=== PATIENT | male | born 1945 | race Caucasian/White ===

== ENCOUNTER 2016-08-21 15:13 | Emergency (ER) | payer OTHER ==
[~2016-08-21] VITALS: Ht 180.3 cm; Wt 121.5 kg
[~2016-08-21 15:13] MED LIST: ADVIN25050 INH; ALBU1AER9 INH; ASPI81TA28 PO; ATOR-26 PO; BUPR150T5 PO; COLE1TAB4 PO; FLUT0.15 NAE; ISOS30TA3 PO; LOSA1TAB PO; METF-384 PO; NTRGSL/4 UT; RIFA550T2 PO; TIOTCAP INH; ZNTT/150 PO
[2016-08-21 15:22] VITALS: TEMP 36.9; Ht 180.3 cm; Wt 121.5 kg
[2016-08-21] MEDS ORDERED: MoRPHine SULFATE 10 MG/ML CARP/VIAL IM STA (15:33)
[2016-08-21] MEDS ORDERED: MoRPHine SULFATE 4 MG/ML 1 ML CARP\\VIAL ONE (15:40)
[2016-08-21] MEDS ORDERED: ONDANSETRON 4MG OD TAB PO ONE (15:45)
--- NOTE | 2016-08-21 16:12 | EMERGENCY ROOM VISIT NOTE ---
ED Visit Note First contact with patient: 15:26 Staff note: I have reviewed the Patients chart and have discussed this case with my PA. I generally agree with the ED note and findings.
--- NOTE | 2016-08-21 16:24 | DIAGNOSTIC IMAGING REPORT ---
LUMBAR SPINE 5 VIEWS HISTORY: Pain L sciatica, h/o back problems COMPARISON: 07/11/2011 FINDINGS: There is no fracture. No subluxation. Degenerative disc change L4-S1 stable from the prior study. No evidence for compression deformity. IMPRESSION: Significant degenerative intervertebral disc change L4-S1. No acute process. No change from the prior exam. Electronically signed by: Luis Stiles M.D. 08/21/2016 4:22 PM Dictated Date/Time: 08/21/2016 4:21 PM
[2016-08-21] MEDS ORDERED: OXYC1TAB3 PO (16:25)
[2016-08-21] MEDS ORDERED: OXYCODONE HCL IR 5 MG TAB (IMMEDIATE RELEASE) PO STA (16:28)
--- NOTE | 2016-08-21 16:34 | EMERGENCY ROOM VISIT NOTE ---
History First contact with patient: 15:26 Chief Complaint: HIP PAIN Stated Complaint: LEFT HIP PAIN History of Present Illness The patient is a 70 year old male who presents to the Emergency Room with complaints of left lower back and buttock pain. The patient reports that he awoke this morning with the pain. He denies any known injury yesterday. He has not sat for long periods of time over the past few days. The patient reports that he has seen a chiropractor in the past for his back. He also denies any left lower extremity weakness, saddle anesthesias or bladder/bowel difficulties/incontinence. The patient rates his discomfort a 10 out of 10. He took several Advil without any relief. Review of Systems 10 system review was performed and was negative except for pertinent positives and negatives as indicated in history of present illness Past Medical/Surgical History Medical Problems: (1) Anxiety (2) CAD (coronary artery disease) (3) Chest pain (4) COPD, mild (5) Diabetes (6) Diastolic dysfunction (7) Dyslipidemia (8) GERD (gastroesophageal reflux disease) (9) HTN (hypertension) (10) PEDRO (obstructive sleep apnea) Surgical Problems: (1) H/O umbilical hernia repair (2) History of inguinal hernia repair, bilateral (3) Hx of hemorrhoidectomy (4) S/P foot surgery, right Family History Diabetes mellitus Heart disease Hypertension Kidney disease Kidney stones Seizures Social History Smoking Status: Former Smoker Alcohol Use: none Drug Use: none Marital Status: in relationship Housing Status: lives with significant other Occupation Status: retired Current/Historical Medications Scheduled Aspirin (Aspirin Ec), 81 MG PO DAILY Atorvastatin (Lipitor), 80 MG PO DAILY Bupropion Hcl (Bupropion Hcl Xl), 150 MG PO DAILY Colestipol Hcl (Micronized Colestipol Hcl), 1 TAB PO DAILY Fluticasone Prop/Salmeterol (Advair Diskus 250/50 Mcg *), 1 PUFF INH BID Fluticasone Propionate (Nasal) (Flonase Allergy Relief), 2 SPRAYS MANSI DAILY Isosorbide Mononitrate Ext Rel (Imdur Ext Rel), 30 MG PO QAM Losartan Potassium (Cozaar), 25 MG PO DAILY Metformin Hcl (Glucophage), 1,000 MG PO BIDM Nitroglycerin (Nitrostat), 0.4 MG UT PRN Ranitidine (Zantac), 150 MG PO BID Rifaximin (Xifaxan), 550 MG PO BID Tiotropium [place] (Spiriva Handihaler), 1 CAP INH DAILY Scheduled PRN Albuterol (Proair Hfa), 2 PUFFS INH Q4H PRN for SOB/Wheezing Oxycodone Ir (Roxicodone Ir), 1-2 TAB PO Q4H PRN for Pain Allergies Coded Allergies: Ezetimibe (Verified Allergy, Intermediate, HIVES, 03/25/16) Pantoprazole (Verified Allergy, Intermediate, HIVES, 03/25/16) Lisinopril (Verified Allergy, Mild, cough, 03/25/16) Codeine (Verified Allergy, Unknown, 03/25/16) Physical Exam Vital Signs Date Time Temp Pulse Resp B/P Pulse Ox O2 Delivery O2 Flow Rate FiO2 08/21/16 15:22 36.9 67 18 137/73 93 Room Air Physical Exam CONSTITUTIONAL: Obese male, alert and oriented X 3 with positive affect. She appears in moderate discomfort from pain. HEENT: Normocephalic, atraumatic. Pupils equal, round and reactive. NECK: Full active range of motion without discomfort. RESPIRATORY: Clear to auscultation bilaterally with no wheezing, crackles, rhonchi or stridor. CARDIOVASCULAR: Regular rate and rhythm with no murmurs, rubs or gallops. GASTROINTESTINAL: Bowel sounds present in all quadrants. Protuberant but soft and nontender to palpation. MUSCULOSKELETAL: Examination shows mild tenderness to palpation through the left lower lumbar spine and SI joints. Negative logroll. Negative sitting straight leg raise. No tenderness to palpation over the greater trochanteric region. Pedal pulses are intact. Ankle plantar/dorsiflexion strength is 5 out of 5 and symmetric bilaterally. INTEGUMENTARY: No rash or other significant dermatologic conditions noted. NEUROLOGIC: No focal neurologic deficits noted. Left extremity is sensory intact. Deep tendon reflexes are 2+ and symmetric bilaterally. Medical Decision & Procedures ER Provider Diagnostic Interpretation: My interpretation of lumbar spine x-rays show significant degenerative disc disease at the L4 5 and L5-S1 level. No acute compression fractures noted. Radiologist report is as follows: LUMBAR SPINE 5 VIEWS HISTORY: Pain L sciatica, h/o back problems COMPARISON: 07/11/2011 FINDINGS: There is no fracture. No subluxation. Degenerative disc change L4-S1 stable from the prior study. No evidence for compression deformity. IMPRESSION: Significant degenerative intervertebral disc change L4-S1. No acute process. No change from the prior exam. Medications Administered Medications (Trade) Dose Ordered Sig/Librado Route Start Time Stop Time Status Last Admin Dose Admin Ondansetron HCl (Zofran Odt) 4 mg ONE ONCE PO 08/21/16 15:45 08/21/16 15:46 DC 08/21/16 15:46 4 MG Morphine Sulfate (MoRPHine SULFATE INJ) 8 mg STK-MED ONCE .ROUTE 08/21/16 15:40 08/21/16 15:42 DC 08/21/16 15:46 8 MG ED Course Patient history and physical exam were performed. Nurse's notes were reviewed. The patient was administered morphine 8 mg IM, and Zofran 4 mg ODT. X-rays of the lumbar spine shows degenerative disc disease at L4 5 and L5-S1. The patient initially reported that the morphine reduced his pain to a 2 out of 10. Only tried to get him up to walk, he had persistent pain. At this point, the patient was administered an additional OxyIR 5 mg orally prior to discharge. The patient was provided a prescription for OxyIR 5 mg, dispensed #24 with no refills. He was encouraged to take Tylenol for baseline pain relief. The patient was instructed to follow-up with his PCP as needed for further management if symptoms are not improving within the next 3-5 days. Return to the emergency Department for uncontrollable pain. The patient was happy with plan of care, voiced understanding of all discharge instructions, and rated his pain a 5 out of 10 at the time of discharge. The patient was also seen and examined by Dr. Hsu, ED attending physician, who agrees with workup and plan of care. Medical Decision Impression Primary Impression: Left sided sciatica Departure Information Prescriptions Oxycodone Ir (Roxicodone Ir) 5 Mg Tab 1-2 TAB PO Q4H Y for Pain, #24 TAB For Initial Treatment Prov: Isiah Navas PA 08/21/16 Referrals Julius Werner MD (PCP) Patient Instructions [facility]
[2016-08-21 17:08] VITALS: BP 112/75; PULSE 62; O2SAT 92
[2016-08-22] MEDS ORDERED: VNTHFA/IN INH (23:41)
[2016-08-22] MEDS ORDERED: SPRIN/30 INH (23:47)
[2016-08-22] MEDS ORDERED: ADVIN25/60 INH (23:47)
== END 2016-08-21 17:25 | disposition home or self-care (01) ==
LOC: C.EDB 15:15 → C.EDD 17:25
DX: M54.42 Lumbago with sciatica, left side (principal); I25.10 Atherosclerotic heart disease of native coronary artery without angina pectoris; J44.9 Chronic obstructive pulmonary disease, unspecified; E11.9 Type 2 diabetes mellitus without complications; E78.5 Hyperlipidemia, unspecified; K21.9 Gastro-esophageal reflux disease without esophagitis; I10 Essential (primary) hypertension; G47.33 Obstructive sleep apnea (adult) (pediatric); Z83.3 Family history of diabetes mellitus; Z82.49 Family history of ischemic heart disease and other diseases of the circulatory system; Z82.0 Family history of epilepsy and other diseases of the nervous system; Z87.891 Personal history of nicotine dependence; Z79.82 Long term (current) use of aspirin

== ENCOUNTER 2016-08-22 22:45 | Emergency (ER) | payer OTHER ==
[~2016-08-22] VITALS: Ht 180.3 cm; Wt 120.2 kg
[~2016-08-22 22:45] MED LIST changes: +OXYC1TAB3 PO
[2016-08-22 22:49] VITALS: TEMP 36.9; Ht 180.3 cm; Wt 120.2 kg
[2016-08-22 23:15] VITALS: PULSE 76; O2SAT 94
[2016-08-22] MEDS ORDERED: VNTHFA/IN INH (23:41)
[2016-08-22] MEDS ORDERED: SPRIN/30 INH (23:47)
[2016-08-22] MEDS ORDERED: ADVIN25/60 INH (23:47)
--- NOTE | 2016-08-23 00:16 | EMERGENCY ROOM VISIT NOTE ---
History Report prepared by Nilesh: Avril Hart Under the Supervision of: Dr. Ruth Ann Pena D.O. First contact with patient: 23:44 Chief Complaint: FLANK PAIN Stated Complaint: LT SIDE LOW BACK PAIN History of Present Illness The patient is a 70 year old male who presents to the Emergency Room with complaints of intermittent left lower back pain that began Sunday morning. He currently rates his discomfort as a 10/10 in severity. The patient states that he woke up Sunday morning with the pain, and notes increased pain with movement. He states that he was evaluated in the emergency department last week for sciatica. The patient states he was prescribed Oxycodone for his discomfort, but denies any relief of his symptoms. Today he notes difficulty walking secondary to the pain, and additionally nausea and vomiting. The patient denies any fever or abdominal pain. He notes that his pain is alleviated with heat and rest. Source of History: patient Onset: Sunday Position: back (lower, left) Symptom Intensity: 10/10 Timing: intermittent Modifying Factors (Worsening): movement Modifying Factors (Relieving): rest, other (heat) Associated Symptoms: + nausea, + vomiting, No abdominal pain, No fevers Review of Systems See HPI for pertinent positives & negatives. A total of 10 systems reviewed and were otherwise negative. Past Medical & Surgical Medical Problems: (1) Anxiety (2) CAD (coronary artery disease) (3) Chest pain (4) COPD, mild (5) Diabetes (6) Diastolic dysfunction (7) Dyslipidemia (8) Gallbladder disease (9) GERD (gastroesophageal reflux disease) (10) HTN (hypertension) (11) PEDRO (obstructive sleep apnea) (12) Pneumonia Surgical Problems: (1) H/O umbilical hernia repair (2) History of cholecystectomy (3) History of inguinal hernia repair, bilateral (4) Hx of hemorrhoidectomy (5) S/P foot surgery, right Family History Diabetes mellitus Heart disease Hypertension Kidney disease Kidney stones Seizures Social History Smoking Status: Never Smoker Alcohol Use: none Drug Use: none Marital Status: in relationship Housing Status: lives with significant other Occupation Status: retired Current/Historical Medications Scheduled Aspirin (Aspirin Ec), 81 MG PO DAILY Atorvastatin (Lipitor), 80 MG PO DAILY Bupropion Hcl (Bupropion Hcl Xl), 150 MG PO DAILY Colestipol Hcl (Micronized Colestipol Hcl), 1 TAB PO BID Fluticasone Prop/Salmeterol (Advair Diskus 250/50 60 Dose), 1 PUFF INH BID Fluticasone Propionate (Nasal) (Flonase Allergy Relief), 2 SPRAYS MANSI DAILY Isosorbide Mononitrate Ext Rel (Imdur Ext Rel), 30 MG PO QAM Losartan Potassium (Cozaar), 25 MG PO DAILY Metformin Hcl (Glucophage), 1,000 MG PO BIDM Ranitidine (Zantac), 75 MG PO BID Rifaximin (Xifaxan), 550 MG PO BID Tiotropium [place] (Spiriva Handihaler), 1 CAP INH DAILY Scheduled PRN Albuterol Hfa (Ventolin Hfa), 2 PUFFS INH Q4H PRN for SOB/Wheezing Nitroglycerin (Nitrostat), 0.4 MG UT UD PRN for Chest Pain Oxycodone Ir (Roxicodone Ir), 1-2 TAB PO Q4H PRN for Pain Allergies Coded Allergies: Ezetimibe (Verified Allergy, Intermediate, HIVES, 03/25/16) Pantoprazole (Verified Allergy, Intermediate, HIVES, 03/25/16) Lisinopril (Verified Allergy, Mild, cough, 03/25/16) Codeine (Verified Allergy, Unknown, 03/25/16) Physical Exam Vital Signs Date Time Temp Pulse Resp B/P Pulse Ox O2 Delivery O2 Flow Rate FiO2 08/23/16 00:29 139/62 08/22/16 23:15 76 20 126/69 94 Room Air 08/22/16 22:49 36.9 71 20 156/66 95 Room Air Physical Exam HEENT: Head - normocephalic and atraumatic Pupils are equal, round, and reactive to light. Extraocular eye muscles are intact, and sclera are anicteric. Nose - moist nasal mucosa without discharge. Mouth - moist buccal mucosa. Oropharynx is nonerythematous and there is no tonsillar exudate or edema noted. Neck: Supple; no JVD, nuchal rigidity, cervical lymphadenopathy. Heart: Regular rate and rhythm. There is a normal S1 and S2 with no murmurs, clicks, or gallops appreciated. Lungs: Clear to auscultation bilaterally with no wheezes, rales, or rhonchi. Abdomen: Soft, completely nontender, nondistended, with good bowel sounds. There are no palpable pulsatile masses or hepatosplenomegaly. There is no guarding, rigidity, or rebound noted. Back: no obvious vesicular lesions to suggest Zoster. Exquisite pain over the left lumbar paraspinous muscles. No pain over the piriformis muscle muscle. Extremities: No evidence of cyanosis, clubbing, or edema. There are easily palpable peripheral pulses. Skin: warm and dry with good turgor and no rashes. Neuro: Pain with straight leg raising of the left. Normal pedal push and pull. Normal patellar reflexes. Medical Decision & Procedures Laboratory Results 08/22/16 23:45 08/22/16 23:45 Test 08/22/16 23:30 08/22/16 23:45 Urine Color YELLOW Urine Appearance CLEAR (CLEAR) Urine pH 6.5 (4.5-7.5) Urine Specific [place] 1.015 (1.000-1.030) Urine Protein NEG (NEG) Urine Glucose (UA) NEG (NEG) Urine Ketones NEG (NEG) Urine Occult Blood NEG (NEG) Urine Nitrite NEG (NEG) Urine Bilirubin NEG (NEG) Urine Urobilinogen NEG (NEG) Urine Leukocyte Esterase NEG (NEG) Urine WBC (Auto) 1-5 /hpf (0-5) Urine RBC (Auto) 0-4 /hpf (0-4) Urine Hyaline Casts (Auto) 0 /lpf (0-5) Urine Epithelial Cells (Auto) 0-5 /lpf (0-5) Urine Bacteria (Auto) NEG (NEG) Red Blood Count 4.45 M/uL (4.7-6.1) Mean Corpuscular Volume 93.3 fL (80-100) Mean Corpuscular Hemoglobin 32.1 pg (25-34) Mean Corpuscular Hemoglobin Concent 34.5 g/dl (32-36) RDW Standard Deviation 43.1 fL (36.4-46.3) RDW Coefficient of Variation 12.7 % (11.5-14.5) Mean Platelet Volume 9.8 fL (7.4-10.4) Anion Gap 9.0 mmol/L (3-11) Est Creatinine Clear Calc Drug Dose 88.1 ml/min Estimated GFR () 86.8 Estimated GFR (Non- 74.9 BUN/Creatinine Ratio 13.8 (10-20) Calcium Level 8.4 mg/dl (8.5-10.1) Laboratory results per my review. Medications Administered Medications (Trade) Dose Ordered Sig/Librado Route Start Time Stop Time Status Last Admin Dose Admin Ketorolac Tromethamine (Toradol Inj) 30 mg NOW STAT IV 08/23/16 00:23 08/23/16 00:25 DC 08/23/16 00:28 30 MG Hydromorphone HCl (Dilaudid Inj) 2 mg NOW STAT IV 08/23/16 00:23 08/23/16 00:25 DC 08/23/16 00:29 2 MG Procedure The patient was treated with 2 mg IV Dilaudid Inj, 30 mg IV Toradol Inj. ED Course 0008: Past medical records reviewed. The patient was evaluated in room A2. A complete history and physical exam was performed. An IV lock was initiated and labs are drones above. A urinalysis was obtained and had no blood noted. 0023: Ordered Dilaudid Inj 2 mg IV, Toradol Inj 30 mg IV. 0113: I reevaluated the patient and he feels better, but feels dizzy. The patient states that he has seen [facility] in the past and he states that he will follow up with them. I discussed the exam findings with him and he verbalized agreement with the treatment plan. He will use his oxycodone that he was prescribed last week. He is ready to go home. Medical Decision The patient is a 70 year old male who presents to the ED with back pain. Differential diagnosis includes ureteral colic, pyelonephritis, UTI, sciatica, lumbar back pain. Lab interpretation: glucose is 173, normal renal function, normal white count, stable H&H, UA is normal. The patient presents emergency Department with significant left sided low back pain. The pain is exacerbated by movements. It is easily reproducible with palpation to the left low back. There are no skin findings in that area. The patient got moderate relief of the pain in his low back with the IV Dilaudid and Toradol. He requested the go home. He has oxycodone at home to use for pain. I recommended that he take it routinely over the next couple of days because of the significant pain. He had not taken it through the day at all yesterday because he was feeling so good and then the pain became severe at nighttime. X-rays from his previous visits showed moderate degenerative changes. I've asked the patient to follow-up with physical therapy as he has had excessive them in the past. Impression Primary Impression: Low back pain Scribe Attestation The scribe's documentation has been prepared under my direction and personally reviewed by me in its entirety. I confirm that the note above accurately reflects all work, treatment, procedures, and medical decision making performed by me. Departure Information Dispostion Home / Self-Care Referrals Julius Werner MD (PCP) Forms HOME CARE DOCUMENTATION FORM, IMPORTANT VISIT INFORMATION Patient Instructions Back Pain - [facility], [facility] Additional Instructions Rest. Apply heat to your back Take oxycodone as directed. Follow up with PCP for referral to [facility]
[2016-08-23] MEDS ORDERED: KETOROLAC TROMETHAMINE 30 MG/ML VIAL IV STA (00:23)
[2016-08-23] MEDS ORDERED: HYDROmorphone INJ 2 MG/ML SYR/VIAL IV STA (00:23)
[2016-08-23 00:29] VITALS: BP 139/62
[2016-08-23 00:36] LABS: HEMATOCRIT 41.5 % (42-52); MEAN CELL VOLUME 93.3 fL (80-100); MEAN CORPUSCULAR HEMOGLOBIN 32.1 pg (25-34); MEAN CORPUSCULAR HGB CONC 34.5 g/dl (32-36); MEAN PLATELET VOLUME 9.8 fL (7.4-10.4); PLATELET COUNT 198 K/uL (130-400); RED BLOOD COUNT 4.45 M/uL (4.7-6.1); WHITE BLOOD COUNT 5.46 K/uL (4.8-10.8)
[2016-08-23 00:51] LABS: BUN/CREATININE RATIO 13.8 (10-20); CALCIUM 8.4 mg/dl (8.5-10.1); POTASSIUM 4.1 mmol/L (3.5-5.1)
[2016-08-23 01:29] LABS: URINE APPEARANCE CLEAR (CLEAR); URINE BILIRUBIN NEG (NEG); URINE COLOR YELLOW; URINE EPITHELIAL CELL AUTO 0-5 /lpf (0-5); URINE NITRITE NEG (NEG); URINE PH 6.5 (4.5-7.5); URINE SPECIFIC GRAVITY 1.015 (1.000-1.030); UROBILINOGEN NEG (NEG); ZZUR CULT IF INDIC CLEAN CATCH NO
[2016-08-23 01:31] LABS: MANUAL MICROSCOPIC REQUIRED? NO; REVIEW REQ? NO
== END 2016-08-23 01:30 | disposition home or self-care (01) ==
LOC: C.EDB 22:45 → C.EDA 08-23 01:30
DX: M54.5 Low back pain (principal); R11.2 Nausea with vomiting, unspecified; I25.10 Atherosclerotic heart disease of native coronary artery without angina pectoris; J44.9 Chronic obstructive pulmonary disease, unspecified; E11.9 Type 2 diabetes mellitus without complications; E78.5 Hyperlipidemia, unspecified; K21.9 Gastro-esophageal reflux disease without esophagitis; I10 Essential (primary) hypertension; Z87.01 Personal history of pneumonia (recurrent); Z90.49 Acquired absence of other specified parts of digestive tract; Z98.890 Other specified postprocedural states; Z83.3 Family history of diabetes mellitus; Z82.49 Family history of ischemic heart disease and other diseases of the circulatory system; Z82.0 Family history of epilepsy and other diseases of the nervous system; Z79.82 Long term (current) use of aspirin; Z79.84 Long term (current) use of oral hypoglycemic drugs; Z79.899 Other long term (current) drug therapy

== ENCOUNTER 2016-09-22 01:06 | Emergency (ER) | payer OTHER ==
[~2016-09-22] VITALS: Ht 180.3 cm; Wt 118.1 kg
[~2016-09-22 01:06] MED LIST changes: +ADVIN25/60 INH; -ADVIN25050 INH; -ALBU1AER9 INH; +SPRIN/30 INH; -TIOTCAP INH; +VNTHFA/IN INH
[2016-09-22 01:10] VITALS: O2SAT 96
[2016-09-22 01:11] VITALS: TEMP 36.4; Ht 180.3 cm; Wt 118.1 kg
[2016-09-22] MEDS ORDERED: ALUMINUM/MAGNESIUM SUSP 30 ML UDC PO STA (01:19)
[2016-09-22] MEDS ORDERED: LIDOCAINE HCL 2% VISC SOLN 20 ML UDC PO STA (01:19)
--- NOTE | 2016-09-22 01:26 | EMERGENCY ROOM VISIT NOTE ---
History Report prepared by Nilesh: Avril Hart Under the Supervision of: Dr. Ruth Ann Pena D.O. First contact with patient: 01:11 Chief Complaint: CHEST PAIN Stated Complaint: CHEST PAIN,TROUBLE BREATHING,HEADACHE,TOOK 3 NITRO History of Present Illness The patient is a 71 year old male who presents to the Emergency Room with complaints of persistent central chest pain that began one hour ago. He currently rates his discomfort as an 8/10 in severity. The patient notes that he felt fine throughout the day and states that when he went to lie down in bed he developed chest pain. He states that this evening he ate a cheese steak for dinner, and denies his pain today feeling similar to heart burn. The patient states that he follows with cardiology and states that he has seen them recently for his recent episodes of chest pain. 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 The patient states that he had a stress test two years ago. He states that his pain feels similar to his previous chest pain episodes. The patient associates shortness of breath with his symptoms today, but denies any nausea or abdominal pain. He states that he took nitro for his discomfort without relief of his symptoms. The patient denies the pain radiating into his back. Source of History: patient Onset: one hour ago Position: chest (central) Symptom Intensity: 8/10 Timing: other (persistent) Associated Symptoms: + SOB, No abdominal pain, No nausea Review of Systems See HPI for pertinent positives & negatives. A total of 10 systems reviewed and were otherwise negative. Past Medical & Surgical Medical Problems: (1) Anxiety (2) CAD (coronary artery disease) (3) Chest pain (4) COPD, mild (5) Diabetes (6) Diastolic dysfunction (7) Dyslipidemia (8) Gallbladder disease (9) GERD (gastroesophageal reflux disease) (10) HTN (hypertension) (11) PEDRO (obstructive sleep apnea) (12) Pneumonia Surgical Problems: (1) H/O umbilical hernia repair (2) History of cholecystectomy (3) History of inguinal hernia repair, bilateral (4) Hx of hemorrhoidectomy (5) S/P foot surgery, right Family History Diabetes mellitus Heart disease Hypertension Kidney disease Kidney stones Seizures Social History Smoking Status: Former Smoker Alcohol Use: none Drug Use: none Marital Status: in relationship Housing Status: lives with significant other Occupation Status: retired Current/Historical Medications Scheduled Aspirin (Aspirin Ec), 81 MG PO DAILY Atorvastatin (Lipitor), 80 MG PO DAILY Bupropion Hcl (Bupropion Hcl Xl), 150 MG PO DAILY Colestipol Hcl (Micronized Colestipol Hcl), 1 TAB PO BID Fluticasone Prop/Salmeterol (Advair Diskus 250/50 60 Dose), 1 PUFF INH BID Fluticasone Propionate (Nasal) (Flonase Allergy Relief), 2 SPRAYS MANSI DAILY Isosorbide Mononitrate Ext Rel (Imdur Ext Rel), 30 MG PO QAM Losartan Potassium (Cozaar), 25 MG PO DAILY Metformin Hcl (Glucophage), 1,000 MG PO BIDM Ranitidine (Zantac), 75 MG PO BID Rifaximin (Xifaxan), 550 MG PO BID Tiotropium [place] (Spiriva Handihaler), 1 CAP INH DAILY Scheduled PRN Albuterol Hfa (Ventolin Hfa), 2 PUFFS INH Q4H PRN for SOB/Wheezing Nitroglycerin (Nitrostat), 0.4 MG UT UD PRN for Chest Pain Allergies Coded Allergies: Ezetimibe (Verified Allergy, Intermediate, HIVES, 03/25/16) Pantoprazole (Verified Allergy, Intermediate, HIVES, 03/25/16) Lisinopril (Verified Allergy, Mild, cough, 03/25/16) Codeine (Verified Allergy, Unknown, 03/25/16) Physical Exam Vital Signs Date Time Temp Pulse Resp B/P Pulse Ox O2 Delivery O2 Flow Rate FiO2 09/22/16 03:54 76 18 155/73 97 Room Air 09/22/16 03:00 149/79 09/22/16 02:11 67 15 97 09/22/16 02:06 67 19 96 09/22/16 02:00 136/81 09/22/16 01:35 68 09/22/16 01:14 141/83 09/22/16 01:11 36.4 71 20 141/83 96 Room Air 09/22/16 01:10 96 Room Air 09/22/16 01:08 96 Room Air Physical Exam HEENT: Head - normocephalic and atraumatic Pupils are equal, round, and reactive to light. Extraocular eye muscles are intact, and sclera are anicteric. Nose - moist nasal mucosa without discharge. Mouth - moist buccal mucosa. Oropharynx is nonerythematous and there is no tonsillar exudate or edema noted. Neck: Supple; no JVD, nuchal rigidity, cervical lymphadenopathy. Heart: Regular rate and rhythm. There is a normal S1 and S2 with no murmurs, clicks, or gallops appreciated. Lungs: Clear to auscultation bilaterally with no wheezes, rales, or rhonchi. Abdomen: Soft, completely nontender, nondistended, with good bowel sounds. There are no palpable pulsatile masses or hepatosplenomegaly. There is no guarding, rigidity, or rebound noted. Extremities: No evidence of cyanosis, clubbing, or edema. There are easily palpable peripheral pulses. Skin: warm and dry with good turgor and no rashes. Medical Decision & Procedures ER Provider Diagnostic Interpretation: Chest x-ray: borderline cardiomegaly, no pulmonary infiltrates, granulomas disease Laboratory Results 09/22/16 01:00 Red Blood Count 4.64, Mean Corpuscular Volume 93.5, Mean Corpuscular Hemoglobin 32.8, Mean Corpuscular Hemoglobin Concent 35.0, Mean Platelet Volume 10.4, Neutrophils (%) (Auto) 50.1, Lymphocytes (%) (Auto) 35.0, Monocytes (%) (Auto) 10.1, Eosinophils (%) (Auto) 4.1, Basophils (%) (Auto) 0.6, Neutrophils # (Auto ) 3.90, Lymphocytes # (Auto) 2.73, Monocytes # (Auto) 0.79, Eosinophils # (Auto ) 0.32, Basophils # (Auto) 0.05 09/22/16 01:00 Test 09/22/16 01:00 09/22/16 02:45 White Blood Count 7.80 K/uL (4.8-10.8) Red Blood Count 4.64 M/uL (4.7-6.1) Hemoglobin 15.2 g/dL (14.0-18.0) Hematocrit 43.4 % (42-52) Mean Corpuscular Volume 93.5 fL (80-100) Mean Corpuscular Hemoglobin 32.8 pg (25-34) Mean Corpuscular Hemoglobin Concent 35.0 g/dl (32-36) Platelet Count 206 K/uL (130-400) Mean Platelet Volume 10.4 fL (7.4-10.4) Neutrophils (%) (Auto) 50.1 % Lymphocytes (%) (Auto) 35.0 % Monocytes (%) (Auto) 10.1 % Eosinophils (%) (Auto) 4.1 % Basophils (%) (Auto) 0.6 % Neutrophils # (Auto) 3.90 K/uL (1.4-6.5) Lymphocytes # (Auto) 2.73 K/uL (1.2-3.4) Monocytes # (Auto) 0.79 K/uL (0.11-0.59) Eosinophils # (Auto) 0.32 K/uL (0-0.5) Basophils # (Auto) 0.05 K/uL (0-0.2) RDW Standard Deviation 43.2 fL (36.4-46.3) RDW Coefficient of Variation 12.7 % (11.5-14.5) Immature Granulocyte % (Auto) 0.1 % Immature Granulocyte # (Auto) 0.01 K/uL (0.00-0.02) Anion Gap 9.0 mmol/L (3-11) Est Creatinine Clear Calc Drug Dose 71.7 ml/min Estimated GFR () 69.1 Estimated GFR (Non- 59.6 BUN/Creatinine Ratio 13.1 (10-20) Calcium Level 8.6 mg/dl (8.5-10.1) Total Bilirubin 0.5 mg/dl (0.2-1) Aspartate Amino Transf (AST/SGOT) 22 U/L (15-37) Alanine Aminotransferase (ALT/SGPT) 30 U/L (12-78) Alkaline Phosphatase 84 U/L (45-117) Total Creatine Kinase 93 U/L (39-308) Creatine Kinase MB 0.8 ng/ml (0.5-3.6) Creatine Kinase MB Ratio 0.9 (0-3.0) Total Protein 6.9 gm/dl (6.4-8.2) Albumin 3.7 gm/dl (3.4-5.0) Globulin 3.2 gm/dl (2.5-4.0) Albumin/Globulin Ratio 1.2 (0.9-2) Lipase 229 U/L (73-393) Chemistry Specimen Hemolysis Troponin I 0.028 ng/ml (0-0.045) Laboratory results per my review. Medications Administered Medications (Trade) Dose Ordered Sig/Librado Route Start Time Stop Time Status Last Admin Dose Admin Lidocaine HCl (Viscous Lidocaine 2% Soln) 10 ml NOW STAT PO 09/22/16 01:19 09/22/16 01:21 DC 09/22/16 01:26 10 ML Al Hydroxide/Mg Hydroxide (Maalox Susp) 30 ml NOW STAT PO 09/22/16 01:19 09/22/16 01:21 DC 09/22/16 01:25 30 ML Procedure GI cocktail ECG Indication: chest pain Rate (beats per minute): 69 Rhythm: normal sinus Findings: no acute ischemic change, no ectopy ED Course 0115: Past medical records reviewed. The patient was evaluated in room A10. A complete history and physical exam was performed. A twelve-lead EKG was obtained as described above. An IV lock was initiated and labs were drawn as above. The patient was observing the cardiac technologist and pulse oximeter. 0119: Ordered Maalox Susp 30 ml PO, Lidocaine HCl 10 ml PO. The patient had a portable chest x-ray. 0334: I reevaluated the patient and he had complete relief of his symptoms with the GI cocktail. I did repeat a troponin which did not significantly elevate after 90 minutes. I discussed all the exam findings with him and I discussed the treatment plan. He verbalized complete understanding and agreement. He is ready to go home. Medical Decision The patient is a 71 year old male who presents to the ED with chest pain. Differential diagnosis includes costochondritis, cardiac ischemia, pleurisy, GERD. Lab interpretation: WBC 7.8, stable H&H, normal renal function, glucose 128, LFTs and lipase are normal, troponin is 0.022. Second troponin 0.028 This is a 71-year-old male patient who presents to the emergency department with substernal chest pain. He's had multiple previous episodes of substernal chest pain for which she has been to the emergency department. EKGs remain unremarkable. Cardiac enzymes are negative. The patient's pain was relieved with a GI cocktail. The patient's symptoms are most likely secondary to reflux. He describes having previous episodes of chest pain for which she has seen cardiology and has had cardiac stress testing which was negative. Take 150 mg of oral Zantac twice a day. Impression Primary Impression: Atypical chest pain Additional Impression: GERD (gastroesophageal reflux disease) Scribe Attestation The scribe's documentation has been prepared under my direction and personally reviewed by me in its entirety. I confirm that the note above accurately reflects all work, treatment, procedures, and medical decision making performed by me. Departure Information Dispostion Home / Self-Care Referrals Julius Werner MD (PCP) Forms HOME CARE DOCUMENTATION FORM, IMPORTANT VISIT INFORMATION Patient Instructions GERD, My [facility] Additional Instructions Rest. Do not eat 4 hours before lying down Take ranitidine - 150mg every 12 hours Follow up with your PCP Problem Qualifiers
[2016-09-22 01:29] LABS: BASO % 0.6 %; BASO ABS # 0.05 K/uL (0-0.2); COMPLETE YES; EOS % 4.1 %; HEMATOCRIT 43.4 % (42-52); IG% 0.1 %; LYMPH ABS # 2.73 K/uL (1.2-3.4); MEAN CELL VOLUME 93.5 fL (80-100); MEAN CORPUSCULAR HEMOGLOBIN 32.8 pg (25-34); MEAN PLATELET VOLUME 10.4 fL (7.4-10.4); MONO % 10.1 %; NEUT % 50.1 %; PLATELET COUNT 206 K/uL (130-400); RED BLOOD COUNT 4.64 M/uL (4.7-6.1)
[2016-09-22 02:21] LABS: ALB/GLOB RATIO 1.2 (0.9-2); BUN/CREATININE RATIO 13.1 (10-20); CALCIUM 8.6 mg/dl (8.5-10.1); CKMB/CK RATIO 0.9 (0-3.0); CREATININE 1.2 mg/dl (0.60-1.40)
[2016-09-22 03:54] VITALS: BP 155/73; PULSE 76; O2SAT 97
--- NOTE | 2016-09-22 07:25 | DIAGNOSTIC IMAGING REPORT ---
CHEST ONE VIEW PORTABLE CLINICAL HISTORY: Midsternal chest pain COMPARISON STUDY: 03/25/2016 FINDINGS: The heart is at the upper limits of normal in size. There is no failure. There is no focal pulmonary consolidation. There are no pleural effusions. There is a stable calcified granuloma at the left lung base. There is a stable area of linear atelectasis/scarring at the right lung base.[ IMPRESSION: No active disease in the chest. Electronically signed by: Chase Bojorquez M.D. 09/22/2016 7:24 AM Dictated Date/Time: 09/22/2016 7:23 AM
== END 2016-09-22 04:01 | disposition home or self-care (01) ==
LOC: C.EDB 01:07 → C.EDA 04:01
DX: R07.89 Other chest pain (principal); K21.9 Gastro-esophageal reflux disease without esophagitis; F41.9 Anxiety disorder, unspecified; I25.10 Atherosclerotic heart disease of native coronary artery without angina pectoris; J44.9 Chronic obstructive pulmonary disease, unspecified; E11.9 Type 2 diabetes mellitus without complications; I50.30 Unspecified diastolic (congestive) heart failure; E78.5 Hyperlipidemia, unspecified; I10 Essential (primary) hypertension; G47.33 Obstructive sleep apnea (adult) (pediatric); Z87.891 Personal history of nicotine dependence; Z79.82 Long term (current) use of aspirin

== ENCOUNTER 2017-07-01 21:16 | Emergency (ER) | payer OTHER ==
[~2017-07-01] VITALS: Ht 180.3 cm; Wt 107.9 kg
[~2017-07-01 21:16] MED LIST changes: -ADVIN25/60 INH; -ASPI81TA28 PO; -ATOR-26 PO; -BUPR150T5 PO; -COLE1TAB4 PO; -FLUT0.15 NAE; -ISOS30TA3 PO; -LOSA1TAB PO; -NTRGSL/4 UT; -OXYC1TAB3 PO; -SPRIN/30 INH; -VNTHFA/IN INH; -ZNTT/150 PO
[2017-07-01 21:23] VITALS: TEMP 36.7; Ht 180.3 cm; Wt 107.9 kg
[2017-07-01] MEDS ORDERED: ACETAMINOPHEN 500 MG TAB PO STA (21:50)
[2017-07-01 22:17] LABS: BASO % 0.8 %; BASO ABS # 0.05 K/uL (0-0.2); EOS % 2.8 %; EOS ABS # 0.18 K/uL (0-0.5); HEMATOCRIT 42.6 % (42-52); HEMOGLOBIN 14.7 g/dL (14.0-18.0); IG# 0.01 K/uL (0.00-0.02); LYMPH ABS # 2.26 K/uL (1.2-3.4); MEAN CORPUSCULAR HEMOGLOBIN 32.1 pg (25-34); MEAN CORPUSCULAR HGB CONC 34.5 g/dl (32-36); MONO % 11.6 %; MONO ABS # 0.75 K/uL (0.11-0.59); NEUT % 49.6 %; PLATELET COUNT 217 K/uL (130-400); RED CELL DISTRIBUTION WIDTH CV 12.7 % (11.5-14.5); WHITE BLOOD COUNT 6.45 K/uL (4.8-10.8)
--- NOTE | 2017-07-01 22:29 | DIAGNOSTIC IMAGING REPORT ---
HEAD WITHOUT CONTRAST (CT) CT DOSE: 712.55 mGy.cm HISTORY: Mental status change. Headache. eval for bleed TECHNIQUE: Multiaxial CT images of the head were performed without the use of intravenous contrast. A dose lowering technique was utilized adhering to the principles of ALARA. Comparison: 09/03/2012 Findings: The paranasal sinuses and mastoid air cells are clear. Left temporal fossa arachnoid cyst. Generalized cerebellar as well as cerebral atrophy. Compensatory prominence of the ventricular system. All findings are similar compared to the prior study. There is no acute intracranial hemorrhage. There is no midline shift. Impression: Chronic and age-related change. No acute intracranial abnormality. No change from the prior exam. The above report was generated using voice recognition software. It may contain grammatical, syntax or spelling errors. Electronically signed by: Luis Stiles M.D. 07/01/2017 10:27 PM Dictated Date/Time: 07/01/2017 10:26 PM
[2017-07-01] MEDS ORDERED: DiphenhydrAMINE HCL 50 MG/ML VIAL IV STA (22:35)
[2017-07-01] MEDS ORDERED: PROCHLORPERAZINE 5 MG/ML 2 ML VIAL IV STA (22:35)
[2017-07-01] MEDS ORDERED: KETOROLAC TROMETHAMINE 30 MG/ML VIAL IV STA (22:35)
[2017-07-01 22:52] LABS: ALBUMIN 3.5 gm/dl (3.4-5.0); ALT/SGPT 36 U/L (12-78); BLOOD UREA NITROGEN 23 mg/dl (7-18); CALCIUM 8.7 mg/dl (8.5-10.1); CARBON DIOXIDE 26 mmol/L (21-32); CREATININE 1.48 mg/dl (0.60-1.40); GLUCOSE 131 mg/dl (70-99); POTASSIUM 3.9 mmol/L (3.5-5.1); SODIUM 137 mmol/L (136-145)
[2017-07-01 22:55] LABS: ALKALINE PHOSPHATASE 78 U/L (45-117); AST/SGOT 24 U/L (15-37); TOTAL PROTEIN 6.5 gm/dl (6.4-8.2)
[2017-07-01] MEDS ORDERED: SODIUM CHLORIDE 0.9% 500ML 500 ML IV STA (23:07)
[2017-07-01 23:30] VITALS: BP 117/71; PULSE 63; O2SAT 96
--- NOTE | 2017-07-01 23:46 | EMERGENCY ROOM VISIT NOTE ---
History Report prepared by Nilesh: Shannan Bajwa Under the Supervision of: Dr. Endy Leahc M.D. First contact with patient: 21:44 Chief Complaint: HEADACHE Stated Complaint: HEADACHE History of Present Illness The patient is a 71 year old male who presents to the Emergency Room with complaints of a constant throbbing headache beginning four days ago. The patient states he hasn't been taking his blood pressure medication for the past three months. He states he stopped taking his medication because he is "bull- headed" and didn't think he needed it anymore. The patient states he restarted his medication today. The patient states he has stopped his blood pressure medication in the past and got a headache similar to the one he has today. He reports darkened urine but denies any neck pain, fever, vomiting, abdominal pain , chest pain, shortness of breath, or numbness or weakness. The patient has a history of diabetes. Source of History: patient Onset: 4 days ago Position: head Quality: ache Timing: constant Associated Symptoms: + headache, No fevers, No neck pain, No SOB, No vomiting, No abdominal pain, No numbness Review of Systems See HPI for pertinent positives & negatives. A total of 10 systems reviewed and were otherwise negative. Past Medical & Surgical Medical Problems: (1) Anxiety (2) CAD (coronary artery disease) (3) Chest pain (4) COPD, mild (5) Diabetes (6) Diastolic dysfunction (7) Dyslipidemia (8) Gallbladder disease (9) GERD (gastroesophageal reflux disease) (10) HTN (hypertension) (11) PEDRO (obstructive sleep apnea) (12) Pneumonia Surgical Problems: (1) H/O umbilical hernia repair (2) History of cholecystectomy (3) History of inguinal hernia repair, bilateral (4) Hx of hemorrhoidectomy (5) S/P foot surgery, right Family History Diabetes mellitus Heart disease Hypertension Kidney disease Kidney stones Seizures Social History Smoking Status: Former Smoker Alcohol Use: none Drug Use: none Marital Status: in relationship Housing Status: lives with significant other Occupation Status: retired Current/Historical Medications Scheduled Aspirin (Aspirin Ec), 81 MG PO DAILY Atorvastatin (Lipitor), 80 MG PO DAILY Bupropion Hcl (Bupropion Hcl Xl), 150 MG PO DAILY Colestipol Hcl (Micronized Colestipol Hcl), 1 TAB PO BID Fluticasone Prop/Salmeterol (Advair Diskus 250/50 60 Dose), 1 PUFF INH BID Fluticasone Propionate (Nasal) (Flonase Allergy Relief), 2 SPRAYS MANSI DAILY Isosorbide Mononitrate Ext Rel (Imdur Ext Rel), 30 MG PO QAM Losartan Potassium (Cozaar), 25 MG PO DAILY Metformin Hcl (Glucophage), 1,000 MG PO BIDM Ranitidine (Zantac), 75 MG PO BID Rifaximin (Xifaxan), 550 MG PO BID Tiotropium [place] (Spiriva Handihaler), 1 CAP INH DAILY Scheduled PRN Albuterol Hfa (Ventolin Hfa), 2 PUFFS INH Q4H PRN for SOB/Wheezing Nitroglycerin (Nitrostat), 0.4 MG UT UD PRN for Chest Pain Allergies Coded Allergies: Ezetimibe (Verified Allergy, Intermediate, HIVES, 07/01/17) Pantoprazole (Verified Allergy, Intermediate, HIVES, 07/01/17) Lisinopril (Verified Allergy, Mild, cough, 07/01/17) Codeine (Verified Allergy, Unknown, 07/01/17) Physical Exam Vital Signs Date Time Temp Pulse Resp B/P (MAP) Pulse Ox O2 Delivery O2 Flow Rate FiO2 07/01/17 23:30 63 20 117/71 96 07/01/17 23:20 64 95 07/01/17 23:15 69 18 94 07/01/17 23:04 127/64 07/01/17 22:48 84 20 133/74 94 Room Air 07/01/17 22:47 133/74 07/01/17 21:23 36.7 80 18 151/77 95 Room Air Physical Exam Constitutional: Vital signs reviewed. Eyes: Pupils are equal round reactive to light. Conjunctiva are noninjected. ENT: Pharynx is clear without erythema or exudate. Mucous membranes are moist. Neck supple without meningeal signs. Respiratory: Clear to auscultation bilaterally. Breath sounds are equal bilaterally. Cardiovascular: Regular rate and rhythm. No rubs or gallops. GI: Soft, nondistended and nontender. Bowel sounds are present. Musculoskeletal: No peripheral edema. No lower extremity tenderness. Integumentary: No cyanosis. Neurological: The patient is awake and alert. Cranial nerves II-XII are intact. Motor is 5 out of 5 all extremities. Sensation is intact to light touch all extremities. Normal speech. No pronator drift. Psychiatric: Normal affect. Medical Decision & Procedures ER Provider Diagnostic Interpretation: Radiology results as stated below per my review and the radiologist's interpretation: HEAD WITHOUT CONTRAST (CT) Findings: The paranasal sinuses and mastoid air cells are clear. Left temporal fossa arachnoid cyst. Generalized cerebellar as well as cerebral atrophy. Compensatory prominence of the ventricular system. All findings are similar compared to the prior study. There is no acute intracranial hemorrhage. There is no midline shift. Impression: Chronic and age-related change. No acute intracranial abnormality. No change from the prior exam. The above report was generated using voice recognition software. It may contain grammatical, syntax or spelling errors. Electronically signed by: Luis Stiles M.D. Laboratory Results 07/01/17 22:05 Red Blood Count 4.58, Mean Corpuscular Volume 93.0, Mean Corpuscular Hemoglobin 32.1, Mean Corpuscular Hemoglobin Concent 34.5, Mean Platelet Volume 10.0, Neutrophils (%) (Auto) 49.6, Lymphocytes (%) (Auto) 35.0, Monocytes (%) (Auto) 11.6, Eosinophils (%) (Auto) 2.8, Basophils (%) (Auto) 0.8, Neutrophils # (Auto ) 3.20, Lymphocytes # (Auto) 2.26, Monocytes # (Auto) 0.75, Eosinophils # (Auto ) 0.18, Basophils # (Auto) 0.05 07/01/17 22:05 Test 07/01/17 22:05 07/01/17 23:00 White Blood Count 6.45 K/uL (4.8-10.8) Red Blood Count 4.58 M/uL (4.7-6.1) Hemoglobin 14.7 g/dL (14.0-18.0) Hematocrit 42.6 % (42-52) Mean Corpuscular Volume 93.0 fL (80-100) Mean Corpuscular Hemoglobin 32.1 pg (25-34) Mean Corpuscular Hemoglobin Concent 34.5 g/dl (32-36) Platelet Count 217 K/uL (130-400) Mean Platelet Volume 10.0 fL (7.4-10.4) Neutrophils (%) (Auto) 49.6 % Lymphocytes (%) (Auto) 35.0 % Monocytes (%) (Auto) 11.6 % Eosinophils (%) (Auto) 2.8 % Basophils (%) (Auto) 0.8 % Neutrophils # (Auto) 3.20 K/uL (1.4-6.5) Lymphocytes # (Auto) 2.26 K/uL (1.2-3.4) Monocytes # (Auto) 0.75 K/uL (0.11-0.59) Eosinophils # (Auto) 0.18 K/uL (0-0.5) Basophils # (Auto) 0.05 K/uL (0-0.2) RDW Standard Deviation 43.0 fL (36.4-46.3) RDW Coefficient of Variation 12.7 % (11.5-14.5) Immature Granulocyte % (Auto) 0.2 % Immature Granulocyte # (Auto) 0.01 K/uL (0.00-0.02) Anion Gap 7.0 mmol/L (3-11) Est Creatinine Clear Calc Drug Dose 55.5 ml/min Estimated GFR () 53.6 Estimated GFR (Non- 46.3 BUN/Creatinine Ratio 15.2 (10-20) Calcium Level 8.7 mg/dl (8.5-10.1) Total Bilirubin 0.5 mg/dl (0.2-1) Direct Bilirubin < 0.1 mg/dl (0-0.2) Aspartate Amino Transf (AST/SGOT) 24 U/L (15-37) Alanine Aminotransferase (ALT/SGPT) 36 U/L (12-78) Alkaline Phosphatase 78 U/L (45-117) Total Protein 6.5 gm/dl (6.4-8.2) Albumin 3.5 gm/dl (3.4-5.0) Urine Color YELLOW Urine Appearance CLEAR (CLEAR) Urine pH 5.0 (4.5-7.5) Urine Specific [place] 1.021 (1.000-1.030) Urine Protein NEG (NEG) Urine Glucose (UA) NEG (NEG) Urine Ketones TRACE (NEG) Urine Occult Blood NEG (NEG) Urine Nitrite NEG (NEG) Urine Bilirubin NEG (NEG) Urine Urobilinogen NEG (NEG) Urine Leukocyte Esterase NEG (NEG) Laboratory results as reviewed by me. Medications Administered Medications (Trade) Dose Ordered Sig/Librado Route Start Time Stop Time Status Last Admin Dose Admin Acetaminophen (Tylenol Tab) 1,000 mg NOW STAT PO 07/01/17 21:50 07/01/17 21:52 DC 07/01/17 21:56 1,000 MG Prochlorperazine Edisylate (Compazine Inj) 10 mg NOW STAT IV 07/01/17 22:35 07/01/17 22:36 DC 07/01/17 22:41 10 MG Diphenhydramine HCl (Benadryl Inj) 50 mg NOW STAT IV 07/01/17 22:35 07/01/17 22:36 DC 07/01/17 22:42 50 MG Ketorolac Tromethamine (Toradol Inj) 10 mg NOW STAT IV 07/01/17 22:35 07/01/17 22:36 DC 07/01/17 22:41 10 MG Sodium Chloride 500 ml @ 999 mls/hr Q31M STAT IV 07/01/17 23:07 07/01/17 23:37 DC 07/01/17 23:15 999 MLS/HR ED Course 2145: The patient was evaluated in room B12B. A complete history and physical exam was performed. 0: Ordered Tylenol Tab 1000 mg PO. 2234: On reassessment, the patient's headache is unchanged. 2235: Ordered Toradol Inj 10 mg IV, Benadryl Inj 50 mg IV, Compazine Inj 10 mg IV. 2305: The patient's blood pressure is now 127/64. His headache is now gone. 2324: I discussed results with the patient. He is ready to go home. 2332: Upon reevaluation, the patient appeared to have improvement of his symptoms. I discussed tonight's findings with the patient. He verbalized agreement of the treatment plan. The patient was discharged home. Medical Decision This is a 71-year-old male presents with a headache. Differential diagnosis includes intracranial hemorrhage, intracranial mass, tension headache, hydrocephalus, migraine headache. I did perform a limited focused review of portions of the patient's old chart on the electronic medical record. The patient has had no recent pertinent visits to this hospital. I did evaluate the patient as noted above. IV access was established. The patient was placed on a continuous security monitor. I did order and personally review the patient's urinalysis as described above. I did order and review the patient's blood work as noted in the electronic medical record. He does have an elevated serum creatinine. He was given normal saline IV. I did order a CT of the head. I did review the images myself as well as the radiology report as described above. There is no evidence of acute intra-cranial abnormality. I did treat patient with Tylenol initially. He did not have any relief with Tylenol. I did treat him with Compazine, Benadryl and Toradol IV. On reassessment he is feeling much better and states that his headache is now resolved. His blood pressure also did improve. I did stress to him the importance of taking his blood pressure medications as prescribed. He was advised follow with his doctor and discharged home with his . He will have his doctor recheck his creatinine. Medication Reconcilliation Current Medication List: was personally reviewed by me Blood Pressure Screening Patient's blood pressure: Elevated blood pressure Blood pressure disposition: Referred to PCP Impression Primary Impression: Acute headache Additional Impressions: Elevated serum creatinine Noncompliance with medications Scribe Attestation The scribe's documentation has been prepared under my direct and personally reviewed by me in its entirety. I confirm that the note above accurately reflects all work, treatment, procedures, and medical decision making performed by me. Departure Information Dispostion Home / Self-Care Referrals Julius Werner MD (PCP) Forms HOME CARE DOCUMENTATION FORM, IMPORTANT VISIT INFORMATION Patient Instructions Headache Pain, My [facility] Additional Instructions You have been examined and treated today on an emergency basis only. This is not a substitute for, or an effort to provide, complete comprehensive medical care. It is impossible to recognize and treat all injuries or illnesses in a single emergency department visit. It is therefore important that you follow up closely with your physician. Call as soon as possible for an appointment. Return for worsening symptoms or if you develop fever, vomiting, chest pain, shortness of breath, decreased urination, numbness or weakness to your arms or legs or any other concerning symptoms. Your serum creatinine was 1.5 today. This is indirect measure of your kidney function. Have it rechecked by your doctor in about a week. Problem Qualifiers Primary Impression: Acute headache Headache type: unspecified Intractability: not intractable Qualified Codes : R51 - Headache
[2017-11-20] MEDS ORDERED: RIFA550T2 PO (14:15)
[2017-11-20] MEDS ORDERED: BUPR150T5 PO (16:26)
[2017-11-20] MEDS ORDERED: COLE1TAB4 PO (16:29)
[2017-11-20] MEDS ORDERED: LOSA1TAB PO (16:29)
[2017-11-20] MEDS ORDERED: FLUT0.15 NAE (16:34)
[2017-11-20] MEDS ORDERED: ASPI81TA28 PO (16:35)
== END 2017-07-01 23:34 | disposition home or self-care (01) ==
LOC: C.EDB 21:17
DX: R51 Headache (principal); Z91.14 Patient's other noncompliance with medication regimen; R79.89 Other specified abnormal findings of blood chemistry; I10 Essential (primary) hypertension; I25.10 Atherosclerotic heart disease of native coronary artery without angina pectoris; J44.9 Chronic obstructive pulmonary disease, unspecified; E11.9 Type 2 diabetes mellitus without complications; E78.5 Hyperlipidemia, unspecified; K21.9 Gastro-esophageal reflux disease without esophagitis; G47.33 Obstructive sleep apnea (adult) (pediatric); Z87.01 Personal history of pneumonia (recurrent); F41.9 Anxiety disorder, unspecified; Z83.3 Family history of diabetes mellitus; Z82.49 Family history of ischemic heart disease and other diseases of the circulatory system; Z84.1 Family history of disorders of kidney and ureter; Z87.891 Personal history of nicotine dependence; Z79.82 Long term (current) use of aspirin; Z79.899 Other long term (current) drug therapy

== ENCOUNTER 2017-07-10 12:40 | Emergency (ER) | payer OTHER ==
[~2017-07-10] VITALS: Ht 180.3 cm; Wt 121.2 kg
[~2017-07-10 12:40] MED LIST changes: +ADVIN25/60 INH; +ASPI81TA28 PO; +ATOR-26 PO; +BUPR150T5 PO; +COLE1TAB4 PO; +FLUT0.15 NAE; +ISOS30TA3 PO; +LOSA1TAB PO; +NTRGSL/4 UT; +SPRIN/30 INH; +VNTHFA/IN INH; +ZNTT/150 PO
[2017-07-10 12:50] VITALS: TEMP 36.5; Ht 180.3 cm; Wt 121.2 kg
[2017-07-10] MEDS ORDERED: PROCHLORPERAZINE 5 MG/ML 2 ML VIAL IV STA (13:13)
[2017-07-10] MEDS ORDERED: KETOROLAC TROMETHAMINE 30 MG/ML VIAL IV STA (13:13)
[2017-07-10] MEDS ORDERED: DiphenhydrAMINE HCL 50 MG/ML VIAL IV STA (13:13)
--- NOTE | 2017-07-10 13:22 | EMERGENCY ROOM VISIT NOTE ---
History Report prepared by Nilesh: Anthony Brown Under the Supervision of: Dr. Abraham Gaston M.D. First contact with patient: 13:05 Chief Complaint: HEADACHE Stated Complaint: BAD HEADACHE History of Present Illness The patient is a 71 year old male who presents to the Emergency Room with complaints of a worsening headache that started this morning, several hours prior to arrival. The patient states that the head pain is mostly in the front of his head/forehead, and rates the pain as a 8/10 in severity. He has not taken anything for pain. He was in the Emergency Department on 07/01, 10 days ago, for similar complaints. He had a Head CT that was unremarkable. He is not experiencing photophobia. On the 07/01 visit the patient admitted to not taking his blood pressure medications as directed, but claims he is taking his medication now. Per the patient's , he will take his medication one day and not the next. The patient has been coughing but claims this is normal in the winter due to his COPD. The patient continued to note that he is sometimes depressed. This is due to the relationship with his significant other. He denies having thoughts of hurting himself, and does not want any psychiatric evaluation at this time. 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 A total of 10 systems reviewed and were otherwise negative. Past Medical & Surgical Medical Problems: (1) Anxiety (2) CAD (coronary artery disease) (3) Chest pain (4) COPD, mild (5) Diabetes (6) Diastolic dysfunction (7) Dyslipidemia (8) Gallbladder disease (9) GERD (gastroesophageal reflux disease) (10) HTN (hypertension) (11) PEDRO (obstructive sleep apnea) (12) Pneumonia Surgical Problems: (1) H/O umbilical hernia repair (2) History of cholecystectomy (3) History of inguinal hernia repair, bilateral (4) Hx of hemorrhoidectomy (5) S/P foot surgery, right Family History Diabetes mellitus Heart disease Hypertension Kidney disease Kidney stones Seizures Social History Smoking Status: Former Smoker Alcohol Use: none Drug Use: none Marital Status: in relationship Housing Status: lives with significant other Occupation Status: retired Current/Historical Medications Scheduled Aspirin (Aspirin Ec), 81 MG PO DAILY Atorvastatin (Lipitor), 80 MG PO DAILY Bupropion Hcl (Bupropion Hcl Xl), 150 MG PO DAILY Colestipol Hcl (Micronized Colestipol Hcl), 1 TAB PO BID Fluticasone Prop/Salmeterol (Advair Diskus 250/50 60 Dose), 1 PUFF INH BID Fluticasone Propionate (Nasal) (Flonase Allergy Relief), 2 SPRAYS MANSI DAILY Isosorbide Mononitrate Ext Rel (Imdur Ext Rel), 30 MG PO QAM Losartan Potassium (Cozaar), 25 MG PO DAILY Metformin Hcl (Glucophage), 1,000 MG PO BIDM Ranitidine (Zantac), 75 MG PO BID Rifaximin (Xifaxan), 550 MG PO BID Tiotropium [place] (Spiriva Handihaler), 1 CAP INH DAILY Scheduled PRN Albuterol Hfa (Ventolin Hfa), 2 PUFFS INH Q4H PRN for SOB/Wheezing Nitroglycerin (Nitrostat), 0.4 MG UT UD PRN for Chest Pain Allergies Coded Allergies: Ezetimibe (Verified Allergy, Intermediate, HIVES, 07/10/17) Pantoprazole (Verified Allergy, Intermediate, HIVES, 07/10/17) Lisinopril (Verified Allergy, Mild, cough, 07/10/17) Codeine (Verified Allergy, Unknown, 07/10/17) Physical Exam Vital Signs Date Time Temp Pulse Resp B/P (MAP) Pulse Ox O2 Delivery O2 Flow Rate FiO2 07/10/17 15:43 73 18 142/82 93 Room Air 07/10/17 14:22 75 16 175/102 91 Room Air 07/10/17 12:50 36.5 71 18 128/78 93 Room Air Physical Exam GENERAL: Patient is in no acute distress. HEENT: No acute trauma, normocephalic atraumatic, mucous membranes moist, no nasal congestion, no scleral icterus. Pupils equal and reactive to light. NECK: No stridor, no adenopathy, no meningismus, trachea is midline. LUNGS: Clear to auscultation bilaterally, no wheeze, no rhonchi, breath sounds equal. HEART: Without murmurs gallops or rubs, regular rate and rhythm. ABDOMEN: Soft, nontender, bowel sounds positive, no hernias, no peritonitis. EXTREMITIES: No cyanosis or edema, full range of motion of all the joints without pain or difficulty, no signs for acute trauma. NEUROLOGIC: Oriented x 3, no acute motor or sensory deficits, no focal weakness. No cerebellar deficits. SKIN: No rash, no jaundice, no diaphoresis. Medical Decision & Procedures Laboratory Results 07/10/17 13:35 Red Blood Count 4.65, Mean Corpuscular Volume 92.3, Mean Corpuscular Hemoglobin 32.7, Mean Corpuscular Hemoglobin Concent 35.4, Mean Platelet Volume 10.2, Neutrophils (%) (Auto) 56.8, Lymphocytes (%) (Auto) 28.2, Monocytes (%) (Auto) 10.4, Eosinophils (%) (Auto) 3.8, Basophils (%) (Auto) 0.5, Neutrophils # (Auto ) 3.45, Lymphocytes # (Auto) 1.71, Monocytes # (Auto) 0.63, Eosinophils # (Auto ) 0.23, Basophils # (Auto) 0.03 07/10/17 13:35 Test 07/10/17 13:35 White Blood Count 6.07 K/uL (4.8-10.8) Red Blood Count 4.65 M/uL (4.7-6.1) Hemoglobin 15.2 g/dL (14.0-18.0) Hematocrit 42.9 % (42-52) Mean Corpuscular Volume 92.3 fL (80-100) Mean Corpuscular Hemoglobin 32.7 pg (25-34) Mean Corpuscular Hemoglobin Concent 35.4 g/dl (32-36) Platelet Count 203 K/uL (130-400) Mean Platelet Volume 10.2 fL (7.4-10.4) Neutrophils (%) (Auto) 56.8 % Lymphocytes (%) (Auto) 28.2 % Monocytes (%) (Auto) 10.4 % Eosinophils (%) (Auto) 3.8 % Basophils (%) (Auto) 0.5 % Neutrophils # (Auto) 3.45 K/uL (1.4-6.5) Lymphocytes # (Auto) 1.71 K/uL (1.2-3.4) Monocytes # (Auto) 0.63 K/uL (0.11-0.59) Eosinophils # (Auto) 0.23 K/uL (0-0.5) Basophils # (Auto) 0.03 K/uL (0-0.2) RDW Standard Deviation 42.1 fL (36.4-46.3) RDW Coefficient of Variation 12.6 % (11.5-14.5) Immature Granulocyte % (Auto) 0.3 % Immature Granulocyte # (Auto) 0.02 K/uL (0.00-0.02) Erythrocyte Sedimentation Rate 15 mm/hr (0-14) Anion Gap 8.0 mmol/L (3-11) Est Creatinine Clear Calc Drug Dose 79.9 ml/min Estimated GFR () 77.6 Estimated GFR (Non- 67.0 BUN/Creatinine Ratio 13.7 (10-20) Calcium Level 9.0 mg/dl (8.5-10.1) Thyroid Stimulating Hormone (TSH) 1.210 uIu/ml (0.300-4.500) Laboratory results reviewed by me. Medications Administered Medications (Trade) Dose Ordered Sig/Librado Route Start Time Stop Time Status Last Admin Dose Admin Prochlorperazine Edisylate (Compazine Inj) 10 mg NOW STAT IV 07/10/17 13:13 07/10/17 13:18 DC 07/10/17 13:33 10 MG Diphenhydramine HCl (Benadryl Inj) 25 mg NOW STAT IV 07/10/17 13:13 07/10/17 13:18 DC 07/10/17 13:33 25 MG Ketorolac Tromethamine (Toradol Inj) 30 mg NOW STAT IV 07/10/17 13:13 07/10/17 13:18 DC 07/10/17 13:33 30 MG ED Course 1310: The patient was evaluated in room C7. A complete history and physical exam was performed. 1313: Ordered Toradol 30 mg IV, Benadryl 25 mg IV, Compazine 10 mg IV. 1512: Reevaluated the patient. He is pain free. I discussed results and discharge instructions. The patient has an appointment on Sunday : He verbalized understanding and agreement. The patient is ready for discharge. Medical Decision Differential Diagnosis includes; Tension headache, migraine headache, medication noncompliance, temporal arteritis, intracranial bleeding or mass, stroke. There is no leukocytosis or concerning anemia. No significant electrolyte abnormality or kidney failure. Sedimentation rate is not elevated making temporal arteritis less likely. On exam, there were no focal neurologic deficits. The patient was not febrile or toxic. There was no meningismus. Patient received IV Toradol, IV Compazine and IV Benadryl. He feels markedly better, his headache is gone. I had a long talk with the patient. He will follow with his doctor's office. His headaches may be due to medication noncompliance. His headaches may be migrainous. A follow-up with the doctors office for possible neurology referral was suggested. The patient also believes that he will again start seeing his chiropractor as he believes some of his headaches may be from chronic neck pain. The patient was encouraged to return if worsening. Medication Reconcilliation Current Medication List: was personally reviewed by me Blood Pressure Screening Patient's blood pressure: Elevated blood pressure Blood pressure disposition: Elevated BP felt to be situational Impression Primary Impression: Headache Scribe Attestation The scribe's documentation has been prepared under my direction and personally reviewed by me in its entirety. I confirm that the note above accurately reflects all work, treatment, procedures, and medical decision making performed by me. Departure Information Dispostion Home / Self-Care Referrals Julius Werner MD (PCP) Forms HOME CARE DOCUMENTATION FORM, IMPORTANT VISIT INFORMATION Patient Instructions My [facility] Additional Instructions take your meds daily as prescribed see libby gardiner Sunday as scheduled return if worsening lab testing was all ok today
[2017-07-10 14:05] LABS: BASO % 0.5 %; BASO ABS # 0.03 K/uL (0-0.2); EOS % 3.8 %; EOS ABS # 0.23 K/uL (0-0.5); HEMATOCRIT 42.9 % (42-52); HEMOGLOBIN 15.2 g/dL (14.0-18.0); IG# 0.02 K/uL (0.00-0.02); LYMPH % 28.2 %; LYMPH ABS # 1.71 K/uL (1.2-3.4); MEAN CELL VOLUME 92.3 fL (80-100); MEAN CORPUSCULAR HEMOGLOBIN 32.7 pg (25-34); MEAN CORPUSCULAR HGB CONC 35.4 g/dl (32-36); MEAN PLATELET VOLUME 10.2 fL (7.4-10.4); MONO % 10.4 %; MONO ABS # 0.63 K/uL (0.11-0.59); NEUT % 56.8 %; NEUT ABS # 3.45 K/uL (1.4-6.5); PLATELET COUNT 203 K/uL (130-400); RED CELL DISTRIBUTION WIDTH CV 12.6 % (11.5-14.5); RED CELL DISTRIBUTION WIDTH SD 42.1 fL (36.4-46.3); WHITE BLOOD COUNT 6.07 K/uL (4.8-10.8)
[2017-07-10] MEDS ORDERED: RIFA550T2 PO (14:15)
[2017-07-10 14:25] LABS: CREATININE 1.09 mg/dl (0.60-1.40); POTASSIUM 3.9 mmol/L (3.5-5.1)
[2017-07-10 15:43] VITALS: BP 142/82; PULSE 73; O2SAT 93
== END 2017-07-10 15:44 | disposition home or self-care (01) ==
LOC: C.EDB 12:40 → C.EDC 15:44
DX: R51 Headache (principal); I10 Essential (primary) hypertension; E78.5 Hyperlipidemia, unspecified; E11.9 Type 2 diabetes mellitus without complications; I25.10 Atherosclerotic heart disease of native coronary artery without angina pectoris; J44.9 Chronic obstructive pulmonary disease, unspecified; F41.9 Anxiety disorder, unspecified; G47.33 Obstructive sleep apnea (adult) (pediatric); K21.9 Gastro-esophageal reflux disease without esophagitis; K82.9 Disease of gallbladder, unspecified; Z90.49 Acquired absence of other specified parts of digestive tract; Z98.890 Other specified postprocedural states; Z87.891 Personal history of nicotine dependence; Z79.82 Long term (current) use of aspirin; Z79.84 Long term (current) use of oral hypoglycemic drugs; Z79.899 Other long term (current) drug therapy; Z88.5 Allergy status to narcotic agent; Z88.8 Allergy status to other drugs, medicaments and biological substances; Z83.3 Family history of diabetes mellitus; Z82.49 Family history of ischemic heart disease and other diseases of the circulatory system; Z84.1 Family history of disorders of kidney and ureter; Z82.0 Family history of epilepsy and other diseases of the nervous system

== ENCOUNTER 2017-11-20 21:10 | Emergency (ER) | payer OTHER ==
[~2017-11-20] VITALS: Ht 180.3 cm; Wt 119.7 kg
[~2017-11-20 21:10] MED LIST changes: -ADVIN25/60 INH; -ATOR-26 PO; -ISOS30TA3 PO; -NTRGSL/4 UT; -SPRIN/30 INH; -VNTHFA/IN INH; -ZNTT/150 PO
[2017-11-20 21:13] VITALS: TEMP 36.8; Ht 180.3 cm; Wt 119.7 kg
[2017-11-20] MEDS ORDERED: ALBUT/IPRATROP 3MG/0.5MG NEB 3 ML VIAL INH STA (21:31)
[2017-11-20] MEDS ORDERED: HYDROCODONE/HOMATROPINE SYRUP 5MG/1.5MG 5ML UDP PO STA (21:33)
[2017-11-20 21:47] VITALS: O2SAT 93
[2017-11-20 21:48] LABS: BASO % 0.2 %; BASO ABS # 0.02 K/uL (0-0.2); EOS % 2.5 %; EOS ABS # 0.23 K/uL (0-0.5); HEMATOCRIT 44.9 % (42-52); IG# 0.02 K/uL (0.00-0.02); LYMPH ABS # 1.88 K/uL (1.2-3.4); MEAN CORPUSCULAR HEMOGLOBIN 32.8 pg (25-34); MEAN CORPUSCULAR HGB CONC 35.6 g/dl (32-36); MEAN PLATELET VOLUME 9.9 fL (7.4-10.4); MONO % 11.9 %; MONO ABS # 1.12 K/uL (0.11-0.59); NEUT % 65.2 %; NEUT ABS # 6.11 K/uL (1.4-6.5); PLATELET COUNT 219 K/uL (130-400); RED CELL DISTRIBUTION WIDTH CV 12.3 % (11.5-14.5); RED CELL DISTRIBUTION WIDTH SD 41.4 fL (36.4-46.3); WHITE BLOOD COUNT 9.38 K/uL (4.8-10.8)
--- NOTE | 2017-11-20 21:50 | EMERGENCY ROOM VISIT NOTE ---
History Report prepared by Nilesh: Arden Alejandro Under the Supervision of: Dr. Nael Cooper M.D. First contact with patient: 21:21 Chief Complaint: COUGH Stated Complaint: BAD COUGH, SORE IN CHEST History of Present Illness The patient is a 72 year old male who presents to the Emergency Room with complaints of constant cough beginning two to three weeks ago. The patient states his cough is worse at night and sometimes he cannot sleep. He reports he is using [place] throat drops. The patient notes a history of pneumonia and bronchitis. He states he developed abdominal pain secondary to coughing so much. The patient reports he becomes short of breath when he is walking around. He notes he developed chills the other night. The patient states he has not been able to eat for the past two day. He reports he has a history of heart disease and diabetes. The patient notes he has not been taking his medication, and he has not checked his sugars recently. He denies calf pain, recent travel, a history of blood clots, a family history of blood clots, a history of heart failure, fevers, rash, chest pain, and surgeries on his abdomen. Source of History: patient Onset: two to three weeks ago Quality: other (cough) Timing: constant Associated Symptoms: + chills, + SOB, + abdominal pain, No fevers, No chest pain, No rash Note: Denies: calf pain, recent travel Review of Systems See HPI for pertinent positives & negatives. A total of 10 systems reviewed and were otherwise negative. Past Medical & Surgical Medical Problems: (1) Anxiety (2) CAD (coronary artery disease) (3) Chest pain (4) COPD, mild (5) Diabetes (6) Diastolic dysfunction (7) Dyslipidemia (8) Gallbladder disease (9) GERD (gastroesophageal reflux disease) (10) HTN (hypertension) (11) PEDRO (obstructive sleep apnea) (12) Pneumonia Surgical Problems: (1) H/O umbilical hernia repair (2) History of cholecystectomy (3) History of inguinal hernia repair, bilateral (4) Hx of hemorrhoidectomy (5) S/P foot surgery, right Family History Diabetes mellitus Heart disease Hypertension Kidney disease Kidney stones Seizures Social History Smoking Status: Never Smoker Alcohol Use: none Drug Use: none Marital Status: in relationship Housing Status: lives with significant other Occupation Status: retired Current/Historical Medications Scheduled Aspirin (Aspirin Ec), 81 MG PO DAILY Atorvastatin (Lipitor), 80 MG PO DAILY Azithromycin (Zithromax Z-Fiasal), 1 PKT PO UD Bupropion Hcl (Bupropion Hcl Xl), 150 MG PO DAILY Colestipol Hcl (Micronized Colestipol Hcl), 1 TAB PO BID Fluticasone Prop/Salmeterol (Advair Diskus 250/50 60 Dose), 1 PUFF INH BID Fluticasone Propionate (Nasal) (Flonase Allergy Relief), 2 SPRAYS MANSI DAILY Isosorbide Mononitrate Ext Rel (Imdur Ext Rel), 30 MG PO QAM Losartan Potassium (Cozaar), 25 MG PO DAILY Metformin Hcl (Glucophage), 500 MG PO DAILY Methylprednisolone (Medrol Dosepak), 1 PKT PO UD Ranitidine (Zantac), 75 MG PO BID Rifaximin (Xifaxan), 550 MG PO BID Tiotropium [place] (Spiriva Handihaler), 1 CAP INH DAILY Scheduled PRN Albuterol Hfa (Ventolin Hfa), 2 PUFFS INH Q4H PRN for SOB/Wheezing Nitroglycerin (Nitrostat), 0.4 MG UT UD PRN for Chest Pain Allergies Coded Allergies: Ezetimibe (Verified Allergy, Intermediate, HIVES, 07/10/17) Pantoprazole (Verified Allergy, Intermediate, HIVES, 07/10/17) Lisinopril (Verified Allergy, Mild, cough, 07/10/17) Codeine (Verified Allergy, Unknown, 07/10/17) Physical Exam Vital Signs Date Time Temp Pulse Resp B/P (MAP) Pulse Ox O2 Delivery O2 Flow Rate FiO2 11/20/17 23:36 77 13 93 Room Air 11/20/17 23:31 132/74 11/20/17 23:06 83 16 90 Room Air 11/20/17 23:01 134/74 11/20/17 22:31 150/88 11/20/17 22:20 93 14 91 Room Air 11/20/17 22:18 93 16 144/86 92 Room Air 11/20/17 22:15 91 17 92 Room Air 11/20/17 21:47 93 Room Air 11/20/17 21:45 76 27 96 Nebulizer 7.0 5/22/18 21:40 81 23 92 Room Air 11/20/17 21:32 161/83 11/20/17 21:28 81 11/20/17 21:25 93 Room Air 11/20/17 21:25 118/89 11/20/17 21:13 36.8 80 20 143/73 94 Room Air Physical Exam GENERAL: Patient is well appearing and in no acute distress. Persistent cough. EYES: No scleral icterus, unremarkable pupils. ENT: Mucous membranes moist, no nasal congestion. NECK: No masses appreciated, no meningismus, trachea is midline. RESPIRATORY: No dyspnea. Crackles bilaterally with wheezes. No rhonchi. CARDIOVASCULAR: Regular rate and rhythm. No murmurs, rubs, gallops appreciated. GASTROINTESTINAL: Abdomen soft, nontender, no peritonitis. Bowel sounds positive. No masses appreciated. BACK: No midline tenderness, no CVA tenderness EXTREMITIES: Normal motion all extremities, no cyanosis, no edema. NEUROLOGIC: Alert and oriented, no acute motor or sensory deficits, no focal weakness, cranial nerves grossly intact. SKIN: No rash, no jaundice, no diaphoresis. Medical Decision & Procedures ER Provider Diagnostic Interpretation: Radiology results and stated below per my review and radiologist interpretation: CXR: Radiologist read no acute findings with stable left granuloma CT PE Study: FINDINGS: Sales Project Engineer topogram: Unremarkable. Pulmonary vasculature: The study is suboptimal for the assessment of the pulmonary vascular tree secondary to respiratory motion artifact. Allowing for limited image quality, no central filling defect to suggest pulmonary embolus. Main pulmonary artery is not enlarged. No flattening of the interventricular septum. No intracardiac filling defect. No reflux of contrast into the hepatic veins. Remaining chest: On soft tissue windows, normal thyroid and thoracic inlet. Bilateral gynecomastia. Calcified mediastinal and left hilar lymph nodes. No other axillary, supraclavicular, hilar, or mediastinal lymphadenopathy. Atherosclerosis of the aorta. Normal heart size. Coronary artery and aortic valve calcification. No pericardial or pleural effusion. Hepatic steatosis. On lung windows, calcified granuloma noted in the lingula. Extensive dependent groundglass opacities likely atelectasis. Significant bronchial wall thickening. Pulmonary arteries are equivalent in size if not smaller than the adjacent bronchi. Central airways patent allowing for the expiratory phase of respiration. On bone windows, degenerative changes of the spine. IMPRESSION: 1. Allowing for suboptimal image quality, no evidence of pulmonary embolus. 2. Evidence of prior granulomatous infection. 3. Bronchial wall thickening could suggest bronchitis/bronchiolitis or reactive airways disease. 4. Hepatic steatosis. Electronically signed by: Almas Mir M.D. Laboratory Results 11/20/17 21:30 Red Blood Count 4.88, Mean Corpuscular Volume 92.0, Mean Corpuscular Hemoglobin 32.8, Mean Corpuscular Hemoglobin Concent 35.6, Mean Platelet Volume 9.9, Neutrophils (%) (Auto) 65.2, Lymphocytes (%) (Auto) 20.0, Monocytes (%) (Auto) 11.9, Eosinophils (%) (Auto) 2.5, Basophils (%) (Auto) 0.2, Neutrophils # (Auto ) 6.11, Lymphocytes # (Auto) 1.88, Monocytes # (Auto) 1.12, Eosinophils # (Auto ) 0.23, Basophils # (Auto) 0.02 11/20/17 21:30 Test 11/20/17 21:30 White Blood Count 9.38 K/uL (4.8-10.8) Red Blood Count 4.88 M/uL (4.7-6.1) Hemoglobin 16.0 g/dL (14.0-18.0) Hematocrit 44.9 % (42-52) Mean Corpuscular Volume 92.0 fL (80-100) Mean Corpuscular Hemoglobin 32.8 pg (25-34) Mean Corpuscular Hemoglobin Concent 35.6 g/dl (32-36) Platelet Count 219 K/uL (130-400) Mean Platelet Volume 9.9 fL (7.4-10.4) Neutrophils (%) (Auto) 65.2 % Lymphocytes (%) (Auto) 20.0 % Monocytes (%) (Auto) 11.9 % Eosinophils (%) (Auto) 2.5 % Basophils (%) (Auto) 0.2 % Neutrophils # (Auto) 6.11 K/uL (1.4-6.5) Lymphocytes # (Auto) 1.88 K/uL (1.2-3.4) Monocytes # (Auto) 1.12 K/uL (0.11-0.59) Eosinophils # (Auto) 0.23 K/uL (0-0.5) Basophils # (Auto) 0.02 K/uL (0-0.2) RDW Standard Deviation 41.4 fL (36.4-46.3) RDW Coefficient of Variation 12.3 % (11.5-14.5) Immature Granulocyte % (Auto) 0.2 % Immature Granulocyte # (Auto) 0.02 K/uL (0.00-0.02) D-Dimer 530 ug/L FEU (0-500) Anion Gap 6.0 mmol/L (3-11) Est Creatinine Clear Calc Drug Dose 72.9 ml/min Estimated GFR () 70.8 Estimated GFR (Non- 61.1 BUN/Creatinine Ratio 10.1 (10-20) Calcium Level 9.0 mg/dl (8.5-10.1) Total Bilirubin 1.0 mg/dl (0.2-1) Direct Bilirubin 0.2 mg/dl (0-0.2) Aspartate Amino Transf (AST/SGOT) 18 U/L (15-37) Alanine Aminotransferase (ALT/SGPT) 24 U/L (12-78) Alkaline Phosphatase 108 U/L (45-117) Troponin I < 0.015 ng/ml (0-0.045) Pro-B-Type Natriuretic Peptide 105 pg/ml (0-900) Total Protein 7.7 gm/dl (6.4-8.2) Albumin 3.5 gm/dl (3.4-5.0) Lipase 180 U/L (73-393) Laboratory results as reviewed by me. Medications Administered Medications (Trade) Dose Ordered Sig/Librado Route Start Time Stop Time Status Last Admin Dose Admin Albuterol/ Ipratropium (Duoneb) 6 ml NOW STAT INH 11/20/17 21:31 11/20/17 21:34 DC 11/20/17 21:41 6 ML Hydrocodone Bit/ Homatropine Methylb (Hycodan Syrup) 5 ml NOW STAT PO 11/20/17 21:33 11/20/17 21:34 DC 11/20/17 21:41 5 ML Methylprednisolone Sodium Succinate (Solu-Medrol IV) 125 mg NOW STAT IV 11/20/17 22:33 11/20/17 22:36 DC 11/20/17 22:38 125 MG Lidocaine HCl (Viscous Lidocaine 2% Soln) 10 ml NOW STAT MT 11/20/17 22:33 11/20/17 22:36 DC 11/20/17 22:38 10 ML Hydrocodone Bit/ Homatropine Methylb (Hycodan Elix Homepack 5/1.5MG/ 5ML) 1 homepack UD ONCE PO 11/20/17 23:45 11/20/17 23:46 DC 11/20/17 23:49 1 HOMEPACK Azithromycin (Zithromax Tab) 500 mg NOW ONCE PO 11/20/17 23:45 11/20/17 23:46 DC 11/20/17 23:48 500 MG Albuterol (Ventolin Hfa Inhaler) 2 puffs NOW ONCE INH 11/20/17 23:45 11/20/17 23:46 DC 11/20/17 23:48 2 PUFFS ECG Per My Interpretation Indication: SOB/dyspnea Rate (beats per minute): 82 Rhythm: normal sinus Findings: no acute ischemic change, no ectopy, other (QTc of 429) ED Course 2124: The patient was evaluated in room B10. A complete history and physical exam was performed. Medical Decision Differential: Infectious, Reactive Airway Disease, Pneumonia, Pneumothorax, COPD , CHF, ACS, Pulmonary Embolism, MSK, GI, Dissection, amongst other etiologies entertained. 72 yr old male with persistent cough wanda the last 3 weeks. Associate sore throat and sore upper abdominal muscles which are worse with coughing. Exam with bronchitis by exam. Dimer mildly elevated thus felt CT indicated which was negative for PE but showed bronchitis and old granuloma. Admits needing inhaler in past. labs looking good otherwise. no evidence this is cardiac related. Feeling improved with neb and Hycodan. Abs, steroids, inhaler for home. Reviewed symptoms requiring RTED. Looks well and breathing comfortably with O2 sats in 93-96% while talking. Stressed follow up with PCP and RTED if worsening or other concerns. Medication Reconcilliation Current Medication List: was personally reviewed by me Blood Pressure Screening Patient's blood pressure: Elevated blood pressure Blood pressure disposition: Elevated BP felt to be situational Impression Primary Impression: Acute bronchitis Scribe Attestation The scribe's documentation has been prepared under my direction and personally reviewed by me in its entirety. I confirm that the note above accurately reflects all work, treatment, procedures, and medical decision making performed by me. Departure Information Dispostion Home / Self-Care Prescriptions Azithromycin (ZITHROMAX Z-FAISAL) 250 Mg Tab 1 PKT PO UD, #1 PKT Prov: Nael Cooper M.D. 11/20/17 Methylprednisolone (MEDROL DOSEPAK) 4 Mg Faisal 1 PKT PO UD for 6 Days, #1 PKT Prov: Nael Cooper M.D. 11/20/17 Referrals Julius Werner MD (PCP) Patient Instructions Bronchitis Acute, My [facility] Additional Instructions You have received a narcotic cough medication. These medications may cause drowsiness and should not be used with other sedative medications. Do not drive , drink alcohol, perform dangerous activities, nor make important decisions after taking these medications. FPC use or inappropriate use may lead to addiction.
[2017-11-20] MEDS ORDERED: GLC/500 PO (22:02)
[2017-11-20 22:11] LABS: ALBUMIN 3.5 gm/dl (3.4-5.0); ALKALINE PHOSPHATASE 108 U/L (45-117); ALT/SGPT 24 U/L (12-78); AST/SGOT 18 U/L (15-37); BLOOD UREA NITROGEN 12 mg/dl (7-18); CARBON DIOXIDE 28 mmol/L (21-32); CREATININE 1.17 mg/dl (0.60-1.40); GLUCOSE 181 mg/dl (70-99); LIPASE 180 U/L (73-393); SODIUM 136 mmol/L (136-145); TOTAL PROTEIN 7.7 gm/dl (6.4-8.2)
--- NOTE | 2017-11-20 22:13 | DIAGNOSTIC IMAGING REPORT ---
CHEST ONE VIEW PORTABLE CLINICAL HISTORY: 72 years-old Male presenting with Shortness of breath/cough. TECHNIQUE: Portable upright AP view of the chest was obtained. COMPARISON: 09/22/2016. FINDINGS: Atherosclerosis of the aortic arch. Cardiac silhouette normal in size. Calcified granuloma noted in the left midlung. Mildly low lung volumes. No focal opacity. No large effusion or pneumothorax. Osseous structures normal. Upper abdomen normal. IMPRESSION: 1. No acute cardiopulmonary disease. Electronically signed by: Almas Mir M.D. 11/20/2017 10:12 PM Dictated Date/Time: 11/20/2017 10:09 PM
[2017-11-20] MEDS ORDERED: NTRGSL/4 UT (22:20)
[2017-11-20] MEDS ORDERED: RANI150T85 PO (22:20)
[2017-11-20] MEDS ORDERED: ISOS30TA3 PO (22:20)
[2017-11-20] MEDS ORDERED: LIDOCAINE HCL 2% VISC SOLN 20 ML UDC MT STA (22:33)
[2017-11-20] MEDS ORDERED: METHYLPREDNISOLONE 125 MG VIAL IV STA (22:33)
[2017-11-20] MEDS ORDERED: OPTIRAY 320 IV PRN (22:45)
[2017-11-20] MEDS ORDERED: ATOR-26 PO (23:03)
--- NOTE | 2017-11-20 23:17 | DIAGNOSTIC IMAGING REPORT ---
(CHEST FOR PE) ANGIO WITH CLINICAL HISTORY: 72 years-old Male presenting with chest pain and cough. TECHNIQUE: Multidetector CT angiography of the chest was performed after administration of intravenous contrast. 3-D volumetric and/or maximum intensity projection (MIP) images were subsequently reconstructed for review. IV contrast: 120 mL of Optiray 320. A dose lowering technique was used consistent with the principles of ALARA (as low as reasonably achievable). COMPARISON: 01/13/2016. CT DOSE (mGy.cm): The estimated cumulative dose is 608.88 mGy.cm. FINDINGS: Expressive Art Therapist topogram: Unremarkable. Pulmonary vasculature: The study is suboptimal for the assessment of the pulmonary vascular tree secondary to respiratory motion artifact. Allowing for limited image quality, no central filling defect to suggest pulmonary embolus. Main pulmonary artery is not enlarged. No flattening of the interventricular septum. No intracardiac filling defect. No reflux of contrast into the hepatic veins. Remaining chest: On soft tissue windows, normal thyroid and thoracic inlet. Bilateral gynecomastia. Calcified mediastinal and left hilar lymph nodes. No other axillary, supraclavicular, hilar, or mediastinal lymphadenopathy. Atherosclerosis of the aorta. Normal heart size. Coronary artery and aortic valve calcification. No pericardial or pleural effusion. Hepatic steatosis. On lung windows, calcified granuloma noted in the lingula. Extensive dependent groundglass opacities likely atelectasis. Significant bronchial wall thickening. Pulmonary arteries are equivalent in size if not smaller than the adjacent bronchi. Central airways patent allowing for the expiratory phase of respiration. On bone windows, degenerative changes of the spine. IMPRESSION: 1. Allowing for suboptimal image quality, no evidence of pulmonary embolus. 2. Evidence of prior granulomatous infection. 3. Bronchial wall thickening could suggest bronchitis/bronchiolitis or reactive airways disease. 4. Hepatic steatosis. Electronically signed by: Almas Mir M.D. 11/20/2017 11:16 PM Dictated Date/Time: 11/20/2017 11:08 PM
[2017-11-20 23:31] VITALS: BP 132/74
[2017-11-20] MEDS ORDERED: AZITTAB PO (23:35)
[2017-11-20] MEDS ORDERED: METH4PAK PO (23:35)
[2017-11-20 23:36] VITALS: PULSE 77; O2SAT 93
[2017-11-20] MEDS ORDERED: VNTHFA/IN INH (23:41)
[2017-11-20] MEDS ORDERED: HYCODAN 60ML BOTTLE HOMEPACK PO ONE (23:45)
[2017-11-20] MEDS ORDERED: ALBUTEROL HFA 8 GM INHALER INH ONE (23:45)
[2017-11-20] MEDS ORDERED: AZITHROMYCIN 250 MG TAB PO ONE (23:45)
[2017-11-20] MEDS ORDERED: ADVIN25/60 INH (23:47)
[2017-11-20] MEDS ORDERED: SPRIN/30 INH (23:47)
== END 2017-11-20 23:50 | disposition home or self-care (01) ==
LOC: C.EDB 21:11
DX: J20.9 Acute bronchitis, unspecified (principal); I25.10 Atherosclerotic heart disease of native coronary artery without angina pectoris; J44.0 Chronic obstructive pulmonary disease with (acute) lower respiratory infection; E11.9 Type 2 diabetes mellitus without complications; E78.5 Hyperlipidemia, unspecified; I10 Essential (primary) hypertension; K21.9 Gastro-esophageal reflux disease without esophagitis; Z87.01 Personal history of pneumonia (recurrent); Z90.49 Acquired absence of other specified parts of digestive tract; Z98.890 Other specified postprocedural states; Z88.5 Allergy status to narcotic agent; Z88.8 Allergy status to other drugs, medicaments and biological substances; Z83.3 Family history of diabetes mellitus; Z82.49 Family history of ischemic heart disease and other diseases of the circulatory system; Z84.1 Family history of disorders of kidney and ureter; Z82.0 Family history of epilepsy and other diseases of the nervous system; Z79.82 Long term (current) use of aspirin; Z79.84 Long term (current) use of oral hypoglycemic drugs; Z79.899 Other long term (current) drug therapy

== ENCOUNTER 2018-09-13 12:27 | Observation (INO) ==
[2018-09-13] MEDS ORDERED: MoRPHine SULFATE 4 MG/ML 1 ML CARP\\VIAL IV STA (12:57)
[2018-09-13] MEDS ORDERED: ONDANSETRON INJ 2 MG/ML 2 ML VIAL IV STA (12:57)
--- NOTE | 2018-09-13 12:59 | Emergency Department Note ---
Entered by Marietta Culver acting as a scribe for Hoang Savage DO History of Present Illness General Chief complaint: Chest Pain Stated complaint: CHEST PAINS Source: patient History of Present Illness Provider complaint: chest pain Onset (ago): hour(s) (1030 this morning) Location: chest Radiation: non-radiation (does not radiate to his back) Maximum Pain Intensity: 6 Quality: + other (pain) Associated symptoms: + shortness of breath and + other (abdominal pain) The patient is a 72 year old male who presents to the Emergency Room with complaints of chest pain beginning at 1030 this morning. He states that he was at his doctor's when his pain began and had an ECG done. The patient states that his pain does not radiate to his back. The patient also reports having abdominal pain and shortness of breath. He states that he was seen for chest pain like this before and had an ECG and stress test done. The patient reports a family history of heart disease. Home Medications Home Medications Medication Instructions Recorded Confirmed Type albuterol sulfate [ProAir HFA] 2 puff INHALATION Q4 PRN 09/13/18 09/13/18 History aspirin 81 mg PO DAILY 09/13/18 09/13/18 History atorvastatin [Lipitor] 80 mg PO DAILY 09/13/18 09/13/18 History azithromycin [Zithromax] 250 mg PO DAILY 09/13/18 09/13/18 History colestipol 1 g PO BID 09/13/18 09/13/18 History dicyclomine 20 mg PO BID 09/13/18 09/13/18 History fluticasone-salmeterol [Advair 1 inh INHALATION Q12H 09/13/18 09/13/18 History Diskus] losartan [Cozaar] 25 mg PO DAILY 09/13/18 09/13/18 History metformin [Glucophage XR] 1,000 mg PO PM 09/13/18 09/13/18 History nitroglycerin [Nitrostat] 0.4 mg SUBLINGUAL UD PRN 09/13/18 09/13/18 History prednisone [Deltasone] 40 mg PO UD 09/13/18 09/13/18 History tiotropium bromide [Spiriva with 1 cap INHALATION DAILY 09/13/18 09/13/18 History HandiHaler] Allergies Allergy/AdvReac Type Severity Reaction Status Date / Time codeine Allergy Intermediate HALLUCINATI Verified 09/09/18 22:59 ONS ezetimibe Allergy Intermediate HIVES Verified 09/09/18 22:59 pantoprazole Allergy Intermediate HIVES Verified 09/09/18 22:59 lisinopril Allergy Mild cough Verified 08/22/18 14:53 Past Med/Surg History Medical History Anxiety (Chronic) GERD (gastroesophageal reflux disease) (Chronic) Diabetes (Chronic) Dyslipidemia (Chronic) PEDRO (obstructive sleep apnea) (Chronic) Diastolic dysfunction (Chronic) "echo 2013 - EF 60-65%, grade I diastolic dysfunction, no valvular disease" COPD, mild (Chronic) HTN (hypertension) (Chronic) CAD (coronary artery disease) (Chronic) "40-50% LAD lesion noted on cath in 2010 dobutamine stress test 2012 negative for ischemia" Surgical History History of colonoscopy (Chronic) 2016: adenomatous polyps, diverticulosis. Dr Worthington History of inguinal hernia repair, bilateral (Chronic) Hx of hemorrhoidectomy (Chronic) S/P foot surgery, right (Chronic) History of cholecystectomy (Chronic) Family History Other Heart disease Social History Preferred Language: Vincentian Communication Ability: Effective Jockey Agent Required: No Beliefs That Will Affect Care: None marital status: Current Living Situation: Spouse Current Living Situation Comment: [facility] Other Information That Helps Us Care for You: No Feels Safe at Home: Yes Smoking Status: Former smoker Hx Alcohol Use: No Hx Substance Use: No Review of Systems See HPI for pertinent positives & negatives. and A total of 10 systems reviewed and were otherwise negative Physical Exam Vital Signs Vital Signs - 24 hr 09/13/18 14:23 09/13/18 14:30 09/13/18 14:35 Temperature Temperature Source Pulse Rate 60 52 L Pulse Rate [Left Finger] 53 L Pulse Rate from SpO2 Sensor 59 L 51 L Pulse Rhythm [Left Finger] Pulse Strength [Left Finger] Respiratory Rate 33 H 20 16 Respiratory Effort / Characteristics Respiratory Depth Respiratory Pattern Blood Pressure 118/61 Blood Pressure [Left Arm] 118/61 Blood Pressure [Right Arm] Blood Pressure Mean 80 Blood Pressure Mean [Left Arm] 80 Blood Pressure Mean [Right Arm] Blood Pressure Position [Left Arm] Blood Pressure Position [Right Arm] Pulse Oximetry 92 90 94 Oxygen Delivery Method Room Air 09/13/18 15:04 09/13/18 15:30 09/13/18 16:00 Temperature Temperature Source Pulse Rate 62 62 61 Pulse Rate [Left Finger] Pulse Rate from SpO2 Sensor 62 Pulse Rhythm [Left Finger] Pulse Strength [Left Finger] Respiratory Rate 24 16 16 Respiratory Effort / Characteristics Respiratory Depth Respiratory Pattern Blood Pressure 120/63 124/64 Blood Pressure [Left Arm] Blood Pressure [Right Arm] Blood Pressure Mean 82 84 Blood Pressure Mean [Left Arm] Blood Pressure Mean [Right Arm] Blood Pressure Position [Left Arm] Blood Pressure Position [Right Arm] Pulse Oximetry 88 L Oxygen Delivery Method 09/13/18 16:30 09/13/18 18:02 09/13/18 18:36 Temperature Temperature Source Pulse Rate 65 54 L Pulse Rate [Left Finger] 54 L Pulse Rate from SpO2 Sensor Pulse Rhythm [Left Finger] Regular Pulse Strength [Left Finger] Normal Respiratory Rate 21 18 18 Respiratory Effort / Characteristics Non-Labored Spontaneous Respiratory Depth Normal Respiratory Pattern Blood Pressure 116/74 Blood Pressure [Left Arm] 154/84 H Blood Pressure [Right Arm] Blood Pressure Mean Blood Pressure Mean [Left Arm] 107 Blood Pressure Mean [Right Arm] Blood Pressure Position [Left Arm] Lying Blood Pressure Position [Right Arm] Pulse Oximetry 93 93 Oxygen Delivery Method Room Air Room Air 09/13/18 18:56 09/13/18 19:13 09/13/18 22:05 Temperature 36.5 C Temperature Source Oral Pulse Rate Pulse Rate [Left Finger] 54 L 55 L Pulse Rate from SpO2 Sensor Pulse Rhythm [Left Finger] Pulse Strength [Left Finger] Respiratory Rate 20 18 Respiratory Effort / Characteristics Non-Labored Spontaneous Non-Labored Spontaneous Respiratory Depth Normal Respiratory Pattern Regular Blood Pressure Blood Pressure [Left Arm] Blood Pressure [Right Arm] 132/70 Blood Pressure Mean Blood Pressure Mean [Left Arm] Blood Pressure Mean [Right Arm] 90 Blood Pressure Position [Left Arm] Blood Pressure Position [Right Arm] Lying Pulse Oximetry 95 Oxygen Delivery Method Room Air Room Air 09/13/18 23:56 09/14/18 01:35 09/14/18 04:24 Temperature 36.7 C 36.7 C Temperature Source Oral Oral Pulse Rate 60 Pulse Rate [Left Finger] 61 54 L Pulse Rate from SpO2 Sensor Pulse Rhythm [Left Finger] Pulse Strength [Left Finger] Respiratory Rate 18 16 Respiratory Effort / Characteristics Respiratory Depth Normal Respiratory Pattern Blood Pressure Blood Pressure [Left Arm] Blood Pressure [Right Arm] 154/69 H 131/70 Blood Pressure Mean Blood Pressure Mean [Left Arm] Blood Pressure Mean [Right Arm] 97 90 Blood Pressure Position [Left Arm] Blood Pressure Position [Right Arm] Lying Lying Pulse Oximetry 94 93 Oxygen Delivery Method Room Air Room Air 09/14/18 07:28 09/14/18 11:26 Temperature 36.8 C 36.7 C Temperature Source Oral Oral Pulse Rate Pulse Rate [Left Finger] 54 L 54 L Pulse Rate from SpO2 Sensor Pulse Rhythm [Left Finger] Pulse Strength [Left Finger] Respiratory Rate 18 20 Respiratory Effort / Characteristics Respiratory Depth Respiratory Pattern Blood Pressure Blood Pressure [Left Arm] 163/74 H Blood Pressure [Right Arm] 129/65 Blood Pressure Mean Blood Pressure Mean [Left Arm] 103 Blood Pressure Mean [Right Arm] 86 Blood Pressure Position [Left Arm] Lying Blood Pressure Position [Right Arm] Lying Pulse Oximetry 91 93 Oxygen Delivery Method Room Air Room Air GENERAL: Patient is awake alert in no acute distress patient is resting comfortably and showing no signs of anxiety EYES: The conjunctivae are clear. The pupils are round and reactive. EARS, NOSE, MOUTH AND THROAT: The nose is without any evidence of any deformity. Mucous membranes are moist tongue is midline NECK: The neck is nontender and supple. RESPIRATORY: Normal respiratory effort is noted there is no evidence of wheezing rhonchi or rales CARDIOVASCULAR: Regular rate and rhythm was noted to auscultation. There was a systolic murmur noted to auscultation. GASTROINTESTINAL: The abdomen is soft. Bowel sounds are present in all quadrants. Abdomen is nontender MUSCULOSKELETAL/EXTREMITIES: There is no evidence of gross deformity full range of motion is noted in the hips and shoulders SKIN: There is no obvious evidence of any rash. There are no petechiae, pallor or cyanosis noted. NEUROLOGIC: Patient is awake alert and oriented x3. Course 1251: Past medical records reviewed. The patient was evaluated in room A4B, and a complete history and physical examination were performed. 1418: I checked on the patient. 1614: I updated the patient who verbalized agreement and understanding of the treatment plan. 1616: I discussed the patient's case with Sheron Ruiz admitting to Dr. Pollock who will evaluate the patient for further management. Consultations Consultation #1: Sheron Ruiz Time: 16:16 Administered Medications Albuterol (Ventolin 0.083% 2.5mg/3ml) 2.5 mg NEB Q6R PRN PRN Reason: Shortness Of Breath Or Wheezing Stop: 10/13/18 18:33 Last Admin: 09/13/18 22:02 Dose: 2.5 mg Documented by: [id number] Insulin Aspart (Novolog Flexpen) 0 units SC ACHS CARL Stop: 10/13/18 20:59 Last Admin: 09/14/18 11:53 Dose: Not Given Documented by: [id number] Cosigned by: [id number] Admin: 09/14/18 07:56 Dose: Not Given Documented by: [id number] Cosigned by: [id number] Admin: 09/13/18 21:57 Dose: Not Given Documented by: [id number] Cosigned by: [id number] Insulin Glargine (Lantus Solostar Pen) 0 units SC Q12 CARL; Protocol Stop: 10/13/18 20:59 Last Admin: 09/14/18 08:26 Dose: 5 units Documented by: [id number] Cosigned by: [id number] Admin: 09/13/18 21:42 Dose: 5 units Documented by: [id number] Cosigned by: [id number] Discontinued Medications Aspirin (Aspirin) 324 mg PO NOW STA Stop: 09/13/18 16:17 Last Admin: 09/13/18 16:31 Dose: 324 mg Documented by: [id number] Sodium Chloride (Nss) 500 mls @ 999 mls/hr IV .Q31M CARL Stop: 09/13/18 13:30 Last Infusion: 09/13/18 13:37 Dose: 0 mls/hr Documented by: [id number] Admin: 09/13/18 13:12 Dose: 999 mls/hr Documented by: [id number] Morphine Sulfate (Morphine Sulfate) 4 mg IV NOW STA Stop: 09/13/18 12:58 Last Admin: 09/13/18 13:10 Dose: 4 mg Documented by: [id number] Morphine Sulfate (Morphine Sulfate) 4 mg IV Q15M PRN PRN Reason: Pain Stop: 09/27/18 14:24 Last Admin: 09/13/18 14:33 Dose: 4 mg Documented by: [id number] Nitroglycerin (Nitrostat) 0.4 mg SL NOW STA Stop: 09/13/18 17:04 Last Admin: 09/13/18 18:38 Dose: Not Given Documented by: [id number] Nitroglycerin (Nitrostat) Confirm Administered Dose 0.4 mg .ROUTE .STK-MED ONE Stop: 09/13/18 17:25 Last Admin: 09/13/18 17:27 Dose: 0.4 mg Documented by: [id number] Ondansetron HCl (Zofran) 4 mg IV NOW STA Stop: 09/13/18 12:58 Last Admin: 09/13/18 13:11 Dose: 4 mg Documented by: [id number] Medical Decision Making Differential Diagnosis Differential diagnosis: Etiologies such as shingles, musculoskeletal pain, pericarditis, myocarditis, cardiac ischemia, pericardial tamponade, pneumonia, pneumothorax, pleural effusion, hemothorax, pleurisy, aortic pathology, pulmonary embolism, intra- abdominal process, as well as others were considered. Medical Records Attestation: I reviewed the patient's medical records. Home Medications Current Medication List: was personally reviewed by me Laboratory Data Attestation: I reviewed the patient's lab results. Result diagrams: 09/13/18 12:54 09/13/18 13:41 Lab Results 09/13/18 09/13/18 09/13/18 Range/Units 12:54 12:54 12:54 WBC 9.14 (4.8-10.8) K/uL RBC 4.55 L (4.7-6.1) M/uL Hgb 14.9 (14.0-18.0) g/dL Hct 41.9 L (42-52) % MCV 92.1 (80-100) fL MCH 32.7 (25-34) pg MCHC 35.6 (32-36) g/dL RDW Std Deviation 41.8 (36.4-46.3) fL RDW Coeff of Harry 12.5 (11.5-14.5) % Plt Count 223 (130-400) K/uL MPV 10.6 H (7.4-10.4) fL Immature Gran % (Auto) 1.0 % Neut % (Auto) 61.1 % Lymph % (Auto) 26.6 % [place] % (Auto) 10.4 % Eos % (Auto) 0.8 % Baso % (Auto) 0.1 % Immature Gran # (Auto) 0.09 H (0.00-0.02) K/uL Neut # (Auto) 5.59 (1.4-6.5) K/uL Lymph # (Auto) 2.43 (1.2-3.4) K/uL [place] # (Auto) 0.95 H (0.11-0.59) K/uL Eos # (Auto) 0.07 (0-0.5) K/uL Baso # (Auto) 0.01 (0-0.2) K/uL PT Cancelled INR Cancelled APTT Cancelled PTT Ratio Cancelled Sodium 137 (136-145) mmol/L Potassium (3.5-5.1) mmol/L Chloride 106 (98-107) mmol/L Carbon Dioxide 25 (21-32) mmol/L Anion Gap 6.0 (3-11) BUN 23 H (7-18) mg/dl Creatinine 1.14 (0.6-1.4) mg/dl Est Cr Clr Drug Dosing 74.1 ml/min Est GFR ( Amer) 73.0 Est GFR (Non-Af Amer) 63.0 BUN/Creatinine Ratio 20.2 H (10-20) Glucose 158 H (70-99) mg/dl POC Glucose (70-99) Estimat Average Glucose mg/dl Hemoglobin A1c (4.5-5.6) % Calcium 8.7 (8.5-10.1) mg/dl Magnesium (1.8-2.4) mg/dl Total Bilirubin 0.7 (0.2-1) mg/dl AST (15-37) U/L ALT 29 (12-78) U/L Alkaline Phosphatase 80 (45-117) U/L Troponin I (0-0.045) ng/ml Total Protein 6.8 (6.4-8.2) gm/dl Albumin 3.4 (3.4-5.0) gm/dl Globulin 3.4 (2.5-4.0) gm/dl Albumin/Globulin Ratio 1.0 (0.9-2) Triglycerides (0-150) mg/dl Cholesterol (0-200) mg/dl LDL Cholesterol, Calc mg/dl VLDL Cholesterol, Calc mg/dl HDL Cholesterol mg/dl Cholesterol/HDL Ratio Lipase 226 (73-393) U/L Urine Color Urine Appearance (Clear) Urine pH (4.5-7.5) Ur Specific Elton (1.000-1.030) Urine Protein (Negative) Urine Glucose (UA) (Negative) Urine Ketones (Negative) Urine Blood (Negative) Urine Nitrite (Negative) Urine Bilirubin (Negative) Urine Urobilinogen (Negative) Ur Leukocyte Esterase (Negative) 09/13/18 09/13/18 09/13/18 Range/Units 12:57 13:41 13:41 WBC (4.8-10.8) K/uL RBC (4.7-6.1) M/uL Hgb (14.0-18.0) g/dL Hct (42-52) % MCV (80-100) fL MCH (25-34) pg MCHC (32-36) g/dL RDW Std Deviation (36.4-46.3) fL RDW Coeff of Harry (11.5-14.5) % Plt Count (130-400) K/uL MPV (7.4-10.4) fL Immature Gran % (Auto) % Neut % (Auto) % Lymph % (Auto) % [place] % (Auto) % Eos % (Auto) % Baso % (Auto) % Immature Gran # (Auto) (0.00-0.02) K/uL Neut # (Auto) (1.4-6.5) K/uL Lymph # (Auto) (1.2-3.4) K/uL [place] # (Auto) (0.11-0.59) K/uL Eos # (Auto) (0-0.5) K/uL Baso # (Auto) (0-0.2) K/uL PT 10.6 INR 1.0 APTT 24.1 PTT Ratio 0.9 Sodium (136-145) mmol/L Potassium Cancelled (3.5-5.1) mmol/L Chloride (98-107) mmol/L Carbon Dioxide (21-32) mmol/L Anion Gap (3-11) BUN (7-18) mg/dl Creatinine (0.6-1.4) mg/dl Est Cr Clr Drug Dosing ml/min Est GFR ( Amer) Est GFR (Non-Af Amer) BUN/Creatinine Ratio (10-20) Glucose (70-99) mg/dl POC Glucose (70-99) Estimat Average Glucose mg/dl Hemoglobin A1c (4.5-5.6) % Calcium (8.5-10.1) mg/dl Magnesium (1.8-2.4) mg/dl Total Bilirubin (0.2-1) mg/dl AST (15-37) U/L ALT (12-78) U/L Alkaline Phosphatase (45-117) U/L Troponin I 0.034 (0-0.045) ng/ml Total Protein (6.4-8.2) gm/dl Albumin (3.4-5.0) gm/dl Globulin (2.5-4.0) gm/dl Albumin/Globulin Ratio (0.9-2) Triglycerides (0-150) mg/dl Cholesterol (0-200) mg/dl LDL Cholesterol, Calc mg/dl VLDL Cholesterol, Calc mg/dl HDL Cholesterol mg/dl Cholesterol/HDL Ratio Lipase (73-393) U/L Urine Color Urine Appearance (Clear) Urine pH (4.5-7.5) Ur Specific Elton (1.000-1.030) Urine Protein (Negative) Urine Glucose (UA) (Negative) Urine Ketones (Negative) Urine Blood (Negative) Urine Nitrite (Negative) Urine Bilirubin (Negative) Urine Urobilinogen (Negative) Ur Leukocyte Esterase (Negative) 09/13/18 09/13/18 09/13/18 Range/Units 13:41 14:03 20:20 WBC (4.8-10.8) K/uL RBC (4.7-6.1) M/uL Hgb (14.0-18.0) g/dL Hct (42-52) % MCV (80-100) fL MCH (25-34) pg MCHC (32-36) g/dL RDW Std Deviation (36.4-46.3) fL RDW Coeff of Harry (11.5-14.5) % Plt Count (130-400) K/uL MPV (7.4-10.4) fL Immature Gran % (Auto) % Neut % (Auto) % Lymph % (Auto) % [place] % (Auto) % Eos % (Auto) % Baso % (Auto) % Immature Gran # (Auto) (0.00-0.02) K/uL Neut # (Auto) (1.4-6.5) K/uL Lymph # (Auto) (1.2-3.4) K/uL [place] # (Auto) (0.11-0.59) K/uL Eos # (Auto) (0-0.5) K/uL Baso # (Auto) (0-0.2) K/uL PT INR APTT PTT Ratio Sodium (136-145) mmol/L Potassium 3.5 (3.5-5.1) mmol/L Chloride (98-107) mmol/L Carbon Dioxide (21-32) mmol/L Anion Gap (3-11) BUN (7-18) mg/dl Creatinine (0.6-1.4) mg/dl Est Cr Clr Drug Dosing ml/min Est GFR ( Amer) Est GFR (Non-Af Amer) BUN/Creatinine Ratio (10-20) Glucose (70-99) mg/dl POC Glucose 148 H (70-99) Estimat Average Glucose mg/dl Hemoglobin A1c (4.5-5.6) % Calcium (8.5-10.1) mg/dl Magnesium 2.0 (1.8-2.4) mg/dl Total Bilirubin (0.2-1) mg/dl AST 16 (15-37) U/L ALT (12-78) U/L Alkaline Phosphatase (45-117) U/L Troponin I (0-0.045) ng/ml Total Protein (6.4-8.2) gm/dl Albumin (3.4-5.0) gm/dl Globulin (2.5-4.0) gm/dl Albumin/Globulin Ratio (0.9-2) Triglycerides (0-150) mg/dl Cholesterol (0-200) mg/dl LDL Cholesterol, Calc mg/dl VLDL Cholesterol, Calc mg/dl HDL Cholesterol mg/dl Cholesterol/HDL Ratio Lipase (73-393) U/L Urine Color Yellow Urine Appearance Clear (Clear) Urine pH 6.0 (4.5-7.5) Ur Specific Elton 1.029 (1.000-1.030) Urine Protein Negative (Negative) Urine Glucose (UA) 1+ H (Negative) Urine Ketones Trace H (Negative) Urine Blood Negative (Negative) Urine Nitrite Negative (Negative) Urine Bilirubin Negative (Negative) Urine Urobilinogen Negative (Negative) Ur Leukocyte Esterase Negative (Negative) 09/14/18 09/14/18 09/14/18 Range/Units 06:03 07:44 08:52 WBC (4.8-10.8) K/uL RBC (4.7-6.1) M/uL Hgb (14.0-18.0) g/dL Hct (42-52) % MCV (80-100) fL MCH (25-34) pg MCHC (32-36) g/dL RDW Std Deviation (36.4-46.3) fL RDW Coeff of Harry (11.5-14.5) % Plt Count (130-400) K/uL MPV (7.4-10.4) fL Immature Gran % (Auto) % Neut % (Auto) % Lymph % (Auto) % [place] % (Auto) % Eos % (Auto) % Baso % (Auto) % Immature Gran # (Auto) (0.00-0.02) K/uL Neut # (Auto) (1.4-6.5) K/uL Lymph # (Auto) (1.2-3.4) K/uL [place] # (Auto) (0.11-0.59) K/uL Eos # (Auto) (0-0.5) K/uL Baso # (Auto) (0-0.2) K/uL PT INR APTT PTT Ratio Sodium (136-145) mmol/L Potassium (3.5-5.1) mmol/L Chloride (98-107) mmol/L Carbon Dioxide (21-32) mmol/L Anion Gap (3-11) BUN (7-18) mg/dl Creatinine (0.6-1.4) mg/dl Est Cr Clr Drug Dosing ml/min Est GFR ( Amer) Est GFR (Non-Af Amer) BUN/Creatinine Ratio (10-20) Glucose (70-99) mg/dl POC Glucose 141 H 143 H (70-99) Estimat Average Glucose 180 mg/dl Hemoglobin A1c 7.9 H (4.5-5.6) % Calcium (8.5-10.1) mg/dl Magnesium (1.8-2.4) mg/dl Total Bilirubin (0.2-1) mg/dl AST (15-37) U/L ALT (12-78) U/L Alkaline Phosphatase (45-117) U/L Troponin I (0-0.045) ng/ml Total Protein (6.4-8.2) gm/dl Albumin (3.4-5.0) gm/dl Globulin (2.5-4.0) gm/dl Albumin/Globulin Ratio (0.9-2) Triglycerides (0-150) mg/dl Cholesterol (0-200) mg/dl LDL Cholesterol, Calc mg/dl VLDL Cholesterol, Calc mg/dl HDL Cholesterol mg/dl Cholesterol/HDL Ratio Lipase (73-393) U/L Urine Color Urine Appearance (Clear) Urine pH (4.5-7.5) Ur Specific [place] (1.000-1.030) Urine Protein (Negative) Urine Glucose (UA) (Negative) Urine Ketones (Negative) Urine Blood (Negative) Urine Nitrite (Negative) Urine Bilirubin (Negative) Urine Urobilinogen (Negative) Ur Leukocyte Esterase (Negative) 09/14/18 09/14/18 Range/Units 08:52 11:50 WBC (4.8-10.8) K/uL RBC (4.7-6.1) M/uL Hgb (14.0-18.0) g/dL Hct (42-52) % MCV (80-100) fL MCH (25-34) pg MCHC (32-36) g/dL RDW Std Deviation (36.4-46.3) fL RDW Coeff of Harry (11.5-14.5) % Plt Count (130-400) K/uL MPV (7.4-10.4) fL Immature Gran % (Auto) % Neut % (Auto) % Lymph % (Auto) % [place] % (Auto) % Eos % (Auto) % Baso % (Auto) % Immature Gran # (Auto) (0.00-0.02) K/uL Neut # (Auto) (1.4-6.5) K/uL Lymph # (Auto) (1.2-3.4) K/uL [place] # (Auto) (0.11-0.59) K/uL Eos # (Auto) (0-0.5) K/uL Baso # (Auto) (0-0.2) K/uL PT INR APTT PTT Ratio Sodium (136-145) mmol/L Potassium (3.5-5.1) mmol/L Chloride (98-107) mmol/L Carbon Dioxide (21-32) mmol/L Anion Gap (3-11) BUN (7-18) mg/dl Creatinine (0.6-1.4) mg/dl Est Cr Clr Drug Dosing ml/min Est GFR ( Amer) Est GFR (Non-Af Amer) BUN/Creatinine Ratio (10-20) Glucose (70-99) mg/dl POC Glucose 139 H (70-99) Estimat Average Glucose mg/dl Hemoglobin A1c (4.5-5.6) % Calcium (8.5-10.1) mg/dl Magnesium (1.8-2.4) mg/dl Total Bilirubin (0.2-1) mg/dl AST (15-37) U/L ALT (12-78) U/L Alkaline Phosphatase (45-117) U/L Troponin I 0.046 H* (0-0.045) ng/ml Total Protein (6.4-8.2) gm/dl Albumin (3.4-5.0) gm/dl Globulin (2.5-4.0) gm/dl Albumin/Globulin Ratio (0.9-2) Triglycerides 227 H (0-150) mg/dl Cholesterol 120 (0-200) mg/dl LDL Cholesterol, Calc 34 mg/dl VLDL Cholesterol, Calc 45 mg/dl HDL Cholesterol 41 mg/dl Cholesterol/HDL Ratio 3 Lipase (73-393) U/L Urine Color Urine Appearance (Clear) Urine pH (4.5-7.5) Ur Specific [place] (1.000-1.030) Urine Protein (Negative) Urine Glucose (UA) (Negative) Urine Ketones (Negative) Urine Blood (Negative) Urine Nitrite (Negative) Urine Bilirubin (Negative) Urine Urobilinogen (Negative) Ur Leukocyte Esterase (Negative) Imaging Data Radiologist's Impression: Radiology results as stated below per my review and the radiologist's interpretation: XR chest 1V portable CLINICAL HISTORY: 72 years-old Male presenting with CP, shortness of breath. TECHNIQUE: Portable upright AP view of the chest was obtained. COMPARISON: 09/09/2018. FINDINGS: Atherosclerosis of the aortic arch. Cardiac silhouette borderline enlarged. Mildly low lung volumes with hypoventilatory changes. Persistent calcified granuloma in the left lower lung. No new focal opacity. No large effusion or pneumothorax. Osseous structures normal. Upper abdomen normal. IMPRESSION: 1. Mildly low lung volumes with hypoventilatory changes including prominence of the cardiac silhouette. No superimposed infiltrate to suggest acute cardiopulmonary disease. Electronically signed by: Almas Mir M.D. 09/13/2018 2:[address] ANGIOGRAM OF THE CHEST; CT SCAN OF THE ABDOMEN AND PELVIS WITH IV CONTRAST CLINICAL HISTORY: Atypical chest pain. Dyspnea. Generalized abdominal pain. COMPARISON STUDY: Abdominal CT dated 02/09/2012. Chest CT scans dated 11/20/2017 and 01/13/2016. TECHNIQUE: Following the IV administration of 121 of Optiray 320, CT angiogram of the chest is performed from the upper abdomen to the thoracic inlet utilizing the pulmonary embolus protocol. Images are reviewed in the axial, sagittal, coronal planes. 3-D MIPS images are created and assessed. Subsequently, CT scan of the abdomen and pelvis was performed from the lung bases to the proximal femora. Images are reviewed in the axial, sagittal, and coronal planes. IV contrast was administered without complication. A dose lowering technique was utilized adhering to the principles of ALARA. CT DOSE: 2110.83 mGy.cm FINDINGS: CHEST: Thyroid: Imaged portions of the thyroid gland are normal in size and attenuation. Thoracic aorta: There is atherosclerotic calcification of the thoracic aorta, which is normal in caliber and demonstrates standard 3-vessel arch anatomy. No dissection is seen. Pulmonary vasculature: The pulmonary trunk is normal in caliber. There are no filling defects identified in the main, lobar, or segmental pulmonary arteries to indicate pulmonary embolus. Heart: The heart is enlarged and without pericardial effusion. The coronary arteries are densely calcified. Lungs and pleural spaces: There is no airspace consolidation or pleural effusion. Bibasilar scarring/atelectasis is identified. The trachea and central airways are clear. There is a large calcified granuloma in the lingula. Mediastinum: There is no mediastinal lymphadenopathy. Calcified mediastinal nodes are observed. Soha: There is no hilar adenopathy. Calcified hilar nodes are identified. Axillae: There is no axillary lymphadenopathy. Bony thorax: The skeletal structures are osteopenic. Degenerative change is noted in the shoulders and thoracic spine. No lytic or blastic lesions are identified. Soft tissues: Gynecomastia is noted. ABDOMEN AND PELVIS: Liver: The contrast-enhanced liver is normal in size, contour, and attenuation. There is no intrahepatic or ductal dilatation. The hepatic veins and portal veins are patent. Gallbladder: Unremarkable. Spleen: Normal in size and attenuation. There are scattered calcified splenic granulomas. Pancreas: Moderately atrophic and grossly unremarkable. Adrenal glands: Unremarkable. Kidneys: The contrast enhanced kidneys are atrophic and without hydronephrosis. The kidneys enhance symmetrically. An 11 mm cyst arises from the lower pole of left kidney. Additional smaller cysts are identified in both kidneys, and addit ional subcentimeter cortical hypodensities also likely represent cysts but are too small for definitive characterization. Numerous parapelvic cysts are again seen bilaterally. There is an 8 mm nonobstructing right renal calculus. There is a circumaortic left renal vein. Abdominal vasculature: The abdominal aorta is normal in course and caliber noting moderate to advanced atherosclerotic calcification. Stomach and bowel: There is a small hiatal hernia. The duodenum is normal in configuration. No bowel obstruction is seen. There is moderate to advanced colonic diverticulosis without CT evidence of acute diverticulitis. Colonic fecal retention is observed. The appendix is well-visualized and normal. A duodenal diverticulum is noted. Peritoneum: There is no intraperitoneal free air or abdominal ascites. Lymphadenopathy: None. Pelvic viscera: The prostate gland is mildly enlarged and heterogeneous, measuring 5 cm in transverse diameter. Although decompressed, the bladder wall is thickened and trabeculated indicating chronic outlet obstruction. The seminal vesicles are normal as visualized. There is a fat-containing left inguinal hernia. There is abnormal soft tissue identified within the hernia sac seen on image #457. This is nodular in configuration and measures approximately 2.5 cm. Skeletal structures: The skeletal structures are osteopenic. There is mild to moderate lumbosacral spondylosis. No lytic or blastic lesions are seen. IMPRESSION: 1. There is no evidence of pulmonary embolus in the main, lobar, or segmental pulmonary arteries. 2. There is no airspace consolidation or pleural effusion. 3. Cardiomegaly. 4. There are no acute infectious or inflammatory findings in the abdomen or pelvis. 5. There is a fat-containing left inguinal hernia. There is indeterminant nodular soft tissue within the left inguinal hernia, which is new from the 2012 examination. If there has been a history of surgery in this region this could be on a postoperative basis. Neoplasm would be impossible to exclude and clinical correlation will be required. 6. Moderate to advanced colonic diverticulosis without CT evidence of acute diverticulitis. 7. Right-sided nephrolithiasis. 8. Additional findings as above. Electronically signed by: Abraham Gallo M.D. 09/13/2018 3:31 PM ECG Data Attestation: I personally reviewed and interpreted this ECG as follows: Indication: chest pain Rate (beats per minute): 60 Rhythm: normal sinus Findings: + other (LVH); no PAC, no PVC, no ST depression, no ST elevation and no ectopy Comparison ECG Date: from (08/22/18) Change: no significant change Blood Pressure Blood Pressure Findings: Normal blood pressure MDM Narrative The patient is a 72-year-old male who presented to the emergency department with multiple complaints. The patient has been complaining of upper chest pain which radiates to both shoulders. His EKG did not show any acute changes but his troponin was mildly elevated. He also complained of lower abdominal pain. I discussed the patient's laboratory and radiographic studies with him. He was treated with pain medication in the emergency department. I discussed the limitations of the emergency department workup for chest pain with him. Ultimately I did discuss his case with the on-call [facility] hospitalist group. They have agreed to evaluate the patient in the emergency department for further management and disposition. He was reevaluated multiple times. Impression & Plan Chest pain, Elevated troponin, Abdominal pain, lower, Inguinal hernia, Colonic mass Discharge Plan Visit Data *Final* Discharge Date/Time: 09/13/18 18:02 Chief Complaint: Chest Pain Stated Complaint: CHEST PAINS ED Provider: Hoang Savage Discharge Problem: Chest pain, Elevated troponin, Abdominal pain, lower, Inguinal hernia, Colonic mass Patient Disposition: Admitted As Inpatient Discharge Instructions Interventions: ED Discharge Assessment Last Done: 09/13/18 18:02 Discharge Problem: Chest pain Qualifiers: Chest pain type: unspecified Qualified Code(s): R07.9 - Chest pain, unspecified The scribe's documentation has been prepared under my direction and personally reviewed by me in its entirety. I confirm that the note above accurately reflects all work, treatment, procedures, and medical decision making performed by me.
[2018-09-13] MEDS ORDERED: SODIUM CHLORIDE 0.9% 500 ML IV SCH (13:00)
[2018-09-13 13:04] LABS: Basophils # (auto) 0.01 K/uL (0-0.2); Basophils % (auto) 0.1 %; Eosinophils # (auto) 0.07 K/uL (0-0.5); Eosinophils % (auto) 0.8 %; Hematocrit (blood only) 41.9 % (42-52); Hemoglobin 14.9 g/dL (14.0-18.0); Immature Granulocytes # (auto) 0.09 K/uL (0.00-0.02); Lymphocytes # (auto) 2.43 K/uL (1.2-3.4); Lymphocytes % (auto) 26.6 %; Mean Corpuscular Hgb Conc 35.6 g/dL (32-36); Mean Corpuscular Volume 92.1 fL (80-100); Mean Platelet Volume 10.6 fL (7.4-10.4); Monocytes # (auto) 0.95 K/uL (0.11-0.59); Monocytes % (auto) 10.4 %; Neutrophils # (auto) 5.59 K/uL (1.4-6.5); Neutrophils % (auto) 61.1 %; Platelet Count 223 K/uL (130-400); RDW Coefficient of Variation 12.5 % (11.5-14.5); RDW Standard Deviation 41.8 fL (36.4-46.3); Red Blood Count 4.55 M/uL (4.7-6.1); White Blood Count 9.14 K/uL (4.8-10.8)
[2018-09-13 13:31] LABS: Albumin Level 3.4 gm/dl (3.4-5.0); BUN Creatinine Ratio 20.2 (10-20); Bilirubin,Total 0.7 mg/dl (0.2-1); Calcium 8.7 mg/dl (8.5-10.1); Creatinine Clr Calc Pharmacy 74.1 ml/min; Globulin 3.4 gm/dl (2.5-4.0); Total Protein 6.8 gm/dl (6.4-8.2)
[2018-09-13 14:02] LABS: Partial Thromboplastin Ratio 0.9; Partial Thromboplastin Time 24.1 Seconds (21.0-31.0); Prothrombin Time 10.6 Seconds (9.0-12.0)
[2018-09-13 14:06] LABS: Potassium 3.5 mmol/L (3.5-5.1)
[2018-09-13 14:16] LABS: Appearance Urine Clear (Clear); Bilirubin Urine Negative (Negative); Blood Urine Negative (Negative); Color Urine Yellow; Glucose Urine UA 1+ (Negative); Ketones Urine Trace (Negative); Leukocyte Esterase Urine Negative (Negative); Nitrite Urine Negative (Negative); Protein Urine Negative (Negative); Specific Gravity Urine 1.029 (1.000-1.030); Urobilinogen Urine Negative (Negative)
[2018-09-13] MEDS ORDERED: MoRPHine SULFATE 4 MG/ML 1 ML CARP\\VIAL IV PRN (14:25)
--- NOTE | 2018-09-13 14:35 | XRay Report ---
XR chest 1V portable CLINICAL HISTORY: 72 years-old Male presenting with CP, shortness of breath. TECHNIQUE: Portable upright AP view of the chest was obtained. COMPARISON: 09/09/2018. FINDINGS: Atherosclerosis of the aortic arch. Cardiac silhouette borderline enlarged. Mildly low lung volumes w ith hypoventilatory changes. Persistent calcified granuloma in the left lower lung. No new focal opac ity. No large effusion or pneumothorax. Osseous structures normal. Upper abdomen normal. IMPRESSION: 1. Mildly low lung volumes with hypoventilatory changes including prominence of the cardiac silhouet te. No superimposed infiltrate to suggest acute cardiopulmonary disease. Electronically signed by: Almas Mir M.D. 09/13/2018 2:34 PM
[2018-09-13] MEDS ORDERED: OPTIRAY 320 125ml IV PRN (14:54)
--- NOTE | 2018-09-13 15:33 | CT Scan Report ---
CT ANGIOGRAM OF THE CHEST; CT SCAN OF THE ABDOMEN AND PELVIS WITH IV CONTRAST CLINICAL HISTORY: Atypical chest pain. Dyspnea. Generalized abdominal pain. COMPARISON STUDY: Abdominal CT dated 02/09/2012. Chest CT scans dated 11/20/2017 and 01/13/2016. TECHNIQUE: Following the IV administration of 121 of Optiray 320, CT angiogram of the chest is perfor med from the upper abdomen to the thoracic inlet utilizing the pulmonary embolus protocol. Images are reviewed in the axial, sagittal, coronal planes. 3-D MIPS images are created and assessed. Subsequen tly, CT scan of the abdomen and pelvis was performed from the lung bases to the proximal femora. Imag es are reviewed in the axial, sagittal, and coronal planes. IV contrast was administered without comp lication. A dose lowering technique was utilized adhering to the principles of ALARA. CT DOSE: 2110.83 mGy.cm FINDINGS: CHEST: Thyroid: Imaged portions of the thyroid gland are normal in size and attenuation. Thoracic aorta: There is atherosclerotic calcification of the thoracic aorta, which is normal in hema vaishnavi and demonstrates standard 3-vessel arch anatomy. No dissection is seen. Pulmonary vasculature: The pulmonary trunk is normal in caliber. There are no filling defects identif ied in the main, lobar, or segmental pulmonary arteries to indicate pulmonary embolus. Heart: The heart is enlarged and without pericardial effusion. The coronary arteries are densely calc ified. Lungs and pleural spaces: There is no airspace consolidation or pleural effusion. Bibasilar scarring/ atelectasis is identified. The trachea and central airways are clear. There is a large calcified gran uloma in the lingula. Mediastinum: There is no mediastinal lymphadenopathy. Calcified mediastinal nodes are observed. Soha: There is no hilar adenopathy. Calcified hilar nodes are identified. Axillae: There is no axillary lymphadenopathy. Bony thorax: The skeletal structures are osteopenic. Degenerative change is noted in the shoulders an d thoracic spine. No lytic or blastic lesions are identified. Soft tissues: Gynecomastia is noted. ABDOMEN AND PELVIS: Liver: The contrast-enhanced liver is normal in size, contour, and attenuation. There is no intrahepa tic or ductal dilatation. The hepatic veins and portal veins are patent. Gallbladder: Unremarkable. Spleen: Normal in size and attenuation. There are scattered calcified splenic granulomas. Pancreas: Moderately atrophic and grossly unremarkable. Adrenal glands: Unremarkable. Kidneys: The contrast enhanced kidneys are atrophic and without hydronephrosis. The kidneys enhance s ymmetrically. An 11 mm cyst arises from the lower pole of left kidney. Additional smaller cysts are i dentified in both kidneys, and additional subcentimeter cortical hypodensities also likely represent cysts but are too small for definitive characterization. Numerous parapelvic cysts are again seen jamar aterally. There is an 8 mm nonobstructing right renal calculus. There is a circumaortic left renal ve in. Abdominal vasculature: The abdominal aorta is normal in course and caliber noting moderate to advance d atherosclerotic calcification. Stomach and bowel: There is a small hiatal hernia. The duodenum is normal in configuration. No bowel obstruction is seen. There is moderate to advanced colonic diverticulosis without CT evidence of acut e diverticulitis. Colonic fecal retention is observed. The appendix is well-visualized and normal. A duodenal diverticulum is noted. Peritoneum: There is no intraperitoneal free air or abdominal ascites. Lymphadenopathy: None. Pelvic viscera: The prostate gland is mildly enlarged and heterogeneous, measuring 5 cm in transverse diameter. Although decompressed, the bladder wall is thickened and trabeculated indicating chronic o utlet obstruction. The seminal vesicles are normal as visualized. There is a fat-containing left ingu inal hernia. There is abnormal soft tissue identified within the hernia sac seen on image #457. This is nodular in configuration and measures approximately 2.5 cm. Skeletal structures: The skeletal structures are osteopenic. There is mild to moderate lumbosacral sp ondylosis. No lytic or blastic lesions are seen. IMPRESSION: 1. There is no evidence of pulmonary embolus in the main, lobar, or segmental pulmonary arteries. 2. There is no airspace consolidation or pleural effusion. 3. Cardiomegaly. 4. There are no acute infectious or inflammatory findings in the abdomen or pelvis. 5. There is a fat-containing left inguinal hernia. There is indeterminant nodular soft tissue within the left inguinal hernia, which is new from the 2012 examination. If there has been a history of surg vee in this region this could be on a postoperative basis. Neoplasm would be impossible to exclude an d clinical correlation will be required. 6. Moderate to advanced colonic diverticulosis without CT evidence of acute diverticulitis. 7. Right-sided nephrolithiasis. 8. Additional findings as above. Electronically signed by: Abraham Gallo M.D. 09/13/2018 3:31 PM
[2018-09-13] MEDS ORDERED: ASPIRIN CHEW 324 MG PO STA (16:16)
[2018-09-13] MEDS ORDERED: NITROGLYCERIN SL 0.4 MG/TAB TAB SL STA (17:03)
[2018-09-13] MEDS ORDERED: NITROGLYCERIN SL 0.4 MG/TAB TAB ONE (17:24)
--- NOTE | 2018-09-13 17:37 | History & Physical Report ---
Date of Service September 13, 2018 Assessment & Plan (1) Chest pain: Pt presented to ER with c/o upper anterior chest pain described as dull that started around 10:30 this morning while he was still lying in bed. In ER pt afebrile, P: 56, R: 18, BP: 133/75, 95% on RA. He was given 500ml NSS, zofran 4mg IV, morphine 4mg IV. Troponin: 0.03. EKG without acute ST changes compared to EKG 08/2018. Pt reports improvement of abdominal pain and chest pain after morphine, however CP is still present. He was also given 324mg aspirin. CTA CHEST: No evidence of pulmonary embolus in the main, lobar, or segmental pulmonary arteries. There is no airspace consolidation or pleural effusion. Cardiomegaly. Hx: 2014 cardiac cath: Minor nonobstructive CAD, 20% stenosis mid LAD Hx: 2012 Echo: EF: 55%, grade 1 diastolic dysfunction, moderate valve sclerosis, mild tricuspid regurgitation CHEST PAIN R/O ACS. Risk factors: HTN, hyperlipidemia, DM, obesity -Pt had relief of CP after 1 SL nitro and is currently CP free -Monitor Vitals -Repeat EKG in am -Will trend troponin -Echo -Lipid panel in am, continue statin -ASA -Nitro prn CP and repeat EKG for CP -Reassess during hospital course, may need to consider cardiology consult (2) Abdominal pain: Pt reported epigastric abdominal discomfort started sometime today. Also c/o nausea without vomiting. Hx chronic intermittent diarrhea and constipation. Last BM yesterday and loose per pt. WBC: 9, Lipase normal, normal LFTs In ER pt was given morphine with some improvement of abdominal pain. While in ER pt ate tray of food and he states no further nausea or abdominal pain -monitor (3) Inguinal hernia: Pt with hx bilateral inguinal hernia repairs. Today had epigastric discomfort only. No pain to lower abdomen and no pain to RLQ, LLQ on exam. CT ABD/PELVIS: There are no acute infectious or inflammatory findings in the abdomen or pelvis. There is a fat-containing left inguinal hernia. There is indeterminant nodular soft tissue within the left inguinal hernia, which is new from the 2012 examination. If there has been a history of surgery in this region this could be on a postoperative basis. Neoplasm would be impossible to exclude and clinical correlation will be required. Moderate to advanced colonic diverticulosis without CT evidence of acute diverticulitis. Right-sided nephrolithiasis. -Outpatient follow up recommended (4) Diabetes: DM II Pt had not taken medications for one year and resumed in 08/2018. A1c: 7.6 on 08/26/18 -hold metformin while in hospital -monitor BSGs, diabetic diet -basal bolus insulin per protocol (5) COPD, mild: Pt with recent cough, chills, SOB. Had ER visit on 09/09/18. Finished course of zithromax and prednisone with relief. No consolidation noted on CT chest. -continue advair, spiriva -albuterol neb prn SOB/wheezing (6) HTN (hypertension): In ER BP: 133/75, 118/61 Pt had stopped medications for past year and resumed in 08/2018 -continue losartan (7) Dyslipidemia: Pt had stopped medications for past year and resumed in 08/2018 -lipid panel in am -continue atorvastatin DVT Prophylaxis -Heparin SQ Full Code as per discussion with pt Follows with Dr Werner for routine care Pt was seen with Dr Pollock. See addendum History of Present Illness Chief Complaint: CP Primary Care Provider: Julius Werner MD Pt is 72 y/o M with PMH HTN, dyslipidemia, GERD, depression, anxiety, COPD, DM II to ER from PCPs office for chest pain. Patient states started with upper anterior chest pain described as dull that started around 10:30 this morning while he was still lying in bed. Patient reports pain has been continuous. He did not try nitro or any other treatment. He had PCP follow-up today after ER visit on 08/30/18 for cough, chills, weakness, SOB in which he was placed on prednisone and Zithromax. Patient states finished those medicines and cough and SOB have resolved. No further chills. Patient denies any dizziness, shortness of breath, palpitations today. Reports history of shortness of breath with climbing 1 flight of stairs for the past couple of months. Reports he has been pretty sedentary over the past 6 months, denies shortness of breath or chest pain with ambulating throughout the house. Patient states sometime today he started with mid abdominal pain that is nonradiating. He states does not feel is associated with the chest pain. Also complains of some nausea. Denies vomiting. He reports chronic diarrhea alternating with constipation. Denies any recent changes in BMs. Patient admits that he stopped taking all of his blood pressure, cholesterol, diabetes medications for a year because he did not feel like taking them. He resumed taking meds in August. Pt not on beta blockers secondary to bradycardia. Pt reports notices some extremity edema at the end of the day that resolves with elevation by morning. Denies diaphoresis, vomiting, IRIZARRY, dizziness, syncope, vision changes, neck pain, orthopnea, palpitations, hemoptysis, indigestion, sore throat, choking, otalgia, rhinorrhea, paresthesias, weakness, extremity weakness, rashes, dysuria, hematuria. 2014 cardiac cath: Minor nonobstructive CAD, 20% stenosis mid LAD 2012 Echo: EF: 55%, grade 1 diastolic dysfunction, moderate valve sclerosis, mild tricuspid regurgitation In ER pt afebrile, P: 56, R: 18, BP: 133/75, 95% on RA. He was given 500ml NSS, zofran 4mg IV, morphine 4mg IV. Pt reports improvement of abdominal pain and chest pain after morphine, however CP is still present. He states no further nausea and abdomen feeling better and requesting to eat. He was also given 324mg aspirin. Pt will be admitted for further observation and treatment. Allergies Allergy/AdvReac Type Severity Reaction Status Date / Time codeine Allergy Intermediate HALLUCINATI Verified 09/09/18 22:59 ONS ezetimibe Allergy Intermediate HIVES Verified 09/09/18 22:59 pantoprazole Allergy Intermediate HIVES Verified 09/09/18 22:59 lisinopril Allergy Mild cough Verified 08/22/18 14:53 Home Medications Home Medications Medication Instructions Recorded Confirmed Type albuterol sulfate [ProAir HFA] 2 puff INHALATION Q4 PRN 09/13/18 09/13/18 History aspirin 81 mg PO DAILY 09/13/18 09/13/18 History atorvastatin [Lipitor] 80 mg PO DAILY 09/13/18 09/13/18 History azithromycin [Zithromax] 250 mg PO DAILY 09/13/18 09/13/18 History colestipol 1 g PO BID 09/13/18 09/13/18 History dicyclomine 20 mg PO BID 09/13/18 09/13/18 History fluticasone-salmeterol [Advair 1 inh INHALATION Q12H 09/13/18 09/13/18 History Diskus] losartan [Cozaar] 25 mg PO DAILY 09/13/18 09/13/18 History metformin [Glucophage XR] 1,000 mg PO PM 09/13/18 09/13/18 History nitroglycerin [Nitrostat] 0.4 mg SUBLINGUAL UD PRN 09/13/18 09/13/18 History prednisone [Deltasone] 40 mg PO UD 09/13/18 09/13/18 History tiotropium bromide [Spiriva with 1 cap INHALATION DAILY 09/13/18 09/13/18 History HandiHaler] Past Med/Surg History Medical History Anxiety (Chronic) GERD (gastroesophageal reflux disease) (Chronic) Diabetes (Chronic) Dyslipidemia (Chronic) PEDRO (obstructive sleep apnea) (Chronic) Diastolic dysfunction (Chronic) "echo 2013 - EF 60-65%, grade I diastolic dysfunction, no valvular disease" COPD, mild (Chronic) HTN (hypertension) (Chronic) CAD (coronary artery disease) (Chronic) "40-50% LAD lesion noted on cath in 2010 dobutamine stress test 2012 negative for ischemia" Surgical History History of colonoscopy (Chronic) 2016: adenomatous polyps, diverticulosis. Dr Worthington History of inguinal hernia repair, bilateral (Chronic) Hx of hemorrhoidectomy (Chronic) S/P foot surgery, right (Chronic) History of cholecystectomy (Chronic) Family History Other Heart disease Social History Preferred Language: Vietnamese marital status: Current Living Situation: Spouse Current Living Situation Comment: [facility] Feels Safe at Home: Yes Smoking Status: Former smoker Hx Alcohol Use: No Hx Substance Use: No Review of Systems All systems reviewed & are unremarkable except as noted in HPI & below Physical Exam Vital Signs (Past 24 Hours): Last Vital Signs Temp 36.5 C 09/13/18 12:32 Pulse 65 09/13/18 16:30 Resp 21 09/13/18 16:30 BP 124/64 09/13/18 16:00 Pulse Ox 88 L 09/13/18 15:30 Physical Exam: General: no distress,obese Head: normocephalic, atraumatic Eyes: PERRL, EOM's intact, conjunctiva non-injected, anicteric ENT: normal inspection external ears, nose, mucous membranes moist Neck: supple, trachea midline Lungs: clear, no respiratory distress, no wheezing/rhonchi/rales CV: RRR, systolic murmur, no pretibial edema, No chest tenderness to palpation Abd: normal BS, protuberant, soft, tender to epigastric region only without rebound or guarding Ext: no cyanosis, no calf tenderness Neuro: A&O x 3, no focal deficits noted, flat affect Skin: warm, dry Results & Data Laboratory Results Short CBC 09/13/18 Range/Units 12:54 WBC 9.14 (4.8-10.8) K/uL Hgb 14.9 (14.0-18.0) g/dL Hct 41.9 L (42-52) % Plt Count 223 (130-400) K/uL BMP 09/13/18 09/13/18 09/13/18 12:54 13:41 13:41 Sodium 137 Potassium Cancelled 3.5 Chloride 106 Carbon Dioxide 25 BUN 23 H Creatinine 1.14 Glucose 158 H Calcium 8.7 Cardiac Enzymes 09/13/18 Range/Units 12:57 Troponin I 0.034 (0-0.045) ng/ml Liver Function 09/13/18 09/13/18 Range/Units 12:54 13:41 Total Bilirubin 0.7 (0.2-1) mg/dl AST 16 (15-37) U/L ALT 29 (12-78) U/L Alkaline Phosphatase 80 (45-117) U/L Albumin 3.4 (3.4-5.0) gm/dl Urine 09/13/18 Range/Units 14:03 Urine Color Yellow Urine Appearance Clear (Clear) Urine pH 6.0 (4.5-7.5) Ur Specific [place] 1.029 (1.000-1.030) Urine Protein Negative (Negative) Urine Glucose (UA) 1+ H (Negative) Diagnostic Findings CXR: IMPRESSION: 1. Mildly low lung volumes with hypoventilatory changes including prominence of the cardiac silhouette. No superimposed infiltrate to suggest acute cardiopulmonary disease. CTA CHEST: IMPRESSION: 1. There is no evidence of pulmonary embolus in the main, lobar, or segmental pulmonary arteries. 2. There is no airspace consolidation or pleural effusion. 3. Cardiomegaly. 4. There are no acute infectious or inflammatory findings in the abdomen or pelvis. 5. There is a fat-containing left inguinal hernia. There is indeterminant nodular soft tissue within the left inguinal hernia, which is new from the 2012 examination. If there has been a history of surgery in this region this could be on a postoperative basis. Neoplasm would be impossible to exclude and clinical correlation will be required. 6. Moderate to advanced colonic diverticulosis without CT evidence of acute diverticulitis. 7. Right-sided nephrolithiasis. 8. Additional findings as above. CT ABD/PELVIS: IMPRESSION: 1. There is no evidence of pulmonary embolus in the main, lobar, or segmental pulmonary arteries. 2. There is no airspace consolidation or pleural effusion. 3. Cardiomegaly. 4. There are no acute infectious or inflammatory findings in the abdomen or pelvis. 5. There is a fat-containing left inguinal hernia. There is indeterminant nodular soft tissue within the left inguinal hernia, which is new from the 2012 examination. If there has been a history of surgery in this region this could be on a postoperative basis. Neoplasm would be impossible to exclude and clinical correlation will be required. 6. Moderate to advanced colonic diverticulosis without CT evidence of acute dive rticulitis. 7. Right-sided nephrolithiasis. 8. Additional findings as above. ECG Rate (beats per minute): 60 Rhythm: sinus rhythm Findings: + LAFB Supervising Physician Co-Signing Physician Notes Attending addendum: The patient was seen and examined in emergency room He is a 72 y/o M with PMH HTN, dyslipidemia, GERD, depression, anxiety, COPD, DM II to ER from PCPs office for chest pain. He complains of chest pain that has been ongoing for a while Seems to be centre of the chest without any associated symptoms of shortness of breath/palpitation/sweating or any radiation of pain The patient seems to be at rest and sometimes with exertion On Examination No apparent distress at rest Hemodynamically stable Chest-clear to auscultate bilaterally Heart-S1-S2, regular Abdomen-mildly tender in the epigastrium, not distended and bowel sounds normal Extremities-no edema Admission labs,EKG and imaging studies reviewed Likely to be noncardiac chest pain, will need to rule out ACS with serial card iac enzymes and EKG and echo Acute assessment plan as outlined above by Sheron Pollock (1) Chest pain Chest pain type: unspecified Qualified Code(s): R07.9 - Chest pain, unspecified
[2018-09-13] MEDS ORDERED: GLUCOSE 10 TABS/TUBE PO PRN (18:34)
[2018-09-13] MEDS ORDERED: GLUCOSE 40% GEL 15 GM TUBE PO PRN (18:34)
[2018-09-13] MEDS ORDERED: ALBUTEROL 0.083% NEBU SOLN 3 ML VIAL NEB PRN (18:34)
[2018-09-13] MEDS ORDERED: CARBOHYDRATES FOR HYPOGLYCEMIA PO PRN (18:34)
[2018-09-13] MEDS ORDERED: ONDANSETRON INJ 2 MG/ML 2 ML VIAL IV PRN (18:34)
[2018-09-13] MEDS ORDERED: GLUCAGON FOR INJ 1 MG VIAL SQ PRN (18:34)
[2018-09-13] MEDS ORDERED: DEXTROSE 50% 50 ML SYRINGE IV PRN (18:34)
[2018-09-13] MEDS: INSULIN GLARGINE SOLOSTAR 100 UNITS/ML 3 ML PEN SC SCH (21:42)
[2018-09-13] MEDS: INSULIN ASPART 100 UNITS/ML 3 ML PEN SC SCH (21:57)
[2018-09-14] MEDS: INSULIN ASPART 100 UNITS/ML 3 ML PEN SC SCH ×4 (07:56→21:15)
[2018-09-14] MEDS: INSULIN GLARGINE SOLOSTAR 100 UNITS/ML 3 ML PEN SC SCH ×2 (08:26→21:14)
[2018-09-14 09:54] LABS: Troponin I 0.046 ng/ml (0-0.045)
[2018-09-14 10:24] LABS: Estimated Average Glucose 180 mg/dl; Hemoglobin A1C 7.9 % (4.5-5.6)
[2018-09-14] MEDS: LOSARTAN POTASSIUM 25 MG TAB PO SCH (13:30)
--- NOTE | 2018-09-14 13:46 | Consultation Report ---
DATE OF CONSULTATION: 09/14/2018 INPATIENT CARDIOLOGY CONSULTATION CONSULTATION REQUESTED BY: Dr. Laura. REASON FOR CONSULTATION: Chest discomfort with elevated troponin. HISTORY OF PRESENT ILLNESS: Mr. Deluca is a 72-year-old gentleman who is a refugee from cardiac care who was previously followed with Dr. Perez of our cardiology practice for microvascular dysfunction. He presented to [facility] Emergency Department on 09/13/2018 from his primary care physician's office, Dr. Werner with complaints of chest and abdominal pain. The patient states he has not been compliant with his medications for over a year and he has no showed for cardiac evaluations with Dr. Perez. Yesterday, he was getting ready for his appointment to see Dr. Werner when he developed chest discomfort. He describes a dull substernal pressure sensation that was associated with a sharp, stabbing pain in his abdomen. He states that both the pain occurred at the same time, but they appear to be separate, it was associated with some shortness of breath and nausea, but he denied any radiation of the chest discomfort. He denied any associated shortness of breath, diaphoresis, lightheadedness, dizziness, or syncope. The pain persisted as office visit and he was sent into the Emergency Department. Upon arrival to the ER, his initial workup was unremarkable and his chest discomfort resolved with 1 sublingual nitroglycerin and he was admitted to telemetry. His initial troponin was unremarkable; however, second troponin came back minimally elevated and cardiology was asked to see the patient. Currently, he states he feels well and states he has not had any recurrence of the chest discomfort since admission and he states that this is different than the discomfort that led to his cardiac catheterization in 2015. PAST SURGICAL HISTORY: 1. Cardiac catheterization x2, most recently 2014, which showed a 20% mid LAD stenosis. 2. Hernia repair. 3. Foot surgery. 4. Colonoscopy. MEDICAL ILLNESSES: 1. Nonobstructive coronary artery disease. 2. Microvascular dysfunction. 3. Diabetes. 4. Medical noncompliance. 5. COPD. 6. Tobacco abuse. 7. Osteoarthritis. 8. Anxiety. 9. Hypertension. 10. Aortic valve sclerosis. 11. Obstructive sleep apnea. 12. Inguinal hernia. FAMILY HISTORY: Noncontributory. SOCIAL HISTORY: The patient is a former smoker with an [id number] history. Denies any alcohol or recreational drug use. REVIEW OF SYSTEMS: As per HPI, all other review of systems reviewed and negative at this time. ALLERGIES: 1. ZETIA. 2. CODEINE. 3. LISINOPRIL. 4. PROTONIX. MEDICATIONS AN OUTPATIENT: Again, the patient has been noncompliant with his medications for over a year. Cardiac mcnair, though he should be on aspirin 81 mg daily, losartan 25 mg daily and atorvastatin 80 mg daily. PHYSICAL EXAMINATION: VITALS: Temperature 36.7, pulse 54, respiratory rate 12, blood pressure 163/74. GENERAL: Awake, alert, oriented x3 in no acute distress. HEENT: Normocephalic, atraumatic. Pupils equal, round, reactive to light and accommodation. Extraocular muscles intact. Anicteric sclerae. Moist mucous membranes. NECK: No JVD, no bruit. CARDIOVASCULAR: Regular. Positive S4. Normal S1 and S2. No S3. A 3/6 mid to late systolic ejection murmur greatest at the right sternal border, second intercostal space with radiation to bilateral carotids. No rubs. PULMONARY: Poor air movement diffusely, but no rales, rhonchi, or wheezing. ABDOMEN: Bowel sounds x4, soft. No rebound, guarding, tenderness. No organomegaly. EXTREMITIES: No clubbing, cyanosis or edema. +2 pedal pulses bilaterally. SKIN: Warm and dry. TEST RESULTS: A 12-lead EKG performed upon arrival independently reviewed at this time shows normal sinus rhythm at 60 beats per minute, left anterior fascicular block, poor R-wave progression across the precordium. No significant change compared to previous studies. Initial troponin of 0.03, followup of 0.05. IMPRESSION: 1. Chest discomfort. 2. History of microvascular dysfunction. 3. Mildly elevated troponin level. 4. Abdominal discomfort with a hernia by CAT scan. 5. History of nonobstructive coronary artery disease. RECOMMENDATIONS: It was my pleasure to see Mr. Linda in consultation today. From a cardiac standpoint, given the fact that he has had a slight uptake of his troponin level along with his history of nonobstructive coronary artery disease, I do believe the most prudent course of action at this point will be continued to follow and trend his enzymes and should that become remarkably elevated, then a heparin drip should be started. Otherwise, a 2D echocardiogram will be performed to evaluate for any new wall motion abnormalities and should that testing come back unremarkable, then we will likely proceed with dobutamine stress echocardiogram. Otherwise, his blood pressure is a little elevated at this time, but he is relatively bradycardic, so I will restart his outpatient losartan, but consideration can be given to adding the amlodipine as well not only for blood pressure control, but also for possible treatment of his microvascular dysfunction.
--- NOTE | 2018-09-14 15:18 | Hospitalist Progress Note ---
Date of Service September 14, 2018 Assessment & Plan (1) Chest pain: Present on admission with dull chest pain CTA chest showed no evidence for PE Initial troponin negative Troponin mildly elevated today EKG showed no ischemic changes Follow up troponin Cardiology consult ECHO showed no wall motion abnormality with EF 60-65 % Continue aspirin No beta diamond added due to low HR Continue monitor in tele (2) Abdominal pain: (3) Inguinal hernia: had abdominal discomfort on arriving in the ER CT ABD/PELVIS: There are no acute infectious or inflammatory findings in the abdomen or pelvis. There is a fat-containing left inguinal hernia. There is indeterminant nodular soft tissue within the left inguinal hernia, which is new from the 2012 examination. If there has been a history of surgery in this region this could be on a postoperative basis. Neoplasm would be impossible to exclude and clinical correlation will be required. Moderate to advanced colonic diverticulosis without CT evidence of acute diverticulitis. Right-sided nephrolithiasis. Will need outpatient follow up with surgery Denies any pain currently (4) Diabetes: Hba1c 7.9 has not been taking metformin for over 1 year Monitor BSGs, diabetic diet Diabetic education insulin sliding scale Monitor BS (5) COPD, mild: Denies any respiratory symptoms continue advair, spiriva albuterol neb prn SOB/wheezing Stable (6) HTN (hypertension): BP elevated Was not taking his BP med Continue losartan Monitor BP (7) Dyslipidemia: had stopped medications for past year LDL at goal DVT Prophylaxis Heparin SQ CODE STATUS FULL CODE Subjective Pt was seen and examined Lying in bed with no distress Pt said that he does not have any chest pain and abdominal pain currently He said that he feels fine and ready to go home today Denies any chest pain, palpitation and SOB Physical Exam Vital Signs (Past 24 Hours): Last Vital Signs Temp 36.9 C 09/14/18 15:09 Pulse 59 L 09/14/18 15:09 Resp 20 09/14/18 15:09 BP 142/72 H 09/14/18 15:09 Pulse Ox 91 09/14/18 15:09 Physical Exam: General- No acute distress Head- atraumatic Eyes- PERRL, EOMI, ENT- oropharynx clear Neck- supple, no JVD Lungs- clear to auscultation Heart- Bradycardia Abdomen- normal bowel sounds, soft, nontender Extremities- no calf tenderness Neuro- alert, oriented x 3; PERRL, EOMI; no facial palsy; no dysarthria Skin- warm & dry (1) Chest pain Chest pain type: unspecified Qualified Code(s): R07.9 - Chest pain, unspecified
[2018-09-15] MEDS: LOSARTAN POTASSIUM 25 MG TAB PO SCH (08:22)
[2018-09-15] MEDS: INSULIN GLARGINE SOLOSTAR 100 UNITS/ML 3 ML PEN SC SCH ×2 (08:22→22:02)
[2018-09-15] MEDS: INSULIN ASPART 100 UNITS/ML 3 ML PEN SC SCH ×4 (08:23→22:00)
[2018-09-15 09:47] LABS: BUN Creatinine Ratio 15.4 (10-20); Calcium 8.4 mg/dl (8.5-10.1); Creatinine Clr Calc Pharmacy 72.5 ml/min; Est GFR (African American) 72.3; Est GFR (Non-African American) 62.3; Potassium 3.6 mmol/L (3.5-5.1)
[2018-09-15 09:59] LABS: Troponin I 0.055 ng/ml (0-0.045)
--- NOTE | 2018-09-15 12:51 | Cardiology Progress Note ---
Date of Service September 15, 2018 Assessment & Plan (1) Chest pain: no further episodes troponin level unremarkable no wall motion abnormality on echo for doutamine stress echo in AM (2) Dyslipidemia: atorvastatin restarted (3) HTN (hypertension): controlled with restarting losartan (4) CAD (coronary artery disease): hx of nonobstructive disease by cath in 2010 and 2014 Subjective Pt seen and examined with family at bedside, no complaints overnight. Denies cp, sob, palpitations, lightheadedness or dizziness. tele reviewed: sinus rhythm without arrhythmia or significant ectopy. Review of Systems All systems reviewed & are unremarkable except as noted in HPI & below Physical Exam Vital Signs (Past 24 Hours): Last Vital Signs Temp 36.6 C 09/15/18 11:31 Pulse 69 09/15/18 11:31 Resp 18 09/15/18 11:31 BP 129/74 09/15/18 11:31 Pulse Ox 92 09/15/18 11:31 Physical Exam: General: Awake, alert and oriented x 3. No acute distress. HEENT: Normocephalic, atraumatic. Pupils equal, round and reactive to light and accommodation. Extraocular muscles are intact. Anicteric sclera. Moist mucous membranes. Neck: No JVD. No bruit. Cardiovascular: Regular. Positive S-4. Normal S-1 and S-2. No S-3. No murmurs or rubs. Pulmonary: Clear to auscultation B/L. No rales, rhonchi or wheezing Abdomen: Bowel sounds x 4, soft. No rebound, guarding or tenderness. No organomegaly. Extremities: No clubbing, cyanosis or edema. +2 pedal pulses bilaterally. Skin: Warm and dry. (1) Chest pain Chest pain type: unspecified Qualified Code(s): R07.9 - Chest pain, unspecified
--- NOTE | 2018-09-15 17:15 | Hospitalist Progress Note ---
Date of Service September 15, 2018 Assessment & Plan (1) Chest pain: Present on admission with dull chest pain CTA chest showed no evidence for PE Initial troponin negative Troponin mildly elevated EKG showed no ischemic changes Cardiology on board ECHO showed no wall motion abnormality with EF 60-65 % Plan to get dobutamine stress echo in am Continue aspirin Statin restarted No beta diamond added due to low HR Continue monitor in tele Will make NPO after midnight (2) Abdominal pain: Pt reported epigastric abdominal discomfort started sometime today. Also c/o nausea without vomiting. Hx chronic intermittent diarrhea and constipation. Last BM yesterday and loose per pt. WBC: 9, Lipase normal, normal LFTs In ER pt was given morphine with some improvement of abdominal pain. While in ER pt ate tray of food and he states no further nausea or abdominal pain Resolved (3) Inguinal hernia: had abdominal discomfort on arriving in the ER CT ABD/PELVIS: There are no acute infectious or inflammatory findings in the abdomen or pelvis. There is a fat-containing left inguinal hernia. There is indeterminant nodular soft tissue within the left inguinal hernia, which is new from the 2011 examination. If there has been a history of surgery in this region this could be on a postoperative basis. Neoplasm would be impossible to exclude and clinical correlation will be required. Moderate to advanced colonic diverticulosis without CT evidence of acute diverticulitis. Right-sided nephrolithiasis. Will need outpatient follow up with surgery Denies any pain currently (4) Diabetes: Hba1c 7.9 has not been taking metformin for over 1 year Monitor BSGs, diabetic diet Diabetic education insulin sliding scale Monitor BS (5) COPD, mild: Denies any respiratory symptoms continue advair, spiriva albuterol neb prn SOB/wheezing Stable (6) HTN (hypertension): BP elevated Was not taking his BP med Continue losartan Monitor BP (7) Dyslipidemia: had stopped medications for past year Restarted statin LDL at goal DVT Prophylaxis Heparin SQ CODE STATUS FULL CODE Disposition Plan for dobutamine stress echo in am Subjective Pt was seen and examined Lying in bed with no distress Pt said that he feels fine Denies any chest pain, palpitation and SOB Physical Exam Vital Signs (Past 24 Hours): Last Vital Signs Temp 36.8 C 09/15/18 15:13 Pulse 68 09/15/18 15:13 Resp 20 09/15/18 15:13 BP 115/71 09/15/18 15:13 Pulse Ox 93 09/15/18 15:13 Physical Exam: General- No acute distress Head- atraumatic Eyes- PERRL, EOMI, ENT- oropharynx clear Neck- supple, no JVD Lungs- clear to auscultation Heart- regular rhythm; no murmur Abdomen- normal bowel sounds, soft, nontender Extremities- no calf tenderness Neuro- alert, oriented x 3; PERRL, EOMI; no facial palsy; no dysarthria Skin- warm & dry (1) Chest pain Chest pain type: unspecified Qualified Code(s): R07.9 - Chest pain, unspecified
[2018-09-15] MEDS ORDERED: ACETAMINOPHEN 325 MG TAB PO PRN (23:35)
[2018-09-16] MEDS ORDERED: Nursing to Pharmacy Communication ONE ×2 (01:52→11:07)
[2018-09-16] MEDS ORDERED: INSULIN ASPART 100 UNITS/ML 3 ML PEN SC SCH ×2 (06:00→11:30)
[2018-09-16] MEDS: LOSARTAN POTASSIUM 25 MG TAB PO SCH (07:59)
[2018-09-16] MEDS: INSULIN GLARGINE SOLOSTAR 100 UNITS/ML 3 ML PEN SC SCH (07:59)
[2018-09-16] MEDS ORDERED: ATORVASTATIN 40 MG TAB PO SCH (09:00)
[2018-09-16] MEDS ORDERED: METOPROLOL TARTRATE 1 MG/ML VIAL IV ONE ×2 (09:55→09:56)
[2018-09-16] MEDS ORDERED: DOBUTamine HCL 12.5 MG/ML 20 ML VIAL IV ONE (09:55)
[2018-09-16] MEDS ORDERED: ATROPINE SULFATE 0.1 MG/ML 10ML SYR IV ONE (09:56)
--- NOTE | 2018-09-16 10:46 | Cardiology Progress Note ---
Date of Service September 16, 2018 Assessment & Plan (1) Chest pain: no further episodes troponin level unremarkable no wall motion abnormality on echo dobutamine stress echo negative for ischemia no cardiac source for chest pain discovered ok to d/c to home from cardiac standpoint f/u with Dr. Perez at [facility] cardiology in 6 months will need close f/u with PCP (2) Dyslipidemia: atorvastatin restarted (3) HTN (hypertension): controlled with restarting losartan (4) CAD (coronary artery disease): hx of nonobstructive disease by cath in 2010 and 2014 Subjective Pt seen and examined with family at bedside, no complaints overnight. Denies cp, sob, palpitations, lightheadedness or dizziness. tele reviewed: sinus rhythm without arrhythmia or significant ectopy. Physical Exam Vital Signs (Past 24 Hours): Last Vital Signs Temp 36.8 C 09/16/18 06:59 Pulse 65 09/16/18 06:59 Resp 18 09/16/18 06:59 BP 139/81 09/16/18 06:59 Pulse Ox 92 09/16/18 06:59 Physical Exam: General: Awake, alert and oriented x 3. No acute distress. HEENT: Normocephalic, atraumatic. Pupils equal, round and reactive to light and accommodation. Extraocular muscles are intact. Anicteric sclera. Moist mucous membranes. Neck: No JVD. No bruit. Cardiovascular: Regular. Positive S-4. Normal S-1 and S-2. No S-3. No murmurs or rubs. Pulmonary: Clear to auscultation B/L. No rales, rhonchi or wheezing Abdomen: Bowel sounds x 4, soft. No rebound, guarding or tenderness. No organomegaly. Extremities: No clubbing, cyanosis or edema. +2 pedal pulses bilaterally. Skin: Warm and dry. (1) Chest pain Chest pain type: unspecified Qualified Code(s): R07.9 - Chest pain, unspecified
--- NOTE | 2018-09-16 14:39 | Hospitalist Progress Note ---
Date of Service September 16, 2018 Assessment & Plan (1) Chest pain: Present on admission with dull chest pain CTA chest showed no evidence for PE Initial troponin negative Troponin mildly elevated EKG showed no ischemic changes Cardiology on board ECHO showed no wall motion abnormality with EF 60-65 % Plan to get dobutamine stress echo in am Continue aspirin Statin restarted No beta diamond added due to low HR Dobutamine stress echo negative for ischemia Follow up with cardiology as an outpatient Ok from cardiology standpoint to discharge (2) Abdominal pain: Pt reported epigastric abdominal discomfort started sometime today. Also c/o nausea without vomiting. Hx chronic intermittent diarrhea and constipation. Last BM yesterday and loose per pt. WBC: 9, Lipase normal, normal LFTs In ER pt was given morphine with some improvement of abdominal pain. While in ER pt ate tray of food and he states no further nausea or abdominal pain Resolved (3) Inguinal hernia: had abdominal discomfort on arriving in the ER CT ABD/PELVIS: There are no acute infectious or inflammatory findings in the abdomen or pelvis. There is a fat-containing left inguinal hernia. There is indeterminant nodular soft tissue within the left inguinal hernia, which is new from the 2012 examination. If there has been a history of surgery in this region this could be on a postoperative basis. Neoplasm would be impossible to exclude and clinical correlation will be required. Moderate to advanced colonic diverticulosis without CT evidence of acute diverticulitis. Right-sided nephrolithiasis. Will need outpatient follow up with surgery Denies any pain currently (4) Diabetes: Hba1c 7.9 has not been taking metformin for over 1 year Monitor BSGs, diabetic diet Diabetic education insulin sliding scale Monitor BS (5) COPD, mild: Denies any respiratory symptoms continue advair, spiriva albuterol neb prn SOB/wheezing Stable (6) HTN (hypertension): BP elevated Was not taking his BP med Continue losartan Monitor BP (7) Dyslipidemia: had stopped medications for past year Restarted statin LDL at goal DVT Prophylaxis Heparin SQ CODE STATUS FULL CODE Disposition Discharge home to Subjective Pt was seen and examined Lying in bed with no distress Pt said that he feels fine denies any chest pain, palpitation, dizziness and SOB Physical Exam Vital Signs (Past 24 Hours): Last Vital Signs Temp 36.8 C 09/16/18 06:59 Pulse 65 09/16/18 06:59 Resp 18 09/16/18 06:59 BP 139/81 09/16/18 06:59 Pulse Ox 92 09/16/18 06:59 Physical Exam: General- No acute distress Head- atraumatic Eyes- PERRL, EOMI, ENT- oropharynx clear Neck- supple, no JVD Lungs- clear to auscultation Heart- regular rhythm; no murmur Abdomen- normal bowel sounds, soft, nontender Extremities- no calf tenderness Neuro- alert, oriented x 3; PERRL, EOMI; no facial palsy; no dysarthria Skin- warm & dry (1) Chest pain Chest pain type: unspecified Qualified Code(s): R07.9 - Chest pain, unspecified
--- NOTE | 2018-09-17 08:13 | Discharge Summary ---
Date of Service September 19, 2018 Admission HPI Per Admitting Provider Pt is 72 y/o M with PMH HTN, dyslipidemia, GERD, depression, anxiety, COPD, DM II to ER from PCPs office for chest pain. Patient states started with upper anterior chest pain described as dull that started around 10:30 this morning while he was still lying in bed. Patient reports pain has been continuous. He did not try nitro or any other treatment. He had PCP follow-up today after ER visit on 08/30/18 for cough, chills, weakness, SOB in which he was placed on prednisone and Zithromax. Patient states finished those medicines and cough and SOB have resolved. No further chills. Patient denies any dizziness, shortness of breath, palpitations today. Reports history of shortness of breath with climbing 1 flight of stairs for the past couple of months. Reports he has been pretty sedentary over the past 6 months, denies shortness of breath or chest pain with ambulating throughout the house. Patient states sometime today he started with mid abdominal pain that is nonradiating. He states does not feel is associated with the chest pain. Also complains of some nausea. Denies vomiting. He reports chronic diarrhea alternating with constipation. Denies any recent changes in BMs. Patient admits that he stopped taking all of his blood pressure, cholesterol, diabetes medications for a year because he did not feel like taking them. He resumed taking meds in August. Pt not on beta blockers secondary to bradycardia. Pt reports notices some extremity edema at the end of the day that resolves with elevation by morning. Denies diaphoresis, vomiting, IRIZARRY, dizziness, syncope, vision changes, neck pain, orthopnea, palpitations, hemoptysis, indigestion, sore throat, choking, otalgia, rhinorrhea, paresthesias, weakness, extremity weakness, rashes, dysuria, hematuria. 2014 cardiac cath: Minor nonobstructive CAD, 20% stenosis mid LAD 2012 Echo: EF: 55%, grade 1 diastolic dysfunction, moderate valve sclerosis, mild tricuspid regurgitation In ER pt afebrile, P: 56, R: 18, BP: 133/75, 95% on RA. He was given 500ml NSS, zofran 4mg IV, morphine 4mg IV. Pt reports improvement of abdominal pain and chest pain after morphine, however CP is still present. He states no further nausea and abdomen feeling better and requesting to eat. He was also given 324mg aspirin. Pt will be admitted for further observation and treatment. Discharge Data Consultations 09/13/18 16:16 ED Decision to Admit Stat 09/14/18 09:59 Consult Cardiology Routine
--- NOTE | 2018-09-18 22:54 | Discharge Summary ---
Date of Service September 16, 2018 Admission HPI Per Admitting Provider Pt is 72 y/o M with PMH HTN, dyslipidemia, GERD, depression, anxiety, COPD, DM II to ER from PCPs office for chest pain. Patient states started with upper anterior chest pain described as dull that started around 10:30 this morning while he was still lying in bed. Patient reports pain has been continuous. He did not try nitro or any other treatment. He had PCP follow-up today after ER visit on 08/30/18 for cough, chills, weakness, SOB in which he was placed on prednisone and Zithromax. Patient states finished those medicines and cough and SOB have resolved. No further chills. Patient denies any dizziness, shortness of breath, palpitations today. Reports history of shortness of breath with climbing 1 flight of stairs for the past couple of months. Reports he has been pretty sedentary over the past 6 months, denies shortness of breath or chest pain with ambulating throughout the house. Patient states sometime today he started with mid abdominal pain that is nonradiating. He states does not feel is associated with the chest pain. Also complains of some nausea. Denies vomiting. He reports chronic diarrhea alternating with constipation. Denies any recent changes in BMs. Patient admits that he stopped taking all of his blood pressure, cholesterol, diabetes medications for a year because he did not feel like taking them. He resumed taking meds in August. Pt not on beta blockers secondary to bradycardia. Pt reports notices some extremity edema at the end of the day that resolves with elevation by morning. Denies diaphoresis, vomiting, IRIZARRY, dizziness, syncope, vision changes, neck pain, orthopnea, palpitations, hemoptysis, indigestion, sore throat, choking, otalgia, rhinorrhea, paresthesias, weakness, extremity weakness, rashes, dysuria, hematuria. 2014 cardiac cath: Minor nonobstructive CAD, 20% stenosis mid LAD 2012 Echo: EF: 55%, grade 1 diastolic dysfunction, moderate valve sclerosis, mild tricuspid regurgitation In ER pt afebrile, P: 56, R: 18, BP: 133/75, 95% on RA. He was given 500ml NSS, zofran 4mg IV, morphine 4mg IV. Pt reports improvement of abdominal pain and chest pain after morphine, however CP is still present. He states no further nausea and abdomen feeling better and requesting to eat. He was also given 324mg aspirin. Pt will be admitted for further observation and treatment. Admission Exam Per Admitting Provider General: no distress,obese Head: normocephalic, atraumatic Eyes: PERRL, EOM's intact, conjunctiva non-injected, anicteric ENT: normal inspection external ears, nose, mucous membranes moist Neck: supple, trachea midline Lungs: clear, no respiratory distress, no wheezing/rhonchi/rales CV: RRR, systolic murmur, no pretibial edema, No chest tenderness to palpation Abd: normal BS, protuberant, soft, tender to epigastric region only without rebound or guarding Ext: no cyanosis, no calf tenderness Neuro: A&O x 3, no focal deficits noted, flat affect Skin: warm, dry Principal Diagnosis Chest Pain Discharge Exam General- No acute distress Head- atraumatic Eyes- PERRL, EOMI, ENT- oropharynx clear Neck- supple, no JVD Lungs- clear to auscultation Heart- regular rhythm; no murmur Abdomen- normal bowel sounds, soft, nontender Extremities- no calf tenderness Neuro- alert, oriented x 3; PERRL, EOMI; no facial palsy; no dysarthria Skin- warm & dry Discharge Data Allergies Allergy/AdvReac Type Severity Reaction Status Date / Time codeine Allergy Intermediate HALLUCINATI Verified 09/09/18 22:59 ONS ezetimibe Allergy Intermediate HIVES Verified 09/09/18 22:59 pantoprazole Allergy Intermediate HIVES Verified 09/09/18 22:59 lisinopril Allergy Mild cough Verified 08/22/18 14:53 Consultations 09/13/18 16:16 ED Decision to Admit Stat 09/14/18 09:59 Consult Cardiology Routine Ordered Studies 09/13/18 14:41 CT abd pelvis IV con only Stat CT angio chest PE protocol Stat CT ANGIOGRAM OF THE CHEST; CT SCAN OF THE ABDOMEN AND PELVIS WITH IV CONTRAST CLINICAL HISTORY: Atypical chest pain. Dyspnea. Generalized abdominal pain. COMPARISON STUDY: Abdominal CT dated 02/09/2012. Chest CT scans dated 11/20/2017 and 01/13/2016. TECHNIQUE: Following the IV administration of 121 of Optiray 320, CT angiogram of the chest is performed from the upper abdomen to the thoracic inlet utilizing the pulmonary embolus protocol. Images are reviewed in the axial, sagittal, coronal planes. 3-D MIPS images are created and assessed. Subsequently, CT scan of the abdomen and pelvis was performed from the lung bases to the proximal femora. Images are reviewed in the axial, sagittal, and coronal planes. IV contrast was administered without complication. A dose lowering technique was utilized adhering to the principles of ALARA. CT DOSE: 2110.83 mGy.cm FINDINGS: CHEST: Thyroid: Imaged portions of the thyroid gland are normal in size and attenuati on. Thoracic aorta: There is atherosclerotic calcification of the thoracic aorta, which is normal in caliber and demonstrates standard 3-vessel arch anatomy. No dissection is seen. Pulmonary vasculature: The pulmonary trunk is normal in caliber. There are no filling defects identified in the main, lobar, or segmental pulmonary arteries to indicate pulmonary embolus. Heart: The heart is enlarged and without pericardial effusion. The coronary arteries are densely calcified. Lungs and pleural spaces: There is no airspace consolidation or pleural effusion. Bibasilar scarring/atelectasis is identified. The trachea and central airways are clear. There is a large calcified granuloma in the lingula. Mediastinum: There is no mediastinal lymphadenopathy. Calcified mediastinal nodes are observed. Soha: There is no hilar adenopathy. Calcified hilar nodes are identified. Axillae: There is no axillary lymphadenopathy. Bony thorax: The skeletal structures are osteopenic. Degenerative change is noted in the shoulders and thoracic spine. No lytic or blastic lesions are identified. Soft tissues: Gynecomastia is noted. ABDOMEN AND PELVIS: Liver: The contrast-enhanced liver is normal in size, contour, and attenuation. There is no intrahepatic or ductal dilatation. The hepatic veins and portal veins are patent. Gallbladder: Unremarkable. Spleen: Normal in size and attenuation. There are scattered calcified splenic granulomas. Pancreas: Moderately atrophic and grossly unremarkable. Adrenal glands: Unremarkable. Kidneys: The contrast enhanced kidneys are atrophic and without hydronephrosis. The kidneys enhance symmetrically. An 11 mm cyst arises from the lower pole of left kidney. Additional smaller cysts are identified in both kidneys, and additional subcentimeter cortical hypodensities also likely represent cysts but are too small for definitive characterization. Numerous parapelvic cysts are again seen bilaterally. There is an 8 mm nonobstructing right renal calculus. There is a circumaortic left renal vein. Abdominal vasculature: The abdominal aorta is normal in course and caliber noting moderate to advanced atherosclerotic calcification. Stomach and bowel: There is a small hiatal hernia. The duodenum is normal in configuration. No bowel obstruction is seen. There is moderate to advanced colonic diverticulosis without CT evidence of acute diverticulitis. Colonic fecal retention is observed. The appendix is well-visualized and normal. A duodenal diverticulum is noted. Peritoneum: There is no intraperitoneal free air or abdominal ascites. Lymphadenopathy: None. Pelvic viscera: The prostate gland is mildly enlarged and heterogeneous, measuring 5 cm in transverse diameter. Although decompressed, the bladder wall is thickened and trabeculated indicating chronic outlet obstruction. The seminal vesicles are normal as visualized. There is a fat-containing left inguinal hernia. There is abnormal soft tissue identified within the hernia sac seen on image #457. This is nodular in configuration and measures approximately 2.5 cm. Skeletal structures: The skeletal structures are osteopenic. There is mild to moderate lumbosacral spondylosis. No lytic or blastic lesions are seen. IMPRESSION: 1. There is no evidence of pulmonary embolus in the main, lobar, or segmental pulmonary arteries. 2. There is no airspace consolidation or pleural effusion. 3. Cardiomegaly. 4. There are no acute infectious or inflammatory findings in the abdomen or pelvis. 5. There is a fat-containing left inguinal hernia. There is indeterminant nodular soft tissue within the left inguinal hernia, which is new from the 2012 examination. If there has been a history of surgery in this region this could be on a postoperative basis. Neoplasm would be impossible to exclude and clinical correlation will be required. 6. Moderate to advanced colonic diverticulosis without CT evidence of acute diverticulitis. 7. Right-sided nephrolithiasis. 8. Additional findings as above. Electronically signed by: Abraham Gallo M.D. 09/13/2018 3:31 PM Dictated: 09/13/18 1507 Transcribed: 09/13/[address] ANGIOGRAM OF THE CHEST; CT SCAN OF THE ABDOMEN AND PELVIS WITH IV CONTRAST CLINICAL HISTORY: Atypical chest pain. Dyspnea. Generalized abdominal pain. COMPARISON STUDY: Abdominal CT dated 02/09/2012. Chest CT scans dated 11/20/2017 and 01/13/2016. TECHNIQUE: Following the IV administration of 121 of Optiray 320, CT angiogram of the chest is performed from the upper abdomen to the thoracic inlet utilizing the pulmonary embolus protocol. Images are reviewed in the axial, sagittal, coronal planes. 3-D MIPS images are created and assessed. Subsequently, CT scan of the abdomen and pelvis was performed from the lung bases to the proximal femora. Images are reviewed in the axial, sagittal, and coronal planes. IV contrast was administered without complication. A dose lowering technique was utilized adhering to the principles of ALARA. CT DOSE: 2110.83 mGy.cm FINDINGS: CHEST: Thyroid: Imaged portions of the thyroid gland are normal in size and attenuation. Thoracic aorta: There is atherosclerotic calcification of the thoracic aorta, which is normal in caliber and demonstrates standard 3-vessel arch anatomy. No dissection is seen. Pulmonary vasculature: The pulmonary trunk is normal in caliber. There are no filling defects identified in the main, lobar, or segmental pulmonary arteries to indicate pulmonary embolus. Heart: The heart is enlarged and without pericardial effusion. The coronary arteries are densely calcified. Lungs and pleural spaces: There is no airspace consolidation or pleural effusion. Bibasilar scarring/atelectasis is identified. The trachea and central airways are clear. There is a large calcified granuloma in the lingula. Mediastinum: There is no mediastinal lymphadenopathy. Calcified mediastinal nodes are observed. Soha: There is no hilar adenopathy. Calcified hilar nodes are identified. Axillae: There is no axillary lymphadenopathy. Bony thorax: The skeletal structures are osteopenic. Degenerative change is noted in the shoulders and thoracic spine. No lytic or blastic lesions are identified. Soft tissues: Gynecomastia is noted. ABDOMEN AND PELVIS: Liver: The contrast-enhanced liver is normal in size, contour, and attenuation. There is no intrahepatic or ductal dilatation. The hepatic veins and portal veins are patent. Gallbladder: Unremarkable. Spleen: Normal in size and attenuation. There are scattered calcified splenic granulomas. Pancreas: Moderately atrophic and grossly unremarkable. Adrenal glands: Unremarkable. Kidneys: The contrast enhanced kidneys are atrophic and without hydronephrosis. The kidneys enhance symmetrically. An 11 mm cyst arises from the lower pole of left kidney. Additional smaller cysts are identified in both kidneys, and additional subcentimeter cortical hypodensities also likely represent cysts but are too small for definitive characterization. Numerous parapelvic cysts are again seen bilaterally. There is an 8 mm nonobstructing right renal calculus. There is a circumaortic left renal vein. Abdominal vasculature: The abdominal aorta is normal in course and caliber noting moderate to advanced atherosclerotic calcification. Stomach and bowel: There is a small hiatal hernia. The duodenum is normal in configuration. No bowel obstruction is seen. There is moderate to advanced colonic diverticulosis without CT evidence of acute diverticulitis. Colonic fecal retention is observed. The appendix is well-visualized and normal. A duodenal diverticulum is noted. Peritoneum: There is no intraperitoneal free air or abdominal ascites. Lymphadenopathy: None. Pelvic viscera: The prostate gland is mildly enlarged and heterogeneous, measuring 5 cm in transverse diameter. Although decompressed, the bladder wall is thickened and trabeculated indicating chronic outlet obstruction. The seminal vesicles are normal as visualized. There is a fat-containing left inguinal hernia. There is abnormal soft tissue identified within the hernia sac seen on image #457. This is nodular in configuration and measures approximately 2.5 cm. Skeletal structures: The skeletal structures are osteopenic. There is mild to moderate lumbosacral spondylosis. No lytic or blastic lesions are seen. IMPRESSION: 1. There is no evidence of pulmonary embolus in the main, lobar, or segmental pulmonary arteries. 2. There is no airspace consolidation or pleural effusion. 3. Cardiomegaly. 4. There are no acute infectious or inflammatory findings in the abdomen or pelvis. 5. There is a fat-containing left inguinal hernia. There is indeterminant nodular soft tissue within the left inguinal hernia, which is new from the 2012 examination. If there has been a history of surgery in this region this could be on a postoperative basis. Neoplasm would be impossible to exclude and clinical correlation will be required. 6. Moderate to advanced colonic diverticulosis without CT evidence of acute diverticulitis. 7. Right-sided nephrolithiasis. 8. Additional findings as above. Electronically signed by: Abraham Gallo M.D. 09/13/2018 3:31 PM Dictated: 09/13/18 1507 Transcribed: 09/13/18 1508 XR chest 1V portable CLINICAL HISTORY: 72 years-old Male presenting with CP, shortness of breath. TECHNIQUE: Portable upright AP view of the chest was obtained. COMPARISON: 09/09/2018. FINDINGS: Atherosclerosis of the aortic arch. Cardiac silhouette borderline enlarged. Mildly low lung volumes with hypoventilatory changes. Persistent calcified granuloma in the left lower lung. No new focal opacity. No large effusion or pneumothorax. Osseous structures normal. Upper abdomen normal. IMPRESSION: 1. Mildly low lung volumes with hypoventilatory changes including prominence of the cardiac silhouette. No superimposed infiltrate to suggest acute cardiopulmonary disease. Electronically signed by: Almas Mir M.D. 09/13/2018 2:34 PM Dictated: 09/13/18 1432 Transcribed: 09/13/18 1432 Hospital Course (1) Chest pain: Present on admission with dull chest pain CTA chest showed no evidence for PE Initial troponin negative Troponin mildly elevated EKG showed no ischemic changes Cardiology on board ECHO showed no wall motion abnormality with EF 60-65 % Plan to get dobutamine stress echo in am Continue aspirin Statin restarted No beta diamond added due to low HR Dobutamine stress echo negative for ischemia Follow up with cardiology as an outpatient Ok from cardiology standpoint to discharge (2) Abdominal pain: Pt reported epigastric abdominal discomfort started sometime today. Also c/o nausea without vomiting. Hx chronic intermittent diarrhea and constipation. Last BM yesterday and loose per pt. WBC: 9, Lipase normal, normal LFTs In ER pt was given morphine with some improvement of abdominal pain. While in ER pt ate tray of food and he states no further nausea or abdominal pain Resolved (3) Inguinal hernia: had abdominal discomfort on arriving in the ER CT ABD/PELVIS: There are no acute infectious or inflammatory findings in the abdomen or pelvis. There is a fat-containing left inguinal hernia. There is indeterminant nodular soft tissue within the left inguinal hernia, which is new from the 2012 examination. If there has been a history of surgery in this region this could be on a postoperative basis. Neoplasm would be impossible to exclude and clinical correlation will be required. Moderate to advanced colonic diverticulosis without CT evidence of acute diverticulitis. Right-sided nephrolithiasis. Will need outpatient follow up with surgery Denies any pain currently (4) Diabetes: Hba1c 7.9 has not been taking metformin for over 1 year Monitor BSGs, diabetic diet Diabetic education insulin sliding scale Monitor BS (5) COPD, mild: Denies any respiratory symptoms continue advair, spiriva albuterol neb prn SOB/wheezing Stable (6) HTN (hypertension): BP elevated Was not taking his BP med Continue losartan Monitor BP (7) Dyslipidemia: had stopped medications for past year Restarted statin LDL at goal DVT Prophylaxis Heparin SQ CODE STATUS FULL CODE Disposition Discharge home toda Total Time Total Time Spent Total Time Spent (In Minutes): 35 minutes Total Time Includes: Examination of the Patient, Discharge Planning, Medication Reconciliation, Communication With Other Providers and Other Discharge Plan Discharge Items Patient Disposition: Home - Self-Care Reason For Visit: CHEST PAIN Discharge Diagnosis: Chest pain Discharge Goals: Decrease discomfort, Improve disease control, Improve function and Increase independence Activity: Resume your previous activity Activity Comment: As tolerated Non-emergency contact: Primary Care Provider Call non-emergency contact if: you have any medication questions Follow-up/Referrals: Julius Werner MD [Primary Care Provider] - Diet: Heart Healthy Addtl Provider Instructions: Follow up with your primary care provider on 09/23 @ 10:45AM with Dr. Werner Follow up with cardiology Dr. Perez in 6 months Monitor blood pressure Prescriptions: Continued atorvastatin [Lipitor] 80 mg tablet 80 mg PO DAILY RF: 0 prednisone [Deltasone] 20 mg tablet 40 mg PO UD RF: 0 dicyclomine 20 mg Tablet 20 mg PO BID RF: 0 nitroglycerin [Nitrostat] 0.4 mg Tablet, Sublingual 0.4 mg Sublingual UD PRN (Reason: Chest Pain) RF: 0 aspirin 81 mg Tablet,Chewable 81 mg PO DAILY RF: 0 albuterol sulfate [ProAir HFA] 90 mcg/actuation Hfa Aerosol Inhaler 2 puff INHALATION Q4 PRN (Reason: Wheezing) RF: 0 colestipol 1 gram Tablet 1 g PO BID RF: 0 losartan [Cozaar] 25 mg tablet 25 mg PO DAILY RF: 0 metformin [Glucophage XR] 500 mg tablet extended release 24 hr 1,000 mg PO PM RF: 0 Spiriva with HandiHaler 18 mcg Capsule, W/Inhalation Device 1 cap INHALATION DAILY RF: 0 fluticasone propion-salmeterol [Advair Diskus] 250-50 mcg/dose Blister With Device 1 inh INHALATION Q12H RF: 0 Discontinued azithromycin [Zithromax] 250 mg tablet 250 mg PO DAILY RF: 0 Stand-Alone Forms: Call Back Authorization, [facility] Discharge Orders: Discharge Order (Routine); Ordered 09/16/18 Ordered By: Donato Laura Admission Data Admit Date/Time: 03/15/19 17:21 Attending Provider: Donato Laura Admit Provider: Asia Pollock Primary Care Provider: Julius Werner Other Providers: Asia Pollock ; Ted Castellano Service: Telemetry Other Interventions: Discharge Summary Assessment (RN) Last Done: 09/16/18 14:46 DC Date/Time DO NOT enter until pt leaves facility: 09/16/18 15:00
== END 2018-09-16 15:00 | disposition home or self-care (01) ==
LOC: ED 12:27 → 2N 12:27

== ENCOUNTER 2021-03-09 15:07 | Inpatient (IN) ==
--- NOTE | 2021-03-09 15:04 | Emergency Department Note ---
Impression & Plan Acute CVA (cerebrovascular accident), Expressive aphasia, Elevated troponin ED Provider Note NAME: LUCIA RANDALL AGE: 75 SEX: M : 1945 ARRIVES VIA: Ambulance INFORMANT: Patient, EMS ED PROVIDER(S): Hussain Hsu DO CHIEF COMPLAINT: Right-sided weakness as well as facial droop and slurred speech HPI: Patient is a 75-year-old male who presents the ER for right-sided weakness associated with expressive aphasia and facial droop. Symptoms started around 2 PM. Patient denies any headache or change in vision. No chest pain or shortness of breath. No belly pain nausea vomiting or diarrhea. He notes his right leg feels weak. When it occurred he attempted to stand up and fell back into the chair. He does not have any symptoms prior to this. ROS: See above HPI for pertinent positives & negatives. A total of 10 systems reviewed and were otherwise negative. PAST MEDICAL HISTORY:See Below PAST SURGICAL HISTORY:See Below FAMILY HISTORY:See Below SOCIAL HISTORY:See Below HOME MEDICATIONS:See Below ALLERGIES:See Below VITALS:See Below PHYSICAL EXAMINATION: GENERAL: Sitting up in bed, alert, well appearing, well nourished, no distress, non-toxic EYE EXAM: normal conjunctiva. PERRL and EOM's intact. OROPHARYNX: no exudate, no erythema, lips, buccal mucosa, and tongue normal and mucous membranes are moist NECK: supple, no nuchal rigidity, no adenopathy, non-tender LUNGS: Clear to auscultation. Normal chest wall mechanics HEART: no murmurs, S1 normal and S2 normal ABDOMEN: abdomen soft, non-tender, normo-active bowel sounds, no masses, no rebound or guarding. BACK: Back is symmetrical on inspection and there is no deformity, no midline tenderness, no CVA tenderness. SKIN: no rashes and no bruising UPPER EXTREMITIES: upper extremities are grossly normal. LOWER EXTREMITIES: No pitting edema. NEURO EXAM: Normal sensorium, cranial nerves II-XII intact with exception of right-sided facial droop, slurred speech, no weakness of arms, no weakness of legs. No drift. Finger to nose intact. Gross sensation intact. MEDICAL DECISION MAKING: Patient is a 75-year-old male who presents the ER for right-sided facial droop, slurred speech and right lower extremity weakness. He was brought in by EMS. Stroke alert was called by myself. I received medical command. IV was established blood work was obtained. Labs show no significant leukocytosis or anemia. INR unremarkable. BMP with slightly elevated glucose. LFTs bilirubin was unremarkable. Troponin was elevated at 0.072. He always has a detectable troponin but not always positive. He has no chest pain. UA was clean. Covid was negative. Question if this is stress-induced. EKG was unremarkable. CT as well as CT angios shows some mild stenosis about 60% but no obvious stroke. He was updated bedside. Symptoms improved. He was evaluated by telestroke who recommended aspirin and fluids and admission for further work-up. Triage Nursing notes reviewed. Limited review of prior medical records performed Vital Signs: reviewed and remarkable for HTN Differential diagnosis: Differential Diagnosis includes but is not limited to ischemic Stroke, hemorrhagic stroke, bells palsy, mass, neoplasm, migraine headache, seizure, subarachnoid hemorrhage, TIA, and transient global amnesia. ER treatment provided: See below Diagnostics interpreted by me: ECG: Sinus rhythm rate 63 Left axis No PVCs QTC 425 No significant change from previous Cardiac Monitoring: An order was placed for continuous cardiac monitoring. The monitor shows a rate of 60 with sinus rhythm. Laboratory studies: As stated above and show below. Imaging studies: CTs as well as CT angios as discussed above Consultation(s): [facility] no T[facility] due to NIH scale admission including aspirin. Procedures: none Critical Care: None Past Med/Surg History Medical History (Updated 03/09/21 @ 20:10 by Hussain Hsu DO) Anxiety CAD (coronary artery disease) "40-50% LAD lesion noted on cath in 2010 dobutamine stress test 2012 negative for ischemia" COPD, mild Diabetes Diastolic dysfunction "echo 2013 - EF 60-65%, grade I diastolic dysfunction, no valvular disease" Dyslipidemia GERD (gastroesophageal reflux disease) HTN (hypertension) Influenza A Myocardial infarct PEDRO (obstructive sleep apnea) Surgical History History of cholecystectomy History of colonoscopy 2016: adenomatous polyps, diverticulosis. Dr Worthington History of inguinal hernia repair, bilateral Hx of hemorrhoidectomy S/P foot surgery, right Family History Other Heart disease Social History Smoking Status: Former smoker Tobacco Type: Cigarettes Hx Alcohol Use: No Hx Substance Use: No Preferred Language: Greek Communication Ability: Effective Hemodialysis Technician Required: No Beliefs That Will Affect Care: None marital status: Current Living Situation: Spouse Current Living Situation Comment: [facility] Feels Safe at Home: Yes Assistive Devices: Glasses Allergies Allergies Allergy/AdvReac Type Severity Reaction Status Date / Time codeine Allergy Intermediate HALLUCINATI Verified 03/09/21 15:32 ONS ezetimibe Allergy Intermediate HIVES Verified 03/09/21 15:32 pantoprazole Allergy Intermediate HIVES Verified 03/09/21 15:32 lisinopril Allergy Mild cough Verified 03/09/21 15:32 Home Meds Home Medications Medication Instructions Recorded Confirmed albuterol sulfate 90 mcg/actuation 2 puff INHALATION Q4 PRN 09/13/18 03/09/21 aerosol inhaler (ProAir HFA) aspirin 81 mg chewable tablet 81 mg PO DAILY 09/13/18 03/09/21 atorvastatin 80 mg tablet (Lipitor) 80 mg PO DAILY 09/13/18 03/09/21 losartan 25 mg tablet (Cozaar) 25 mg PO DAILY 09/13/18 03/09/21 nitroglycerin 0.4 mg sublingual 0.4 mg SUBLINGUAL UD PRN 09/13/18 03/09/21 tablet (Nitrostat) empagliflozin 10 mg tablet 10 mg PO DAILY 08/23/19 03/09/21 (Jardiance) bupropion HCl 150 mg 24 hr tablet, 300 mg PO QAM 03/09/21 03/09/21 extended release fluticasone 250 mcg-salmeterol 50 1 inh INHALATION BID 03/09/21 03/09/21 mcg/dose blistr powdr for inhalation (Advair Diskus) metformin 500 mg tablet,extended 500 mg PO QDD 03/09/21 03/09/21 release 24hr umeclidinium 62.5 mcg/actuation 1 inh INHALATION DAILY 03/09/21 03/09/21 blister powder for inhalation (Incruse Ellipta) Results & Data (ED) Vital Signs Vital Signs - 24 hr 03/09/21 15:16 03/09/21 15:19 03/09/21 15:31 Temperature 36.5 C Temperature Source Oral Pulse Rate 63 61 59 L Pulse Rate [Apical] Pulse Rate from SpO2 Sensor 59 L 61 Pulse Rhythm [Apical] Respiratory Rate 18 22 21 Respiratory Effort / Characteristics Non-Labored Respiratory Depth Normal Blood Pressure 189/80 H 189/80 H 156/78 H Blood Pressure [Right Arm] Blood Pressure Mean 116 116 104 Blood Pressure Mean [Right Arm] Pulse Oximetry 97 96 96 Oxygen Delivery Method Room Air Sepsis Recent Fever Within 48 Hours No Sepsis New/Unexplained Change in Mental Status No Sepsis Action Taken by Nursing No Action Required 03/09/21 15:35 03/09/21 16:00 03/09/21 16:30 Temperature Temperature Source Pulse Rate 69 56 L Pulse Rate [Apical] 63 65 Pulse Rate from SpO2 Sensor 67 56 L Pulse Rhythm [Apical] Regular Regular Respiratory Rate 16 20 20 Respiratory Effort / Characteristics Non-Labored Non-Labored Respiratory Depth Normal Normal Blood Pressure 153/99 H 146/91 H Blood Pressure [Right Arm] 156/78 H 153/99 H Blood Pressure Mean 117 109 Blood Pressure Mean [Right Arm] 104 117 Pulse Oximetry 95 95 93 Oxygen Delivery Method Room Air Room Air Sepsis Recent Fever Within 48 Hours Sepsis New/Unexplained Change in Mental Status Sepsis Action Taken by Nursing Laboratory Data Result diagrams: 03/09/21 15:19 03/09/21 15:19 Lab Results 03/09/21 03/09/21 03/09/21 Range/Units 15:19 15:19 15:19 WBC 5.09 (4.8-10.8) K/uL RBC 4.57 L (4.7-6.1) M/uL Hgb 14.9 (14.0-18.0) g/dL Hct 42.8 (42-52) % MCV 93.7 (80-100) fL MCH 32.6 (25-34) pg MCHC 34.8 (32-36) g/dL RDW Std Deviation 43.1 (36.4-46.3) fL RDW Coeff of Harry 12.6 (11.5-14.5) % Plt Count 178 (130-400) K/uL MPV 10.4 (7.4-10.4) fL Immature Gran % (Auto) 0.4 % Neut % (Auto) 51.3 % Lymph % (Auto) 33.4 % [place] % (Auto) 10.8 % Eos % (Auto) 3.3 % Baso % (Auto) 0.8 % Neut # (Auto) 2.61 (1.4-6.5) K/uL Lymph # (Auto) 1.70 (1.2-3.4) K/uL [place] # (Auto) 0.55 (0.11-0.59) K/uL Eos # (Auto) 0.17 (0-0.5) K/uL Baso # (Auto) 0.04 (0-0.2) K/uL Immature Gran # (Auto) 0.02 (0.00-0.02) K/uL PT 10.6 (9.0-12.0) Seconds INR 1.0 (0.9-1.1) APTT 27.7 (21.0-31.0) Seconds PTT Ratio 1.1 Sodium (136-145) mmol/L Potassium (3.5-5.1) mmol/L Chloride (98-107) mmol/L Carbon Dioxide (21-32) mmol/L Anion Gap (3-11) BUN (7-18) mg/dl Creatinine (0.6-1.4) mg/dl Est Cr Clr Drug Dosing ml/min Est GFR ( Amer) ml/min Est GFR (Non-Af Amer) ml/min BUN/Creatinine Ratio (10-20) Glucose (70-99) mg/dl POC Glucose (70-99) mg/dl Calcium (8.5-10.1) mg/dl Magnesium (1.8-2.4) mg/dl Total Bilirubin (0.2-1) mg/dl AST (15-37) U/L ALT (12-78) U/L Alkaline Phosphatase (45-117) U/L Troponin I (0-0.045) ng/ml Total Protein (6.4-8.2) gm/dl Albumin (3.4-5.0) gm/dl Globulin (2.5-4.0) gm/dl Albumin/Globulin Ratio (0.9-2) Urine Color Urine Appearance (Clear) Urine pH (4.5-7.5) Ur Specific [place] (1.000-1.030) Urine Protein (Negative) Urine Glucose (UA) (Negative) Urine Ketones (Negative) Urine Blood (Negative) Urine Nitrite (Negative) Urine Bilirubin (Negative) Urine Urobilinogen (Negative) Ur Leukocyte Esterase (Negative) COVID-19 Eval Order SARS-CoV-2 (PCR) (Negative) Blood Type A Positive Antibody Screen NEGATIVE 03/09/21 03/09/21 03/09/21 Range/Units 15:19 15:20 15:58 WBC (4.8-10.8) K/uL RBC (4.7-6.1) M/uL Hgb (14.0-18.0) g/dL Hct (42-52) % MCV (80-100) fL MCH (25-34) pg MCHC (32-36) g/dL RDW Std Deviation (36.4-46.3) fL RDW Coeff of Harry (11.5-14.5) % Plt Count (130-400) K/uL MPV (7.4-10.4) fL Immature Gran % (Auto) % Neut % (Auto) % Lymph % (Auto) % [place] % (Auto) % Eos % (Auto) % Baso % (Auto) % Neut # (Auto) (1.4-6.5) K/uL Lymph # (Auto) (1.2-3.4) K/uL [place] # (Auto) (0.11-0.59) K/uL Eos # (Auto) (0-0.5) K/uL Baso # (Auto) (0-0.2) K/uL Immature Gran # (Auto) (0.00-0.02) K/uL PT (9.0-12.0) Seconds INR (0.9-1.1) APTT (21.0-31.0) Seconds PTT Ratio Sodium 138 (136-145) mmol/L Potassium 4.2 (3.5-5.1) mmol/L Chloride 106 (98-107) mmol/L Carbon Dioxide 27 (21-32) mmol/L Anion Gap 5.0 (3-11) BUN 12 (7-18) mg/dl Creatinine 1.07 (0.6-1.4) mg/dl Est Cr Clr Drug Dosing 74.1 ml/min Est GFR ( Amer) 77.2 ml/min Est GFR (Non-Af Amer) 66.6 ml/min BUN/Creatinine Ratio 10.8 (10-20) Glucose 148 H (70-99) mg/dl POC Glucose 143 H (70-99) mg/dl Calcium 8.4 L (8.5-10.1) mg/dl Magnesium 1.9 (1.8-2.4) mg/dl Total Bilirubin 0.5 (0.2-1) mg/dl AST 10 L (15-37) U/L ALT 15 (12-78) U/L Alkaline Phosphatase 65 (45-117) U/L Troponin I 0.072 H* (0-0.045) ng/ml Total Protein 5.9 L (6.4-8.2) gm/dl Albumin 3.0 L (3.4-5.0) gm/dl Globulin 2.9 (2.5-4.0) gm/dl Albumin/Globulin Ratio 1.0 (0.9-2) Urine Color Yellow Urine Appearance Clear (Clear) Urine pH 6.5 (4.5-7.5) Ur Specific [place] 1.043 H (1.000-1.030) Urine Protein Negative (Negative) Urine Glucose (UA) Negative (Negative) Urine Ketones Negative (Negative) Urine Blood Negative (Negative) Urine Nitrite Negative (Negative) Urine Bilirubin Negative (Negative) Urine Urobilinogen Negative (Negative) Ur Leukocyte Esterase Negative (Negative) COVID-19 Eval Order SARS-CoV-2 (PCR) (Negative) Blood Type Antibody Screen 03/09/21 03/09/21 Range/Units 16:10 16:10 WBC (4.8-10.8) K/uL RBC (4.7-6.1) M/uL Hgb (14.0-18.0) g/dL Hct (42-52) % MCV (80-100) fL MCH (25-34) pg MCHC (32-36) g/dL RDW Std Deviation (36.4-46.3) fL RDW Coeff of Harry (11.5-14.5) % Plt Count (130-400) K/uL MPV (7.4-10.4) fL Immature Gran % (Auto) % Neut % (Auto) % Lymph % (Auto) % [place] % (Auto) % Eos % (Auto) % Baso % (Auto) % Neut # (Auto) (1.4-6.5) K/uL Lymph # (Auto) (1.2-3.4) K/uL [place] # (Auto) (0.11-0.59) K/uL Eos # (Auto) (0-0.5) K/uL Baso # (Auto) (0-0.2) K/uL Immature Gran # (Auto) (0.00-0.02) K/uL PT (9.0-12.0) Seconds INR (0.9-1.1) APTT (21.0-31.0) Seconds PTT Ratio Sodium (136-145) mmol/L Potassium (3.5-5.1) mmol/L Chloride (98-107) mmol/L Carbon Dioxide (21-32) mmol/L Anion Gap (3-11) BUN (7-18) mg/dl Creatinine (0.6-1.4) mg/dl Est Cr Clr Drug Dosing ml/min Est GFR ( Amer) ml/min Est GFR (Non-Af Amer) ml/min BUN/Creatinine Ratio (10-20) Glucose (70-99) mg/dl POC Glucose (70-99) mg/dl Calcium (8.5-10.1) mg/dl Magnesium (1.8-2.4) mg/dl Total Bilirubin (0.2-1) mg/dl AST (15-37) U/L ALT (12-78) U/L Alkaline Phosphatase (45-117) U/L Troponin I (0-0.045) ng/ml Total Protein (6.4-8.2) gm/dl Albumin (3.4-5.0) gm/dl Globulin (2.5-4.0) gm/dl Albumin/Globulin Ratio (0.9-2) Urine Color Urine Appearance (Clear) Urine pH (4.5-7.5) Ur Specific [place] (1.000-1.030) Urine Protein (Negative) Urine Glucose (UA) (Negative) Urine Ketones (Negative) Urine Blood (Negative) Urine Nitrite (Negative) Urine Bilirubin (Negative) Urine Urobilinogen (Negative) Ur Leukocyte Esterase (Negative) COVID-19 Eval Order Covid19 at [facility] SARS-CoV-2 (PCR) NEGATIVE (Negative) Blood Type Antibody Screen Administered Medications Discontinued Medications Aspirin (Aspirin Chew 324 Mg) 324 mg PO NOW STA Stop: 03/09/21 15:54 Last Admin: 03/09/21 16:02 Dose: 324 mg Documented by: [id number] Sodium Chloride (Nss) 500 mls @ 999 mls/hr IV .Q31M ONE Stop: 03/09/21 16:23 Last Infusion: 03/09/21 16:33 Dose: 0 mls/hr Documented by: [id number] Admin: 03/09/21 16:02 Dose: 999 mls/hr Documented by: [id number] Ioversol (Optiray 320 125ml) 117 ml IV ONCE ONE Stop: 03/09/21 15:14 Last Admin: 03/09/21 15:14 Dose: 117 ml Documented by: [id number] Imaging Data Radiologist's Impression: Chest X-Ray 03/09/21 15:02 XR chest 1V portable CLINICAL HISTORY: Stroke Like Symptoms COMPARISON STUDY: Chest radiograph August 23, 2019. Chest CT September 13, 2018. FINDINGS: Incidental note is made of a calcified granuloma within the lingula. There is no pneumothorax or pleural effusion. There is no consolidation or evidence for pulmonary edema. Cardiomegaly is unchanged. IMPRESSION: No acute cardiopulmonary findings. Mild cardiomegaly. ACT 112: Negative or not required by law. Electronically signed by: El Read M.D. 03/09/2021 4:[address] 03/09/21 15:02 CT OF THE HEAD WITHOUT CONTRAST CLINICAL HISTORY: Stroke Like Symptoms COMPARISON STUDY: Head CT August 22, 2018. TECHNIQUE: Helical axial images of the head were obtained without IV contrast. Automated exposure control was utilized for the study. A dose lowering technique was utilized adhering to the principles of ALARA. FINDINGS: No acute intracranial hemorrhage is present. A left middle cranial fossa arachnoid cyst measuring 4.9 cm is unchanged. Ventricular dilatation is unchanged and likely due to central atrophy. White matter hypodensity suggests small vessel disease. A few old lacunar infarcts are again noted. The basal cisterns are patent. No extra-axial collections are present. There are no findings to suggest acute dural sinus thrombosis or acute territorial infarct. No significant calvarial abnormalities are present. Visualized portions of the sinuses and mastoid air cells are clear. IMPRESSION: No acute intracranial findings. No significant change in appearance of the brain. ACT 112: Negative or not required by law. Electronically signed by: El Read M.D. 03/09/2021 3:25 PM Head CTA 03/09/21 15:02 HEAD CTA HISTORY: Stroke Like Symptoms TECHNIQUE: Multiaxial CT images of the head were performed following the intravenous administration of contrast to evaluate the major cerebral vessels. Maximum intensity projection images were also obtained. A dose lowering technique was utilized adhering to the principles of ALARA. COMPARISON: Head CT 03/09/2021. FINDINGS: There is no mass, hematoma, midline shift, or acute infarct. Mild to moderate calcified plaque within the bilateral carotid siphons without significant stenosis. The distal right vertebral artery is widely patent. There is mild multifocal narrowing within the distal left vertebral artery. The basilar artery is widely patent. No significant stenosis, occlusion, or aneurysm within the bilateral ACAs, MCAs, or head piece assembler. The major dural venous sinuses are patent. Incidental note is made of an arachnoid cyst within the left middle cranial fossa measuring 4.9 cm. IMPRESSION: 1. No significant stenosis, occlusion, or aneurysm within the bilateral ACAs, MCAs, or head piece assembler. 2. Mild multifocal narrowing within the distal left vertebral artery. ACT 112: Negative or not required by law. Electronically signed by: Houston Fall M.D. 03/09/2021 3:50 PM Neck CTA 03/09/21 15:02 CT ANGIOGRAPHY OF THE NECK WITH CONTRAST CLINICAL HISTORY: Stroke Like Symptoms COMPARISON STUDY: No previous studies for comparison. Technique: CT angiography of the carotid and vertebral arteries was obtained using Optiray and 3D reconstruction on an independent workstation. NASCET criteria was utilized. Automated exposure control was utilized for the study. A dose lowering technique was utilized adhering to the principles of ALARA. CT DOSE: 1409.77 mGy.cm Findings: There is extensive plaque within the proximal left internal carotid artery which results in 60% stenosis of the vessel. The vessel caliber at site of narrowing measures 1.8 mm in caliber. The distal left cervical internal carotid artery measures 4.1 mm. There is moderate plaque within the proximal right internal for artery without stenosis. The bilateral cervical portions of the vertebral arteries are patent. There is no dissection within the major vess els of the neck. Lung apices are clear. No acute cervical spine fracture is noted. IMPRESSION: 1. Extensive plaque within the proximal left internal carotid artery which results in 60% stenosis of this vessel. 2. Moderate plaque within the proximal right internal carotid artery without stenosis. 3. No dissection within the major vessels of the neck. ACT 112: Negative or not required by law. Electronically signed by: El Read M.D. 03/09/2021 3:46 PM Discharge Plan Visit Data Chief Complaint: Stroke Alert ED Provider: Hussain Hsu Discharge Problem: Acute CVA (cerebrovascular accident), Expressive aphasia, Elevated troponin Patient Disposition: Admitted As Inpatient Discharge Instructions Interventions: ED Discharge Assessment Last Done: 03/09/21 18:20
[2021-03-09] MEDS ORDERED: OPTIRAY 320 125ml IV ONE (15:13)
--- NOTE | 2021-03-09 15:26 | CT Scan Report ---
CT OF THE HEAD WITHOUT CONTRAST CLINICAL HISTORY: Stroke Like Symptoms COMPARISON STUDY: Head CT August 22, 2018. TECHNIQUE: Helical axial images of the head were obtained without IV contrast. Automated exposure con trol was utilized for the study. A dose lowering technique was utilized adhering to the principles o f ALARA. FINDINGS: No acute intracranial hemorrhage is present. A left middle cranial fossa arachnoid cyst pineda suring 4.9 cm is unchanged. Ventricular dilatation is unchanged and likely due to central atrophy. Wh ite matter hypodensity suggests small vessel disease. A few old lacunar infarcts are again noted. The basal cisterns are patent. No extra-axial collections are present. There are no findings to suggest acute dural sinus thrombosis or acute territorial infarct. No significant calvarial abnormalities are present. Visualized portions of the sinuses and mastoid air cells are clear. IMPRESSION: No acute intracranial findings. No significant change in appearance of the brain. ACT 112: Negative or not required by law. Electronically signed by: El Read M.D. 03/09/2021 3:25 PM
[2021-03-09 15:39] LABS: Basophils # (auto) 0.04 K/uL (0-0.2); Basophils % (auto) 0.8 %; Eosinophils # (auto) 0.17 K/uL (0-0.5); Eosinophils % (auto) 3.3 %; Hematocrit (blood only) 42.8 % (42-52); Hemoglobin 14.9 g/dL (14.0-18.0); Immature Granulocytes # (auto) 0.02 K/uL (0.00-0.02); Immature Granulocytes % (auto) 0.4 %; Lymphocytes % (auto) 33.4 %; Mean Corpuscular Hemoglobin 32.6 pg (25-34); Mean Corpuscular Hgb Conc 34.8 g/dL (32-36); Mean Corpuscular Volume 93.7 fL (80-100); Mean Platelet Volume 10.4 fL (7.4-10.4); Monocytes # (auto) 0.55 K/uL (0.11-0.59); Monocytes % (auto) 10.8 %; Neutrophils # (auto) 2.61 K/uL (1.4-6.5); Neutrophils % (auto) 51.3 %; Platelet Count 178 K/uL (130-400); RDW Coefficient of Variation 12.6 % (11.5-14.5); RDW Standard Deviation 43.1 fL (36.4-46.3); Red Blood Count 4.57 M/uL (4.7-6.1); White Blood Count 5.09 K/uL (4.8-10.8)
--- NOTE | 2021-03-09 15:47 | CT Scan Report ---
CT ANGIOGRAPHY OF THE NECK WITH CONTRAST CLINICAL HISTORY: Stroke Like Symptoms COMPARISON STUDY: No previous studies for comparison. Technique: CT angiography of the carotid and vertebral arteries was obtained using Optiray and 3D rec onstruction on an independent workstation. NASCET criteria was utilized. Automated exposure control was utilized for the study. A dose lowering technique was utilized adhering to the principles of ALA RA. CT DOSE: 1409.77 mGy.cm Findings: There is extensive plaque within the proximal left internal carotid artery which results in 60% stenosis of the vessel. The vessel caliber at site of narrowing measures 1.8 mm in caliber. The distal left cervical internal carotid artery measures 4.1 mm. There is moderate plaque within the pro ximal right internal for artery without stenosis. The bilateral cervical portions of the vertebral ar teries are patent. There is no dissection within the major vessels of the neck. Lung apices are clear . No acute cervical spine fracture is noted. IMPRESSION: 1. Extensive plaque within the proximal left internal carotid artery which results in 60% stenosis of this vessel. 2. Moderate plaque within the proximal right internal carotid artery without stenosis. 3. No dissection within the major vessels of the neck. ACT 112: Negative or not required by law. Electronically signed by: El Read M.D. 03/09/2021 3:46 PM
[2021-03-09 15:51] LABS: Partial Thromboplastin Ratio 1.1; Partial Thromboplastin Time 27.7 Seconds (21.0-31.0); Prothrombin Time 10.6 Seconds (9.0-12.0)
--- NOTE | 2021-03-09 15:52 | CT Scan Report ---
HEAD CTA HISTORY: Stroke Like Symptoms TECHNIQUE: Multiaxial CT images of the head were performed following the intravenous administration o f contrast to evaluate the major cerebral vessels. Maximum intensity projection images were also obta ined. A dose lowering technique was utilized adhering to the principles of ALARA. COMPARISON: Head CT 03/09/2021. FINDINGS: There is no mass, hematoma, midline shift, or acute infarct. Mild to moderate calcified maria del carmen que within the bilateral carotid siphons without significant stenosis. The distal right vertebral art vee is widely patent. There is mild multifocal narrowing within the distal left vertebral artery. The basilar artery is widely patent. No significant stenosis, occlusion, or aneurysm within the bilatera l ACAs, MCAs, or glass technologist. The major dural venous sinuses are patent. Incidental note is made of an arach noid cyst within the left middle cranial fossa measuring 4.9 cm. IMPRESSION: 1. No significant stenosis, occlusion, or aneurysm within the bilateral ACAs, MCAs, or glass technologist. 2. Mild multifocal narrowing within the distal left vertebral artery. ACT 112: Negative or not required by law. Electronically signed by: Houston Fall M.D. 03/09/2021 3:50 PM
[2021-03-09] MEDS ORDERED: SODIUM CHLORIDE 0.9% 500 ML IV ONE (15:53)
[2021-03-09] MEDS ORDERED: ASPIRIN CHEW 324 MG PO STA (15:53)
[2021-03-09 15:55] LABS: BUN Creatinine Ratio 10.8 (10-20); Calcium 8.4 mg/dl (8.5-10.1); Creatinine Clr Calc Pharmacy 74.1 ml/min; Est GFR (African American) 77.2 ml/min; Est GFR (Non-African American) 66.6 ml/min; Magnesium 1.9 mg/dl (1.8-2.4); Potassium 4.2 mmol/L (3.5-5.1)
[2021-03-09 16:02] LABS: Bilirubin,Total 0.5 mg/dl (0.2-1); Globulin 2.9 gm/dl (2.5-4.0); Total Protein 5.9 gm/dl (6.4-8.2); Troponin I 0.072 ng/ml (0-0.045)
[2021-03-09 16:05] LABS: Appearance Urine Clear (Clear); Bilirubin Urine Negative (Negative); Blood Urine Negative (Negative); Color Urine Yellow; Glucose Urine UA Negative (Negative); Ketones Urine Negative (Negative); Leukocyte Esterase Urine Negative (Negative); Nitrite Urine Negative (Negative); Protein Urine Negative (Negative); Specific Gravity Urine 1.043 (1.000-1.030); Urobilinogen Urine Negative (Negative); pH Urine 6.5 (4.5-7.5)
--- NOTE | 2021-03-09 16:16 | XRay Report ---
XR chest 1V portable CLINICAL HISTORY: Stroke Like Symptoms COMPARISON STUDY: Chest radiograph August 23, 2019. Chest CT September 13, 2018. FINDINGS: Incidental note is made of a calcified granuloma within the lingula. There is no pneumothor ax or pleural effusion. There is no consolidation or evidence for pulmonary edema. Cardiomegaly is un changed. IMPRESSION: No acute cardiopulmonary findings. Mild cardiomegaly. ACT 112: Negative or not required by law. Electronically signed by: El Read M.D. 03/09/2021 4:14 PM
--- NOTE | 2021-03-09 16:33 | History & Physical Report ---
Date of Service March 09, 2021 Assessment & Plan (1) Slurred speech: (2) Weakness of right upper extremity: (3) Weakness of right lower extremity: Plan: - Admit to [facility] with telemetry - Initially started with slurred speech, right facial droop and right extremity weakness which is now improving. Patient was not a TPA candidate per teleneurology via [place] [facility] as communicated by the ER. - Stroke order set completed - Consult neurology, Dr. Smith - CTA and CT of the head and neck are negative - Order MRI of the brain without contrast stat - Check 2D echo - Allow for permissive hypertension, pt has not been taking any of his medications prior to this hospitalization for at least a month - Resume asa 81 mg daily, atorvastatin 80 mg daily (4) CAD (coronary artery disease): Plan: - [id number] coronary atherosclerosis by cardiac catheterization 2010 and 2014 - Follows with Dr. Harp as an outpatient - Troponin elevated on arrival at 0.072, will trend x 2 more sets - EKG reviewed - Continue baby aspirin daily, statin therapy - Patient underwent dobutamine stress test in May 2020 which showed preserved LV EF of 55 to 59%, mildly increased (concentric) LV thickness, aortic valve has 3 leaflets, moderate aortic valve stenosis is present, proximal ascending thoracic aorta is mildly enlarged. (5) HTN (hypertension): Plan: - Not truely taking losartan, monitor BP, allow for permissive htn for now (6) Dyslipidemia: Plan: -Continue atorvastatin 80 mg daily (7) COPD, mild: Plan: - Pt denies respiratory complaints. O2 sats at 96% on RA. Does not use any home inhalers (8) PEDRO (obstructive sleep apnea): Plan: - Noncompliant with cpap (9) Diabetes: Plan: -Last A1c 6.2 on 02/25/2020, will repeat with a.m. labs -Hold Jardiance, hold Metformin -ISS with Accu-Cheks ACHS -Heart healthy/diabetic diet once speech therapy eval (10) GERD (gastroesophageal reflux disease): Plan: - stable DVT ppx: - teds, scds CODE: DNR/DNI Dispo: From home, likely to remain in the hospital x 2 days History of Present Illness Primary Care Provider: Julius Werner MD This is a 75 yo M with PMhx of CAD, diastolic dysfunction, HTN, HLD, COPD, DM type II, PEDRO, and GERD who presents to the hospital with acute onset of slurred speech, right-sided facial droop and right leg weakness which started around 1:00 pm. He was in the shower when he realized he was unable to lift his right leg out when he was finished. His girlfriend who was home at that point time noticed slurred speech, facial droop and therefore called EMS. He was given a full dose baby aspirin. Patient feels that his symptoms are slightly improved at this point however they are still present. He stopped taking all his medications over a month ago which included baby aspirin, atorvastatin and losartan. He also has not been using his inhalers, but states his breathing is fine and has no complaints. He used to have a CPAP but did not like it, so gave it back. He states that he has not been taking his "nutty pill" either. When asked what year it is, he tells me it is 1946. Pt is able to answer who the president is and answers my questions within reason. Initially he tells me we are in [place], but then corrects himself saying [place]. He knows that it is Sunday, but cannot say the specific date. He is able to participate in all parts of neurological exam. His troponin was noted to be slightly elevated on arrival to the ER at 0.072, and appears that he has had a slightly positive troponin in the past. He denies any chest pain, discomfort, tightness, heaviness, palpitations or shortness of breath. Allergies Allergy/AdvReac Type Severity Reaction Status Date / Time codeine Allergy Intermediate HALLUCINATI Verified 03/09/21 15:32 ONS ezetimibe Allergy Intermediate HIVES Verified 03/09/21 15:32 pantoprazole Allergy Intermediate HIVES Verified 03/09/21 15:32 lisinopril Allergy Mild cough Verified 03/09/21 15:32 Home Medications Medication Instructions Recorded Confirmed Type albuterol sulfate 90 mcg/actuation 2 puff INHALATION Q4 PRN 09/13/18 03/09/21 History aerosol inhaler (ProAir HFA) aspirin 81 mg chewable tablet 81 mg PO DAILY 09/13/18 03/09/21 History atorvastatin 80 mg tablet (Lipitor) 80 mg PO DAILY 09/13/18 03/09/21 History losartan 25 mg tablet (Cozaar) 25 mg PO DAILY 09/13/18 03/09/21 History nitroglycerin 0.4 mg sublingual 0.4 mg SUBLINGUAL UD PRN 09/13/18 03/09/21 History tablet (Nitrostat) empagliflozin 10 mg tablet 10 mg PO DAILY 08/23/19 03/09/21 History (Jardiance) bupropion HCl 150 mg 24 hr tablet, 300 mg PO QAM 03/09/21 03/09/21 History extended release fluticasone 250 mcg-salmeterol 50 1 inh INHALATION BID 03/09/21 03/09/21 History mcg/dose blistr powdr for inhalation (Advair Diskus) metformin 500 mg tablet,extended 500 mg PO QDD 03/09/21 03/09/21 History release 24hr umeclidinium 62.5 mcg/actuation 1 inh INHALATION DAILY 03/09/21 03/09/21 History blister powder for inhalation (Incruse Ellipta) Past Med/Surg History Medical History (Updated 03/09/21 @ 16:19 by Anitha Escamilla PA-C) Anxiety CAD (coronary artery disease) "40-50% LAD lesion noted on cath in 2010 dobutamine stress test 2013 negative for ischemia" COPD, mild Diabetes Diastolic dysfunction "echo 2013 - EF 60-65%, grade I diastolic dysfunction, no valvular disease" Dyslipidemia GERD (gastroesophageal reflux disease) HTN (hypertension) Influenza A Myocardial infarct PEDRO (obstructive sleep apnea) Surgical History History of cholecystectomy History of colonoscopy 2016: adenomatous polyps, diverticulosis. Dr Worthington History of inguinal hernia repair, bilateral Hx of hemorrhoidectomy S/P foot surgery, right Family History Other Heart disease Social History Smoking Status: Former smoker Tobacco Type: Cigarettes Hx Alcohol Use: No Hx Substance Use: No Preferred Language: Yi Communication Ability: Effective Electrical Contacts Adjuster Required: No Beliefs That Will Affect Care: None marital status: Current Living Situation: Spouse Current Living Situation Comment: [facility] Feels Safe at Home: Yes Assistive Devices: Glasses Review of Systems Review of Systems: Constitutional: No fever, sweats or chills Eyes: No diplopia, no worsening or blurred vision ENT: normal hearing, no trouble swallowing Respiratory: No cough, sputum, dyspnea at rest or on exertion Cardiovascular: No chest pain, tightness or palpitations, no heaviness, no lightheadedness or dizziness Abdomen: No pain, nausea, vomiting, diarrhea or constipation Musculoskeletal: No joint pain, calf pain, swelling Neurologic: As per HPI. No numbness/tingling, or balance problems Psychiatric: No anxiety or depression Skin: No rash or itch Physical Exam Physical Exam: General: awake, alert, no apparent distress Head: Normocephalic, atraumatic ENT: PERRL, EOMI, no pharyngeal exudate, mucous membranes moist Chest: Clear to auscultation, on room air, no adventitious breath sounds Cardiac: Regular rate and rhythm, + systolic murmur, no JVD, normal peripheral pulses, good capillary refill Abdominal: NABS x 4 quadrants, soft, nondistended, nontender to palpation, no rebound or guarding Extremities: Normal inspection, no peripheral edema or erythema, calfs nontender to palpation Psych: Normal mood and affect Neuro: Alert and awake, oriented to place after he corrected himself, tells me the year is 194, knows his name and who he lives with. Is able to participate in conversation otherwise and follow commands, strength intact bilaterally and rated 5/5, has difficulty lifting RLE up more than 4 inches off the bed but strength testing/resistance is adequate and compares to the LLE. No otherwise no motor deficits. speech is slightly slurred with a right-sided facial droop. Able to perform salgado to heel testing, rapid alternating movements, [id number] testing without difficulty. negative pronator drift. no peripheral sensory deficits Results & Data Results & Data ([facility]) Vital Signs (Past 12 Hours) Vital Signs Temp Pulse Pulse Resp BP BP Pulse Ox 03/09/21 16:00 65 16 153/99 H 97 03/09/21 15:35 63 16 156/78 H 95 03/09/21 15:16 36.5 C 63 18 189/80 H 97 Diagnostic Findings Chest X-Ray 03/09/21 15:02 XR chest 1V portable CLINICAL HISTORY: Stroke Like Symptoms COMPARISON STUDY: Chest radiograph August 23, 2019. Chest CT September 13, 2018. FINDINGS: Incidental note is made of a calcified granuloma within the lingula. There is no pneumothorax or pleural effusion. There is no consolidation or evidence for pulmonary edema. Cardiomegaly is unchanged. IMPRESSION: No acute cardiopulmonary findings. Mild cardiomegaly. ACT 112: Negative or not required by law. Electronically signed by: El Read M.D. 03/09/2021 4:[address] 03/09/21 15:02 CT OF THE HEAD WITHOUT CONTRAST CLINICAL HISTORY: Stroke Like Symptoms COMPARISON STUDY: Head CT August 22, 2018. TECHNIQUE: Helical axial images of the head were obtained without IV contrast. Automated exposure control was utilized for the study. A dose lowering technique was utilized adhering to the principles of ALARA. FINDINGS: No acute intracranial hemorrhage is present. A left middle cranial fossa arachnoid cyst measuring 4.9 cm is unchanged. Ventricular dilatation is unchanged and likely due to central atrophy. White matter hypodensity suggests small vessel disease. A few old lacunar infarcts are again noted. The basal cisterns are patent. No extra-axial collections are present. There are no findings to suggest acute dural sinus thrombosis or acute territorial infarct. No significant calvarial abnormalities are present. Visualized portions of the sinuses and mastoid air cells are clear. IMPRESSION: No acute intracranial findings. No significant change in appearance of the brain. ACT 112: Negative or not required by law. Electronically signed by: El Read M.D. 03/09/2021 3:25 PM Head CTA 03/09/21 15:02 HEAD CTA HISTORY: Stroke Like Symptoms TECHNIQUE: Multiaxial CT images of the head were performed following the intravenous administration of contrast to evaluate the major cerebral vessels. Maximum intensity projection images were also obtained. A dose lowering technique was utilized adhering to the principles of ALARA. COMPARISON: Head CT 03/09/2021. FINDINGS: There is no mass, hematoma, midline shift, or acute infarct. Mild to moderate calcified plaque within the bilateral carotid siphons without significant stenosis. The distal right vertebral artery is widely patent. There is mild multifocal narrowing within the distal left vertebral artery. The basilar artery is widely patent. No significant stenosis, occlusion, or aneurysm within the bilateral ACAs, MCAs, or colorer. The major dural venous sinuses are patent. Incidental note is made of an arachnoid cyst within the left middle cranial fossa measuring 4.9 cm. IMPRESSION: 1. No significant stenosis, occlusion, or aneurysm within the bilateral ACAs, MCAs, or colorer. 2. Mild multifocal narrowing within the distal left vertebral artery. ACT 112: Negative or not required by law. Electronically signed by: Houston Fall M.D. 03/09/2021 3:50 PM Neck CTA 03/09/21 15:02 CT ANGIOGRAPHY OF THE NECK WITH CONTRAST CLINICAL HISTORY: Stroke Like Symptoms COMPARISON STUDY: No previous studies for comparison. Technique: CT angiography of the carotid and vertebral arteries was obtained using Optiray and 3D reconstruction on an independent workstation. NASCET criteria was utilized. Automated exposure control was utilized for the study. A dose lowering technique was utilized adhering to the principles of ALARA. CT DOSE: 1409.77 mGy.cm Findings: There is extensive plaque within the proximal left internal carotid artery which results in 60% stenosis of the vessel. The vessel caliber at site of narrowing measures 1.8 mm in caliber. The distal left cervical internal carotid artery measures 4.1 mm. There is moderate plaque within the proximal right internal for artery without stenosis. The bilateral cervical portions of the vertebral arteries are patent. There is no dissection within the major vessels of the neck. Lung apices are clear. No acute cervical spine fracture is noted. IMPRESSION: 1. Extensive plaque within the proximal left internal carotid artery which results in 60% stenosis of this vessel. 2. Moderate plaque within the proximal right internal carotid artery without stenosis. 3. No dissection within the major vessels of the neck. ACT 112: Negative or not required by law. Electronically signed by: El Read M.D. 03/09/2021 3:46 PM ECG Additional Comments: 09-MAR-2021 15:17:13 [facility]-EDSTAT ROUTINE RETRIEVAL Undetermined rhythm Left axis deviation Septal infarct (cited on or before 09-MAR-2021) Abnormal ECG When compared with ECG of 22-AUG-2019 23:33, Current undetermined rhythm precludes rhythm comparison, needs review Questionable change in initial forces of Septal leads Nonspecific T wave abnormality now evident in Inferior leads 25mm/s 10mm/mV 150Hz 9.0.9 12SL 241 FABIO: 11 Referred by: REFERRED SELF Unconfirmed Vent. rate 63 BPM UT interval 198 ms QRS duration 112 ms QT/QTc 416/425 ms Code Status & VTE Plan Code Status DNR/DNI-discussed with the patient at bedside Supervising Physician Co-Signing Physician Notes Attending addendum: The patient was seen and examined in emergency room This is a 75 yo M with PMhx of CAD, diastolic dysfunction, HTN, HLD, COPD, DM type II, PEDRO, and GERD who presents to the hospital with acute onset of slurred speech, right-sided facial droop and right leg weakness which started around 1:00 pm. 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 Has right facial droop with dysphagia. Minimal right lower extremity weakness otherwise unremarkable neuro examination His admission labs, EKG and imaging studies reviewed Has had telemetry neuro evaluation for the neurological symptoms and was not qualified for TPA Stroke work-up including echo with history of murmur to rule out any embolic stroke Will have MRI of the scan to rule out any stroke- [facility] neurology has been consulted Agree with assessment and plan as outlined above by ADRYAN Segovia DR (1) Diabetes Diabetes mellitus complication status: without complication Diabetes mellitus mcc insulin use: without oil heaterman use Diabetes mellitus type: type 2 Qualified Code(s): E11.9 - Type 2 diabetes mellitus without complications
--- NOTE | 2021-03-09 18:25 | Magnetic Resonance Report ---
MRI OF THE BRAIN WITHOUT CONTRAST CLINICAL HISTORY: r/o cva, r facial droop, slurred speech, RLE wkns COMPARISON STUDY: None. FINDINGS: Sagittal T1, axial diffusion, proton density and T2 weighted axial, coronal FLAIR, and axial T1-weigh esperanza images were acquired. No intra or extra-axial mass lesions are visualized Focal area of slightly increased signal on DWI sequence within left periventricular white matter show s no evidence of signal changes on ACD map, acute ischemia is unlikely. The rest of brain parenchyma shows no evidence of abnormal DWI or ACD map signal. Prominent diffuse atrophic changes of brain parenchyma are seen and associated with severe dilatation of the ventricles which might represent ex vacuo dilatation however hydrocephalus cannot be complete ly ruled out. Prominent CSF space is seen anteriorly to the inferior left temporal lobe which could represent area severe atrophy within left temporal lobe or developmental variant. Few areas of CSF signal within periventricular white matter of the right frontal lobe could represent areas of chronic lacunar infarcts. Also focal area of increased T2 signal within left occipital lobe likely represent chronic lacunar infarct. Proton density T2-weighted and FLAIR images reveal scattered foci of increased T2 signal within the w kylah matter, likely on a small vessel basis. There are no abnormal flow voids. IMPRESSION: No acute intracranial hemorrhage, no midline shift or space occupying lesions. Focal area of slightly increased DWI signal within periventricular white matter overlying left latera l ventricle and shows no evidence of change signal on ACD map, restricted diffusion is unlikely. Extensive atrophic changes of brain parenchyma associated with ventricular dilatation which could be due to ex vacuo dilated ventricles or hydrocephalus. Please correlate with clinical presentation and prior history of hydrocephalus. Few lacunar infarct within periventricular and left cerebellar white matter. The rest of findings as above. ACT 112: Negative or not required by law. The above report was generated using voice recognition software. It may contain grammatical, syntax o r spelling errors. Electronically signed by: Stacey Dugan DO 03/09/2021 6:24 PM
[2021-03-09] MEDS ORDERED: ONDANSETRON INJ 2 MG/ML 2 ML VIAL IV PRN (18:47)
[2021-03-09] MEDS ORDERED: GLUCOSE 10 TABS/TUBE PO PRN (18:47)
[2021-03-09] MEDS ORDERED: DEXTROSE 50% 50 ML SYRINGE IV PRN (18:47)
[2021-03-09] MEDS ORDERED: GLUCAGON FOR INJ 1 MG VIAL SQ PRN (18:47)
[2021-03-09] MEDS ORDERED: CARBOHYDRATES FOR HYPOGLYCEMIA PO PRN (18:47)
[2021-03-09] MEDS ORDERED: GLUCOSE 40% GEL 15 GM TUBE PO PRN (18:47)
[2021-03-09] MEDS ORDERED: ACETAMINOPHEN 325 MG TAB PO PRN (18:47)
[2021-03-09] MEDS ORDERED: PHARMACIST DISCHARGE MED REC CONSULT PRN (18:47)
--- NOTE | 2021-03-09 19:07 | Electrocardiogram Report ---
Test Reason : Blood Pressure : / mmHG Vent. Rate : 063 BPM Atrial Rate : 063 BPM P-R Int : 198 ms QRS Dur : 112 ms QT Int : 416 ms P-R-T Axes : 075 -44 032 degrees QTc Int : 425 ms Sinus rhythm Left axis deviation Abnormal ECG When compared with ECG of 22-AUG-2019 23:33, Nonspecific T wave abnormality now evident in Inferior leads Confirmed by Narayan Reid ([id number]) on 03/09/2021 7:07:04 PM Referred By: REFERRED SELF Confirmed By:Franck Reid
[2021-03-09] MEDS ORDERED: Nursing to Pharmacy Communication SCH (19:15)
[2021-03-09] MEDS ORDERED: INSULIN ASPART 100 UNITS/ML 3 ML PEN SC SCH (21:00)
[2021-03-09] MEDS ORDERED: SODIUM CHLORIDE 0.9% 1000ML 1,000 ML IV SCH (21:30)
[2021-03-10 07:43] LABS: Basophils # (auto) 0.07 K/uL (0-0.2); Basophils % (auto) 1.3 %; Eosinophils # (auto) 0.29 K/uL (0-0.5); Eosinophils % (auto) 5.4 %; Hematocrit (blood only) 41.1 % (42-52); Hemoglobin 14.2 g/dL (14.0-18.0); Lymphocytes # (auto) 1.94 K/uL (1.2-3.4); Lymphocytes % (auto) 36.1 %; Mean Corpuscular Hgb Conc 34.5 g/dL (32-36); Mean Corpuscular Volume 92.6 fL (80-100); Mean Platelet Volume 10.5 fL (7.4-10.4); Monocytes # (auto) 0.63 K/uL (0.11-0.59); Monocytes % (auto) 11.7 %; Neutrophils # (auto) 2.45 K/uL (1.4-6.5); Neutrophils % (auto) 45.5 %; Platelet Count 178 K/uL (130-400); RDW Coefficient of Variation 12.7 % (11.5-14.5); RDW Standard Deviation 42.8 fL (36.4-46.3); Red Blood Count 4.44 M/uL (4.7-6.1); White Blood Count 5.38 K/uL (4.8-10.8)
[2021-03-10 07:58] LABS: Estimated Average Glucose 157 mg/dl; Hemoglobin A1C 7.1 % (4.5-5.6)
[2021-03-10 08:22] LABS: Calcium 8.6 mg/dl (8.5-10.1); Creatinine Clr Calc Pharmacy 80.9 ml/min; Est GFR (African American) 85.8 ml/min; Est GFR (Non-African American) 74.1 ml/min; Potassium 3.6 mmol/L (3.5-5.1)
[2021-03-10 08:28] LABS: Troponin I 0.083 ng/ml (0-0.045)
[2021-03-10] MEDS ORDERED: FLUTICASONE/VILANTEROL 100/25MCG 14 PUFFS/INHALER INH SCH (09:00)
[2021-03-10] MEDS ORDERED: UMECLIDINIUM BROMIDE 62.5MCG/BLISTER 7 PUFFS/INHALER INH SCH (09:00)
[2021-03-10] MEDS ORDERED: buPROPion XL 300 MG TABCR PO SCH (09:00)
[2021-03-10] MEDS ORDERED: ATORVASTATIN 40 MG TAB PO SCH (09:00)
[2021-03-10] MEDS ORDERED: ASPIRIN 81 MG CHEW PO SCH (09:00)
--- NOTE | 2021-03-10 12:00 | Neurology Consultation ---
Date of Consultation March 10, 2021 Assessment & Plan (1) Acute CVA (cerebrovascular accident): 1. MRI with lacunar infarcts 2. CTA neck-extensive plaque left ICA 3. restart aspirin 81 mg and add plavix 75 mg- this is not an aspirin failure since he had stopped all his medications 4. TTE - 60-65% no ASD 5. PT/OT speech - for discharge needs 6. optimize HTN HLD DM LDL <70 7. discussed prefer he is monitored for 48 hours- he is ok with this 8. should be scheduled with vascular surgery for evaluation of CTA head neck 9. discusse compliance to medication therapy follow up with neurology in 4-6 weeks Camila [facility] schedule (2) Expressive aphasia: Supervising Physician Co-Signing Physician Notes Patient was seen and examined at bedside. Is a 75-year-old male with multiple stroke risk factors including coronary artery disease, hypertension, hyperlipidemia, and type 2 diabetes as well as left carotid stenosis admitted with intermittent right sided weakness probably involving the right leg as well as dysarthria. Symptoms have since resolved. He is currently back to baseline. On examination his speech is clear. He has no ataxia with finger-nose on the right. Muscle strength testing is 5 out of 5. He has no ankle dorsiflexion weakness. He has a negative Curly sign. His face is symmetric. I did discuss and review his imaging as well including his MRI of the brain which I reviewed. MRI of the brain shows no evidence of the diffusion restriction to suggest an acute infarct. CTA of the head and neck showed left carotid stenosis of approximately 60%. He reports noncompliance with his medication. He has not been taking his aspirin. I did discuss the importance of taking aspirin daily for secondary stroke prevention. Recommend aspirin 81 mg daily and Plavix 75 mg daily for 21 days. Then stop Plavix and continue aspirin 81 mg daily. Recommend continuing home Lipitor 80 mg daily. Hemoglobin A1c goal is less than 7. Blood pressure goal is a systolic blood pressure less than 140 diastolic blood pressure less than 90. Recommend a vascular surgery follow-up as an outpatient given the left symptomatic carotid stenosis. Otherwise patient can follow-up with neurology in 8 weeks. Patient is okay to be discharged from neurology standpoint. History of Present Illness Reason for Consultation: slurred speech, R ext weakness, R facial droop Requesting Physician: Rebecca Arroyo MD Attending Physician: Rebecca Arroyo MD History of Present Illness Vinicius is a 75 year old male with PMH- CAD, diastolic dysfunction, HTN, HLD, COPD, DM II, PEDRO, and GERD who presented to [facility] ED 03/09/2021 with acute onset of slurred speech, right-sided facial droop and right leg weakness which started around 1:00 pm.He was in the shower when he realized he was unable to lift his right leg out when he was finished. His girlfriend who was home at that point time noticed slurred speech, facial droop and therefore called EMS. He was given a full dose baby aspirin. He feels that his symptoms are slightly improved. He stopped taking all his medications over a month ago which included baby aspirin, atorvastatin and losartan. He also has not been using his inhalers, but states his breathing is fine and has no complaints. He used to have a CPAP but did not like it, so gave it back. He states he is back to his baseline, no slurred speech no weakness. denies CP, SOB,abdominal pain, one sided weakness, numbness tingling, N, V, vision changes Allergies Allergy/AdvReac Type Severity Reaction Status Date / Time codeine Allergy Intermediate HALLUCINATI Verified 03/09/21 15:32 ONS ezetimibe Allergy Intermediate HIVES Verified 03/09/21 15:32 pantoprazole Allergy Intermediate HIVES Verified 03/09/21 15:32 lisinopril Allergy Mild cough Verified 03/09/21 15:32 Home Medications Medication Instructions Recorded Confirmed Type albuterol sulfate 90 mcg/actuation 2 puff INHALATION Q4 PRN 09/13/18 03/09/21 History aerosol inhaler (ProAir HFA) aspirin 81 mg chewable tablet 81 mg PO DAILY 09/13/18 03/09/21 History atorvastatin 80 mg tablet (Lipitor) 80 mg PO DAILY 09/13/18 03/09/21 History losartan 25 mg tablet (Cozaar) 25 mg PO DAILY 09/13/18 03/09/21 History nitroglycerin 0.4 mg sublingual 0.4 mg SUBLINGUAL UD PRN 09/13/18 03/09/21 History tablet (Nitrostat) empagliflozin 10 mg tablet 10 mg PO DAILY 08/23/19 03/09/21 History (Jardiance) bupropion HCl 150 mg 24 hr tablet, 300 mg PO QAM 03/09/21 03/09/21 History extended release fluticasone 250 mcg-salmeterol 50 1 inh INHALATION BID 03/09/21 03/09/21 History mcg/dose blistr powdr for inhalation (Advair Diskus) metformin 500 mg tablet,extended 500 mg PO QDD 03/09/21 03/09/21 History release 24hr umeclidinium 62.5 mcg/actuation 1 inh INHALATION DAILY 03/09/21 03/09/21 History blister powder for inhalation (Incruse Ellipta) clopidogrel 75 mg tablet (Plavix) 75 mg PO DAILY #20 tab 03/10/21 Rx Patient History Medical History (Updated 03/09/21 @ 20:10 by Hussain Hsu DO) Anxiety CAD (coronary artery disease) "40-50% LAD lesion noted on cath in 2010 dobutamine stress test 2012 negative for ischemia" COPD, mild Diabetes Diastolic dysfunction "echo 2013 - EF 60-65%, grade I diastolic dysfunction, no valvular disease" Dyslipidemia GERD (gastroesophageal reflux disease) HTN (hypertension) Influenza A Myocardial infarct PEDRO (obstructive sleep apnea) Surgical History History of cholecystectomy History of colonoscopy 2016: adenomatous polyps, diverticulosis. Dr Worthington History of inguinal hernia repair, bilateral Hx of hemorrhoidectomy S/P foot surgery, right Family History Other Heart disease Social History Smoking Status: Former smoker Tobacco Type: Cigarettes Hx Alcohol Use: No Hx Substance Use: No Preferred Language: Macanese Communication Ability: Effective Mill Tender Second Operator Required: No Beliefs That Will Affect Care: None marital status: Current Living Situation: Significant Other Current Living Situation Comment: [facility] Feels Safe at Home: Yes Safety Concerns: Feels Safe At This Time Assistive Devices: Cane Review of Systems Review of Systems: All systems reviewed & are unremarkable except as noted in HPI & below Physical Exam Physical Exam: Physical Exam: Constitutional: appearance nourished, healthy and obese Ears, Nose, Mouth and Throat: mucous membranes moist, no injection and skin normal, eyes normal Cardiovascular: normal S-1 and S-2 and regular rate and rhythm Respiratory: course breath sounds Musculoskeletal: no peripheral edema and decreased distal pulses Skin: no stigmata of neurocutaneous disease noted and normal and intact Eyes: extraocular muscles intact (EOMI) and pupils equal, round and reactive to light (PERRL), no gross peripheral vision defect NEUROLOGIC EXAMINATION: Mental status: Alert and interactive Oriented 2020, president biden, thumb, stethoscope, no ifs and buts, thumb, [facility] Oriented to person Speech fluent with no evidence of aphasia Cranial Nerves smile eye brow raise symmetric. Reflexes: Deep tendon reflexes were symmetrical and decreased Sensory: light cool touch Coordination: finger to nose no bipass Gait/Stance: Posture normal. Gait not assessed Motor: Negative for pronator drift of out stretched arms with eyes closed. Strength: hand director fixed income biceps triceps hip flex plantar flex ext Results & Data ([facility] [place]) Vital Signs (Past 12 Hours) Vital Signs Temp Pulse Pulse Resp BP BP Pulse Ox 03/10/21 11:00 36.6 C 55 L 20 151/71 H 94 03/10/21 07:38 36.7 C 56 L 18 161/85 H 93 03/10/21 07:30 59 L 03/10/21 02:52 36.8 C 55 L 20 126/65 96 03/10/21 00:47 52 L Laboratory Results Abnormal lab results 03/09/21 03/09/21 03/09/21 Range/Units 15:19 15:19 15:20 RBC 4.57 L (4.7-6.1) M/uL Hct (42-52) % MPV (7.4-10.4) fL [place] # (Auto) (0.11-0.59) K/uL Glucose 148 H (70-99) mg/dl POC Glucose 143 H (70-99) mg/dl Hemoglobin A1c (4.5-5.6) % Calcium 8.4 L (8.5-10.1) mg/dl AST 10 L (15-37) U/L Troponin I 0.072 H* (0-0.045) ng/ml Total Protein 5.9 L (6.4-8.2) gm/dl Albumin 3.0 L (3.4-5.0) gm/dl Triglycerides (0-150) mg/dl Cholesterol (0-200) mg/dl Ur Specific [place] (1.000-1.030) 03/09/21 03/09/21 03/10/21 Range/Units 15:58 20:55 00:39 RBC (4.7-6.1) M/uL Hct (42-52) % MPV (7.4-10.4) fL [place] # (Auto) (0.11-0.59) K/uL Glucose (70-99) mg/dl POC Glucose 119 H (70-99) mg/dl Hemoglobin A1c (4.5-5.6) % Calcium (8.5-10.1) mg/dl AST (15-37) U/L Troponin I 0.077 H* (0-0.045) ng/ml Total Protein (6.4-8.2) gm/dl Albumin (3.4-5.0) gm/dl Triglycerides (0-150) mg/dl Cholesterol (0-200) mg/dl Ur Specific [place] 1.043 H (1.000-1.030) 03/10/21 03/10/21 03/10/21 Range/Units 06:09 06:59 06:59 RBC 4.44 L (4.7-6.1) M/uL Hct 41.1 L (42-52) % MPV 10.5 H (7.4-10.4) fL [place] # (Auto) 0.63 H (0.11-0.59) K/uL Glucose 136 H (70-99) mg/dl POC Glucose 143 H (70-99) mg/dl Hemoglobin A1c (4.5-5.6) % Calcium (8.5-10.1) mg/dl AST (15-37) U/L Troponin I 0.083 H* (0-0.045) ng/ml Total Protein (6.4-8.2) gm/dl Albumin (3.4-5.0) gm/dl Triglycerides 281 H (0-150) mg/dl Cholesterol 214 H (0-200) mg/dl Ur Specific [place] (1.000-1.030) 03/10/21 03/10/21 03/10/21 Range/Units 06:59 07:32 11:34 RBC (4.7-6.1) M/uL Hct (42-52) % MPV (7.4-10.4) fL [place] # (Auto) (0.11-0.59) K/uL Glucose (70-99) mg/dl POC Glucose 122 H 183 H (70-99) mg/dl Hemoglobin A1c 7.1 H (4.5-5.6) % Calcium (8.5-10.1) mg/dl AST (15-37) U/L Troponin I (0-0.045) ng/ml Total Protein (6.4-8.2) gm/dl Albumin (3.4-5.0) gm/dl Triglycerides (0-150) mg/dl Cholesterol (0-200) mg/dl Ur Specific [place] (1.000-1.030) Diagnostic Findings CT head-No acute intracranial findings. No significant change in appearance of the brain. CTA head-No significant stenosis, occlusion, or aneurysm within the bilateral ACAs, MCAs, or admissions advisor. Mild multifocal narrowing within the distal left vertebral artery. CTA neck-. Extensive plaque within the proximal left internal carotid artery which results in 60% stenosis of this vessel. Moderate plaque within the proximal right internal carotid artery without stenosis. No dissection within the major vessels of the neck. MRI brain-No acute intracranial hemorrhage, no midline shift or space occupying lesions. Focal area of slightly increased DWI signal within periventricular white matter overlying left lateral ventricle and shows no evidence of change signal on ACD map, restricted diffusion is unlikely. Extensive atrophic changes of brain parenchyma associated with ventricular dilatation which could be due to ex vacuo dilated ventricles or hydrocephalus. Please correlate with clinical presentation and prior history of hydrocephalus. Few lacunar infarct within periventricular and left cerebellar white matter.
[2021-03-10] MEDS ORDERED: CLOPIDOGREL BISULFATE 75 MG TAB PO ONE (16:33)
[2021-03-10] MEDS ORDERED: STROKE PATIENT DISCHARGE STA (17:03)
--- NOTE | 2021-03-10 17:27 | Pharmacy Report ---
Pharmacist Stroke Counseling - Date of Service March 10, 2021 - Scope: Pharmacy has been consulted to provide medication discharge counseling for this patient admitted with ischemic stroke as per the Pharmacist Discharge Counseling for Stroke Patients Protocol. - Medications on Discharge: Home Medications Medication Instructions Recorded Confirmed albuterol sulfate 90 mcg/actuation 2 puff INHALATION Q4 PRN 09/13/18 03/09/21 aerosol inhaler (ProAir HFA) aspirin 81 mg chewable tablet 81 mg PO DAILY 09/13/18 03/09/21 atorvastatin 80 mg tablet (Lipitor) 80 mg PO DAILY 09/13/18 03/09/21 losartan 25 mg tablet (Cozaar) 25 mg PO DAILY 09/13/18 03/09/21 nitroglycerin 0.4 mg sublingual 0.4 mg SUBLINGUAL UD PRN 09/13/18 03/09/21 tablet (Nitrostat) empagliflozin 10 mg tablet 10 mg PO DAILY 08/23/19 03/09/21 (Jardiance) bupropion HCl 150 mg 24 hr tablet, 300 mg PO QAM 03/09/21 03/09/21 extended release fluticasone 250 mcg-salmeterol 50 1 inh INHALATION BID 03/09/21 03/09/21 mcg/dose blistr powdr for inhalation (Advair Diskus) metformin 500 mg tablet,extended 500 mg PO QDD 03/09/21 03/09/21 release 24hr umeclidinium 62.5 mcg/actuation 1 inh INHALATION DAILY 03/09/21 03/09/21 blister powder for inhalation (Incruse Ellipta) New Rx's Medication Instructions Recorded clopidogrel 75 mg tablet (Plavix) 75 mg PO DAILY #20 tab 03/10/21 - Action: The above medications, specifically ones for stroke treatment/prophylaxis, have been reviewed in detail with the patient and/or patient commercial representative(s) prior to discharge. This includes indication, common adverse reactions, drug interactions, and medication administration. Medication counseling has been employed using the teach-back method to ensure understanding. - Outcome: The patient and/or patient commercial representative(s) have demonstrated understanding of the medications. Thank you for allowing pharmacy to be involved in the care of this patient. Please call [phone] with any additional questions
[2021-03-10] MEDS ORDERED: INSULIN ASPART 100 UNITS/ML 3 ML PEN SC SCH (19:30)
--- NOTE | 2021-03-11 08:39 | Discharge Summary ---
Date of Service March 11, 2021 Admission HPI Per Admitting Provider This is a 75 yo M with PMhx of CAD, diastolic dysfunction, HTN, HLD, COPD, DM type II, PEDRO, and GERD who presents to the hospital with acute onset of slurred speech, right-sided facial droop and right leg weakness which started around 1:00 pm. He was in the shower when he realized he was unable to lift his right leg out when he was finished. His girlfriend who was home at that point time noticed slurred speech, facial droop and therefore called EMS. He was given a full dose baby aspirin. Patient feels that his symptoms are slightly improved at this point however they are still present. He stopped taking all his medications over a month ago which included baby aspirin, atorvastatin and losartan. He also has not been using his inhalers, but states his breathing is fine and has no complaints. He used to have a CPAP but did not like it, so gave it back. He states that he has not been taking his "nutty pill" either. When asked what year it is, he tells me it is 1946. Pt is able to answer who the president is and answers my questions within reason. Initially he tells me we are in [place], but then corrects himself saying [place]. He knows that it is Sunday, but cannot say the specific date. He is able to participate in all parts of neurological exam. His troponin was noted to be slightly elevated on arrival to the ER at 0.072, and appears that he has had a slightly positive troponin in the past. He denies any chest pain, discomfort, tightness, heaviness, palpitations or shortness of breath. Admission Exam Per Admitting Provider General: awake, alert, no apparent distress Head: Normocephalic, atraumatic ENT: PERRL, EOMI, no pharyngeal exudate, mucous membranes moist Chest: Clear to auscultation, on room air, no adventitious breath sounds Cardiac: Regular rate and rhythm, + systolic murmur, no JVD, normal peripheral pulses, good capillary refill Abdominal: NABS x 4 quadrants, soft, nondistended, nontender to palpation, no rebound or guarding Extremities: Normal inspection, no peripheral edema or erythema, calfs nontender to palpation Psych: Normal mood and affect Neuro: Alert and awake, oriented to place after he corrected himself, tells me the year is 1945, knows his name and who he lives with. Is able to participate in conversation otherwise and follow commands, strength intact bilaterally and rated 5/5, has difficulty lifting RLE up more than 4 inches off the bed but strength testing/resistance is adequate and compares to the LLE. No otherwise no motor deficits. speech is slightly slurred with a right-sided facial droop. Able to perform salgado to heel testing, rapid alternating movements, [id number] testing without difficulty. negative pronator drift. no p eripheral sensory deficits Principal Diagnosis TIA Discharge Exam General: A&Ox3 HENT: NCAT, MMM, EOMI Eyes: PERRLA Neck: Supple, normal range of motion CVS: normal rate and rhythm Resp: b/l good breath sounds Abdomen: Soft, ND/NT, +BS Extremities: No c/c/e Neuro: face symmetric, strength grossly equal, no focal deficit, speech was clear Skin: warm and dry, no rashes/lesions/errythema MSK: normal ROM, no joint swelling/erythema Discharge Data Allergies Allergy/AdvReac Type Severity Reaction Status Date / Time codeine Allergy Intermediate HALLUCINATI Verified 03/09/21 15:32 ONS ezetimibe Allergy Intermediate HIVES Verified 03/09/21 15:32 pantoprazole Allergy Intermediate HIVES Verified 03/09/21 15:32 lisinopril Allergy Mild cough Verified 03/09/21 15:32 Consultations 03/09/21 15:53 ED Decision to Admit Stat 03/09/21 18:47 Consult Neurology Routine Ordered Studies 03/09/21 15:02 CT angio head w con Stat CT angio neck with con Stat CT head/brain wo con Stat 03/09/21 16:58 MR brain wo con Stat Hospital Course (1) Slurred speech: (2) Weakness of right upper extremity: (3) Weakness of right lower extremity: - Initially started with slurred speech, right facial droop and right extremity weakness which is now improving. Patient was not a TPA candidate per teleneurology via [facility] tele[facility] as communicated by the ER. - CTA and CT of the head and neck are negative - MRI of the brain: No acute intracranial hemorrhage, no midline shift or space occupying lesions. Focal area of slightly increased DWI signal within periventricular white matter overlying left lateral ventricle and shows no evidence of change signal on ACD map, restricted diffusion is unlikely. Extensive atrophic changes of brain parenchyma associated with ventricular dilatation which could be due to ex vacuo dilated ventricles or hydrocephalus. Please correlate with clinical presentation and prior history of hydrocephalus. Few lacunar infarct within periventricular and left cerebellar white matter. - TTE was obtained without any concernign findings. Patient was started on Plavix for total of 21 days. Patient was discharged on aspirin 81 mg daily and to continue with the Lipitor 80 mg daily. On the day of discharge patient was doing okay. Symptoms resolved completely. Patient worked with PT/OT. As per my discussion with neurology, he was cleared for discharge. Patient was discharged in stable condition. CT Neck: 1. Extensive plaque within the proximal left internal carotid artery which results in 60% stenosis of this vessel. 2. Moderate plaque within the proximal right internal carotid artery without stenosis. should be scheduled with vascular surgery for evaluation of CTA head neck (4) CAD (coronary artery disease): - [id number] coronary atherosclerosis by cardiac catheterization 2010 and 2014 - Follows with Dr. Harp as an outpatient - EKG reviewed - Continue baby aspirin daily, statin therapy - Patient underwent dobutamine stress test in May 2020 which showed preserved LV EF of 55 to 59%, mildly increased (concentric) LV thickness, aortic valve has 3 leaflets, moderate aortic valve stenosis is present, proximal ascending thoracic aorta is mildly enlarged. (5) HTN (hypertension): -Patient is noncompliant with medications (6) Dyslipidemia: -Continue atorvastatin 80 mg daily (7) COPD, mild: - Pt denies respiratory complaints. O2 sats at 96% on RA. Does not use any home inhalers (8) PEDRO (obstructive sleep apnea): - Noncompliant with cpap (9) Diabetes: -Last A1c 6.2 on 02/25/2020, 7.1 during this admiision. Total Time Total Time Spent Total Time Spent (In Minutes): 35 Discharge Plan Discharge Items Patient Disposition: Home - Self-Care Reason For Visit: SLURRED SPEECH, EXTREMITY WEAKNESS, FACIAL DROOP Discharge Diagnosis: TIA Activity: Resume your previous activity Non-emergency contact: Primary Care Provider Call non-emergency contact if: your symptoms worsen Follow-up/Referrals: Julius Werner MD [Primary Care Provider] - (Date & Time 03/17/2021 11:20 AM Provider Julius Werner MD Department General Internal Medicine [facility] ) Camila Rodriguez PA-C [Physician Community Relations Director] - (Date & Time 05/20/2021 11:20 AM Provider Camila Rodriguez PA-C Department Neurology [facility] ) Diet: Heart Healthy Addtl Attending Provider Instructions: Take Plavix for 20 more days. Continue talking aspiring 81 mg daily and Lipitor 80 mg daily. Pending Studies at Discharge: No Stand-Alone Forms: Medications to Prevent Stroke, [facility] [email or web address], Smoking Cessation Medications and DC Order Prescriptions: New clopidogrel [Plavix] 75 mg tablet 75 mg PO DAILY Qty: 20 RF: 0 Continued Jardiance 10 mg tablet 10 mg PO DAILY RF: 0 atorvastatin [Lipitor] 80 mg tablet 80 mg PO DAILY RF: 0 nitroglycerin [Nitrostat] 0.4 mg Tablet, Sublingual 0.4 mg Sublingual UD PRN (Reason: Chest Pain) RF: 0 aspirin 81 mg Tablet,Chewable 81 mg PO DAILY RF: 0 albuterol sulfate [ProAir HFA] 90 mcg/actuation Hfa Aerosol Inhaler 2 puff INHALATION Q4 PRN (Reason: Wheezing) RF: 0 losartan [Cozaar] 25 mg tablet 25 mg PO DAILY RF: 0 fluticasone propion-salmeterol [Advair Diskus] 250-50 mcg/dose Blister With Device 1 inh INHALATION BID RF: 0 bupropion HCl 150 mg Tablet Extended Release 24 Hr 300 mg PO QAM RF: 0 metformin 500 mg Tablet Extended Release 24hr 500 mg PO QDD RF: 0 Incruse Ellipta 62.5 mcg/actuation blister with device 1 inh INHALATION DAILY RF: 0 Discharge Orders: Discharge Order (Routine); Ordered 03/10/21 Ordered By: Rebecca Triplett/Other Patient Handouts: A1C, Managing Type 2 Diabetes, 5 Steps for Eating Healthier Admission Data Admit Date/Time: 03/09/21 16:37 Attending Provider: Rebecca Arroyo Admit Provider: Asia Pollock Primary Care Provider: Julius Werner Other Providers: Asia Pollock ; Carmel,Kun B. Other Interventions: Discharge Summary Assessment (RN) Last Done: 03/10/21 17:11
--- NOTE | 2021-03-22 14:32 | Coding Query ---
CODING QUERY To promote full compliance with coding requirements relating to patient care, provider participation is requested in all cases of naval architect specialist uncertainty. Please assist us with the question(s) below: Coding Question(s): 1. There is documentation in the record of Acute CVA, as on the Neurology Consultation and the ER H&P, and documentation on the Discharge Summary of TIA. There is also documentation of extensive plaque within the proximal left internal carotid artery/left carotid stenosis. Please clarify below, in your clinical opinion. (x ) Acute CVA ( ) TIA with No Acute CVA - Acute CVA is Ruled-Out. Please specify further below: ( ) TIA likely due to the extensive left carotid artery stenosis ( ) TIA Not due to the extensive left carotid artery stenosis ( ) Other: Please Specify ( ) Other: Please Specify 2. There is documentation in the record of right-sided weakness. The ER H&P documents right lower extremity weakness, the H&P documents weakness of the right upper and lower extremity at the top and supervising physician at bottom documents right leg weakness, the Neurology Consultation documents right leg weakness and the Discharge Summary documents right upper and lower extremity weakness. Due to the conflicting documentation, please clarify below, in your clinical opinion. ( x ) right upper and lower extremity weakness ( ) right lower extremity weakness ( ) Other: Please Specify Physician's Response(s): Thank you Elly Perry Principal Diagnosis: "that condition established after study, to be chiefly responsible for occasioning the admission of the patient to the hospital for care." Co-Existing Principal Diagnosis: "when two or more diagnoses equally meet the criteria for principal diagnosis as determined by the circumstances of admission, diagnostic work up, and/or therapy provided, and the Alphabetic Index, Tabular List, or another coding guideline does not provide sequencing direction, any one of the diagnoses may be sequenced first." "When the physician has documented what appears to be a current diagnosis in the body of the record, but has not included the diagnosis in the final diagnostic statement, the physician should be asked whether the diagnosis should be added." (Source Coding [facility] 2 QTR90. p3-4) TEQUILA
== END 2021-03-10 18:30 | disposition home or self-care (01) | DRG 65 ==
LOC: ED 15:07 → 2W 16:37 → SUATTDRO 16:37 → 2W 18:20

== ENCOUNTER 2021-10-17 12:44 | Observation (INO) ==
[2021-10-17] MEDS ORDERED: SODIUM CHLORIDE 0.9% 500 ML IV SCH (13:00)
--- NOTE | 2021-10-17 13:10 | Emergency Department Note ---
Impression & Plan Weakness, Fatigue, Fall, Abrasion of right knee, Elevated troponin, COVID-19 ED Provider Note NAME: LUCIA RANDALL AGE: 76 SEX: M : 1945 ARRIVES VIA: Ambulance INFORMANT: [Patient] ED PROVIDER(S): [Abraham Gaston MD] CHIEF COMPLAINT: Weakness HISTORY OF PRESENT ILLNESS: The patient is a 76-year-old male presents to the ED with weakness. He fell today and could not get up on his own. The ambulance was called. He denies any injury from the fall. He did not lose consciousness or strike his head. He has no headache or neck pain. No extremity pain. No chest pain or dyspnea. He has not had fever, cough or congestion. The patient states that for the last few days now he has felt quite weak and exhausted, he is not sure why. Today he fell. The patient was seen in the ED about 2 and half weeks ago for dark stool, his stool was heme-negative, his laboratory testing was essentially unremarkable. Of note, the patient is vaccinated for COVID-19 and influenza. REVIEW OF SYSTEMS: See HPI for pertinent positives and negatives. A total of ten systems were reviewed and were otherwise negative. PMHx/PSHx: See Below SOCIAL HISTORY: See Below. PHYSICAL EXAM: GENERAL: Patient is in no acute distress. HEENT: No acute trauma, normocephalic atraumatic, mucous membranes moist, no nasal congestion, no scleral icterus. NECK: No stridor, no adenopathy, nontender cervical spine, trachea is midline. LUNGS: Clear to auscultation bilaterally, no wheeze, no rhonchi, breath sounds equal. HEART: 3/6 systolic murmur, regular rate and rhythm. ABDOMEN: Soft, nontender, bowel sounds positive, no hernias, no peritonitis. EXTREMITIES: No cyanosis or edema, full range of motion of all the joints without pain or difficulty. There is a slight abrasion to the anterior right knee, no evidence for right knee joint effusion. NEUROLOGIC: Oriented x 3, no acute motor or sensory deficits, no focal weakness. No speech slur or facial droop. No extremity drift. SKIN: No rash, no jaundice, no diaphoresis. Groin: No scrotal erythema. DIFFERENTIAL DIAGNOSIS: Infection, UTI, COVID-19, influenza, debilitation, dehydration, metabolic abnormality, hypo/hyperglycemia, electrolyte disturbance, anemia, hypoxia, cardiac sources, intracerebral event, toxicologic issues, stroke, TIA, as well as other pathologies. EMERGENCY DEPARTMENT COURSE/PROCEDURES: ECG: Indication was weakness. The ECG shows a normal sinus rhythm with a rate of 76. There is an incomplete right bundle branch block. There is no ST elevation, no PVCs. The QTc is 427. Continuous Cardiac Monitoring: An order was placed for continuous cardiac monitoring. The monitor shows a rate of 82 with normal sinus rhythm. MEDICAL DECISION MAKING: There is no leukocytosis or concerning anemia. There is a normal platelet count. No coagulopathy. No significant electrolyte abnormality or renal failure. No concerning liver enzyme elevation. Total CK was not elevated making rhabdomyolysis unlikely. Patient appeared to be in a euthyroid state. ECG shows a normal sinus rhythm, no ST elevation. Cardiac troponin x1 is slightly elevated, a second troponin is pending. Urinalysis did not show evidence for infection. COVID testing returned positive. Chest film does not show pneumonia or CHF. Brain CT showed no acute bleed or mass-effect. On exam, there was no speech slur, no focal neurologic deficit. Patient was not febrile or toxic. The patient presented with increasing weakness, fatigue and now a fall. He was unable to get up from the floor on his own and had to call EMS. On exam, he did have a slight abrasion to the right anterior knee but no evidence for concerning trauma from the fall. The patient received IV saline, 500 cc. He has been resting comfortably. The patient is weak, falling. He is positive for COVID-19 and this certainly could explain his symptoms. He does have a slightly elevated troponin and further cardiac testing/troponin trending is necessary. I spoke to the patient, I talked to the family independence case manager. The on-call hospitalist was consulted. Past Med/Surg History Medical History Anxiety CAD (coronary artery disease) "40-50% LAD lesion noted on cath in 2010 dobutamine stress test 2012 negative for ischemia" COPD, mild Diabetes Diastolic dysfunction "echo 2013 - EF 60-65%, grade I diastolic dysfunction, no valvular disease" Dyslipidemia GERD (gastroesophageal reflux disease) HTN (hypertension) Influenza A Myocardial infarct PEDRO (obstructive sleep apnea) Surgical History History of cholecystectomy History of colonoscopy 2016: adenomatous polyps, diverticulosis. Dr Worthington History of inguinal hernia repair, bilateral Hx of hemorrhoidectomy S/P foot surgery, right Family History Other Heart disease Social History Smoking Status: Never smoker Tobacco Type: Cigarettes Hx Alcohol Use: No Hx Substance Use: No Preferred Language: Bruneian Communication Ability: Effective Sales Representative Supervisor Required: No Beliefs That Will Affect Care: None marital status: Current Living Situation: Significant Other Current Living Situation Comment: [facility] Feels Safe at Home: Yes Assistive Devices: Cane Allergies Allergies Allergy/AdvReac Type Severity Reaction Status Date / Time codeine Allergy Intermediate HALLUCINATI Verified 10/17/21 13:56 ONS ezetimibe Allergy Intermediate HIVES Verified 10/17/21 13:56 pantoprazole Allergy Intermediate HIVES Verified 10/17/21 13:56 lisinopril Allergy Mild cough Verified 10/17/21 13:56 Home Meds Home Medications Medication Instructions Recorded Confirmed aspirin 81 mg chewable tablet 81 mg PO DAILY 09/13/18 10/17/21 nitroglycerin 0.4 mg sublingual 0.4 mg SUBLINGUAL UD PRN 09/13/18 10/17/21 tablet (Nitrostat) albuterol sulfate 90 mcg/actuation 2 puff INHALATION QID PRN 10/17/21 10/17/21 aerosol inhaler empagliflozin 10 mg tablet 10 mg PO DAILY 10/17/21 10/17/21 (Jardiance) fluticasone 250 mcg-salmeterol 50 2 ea INHALATION BID 10/17/21 10/17/21 mcg/dose blistr powdr for inhalation (Wixela Inhub) metformin 500 mg tablet,extended 500 mg PO QDD 10/17/21 10/17/21 release 24 hr tiotropium bromide 2.5 0 puff INHALATION DAILY 10/17/21 10/17/21 mcg/actuation mist for inhalation (Spiriva Respimat) Results & Data (ED) Vital Signs Vital Signs - 24 hr 10/17/21 12:44 10/17/21 13:00 10/17/21 14:00 Temperature 37 C Temperature Source Oral Pulse Rate 82 75 68 Respiratory Rate 18 18 29 H Respiratory Effort / Characteristics Non-Labored Respiratory Depth Normal Respiratory Pattern Regular Blood Pressure 158/78 H 132/67 145/65 H Blood Pressure Mean 104 88 91 Pulse Oximetry 96 Oxygen Delivery Method Room Air Sepsis Recent Fever Within 48 Hours No Sepsis New/Unexplained Change in Mental Status No Sepsis Action Taken by Nursing No Action Required Home Medications Current Medication List: was personally reviewed by me Laboratory Data Attestation: I reviewed the patient's lab results. Result diagrams: 10/17/21 13:06 10/17/21 13:06 Lab Results 10/17/21 10/17/21 10/17/21 Range/Units 12:55 13:06 13:06 WBC 5.86 (4.8-10.8) K/uL RBC 4.60 L (4.7-6.1) M/uL Hgb 14.9 (14.0-18.0) g/dL Hct 43.5 (42-52) % MCV 94.6 (80-100) fL MCH 32.4 (25-34) pg MCHC 34.3 (32-36) g/dL RDW Std Deviation 44.3 (36.4-46.3) fL RDW Coeff of Harry 12.8 (11.5-14.5) % Plt Count 190 (130-400) K/uL MPV 10.6 H (7.4-10.4) fL Immature Gran % (Auto) 0.0 % Neut % (Auto) 77.1 % Lymph % (Auto) 9.0 % [place] % (Auto) 12.5 % Eos % (Auto) 0.9 % Baso % (Auto) 0.5 % Neut # (Auto) 4.52 (1.4-6.5) K/uL Lymph # (Auto) 0.53 L (1.2-3.4) K/uL [place] # (Auto) 0.73 H (0.11-0.59) K/uL Eos # (Auto) 0.05 (0-0.5) K/uL Baso # (Auto) 0.03 (0-0.2) K/uL Immature Gran # (Auto) 0.00 (0.00-0.02) K/uL PT (9.0-12.0) Seconds INR (0.9-1.1) APTT (21.0-31.0) Seconds PTT Ratio Sodium 136 (136-145) mmol/L Potassium 3.6 (3.5-5.1) mmol/L Chloride 103 (98-107) mmol/L Carbon Dioxide 26 (21-32) mmol/L Anion Gap 7 (3-11) BUN 12 (6-23) mg/dl Creatinine 1.04 (0.6-1.4) mg/dl Est Cr Clr Drug Dosing 71.2 ml/min Est GFR ( Amer) 79.3 ml/min Est GFR (Non-Af Amer) 68.4 ml/min BUN/Creatinine Ratio 11.5 (10-20) Glucose 163 H (70-99(Fasting)) mg/dl Calcium 9.0 (8.5-10.1) mg/dl Magnesium 1.7 (1.7-2.4) mg/dl Total Bilirubin 0.7 (0.2-1.0) mg/dl AST 16 (13-39) U/L ALT 10 (7-52) U/L Alkaline Phosphatase 68 (34-104) U/L Total Creatine Kinase 58 (30-223) U/L Troponin I High Sens 34.8 H (0-20) pg/ml Total Protein 6.6 (6.0-8.3) gm/dl Albumin 3.9 (3.4-5.0) gm/dl Globulin 2.7 (2.5-4.0) gm/dl Albumin/Globulin Ratio 1.4 (0.9-2) TSH (0.300-4.500) uIu/ml Urine Color Yellow Urine Appearance Clear (Clear) Urine pH 5.5 (4.5-7.5) Ur Specific [place] 1.021 (1.000-1.030) Urine Protein Trace H (Negative) Urine Glucose (UA) Negative (Negative) Urine Ketones Trace H (Negative) Urine Blood Negative (Negative) Urine Nitrite Negative (Negative) Urine Bilirubin Negative (Negative) Urine Urobilinogen Negative (Negative) Ur Leukocyte Esterase Negative (Negative) Urine WBC (Auto) 1-5 (0-5) /hpf Urine RBC (Auto) 0-4 (0-4) /hpf U Hyaline Cast (Auto) 1-5 (0-5) /lpf U Epithel Cells (Auto) 5-10 H (0-5) /lpf Urine Bacteria (Auto) Negative (Negative) SARS-CoV-2, RNA, NAAT (NEGATIVE) 10/17/21 10/17/21 10/17/21 Range/Units 13:06 13:06 14:05 WBC (4.8-10.8) K/uL RBC (4.7-6.1) M/uL Hgb (14.0-18.0) g/dL Hct (42-52) % MCV (80-100) fL MCH (25-34) pg MCHC (32-36) g/dL RDW Std Deviation (36.4-46.3) fL RDW Coeff of Harry (11.5-14.5) % Plt Count (130-400) K/uL MPV (7.4-10.4) fL Immature Gran % (Auto) % Neut % (Auto) % Lymph % (Auto) % [place] % (Auto) % Eos % (Auto) % Baso % (Auto) % Neut # (Auto) (1.4-6.5) K/uL Lymph # (Auto) (1.2-3.4) K/uL [place] # (Auto) (0.11-0.59) K/uL Eos # (Auto) (0-0.5) K/uL Baso # (Auto) (0-0.2) K/uL Immature Gran # (Auto) (0.00-0.02) K/uL PT 11.0 (9.0-12.0) Seconds INR 1.0 (0.9-1.1) APTT 30.2 (21.0-31.0) Seconds PTT Ratio 1.1 Sodium (136-145) mmol/L Potassium (3.5-5.1) mmol/L Chloride (98-107) mmol/L Carbon Dioxide (21-32) mmol/L Anion Gap (3-11) BUN (6-23) mg/dl Creatinine (0.6-1.4) mg/dl Est Cr Clr Drug Dosing ml/min Est GFR ( Amer) ml/min Est GFR (Non-Af Amer) ml/min BUN/Creatinine Ratio (10-20) Glucose (70-99(Fasting)) mg/dl Calcium (8.5-10.1) mg/dl Magnesium (1.7-2.4) mg/dl Total Bilirubin (0.2-1.0) mg/dl AST (13-39) U/L ALT (7-52) U/L Alkaline Phosphatase (34-104) U/L Total Creatine Kinase (30-223) U/L Troponin I High Sens (0-20) pg/ml Total Protein (6.0-8.3) gm/dl Albumin (3.4-5.0) gm/dl Globulin (2.5-4.0) gm/dl Albumin/Globulin Ratio (0.9-2) TSH 1.085 (0.300-4.500) uIu/ml Urine Color Urine Appearance (Clear) Urine pH (4.5-7.5) Ur Specific [place] (1.000-1.030) Urine Protein (Negative) Urine Glucose (UA) (Negative) Urine Ketones (Negative) Urine Blood (Negative) Urine Nitrite (Negative) Urine Bilirubin (Negative) Urine Urobilinogen (Negative) Ur Leukocyte Esterase (Negative) Urine WBC (Auto) (0-5) /hpf Urine RBC (Auto) (0-4) /hpf U Hyaline Cast (Auto) (0-5) /lpf U Epithel Cells (Auto) (0-5) /lpf Urine Bacteria (Auto) (Negative) SARS-CoV-2, RNA, NAAT POSITIVE A* (NEGATIVE) Administered Medications Discontinued Medications Sodium Chloride (Nss) 500 mls @ 999 mls/hr IV .Q31M CARL Stop: 10/17/21 13:30 Last Infusion: 10/17/21 14:30 Dose: 0 mls/hr Documented by: [id number] Admin: 10/17/21 13:53 Dose: 999 mls/hr Documented by: [id number] Imaging Data Radiologist's Impression: Head CT 10/17/21 12:59 CT head/brain wo con CLINICAL HISTORY: 76 years-old Male with weakness, fall. Acute head trauma and weakness status post fall TECHNIQUE: Multiple axial CT images of the head were obtained without contrast. A dose lowering technique was utilized adhering to the principles of ALARA. CT DOSE: 614.27 mGy.cm COMPARISON: Head CT 03/09/2021 FINDINGS: No acute intracranial hemorrhage, midline shift, intra-axial mass, hydrocephalus, territorial ischemia or acute extra-axial collection. Age-related involutional changes with unchanged expected ventriculomegaly. A few scattered chronic infarcts are redemonstrated. White matter hypodensities suggest chronic microvascular ischemic disease. Scattered parenchymal punctate calcifications of the left cerebral hemisphere are again noted. Calcifications of the falx cer ebri. A left middle cranial fossa arachnoid cyst measuring 4.9 cm is stable. Cerebral vascular calcifications. The calvarium is intact. There is a small contusion of the left occipital scalp. The paranasal sinuses, mastoid air cells, and middle ear cavities are clear. IMPRESSION: No acute intracranial abnormality or calvarial fracture ACT 112: Negative or not required by law. The above report was generated using voice recognition software. It may contain grammatical, syntax or spelling errors. Electronically signed by: Mejia Falcon M.D. 10/17/2021 2:40 PM Chest X-Ray 10/17/21 13:00 XR chest 1V portable HISTORY: weakness COMPARISON: Chest 03/09/2021. FINDINGS: Stable calcified granuloma within the lingula. Otherwise, the lungs are clear. The heart is normal in size. No pleural effusions. No pneumothorax. No evidence for pulmonary edema. IMPRESSION: No significant change compared to the prior study. No acute process. ACT 112: Negative or not required by law. Electronically signed by: Houston Fall M.D. 10/17/2021 1:39 PM Discharge Plan Visit Data Chief Complaint: Weakness ED Provider: Abraham Gaston Discharge Problem: Weakness, Fatigue, Fall, Abrasion of right knee, Elevated troponin, COVID-19 Patient Disposition: Admitted As Inpatient Condition: Fair Forms Stand Alone Forms: [facility] [employer] Prescriptions Prescriptions: No Action nitroglycerin [Nitrostat] 0.4 mg Tablet, Sublingual 0.4 mg Sublingual UD PRN (Reason: Chest Pain) RF: 0 aspirin 81 mg Tablet,Chewable 81 mg PO DAILY RF: 0 fluticasone propion-salmeterol [Wixela Inhub] 250-50 mcg/dose blister with device 2 ea INHALATION BID RF: 0 albuterol sulfate 90 mcg/actuation HFA aerosol inhaler 2 puff INHALATION QID PRN (Reason: Shortness Of Breath) RF: 0 metformin 500 mg tablet extended release 24 hr 500 mg PO QDD RF: 0 Spiriva Respimat 2.5 mcg/actuation mist 0 puff INHALATION DAILY RF: 0 Jardiance 10 mg tablet 10 mg PO DAILY RF: 0 Referrals Referrals: Julius Werner MD [Primary Care Provider] -
[2021-10-17 13:15] LABS: Appearance Urine Clear (Clear); Bacteria Urine Automated Negative (Negative); Bilirubin Urine Negative (Negative); Blood Urine Negative (Negative); Color Urine Yellow; Glucose Urine UA Negative (Negative); Ketones Urine Trace (Negative); Leukocyte Esterase Urine Negative (Negative); Nitrite Urine Negative (Negative); Protein Urine Trace (Negative); RBC Urine Automated 0-4 /hpf (0-4); Specific Gravity Urine 1.021 (1.000-1.030); Urobilinogen Urine Negative (Negative); pH Urine 5.5 (4.5-7.5)
--- NOTE | 2021-10-17 13:40 | XRay Report ---
XR chest 1V portable HISTORY: weakness COMPARISON: Chest 03/09/2021. FINDINGS: Stable calcified granuloma within the lingula. Otherwise, the lungs are clear. The heart is normal in size. No pleural effusions. No pneumothorax. No evidence for pulmonary edema. IMPRESSION: No significant change compared to the prior study. No acute process. ACT 112: Negative or not required by law. Electronically signed by: Houston Fall M.D. 10/17/2021 1:39 PM
[2021-10-17 13:41] LABS: Albumin Globulin Ratio 1.4 (0.9-2); Albumin Level 3.9 gm/dl (3.4-5.0); BUN Creatinine Ratio 11.5 (10-20); Bilirubin,Total 0.7 mg/dl (0.2-1.0); Creatinine Clr Calc Pharmacy 71.2 ml/min; Est GFR (African American) 79.3 ml/min; Est GFR (Non-African American) 68.4 ml/min; Globulin 2.7 gm/dl (2.5-4.0); Magnesium 1.7 mg/dl (1.7-2.4); Potassium 3.6 mmol/L (3.5-5.1); Total Protein 6.6 gm/dl (6.0-8.3)
[2021-10-17 13:42] LABS: Basophils # (auto) 0.03 K/uL (0-0.2); Basophils % (auto) 0.5 %; Eosinophils # (auto) 0.05 K/uL (0-0.5); Eosinophils % (auto) 0.9 %; Hematocrit (blood only) 43.5 % (42-52); Hemoglobin 14.9 g/dL (14.0-18.0); Lymphocytes # (auto) 0.53 K/uL (1.2-3.4); Mean Corpuscular Hemoglobin 32.4 pg (25-34); Mean Corpuscular Hgb Conc 34.3 g/dL (32-36); Mean Corpuscular Volume 94.6 fL (80-100); Mean Platelet Volume 10.6 fL (7.4-10.4); Monocytes # (auto) 0.73 K/uL (0.11-0.59); Monocytes % (auto) 12.5 %; Neutrophils # (auto) 4.52 K/uL (1.4-6.5); Neutrophils % (auto) 77.1 %; Platelet Count 190 K/uL (130-400); RDW Coefficient of Variation 12.8 % (11.5-14.5); RDW Standard Deviation 44.3 fL (36.4-46.3); White Blood Count 5.86 K/uL (4.8-10.8)
[2021-10-17 13:43] LABS: Troponin I High Sensitivity 34.8 pg/ml (0-20)
[2021-10-17 13:53] LABS: Partial Thromboplastin Ratio 1.1; Partial Thromboplastin Time 30.2 Seconds (21.0-31.0)
--- NOTE | 2021-10-17 14:21 | Electrocardiogram Report ---
Test Reason : Blood Pressure : / mmHG Vent. Rate : 076 BPM Atrial Rate : 076 BPM P-R Int : 190 ms QRS Dur : 106 ms QT Int : 380 ms P-R-T Axes : 046 -58 049 degrees QTc Int : 427 ms Normal sinus rhythm Incomplete right bundle branch block Left anterior fascicular block Abnormal ECG When compared with ECG of 27-SEP-2021 17:30, No significant change was found Confirmed by Narayan Reid ([id number]) on 10/17/2021 2:20:34 PM Referred By: ER Confirmed By:Franck Reid
--- NOTE | 2021-10-17 14:42 | CT Scan Report ---
CT head/brain wo con CLINICAL HISTORY: 76 years-old Male with weakness, fall. Acute head trauma and weakness status post fall TECHNIQUE: Multiple axial CT images of the head were obtained without contrast. A dose lowering tech nique was utilized adhering to the principles of ALARA. CT DOSE: 614.27 mGy.cm COMPARISON: Head CT 03/09/2021 FINDINGS: No acute intracranial hemorrhage, midline shift, intra-axial mass, hydrocephalus, territorial ischemi a or acute extra-axial collection. Age-related involutional changes with unchanged expected ventricul omegaly. A few scattered chronic infarcts are redemonstrated. White matter hypodensities suggest cold reduction roller huang microvascular ischemic disease. Scattered parenchymal punctate calcifications of the left cerebra l hemisphere are again noted. Calcifications of the falx cerebri. A left middle cranial fossa arachno id cyst measuring 4.9 cm is stable. Cerebral vascular calcifications. The calvarium is intact. There is a small contusion of the left occipital scalp. The paranasal sinuse s, mastoid air cells, and middle ear cavities are clear. IMPRESSION: No acute intracranial abnormality or calvarial fracture ACT 112: Negative or not required by law. The above report was generated using voice recognition software. It may contain grammatical, syntax o r spelling errors. Electronically signed by: Mejia Falcon M.D. 10/17/2021 2:40 PM
--- NOTE | 2021-10-17 15:35 | History & Physical Report ---
Date of Service October 17, 2021 Assessment & Plan (1) Weakness: Plan: Likely secondary to #2 - Admit to med/surg tele - Fall precautions - PT/OT evaluation - Labs in AM (2) COVID-19: Plan: Having mild symptoms, no hypoxia, afebrile - continue symptomatic management at this time (3) Abrasion of right knee: Plan: Local wound care per nursing (4) Elevated troponin: Plan: 2nd troponin 34.8 --> 33.7. Will trend overnight. (5) Diabetes: Plan: A1c checked on 09/29/21 - Diabetic diet - Accuchecks - Sliding scale insulin (6) GERD (gastroesophageal reflux disease): (7) Dyslipidemia: (8) COPD, mild: (9) HTN (hypertension): (10) CAD (coronary artery disease): Plan: Continue other home medications as appropriate. Continue to emphasize need for compliance with prescribed medication regimen at discharge. Pt seen and reviewed with attending physician, Dr. Cortez. Plan of care discussed and as outlined above. Code Status: Full code DVT Prophylaxis: Srini Sanchez PA-C History of Present Illness Chief Complaint: Weakness, fall Primary Care Provider: Julius Werner MD This is a 76 y/o male with a PMH of CAD, DM2, dyslipidemia, HTN, COPD, GERD, and prior CVA who presents to the ED with recurrent falls and generalized weakness. Pt reportedly has had increasing weakness and multiple falls at home over the past few days - this morning, he fell and could not get back up due to the weakness so his girlfriend called 911. Upon further conversation with pt, he reports several days of not feeling well. He complains of trouble breathing, both at rest and with exertion though worse with exertion. Associated cough that is productive of yellow mucus. He reports that he is not taking his inhalers at present. Appetite has been at baseline - denies N/V/D. No fevers, chills or sweats. He has noted a headache, which continues at present. Denies syncope. Having back pain and generalized muscle aches, fatigue, malaise. Pt reports that he has been vaccinated against COVID x3 - thinks that it was Moderna, cannot remember when he had his booster. No known sick contacts. Not taking prescribed BP or cholesterol meds but is taking the Metformin and J ardiance. Does not check his sugars at home so not sure if they've been elevated. Last A1c on 09/29/21 was 7.2. Allergies Allergy/AdvReac Type Severity Reaction Status Date / Time codeine Allergy Intermediate HALLUCINATI Verified 10/17/21 13:56 ONS ezetimibe Allergy Intermediate HIVES Verified 10/17/21 13:56 pantoprazole Allergy Intermediate HIVES Verified 10/17/21 13:56 lisinopril Allergy Mild cough Verified 10/17/21 13:56 Home Medications Medication Instructions Recorded Confirmed Type aspirin 81 mg chewable tablet 81 mg PO DAILY 09/13/18 10/17/21 History nitroglycerin 0.4 mg sublingual 0.4 mg SUBLINGUAL UD PRN 09/13/18 10/17/21 History tablet (Nitrostat) albuterol sulfate 90 mcg/actuation 2 puff INHALATION QID PRN 10/17/21 10/17/21 History aerosol inhaler empagliflozin 10 mg tablet 10 mg PO DAILY 10/17/21 10/17/21 History (Jardiance) fluticasone 250 mcg-salmeterol 50 2 ea INHALATION BID 10/17/21 10/17/21 History mcg/dose blistr powdr for inhalation (Wixela Inhub) metformin 500 mg tablet,extended 500 mg PO QDD 10/17/21 10/17/21 History release 24 hr tiotropium bromide 2.5 0 puff INHALATION DAILY 10/17/21 10/17/21 History mcg/actuation mist for inhalation (Spiriva Respimat) amlodipine 5 mg tablet (Norvasc) 5 mg PO QAM #30 tab 10/20/21 Rx Past Med/Surg History Medical History Anxiety CAD (coronary artery disease) "40-50% LAD lesion noted on cath in 2010 dobutamine stress test 2012 negative for ischemia" COPD, mild Depression Diabetes Diastolic dysfunction "echo 2013 - EF 60-65%, grade I diastolic dysfunction, no valvular disease" Dyslipidemia GERD (gastroesophageal reflux disease) HTN (hypertension) Influenza A Myocardial infarct PEDRO (obstructive sleep apnea) Surgical History H/O umbilical hernia repair History of cholecystectomy History of colonoscopy 2016: adenomatous polyps, diverticulosis. Dr Worthington History of inguinal hernia repair, bilateral Hx of hemorrhoidectomy S/P foot surgery, right Family History Other Heart disease Social History Smoking Status: Never smoker Tobacco Type: Cigarettes Second Hand Exposure: No; Do You Dip or Chew Tobacco: No; Tobacco Cessation Education Requested by Patient: No Hx Alcohol Use: Yes Alcohol type: beer Hx Substance Use: No Preferred Language: P[place]in[place] Communication Ability: Effective Rn Cardiac Required: No Beliefs That Will Affect Care: None marital status: Life Partner Current Living Situation: Significant Other Current Living Situation Comment: Lives at home with girlfriend in a 2 story home Other Information That Helps Us Care for You: No Feels Safe at Home: Yes Safety Concerns: Feels Safe At This Time Assistive Devices: Cane Assistive Devices Comment: pt threw his walker away as he had vomited on it. Review of Systems Review of Systems: All systems reviewed & are unremarkable except as noted in HPI & below Constitutional: + fatigue, + malaise and + weakness; no fever, no chills, no sweats and no anorexia Eyes: no diplopia Ear, Nose, Mouth, Throat: no nasal congestion and no sore throat Respiratory: + cough, + dyspnea, + dyspnea on exertion and + sputum production; no hemoptysis Cardiovascular: no chest pain, no palpitations, no syncope and no edema Gastrointestinal: no abdominal pain, no nausea, no vomiting and no diarrhea/loose stools Genitourinary: no dysuria or no hematuria Musculoskeletal: + back pain and + myalgia Integumentary: no yellowing of the skin Neurologic: + unsteadiness, + falls, + generalized weakness and + headache(s); no dizziness Psychiatric: no depression and no anxiety Physical Exam Constitutional: well developed and well nourished; no acute distress Eyes: + anicteric sclerae ENMT: external ear and nose normal, oropharynx normal Neck: trachea midline Respiratory: no respiratory distress and no labored breathing Auscultation: lungs clear to auscultation bilaterally; no rales, no rhonchi and no wheezes Cardiovascular: Rate/Rhythm: regular rate and regular rhythm Heart Sounds: + murmur Vessels: radial pulses present Gastrointestinal (Abdomen): Inspection/Auscultation: normal bowel sounds; abdomen not distended Percussion/Palpation: abdomen soft; abdomen nontender Musculoskeletal: Head/Neck/Chest: normocephalic, head atraumatic and neck supple Skin: mild abrasion right knee Neurologic: moves all extremities; no focal motor deficits Psychiatric: A+Ox3, euthymic affect Results & Data Results & Data ([facility]) Vital Signs (Past 12 Hours) Vital Signs Temp Pulse Resp BP Pulse Ox 10/17/21 14:00 68 29 H 145/65 H 10/17/21 13:00 75 18 132/67 10/17/21 12:44 37 C 82 18 158/78 H 96 Laboratory Results Laboratory Results - last 24 hr 10/17/21 10/17/21 10/17/21 12:55 13:06 13:06 WBC 5.86 RBC 4.60 L Hgb 14.9 Hct 43.5 MCV 94.6 MCH 32.4 MCHC 34.3 RDW Std Deviation 44.3 RDW Coeff of Harry 12.8 Plt Count 190 MPV 10.6 H Immature Gran % (Auto) 0.0 Neut % (Auto) 77.1 Lymph % (Auto) 9.0 [place] % (Auto) 12.5 Eos % (Auto) 0.9 Baso % (Auto) 0.5 Neut # (Auto) 4.52 Lymph # (Auto) 0.53 L [place] # (Auto) 0.73 H Eos # (Auto) 0.05 Baso # (Auto) 0.03 Immature Gran # (Auto) 0.00 PT INR APTT PTT Ratio Sodium 136 Potassium 3.6 Chloride 103 Carbon Dioxide 26 Anion Gap 7 BUN 12 Creatinine 1.04 Est Cr Clr Drug Dosing 71.2 Est GFR ( Amer) 79.3 Est GFR (Non-Af Amer) 68.4 BUN/Creatinine Ratio 11.5 Glucose 163 H Calcium 9.0 Magnesium 1.7 Total Bilirubin 0.7 AST 16 ALT 10 Alkaline Phosphatase 68 Total Creatine Kinase 58 Troponin I High Sens 34.8 H Total Protein 6.6 Albumin 3.9 Globulin 2.7 Albumin/Globulin Ratio 1.4 TSH Urine Color Yellow Urine Appearance Clear Urine pH 5.5 Ur Specific [place] 1.021 Urine Protein Trace H Urine Glucose (UA) Negative Urine Ketones Trace H Urine Blood Negative Urine Nitrite Negative Urine Bilirubin Negative Urine Urobilinogen Negative Ur Leukocyte Esterase Negative Urine WBC (Auto) 1-5 Urine RBC (Auto) 0-4 U Hyaline Cast (Auto) 1-5 U Epithel Cells (Auto) 5-10 H Urine Bacteria (Auto) Negative SARS-CoV-2, RNA, NAAT 10/17/21 10/17/21 10/17/21 13:06 13:06 14:05 WBC RBC Hgb Hct MCV MCH MCHC RDW Std Deviation RDW Coeff of Harry Plt Count MPV Immature Gran % (Auto) Neut % (Auto) Lymph % (Auto) [place] % (Auto) Eos % (Auto) Baso % (Auto) Neut # (Auto) Lymph # (Auto) [place] # (Auto) Eos # (Auto) Baso # (Auto) Immature Gran # (Auto) PT 11.0 INR 1.0 APTT 30.2 PTT Ratio 1.1 Sodium Potassium Chloride Carbon Dioxide Anion Gap BUN Creatinine Est Cr Clr Drug Dosing Est GFR ( Amer) Est GFR (Non-Af Amer) BUN/Creatinine Ratio Glucose Calcium Magnesium Total Bilirubin AST ALT Alkaline Phosphatase Total Creatine Kinase Troponin I High Sens Total Protein Albumin Globulin Albumin/Globulin Ratio TSH 1.085 Urine Color Urine Appearance Urine pH Ur Specific [place] Urine Protein Urine Glucose (UA) Urine Ketones Urine Blood Urine Nitrite Urine Bilirubin Urine Urobilinogen Ur Leukocyte Esterase Urine WBC (Auto) Urine RBC (Auto) U Hyaline Cast (Auto) U Epithel Cells (Auto) Urine Bacteria (Auto) SARS-CoV-2, RNA, NAAT POSITIVE A* 10/17/21 15:29 WBC RBC Hgb Hct MCV MCH MCHC RDW Std Deviation RDW Coeff of Harry Plt Count MPV Immature Gran % (Auto) Neut % (Auto) Lymph % (Auto) [place] % (Auto) Eos % (Auto) Baso % (Auto) Neut # (Auto) Lymph # (Auto) [place] # (Auto) Eos # (Auto) Baso # (Auto) Immature Gran # (Auto) PT INR APTT PTT Ratio Sodium Potassium Chloride Carbon Dioxide Anion Gap BUN Creatinine Est Cr Clr Drug Dosing Est GFR ( Amer) Est GFR (Non-Af Amer) BUN/Creatinine Ratio Glucose Calcium Magnesium Total Bilirubin AST ALT Alkaline Phosphatase Total Creatine Kinase Troponin I High Sens 33.7 H Total Protein Albumin Globulin Albumin/Globulin Ratio TSH Urine Color Urine Appearance Urine pH Ur Specific [place] Urine Protein Urine Glucose (UA) Urine Ketones Urine Blood Urine Nitrite Urine Bilirubin Urine Urobilinogen Ur Leukocyte Esterase Urine WBC (Auto) Urine RBC (Auto) U Hyaline Cast (Auto) U Epithel Cells (Auto) Urine Bacteria (Auto) SARS-CoV-2, RNA, NAAT Diagnostic Findings Chest X-ray 10/17/21 - IMPRESSION: No significant change compared to the prior study. No acute process. CT Head 10/17/21 - IMPRESSION: No acute intracranial abnormality or calvarial fracture Medications Administered Discontinued Medications Sodium Chloride (Nss) 500 mls @ 999 mls/hr IV .Q31M CARL Stop: 10/17/21 13:30 Last Infusion: 10/17/21 14:30 Dose: 0 mls/hr Documented by: [id number] Admin: 10/17/21 13:53 Dose: 999 mls/hr Documented by: [id number] Code Status & VTE Plan VTE Prophylaxis Plan VTE Prophylaxis will be ordered: Yes Supervising Physician Co-Signing Physician Notes delayed entry date of service noted above Attending Addendum: care coordinated with CICI Sanchez please refer to her notes for full details, I agree with her notes, assessment and plan patient seen and examined, records reviewed by myself as well on exam, patient seen resting in bed, comfortable Papa Cortez MD (1) Diabetes Diabetes mellitus complication status: without complication Diabetes mellitus continuous churn buttermaker insulin use: without snf use Diabetes mellitus type: type 2 Qualified Code(s): E11.9 - Type 2 diabetes mellitus without complications (2) Abrasion of right knee Encounter type: initial encounter Qualified Code(s): S80.211A - Abrasion, right knee, initial encounter
[2021-10-17] MEDS ORDERED: NITROGLYCERIN SL 0.4 MG/TAB TAB SL PRN (20:03)
[2021-10-17] MEDS ORDERED: GLUCAGON FOR INJ 1 MG VIAL SQ PRN (20:03)
[2021-10-17] MEDS ORDERED: GLUCOSE 40% GEL 15 GM TUBE PO PRN (20:03)
[2021-10-17] MEDS ORDERED: DEXTROSE 50% 50 ML SYRINGE IV PRN (20:03)
[2021-10-17] MEDS ORDERED: CARBOHYDRATES FOR HYPOGLYCEMIA PO PRN (20:03)
[2021-10-17] MEDS ORDERED: GLUCOSE 10 TABS/TUBE PO PRN (20:03)
[2021-10-17] MEDS ORDERED: ALBUTEROL HFA 8 GM INHALER INH PRN (20:03)
[2021-10-17] MEDS: INSULIN ASPART PER UNIT SC SCH (20:35)
[2021-10-18] MEDS: ACETAMINOPHEN 325 MG TAB PO PRN ×5 (00:37→21:11)
[2021-10-18 04:04] LABS: Hematocrit (blood only) 40.6 % (42-52); Hemoglobin 13.9 g/dL (14.0-18.0); Mean Corpuscular Hemoglobin 32.7 pg (25-34); Mean Corpuscular Hgb Conc 34.2 g/dL (32-36); Mean Corpuscular Volume 95.5 fL (80-100); Mean Platelet Volume 10.9 fL (7.4-10.4); Platelet Count 171 K/uL (130-400); RDW Coefficient of Variation 13.1 % (11.5-14.5); RDW Standard Deviation 45.6 fL (36.4-46.3); Red Blood Count 4.25 M/uL (4.7-6.1); White Blood Count 4.96 K/uL (4.8-10.8)
[2021-10-18 04:05] LABS: Basophils # (auto) 0.02 K/uL (0-0.2); Basophils % (auto) 0.4 %; Eosinophils # (auto) 0.01 K/uL (0-0.5); Eosinophils % (auto) 0.2 %; Immature Granulocytes # (auto) 0.04 K/uL (0.00-0.02); Immature Granulocytes % (auto) 0.8 %; Lymphocytes # (auto) 0.98 K/uL (1.2-3.4); Lymphocytes % (auto) 19.8 %; Monocytes # (auto) 0.79 K/uL (0.11-0.59); Monocytes % (auto) 15.9 %; Neutrophils # (auto) 3.12 K/uL (1.4-6.5); Neutrophils % (auto) 62.9 %; Platelet Estimate Normal (Normal); RBC Morphology Unremarkable
[2021-10-18 04:11] LABS: BUN Creatinine Ratio 11.8 (10-20); Calcium 8.4 mg/dl (8.5-10.1); Creatinine Clr Calc Pharmacy 78.3 ml/min; Est GFR (African American) 90.8 ml/min; Est GFR (Non-African American) 78.4 ml/min; Potassium 3.3 mmol/L (3.5-5.1)
[2021-10-18] MEDS ORDERED: POTASSIUM CHLORIDE CRTAB 20 MEQ TABCR PO STA (08:26)
[2021-10-18] MEDS: ASPIRIN 81 MG CHEW PO SCH (08:43)
[2021-10-18] MEDS: FLUTICASONE/VILANTEROL 100/25MCG 14 PUFFS/INHALER INH SCH (08:44)
[2021-10-18] MEDS: ENOXAPARIN INJ 40 MG/0.4 ML SYR SQ SCH (08:44)
[2021-10-18] MEDS: NSS + 20MEQ KCL 20 MEQ/1,000 ML BAG IV SCH ×2 (08:45→17:18)
[2021-10-18] MEDS: INSULIN ASPART PER UNIT SC SCH ×4 (08:45→21:16)
[2021-10-18 10:04] LABS: C Reactive Protein 10.13 mg/dl (0-0.5)
[2021-10-18 10:22] LABS: Ferritin 362.8 ng/ml (8-388)
--- NOTE | 2021-10-18 20:22 | Hospitalist Progress Note ---
Date of Service October 18, 2021 Assessment & Plan (1) Weakness: Plan: Likely secondary to COVID-19 infection Improving Continue IV fluids, PT and OT evaluation (2) COVID-19: Plan: Having mild symptoms, no hypoxia, afebrile - continue symptomatic management at this time remains afebrile, O2 sats more than 90% Monitor closely, repeat chest x-ray in 1 to 2-day Continue supportive care On Lovenox for DVT prophylaxis (3) Abrasion of right knee: Plan: Local wound care per nursing (4) Elevated troponin: Plan: 2nd troponin 34.8 --> 33.7--32.6 No cardiac symptoms Likely chronic (5) Diabetes: Plan: A1c checked on 09/29/21 - Diabetic diet - Accuchecks - Sliding scale insulin (6) GERD (gastroesophageal reflux disease): (7) Dyslipidemia: (8) COPD, mild: Plan: Not in exacerbation (9) HTN (hypertension): (10) CAD (coronary artery disease): Plan: Continue other home medications as appropriate. Continue to emphasize need for compliance with prescribed medication regimen at discharge. Code Status: Full code DVT Prophylaxis: Lovenox Disposition PT and OT evaluation Lives at home with family plan of care discussed with patient in detail and at length all questions answered He is understanding, agreeable, comfortable with the plan of care Admission and Anticipated Discharge Date Admission Date: October 17, 2021 Subjective Follow-up for severe weakness, COVID-19 infection, etc. Resting in bed, comfortable, watching TV States he feels improved today Able to transfer to the chair, ambulate to the bathroom with no dizziness or leg weakness Has occasional dry cough, no shortness of breath, chest pain Had 2 loose stools today No abdominal pain or nausea No other symptom Review of Systems Review of Systems: all noted and negative except for above Physical Exam Physical Exam: General- oriented x 3, not in distress, speaks in sentences with no effort or accessory muscle use Eyes- anicteric Neck- no JVD Lungs- clear breath sounds bilaterally, no rales/wheezes Heart- normal rate, regular rhythm; no murmurs Abdomen- normal bowel sounds, nondistended, soft, nontender Extremities- no pretibial edema, no calf tenderness Neuro- alert, oriented x 3; no gross focal neurologic deficits Skin- warm & dry Results & Data Results & Data ([facility]) Vital Signs (Past 12 Hours) Vital Signs Temp Pulse Pulse Pulse Resp BP BP 10/18/21 19:00 36.7 C 60 18 114/71 10/18/21 15:09 63 10/18/21 12:04 36.8 C 63 16 125/75 Pulse Ox 10/18/21 19:00 96 10/18/21 15:09 10/18/21 12:04 91 all noted and reviewed including below (1) Abrasion of right knee Encounter type: initial encounter Qualified Code(s): S80.211A - Abrasion, right knee, initial encounter (2) Diabetes Diabetes mellitus complication status: without complication Diabetes mellitus long-term insulin use: without long-term use Diabetes mellitus type: type 2 Qualified Code(s): E11.9 - Type 2 diabetes mellitus without complications
[2021-10-19] MEDS: NSS + 20MEQ KCL 20 MEQ/1,000 ML BAG IV SCH ×3 (00:17→15:58)
[2021-10-19] MEDS: ACETAMINOPHEN 325 MG TAB PO PRN ×2 (08:30→12:12)
[2021-10-19] MEDS: FLUTICASONE/VILANTEROL 100/25MCG 14 PUFFS/INHALER INH SCH (08:31)
[2021-10-19] MEDS: ENOXAPARIN INJ 40 MG/0.4 ML SYR SQ SCH (08:31)
[2021-10-19] MEDS: INSULIN ASPART PER UNIT SC SCH ×4 (08:31→20:23)
[2021-10-19] MEDS: ASPIRIN 81 MG CHEW PO SCH (08:36)
[2021-10-19 10:01] LABS: BUN Creatinine Ratio 10.3 (10-20); Calcium 8.5 mg/dl (8.5-10.1); Creatinine Clr Calc Pharmacy 68.1 ml/min; Est GFR (African American) 76.7 ml/min; Est GFR (Non-African American) 66.1 ml/min; Potassium 4.2 mmol/L (3.5-5.1)
[2021-10-19] MEDS: amLODIPine BESYLATE 5 MG TAB PO SCH (10:21)
--- NOTE | 2021-10-19 17:51 | Hospitalist Progress Note ---
Date of Service October 19, 2021 Assessment & Plan (1) COVID-19: Plan: #. Weakness #. COVID-19 infection Patient fully vaccinated against COVID with 3 vaccines. Weakness about the same/minimally improving per patient. PT/OT. Respiratory mcnair, patient stable, on room air. Patient afebrile, continue with symptomatic management. Incentive spirometer. Repeat CXR in the AM. #. Abrasion of right knee: Local wound care per nursing. #. Elevated troponin: No cardiac symptoms, likely chronic. #. Other chronic medical conditions: DM, GERD, HLD, COPD, HTN, CAD Continue with/resume home meds as and when appropriate. #. DVT prophylaxis: Lovenox #. Full code #. Disposition: PT/OT, CM to assist with DC planning. Likely DC in next 1 to 2 days. Admission and Anticipated Discharge Date Admission Date: October 19, 2021 Subjective Patient seen and examined at bedside as a follow-up of weakness likely secondary to COVID-19 infection. Patient was lying in bed, on room air, NAD, no new acute events overnight. Patient reports cough with whitish sputum. Patient does complain of soreness in his belly and bilateral thighs with weakness. Patient reports his bowels are mostly loose due to him being lactose intolerant. Patient reports ongoing weakness about the same, denies fever/headache/chills/chest pain/palpitations/other review of symptoms. Physical Exam Physical Exam: GENERAL: Alert and oriented x3. NAD, on RA. HEENT: No pallor, no icterus. Pupils equal, round and reactive to light. Oral mucosa moist. NECK: No JVD, no neck masses. HEART: S1 and S2 heard. Regular rate and rhythm. No murmur, no gallop. RESPIRATORY SYSTEM: Normal AP diameter. No accessory muscle use. No wheezing, b/b crackles. ABDOMEN: Soft, bowel sounds present, nontender, no distention. CENTRAL NERVOUS SYSTEM: No facial droop. Speech is clear. Obeys simple commands. Moves extremities. EXTREMITIES: No edema, no erythema seen. Results & Data Results & Data ([facility]) Vital Signs (Past 12 Hours) Vital Signs Temp Pulse Pulse Resp BP Pulse Ox 10/19/21 16:00 37.0 C 57 L 18 139/74 96 10/19/21 15:05 60 10/19/21 10:21 36.6 C 66 18 155/74 H 94 10/19/21 07:36 37.0 C 67 18 172/75 H 95 10/19/21 07:09 66
[2021-10-19] MEDS ORDERED: MELATONIN 3 MG TAB PO PRN (23:29)
--- NOTE | 2021-10-20 07:33 | XRay Report ---
XR chest 1V portable CLINICAL HISTORY: f/u CXR COMPARISON STUDY: Chest radiograph October 17, 2021. Chest CT September 13, 2018. FINDINGS: Patient is mildly rotated. Calcified granuloma within the left lower lung is noted. No pneu mothorax or pleural effusion is present. Cardiac size is within normal limits. No evidence for pulmon matthew edema. Linear bibasilar opacities have developed. IMPRESSION: Linear bibasilar opacities which have developed since prior exam. The appearance favors atelectasis. Although less likely, an infectious process is within the differential. ACT 112: Negative or not required by law. Electronically signed by: El Read M.D. 10/20/2021 7:32 AM
[2021-10-20 07:58] LABS: Hematocrit (blood only) 39.3 % (42-52); Hemoglobin 13.2 g/dL (14.0-18.0); Mean Corpuscular Hemoglobin 31.9 pg (25-34); Mean Corpuscular Hgb Conc 33.6 g/dL (32-36); Mean Corpuscular Volume 94.9 fL (80-100); Mean Platelet Volume 10.7 fL (7.4-10.4); Platelet Count 167 K/uL (130-400); RDW Coefficient of Variation 12.9 % (11.5-14.5); RDW Standard Deviation 44.7 fL (36.4-46.3); Red Blood Count 4.14 M/uL (4.7-6.1); White Blood Count 3.52 K/uL (4.8-10.8)
[2021-10-20] MEDS: amLODIPine BESYLATE 5 MG TAB PO SCH (08:00)
[2021-10-20] MEDS: ACETAMINOPHEN 325 MG TAB PO PRN ×2 (08:00→12:30)
[2021-10-20] MEDS: ENOXAPARIN INJ 40 MG/0.4 ML SYR SQ SCH (08:00)
[2021-10-20] MEDS: FLUTICASONE/VILANTEROL 100/25MCG 14 PUFFS/INHALER INH SCH (08:01)
[2021-10-20] MEDS: INSULIN ASPART PER UNIT SC SCH ×2 (08:09→12:25)
[2021-10-20] MEDS: ASPIRIN 81 MG CHEW PO SCH (08:09)
[2021-10-20 08:33] LABS: BUN Creatinine Ratio 12.9 (10-20); Calcium 8.4 mg/dl (8.5-10.1); Creatinine Clr Calc Pharmacy 85.8 ml/min; Est GFR (African American) 96.7 ml/min; Est GFR (Non-African American) 83.5 ml/min; Magnesium 1.9 mg/dl (1.7-2.4)
[2021-10-20] MEDS ORDERED: COUGH DROP (SUGAR FREE) LOZ 24 LOZ/1 BOX BUCCAL ONE (10:41)
[2021-10-20] MEDS ORDERED: COUGH DROP (SUGAR FREE) LOZ 24 LOZ/1 BOX BUCCAL PRN (10:44)
--- NOTE | 2021-10-20 12:50 | Discharge Summary ---
Date of Service October 20, 2021 Admission HPI Per Admitting Provider This is a 76 y/o male with a PMH of CAD, DM2, dyslipidemia, HTN, COPD, GERD, and prior CVA who presents to the ED with recurrent falls and generalized weakness. Pt reportedly has had increasing weakness and multiple falls at home over the past few days - this morning, he fell and could not get back up due to the weakness so his girlfriend called 911. Upon further conversation with pt, he reports several days of not feeling well. He complains of trouble breathing, both at rest and with exertion though worse with exertion. Associated cough that is productive of yellow mucus. He reports that he is not taking his inhalers at present. Appetite has been at baseline - denies N/V/D. No fevers, chills or sweats. He has noted a headache, which continues at present. Denies syncope. Having back pain and generalized muscle aches, fatigue, malaise. Pt reports that he has been vaccinated against COVID x3 - thinks that it was Moderna, cannot remember when he had his booster. No known sick contacts. Not taking prescribed BP or cholesterol meds but is taking the Metformin and Jardiance. Does not check his sugars at home so not sure if they've been elevated. Last A1c on 09/29/21 was 7.2. Admission Exam Per Admitting Provider Constitutional: well developed and well nourished; no acute distress Eyes: + anicteric sclerae ENMT: external ear and nose normal, oropharynx normal Neck: trachea midline Respiratory: no respiratory distress and no labored breathing Auscultation: lungs clear to auscultation bilaterally; no rales, no rhonchi and no wheezes Cardiovascular: Rate/Rhythm: regular rate and regular rhythm Heart Sounds: + murmur Vessels: radial pulses present Gastrointestinal (Abdomen): Inspection/Auscultation: normal bowel sounds; abdomen not distended Percussion/Palpation: abdomen soft; abdomen nontender Musculoskeletal: Head/Neck/Chest: normocephalic, head atraumatic and neck supple Skin: mild abrasion right knee Neurologic: moves all extremities; no focal motor deficits Psychiatric: A+Ox3, euthymic affect Principal Diagnosis COVID-19 infection Weakness Discharge Exam GENERAL: Alert and oriented x3. NAD, on RA. Pulling 2000ml incentive spirometer HEENT: No pallor, no icterus. Pupils equal, round and reactive to light. Oral mucosa moist. NECK: No JVD, no neck masses. HEART: S1 and S2 heard. Regular rate and rhythm. No murmur, no gallop. RESPIRATORY SYSTEM: Normal AP diameter. No accessory muscle use. No wheezing, b/b crackles improving ABDOMEN: Soft, bowel sounds present, nontender, no distention. CENTRAL NERVOUS SYSTEM: No facial droop. Speech is clear. Obeys simple commands. Moves extremities. EXTREMITIES: No edema, no erythema seen. Discharge Data Allergies Allergy/AdvReac Type Severity Reaction Status Date / Time codeine Allergy Intermediate HALLUCINATI Verified 10/17/21 13:56 ONS ezetimibe Allergy Intermediate HIVES Verified 10/17/21 13:56 pantoprazole Allergy Intermediate HIVES Verified 10/17/21 13:56 lisinopril Allergy Mild cough Verified 10/17/21 13:56 Consultations 10/17/21 15:00 ED Decision to Admit Stat Ordered Studies 10/17/21 12:59 CT head/brain wo con Stat Hospital Course (1) COVID-19: 76 yo M was managed for the following: #. Weakness #. COVID-19 infection Patient fully vaccinated against COVID with 3 vaccines. Per patient weakness has improved, soreness has improved significantly. PT/OT recommending home with home health. Respiratory mcnair, patient stable, on room air. Continue with incentive spirometry upon discharge. Patient afebrile, continue with symptomatic management. #. Abrasion of right knee: Local wound care per nursing. #. Elevated troponin: No cardiac symptoms, likely chronic. #. Other chronic medical conditions: DM, GERD, HLD, COPD, HTN, CAD Continue with/resume home meds as and when appropriate. #. DVT prophylaxis: Lovenox #. Full code Patient is being discharged home with home health with following instructions at the point of discharge: Follow-up with your primary care physician with wound care. As discussed at the bedside, continue with incentive spirometer and flutter valve as instructed 4-week time upon discharge. Get the blood work CBC done in a week time and have the results forwarded to your primary care physician. Your blood pressure has been mostly elevated while in hospital, you have been started on amlodipine small dose, take it as prescribed. Measure blood pressure twice a day and maintain a log, take it to your primary care physician for further evaluation and dose adjustment for your hypertension. Maintain self-isolation for total of 10 days from the date of your diagnosis of COVID. You have been diagnosed with COVID on 10/17/2021. If any increasing shortness of breath/fever/worsening weakness, contact your primary care physician or emergency immediately. Take medications as prescribed. Home Isolation COVID-19 Instructions Total Time Total Time Spent Total Time Spent (In Minutes): 30 Discharge Plan Discharge Items Patient Disposition: Home - Home Health Services Reason For Visit: WEAKNESS, COVID-19 Discharge Diagnosis: Weakness COVID-19 infection Condition on Discharge: Fair Activity: Resume your previous activity Non-emergency contact: Primary Care Provider Call non-emergency contact if: you have any medication questions, your symptoms worsen and your temperature is above 101 Follow-up/Referrals: Julius Werner MD [Primary Care Provider] - Diet: Carb Consistent or DM2 and Heart Healthy Addtl Attending Provider Instructions: Follow-up with your primary care physician with wound care. As discussed at the bedside, continue with incentive spirometer and flutter valve as instructed 4-week time upon discharge. Get the blood work CBC done in a week time and have the results forwarded to your primary care physician. Your blood pressure has been mostly elevated while in hospital, you have been started on amlodipine small dose, take it as prescribed. Measure blood pressure twice a day and maintain a log, take it to your primary care physician for further evaluation and dose adjustment for your hypertension. Maintain self-isolation for total of 10 days from the date of your diagnosis of COVID. You have been diagnosed with COVID on 10/17/2021. If any increasing shortness of breath/fever/worsening weakness, contact your [facility] care physician or emergency immediately. Take medications as prescribed. Home Isolation COVID-19 Instructions The following information about Home Isolation is from the CDC Website: https://www.cdc.gov/coronavirus/2019-ncov/hcp/kcyhkmhz-iiomucc-ayqhja.html Stay home except to get medical care People who are mildly ill with COVID-19 are able to isolate at home during their illness. You should restrict activities outside your home, except for getting medical care. Do not go to work, school, or public areas. Avoid using public transportation, ride-sharing, or taxis. Separate yourself from other people and animals in your home People: As much as possible, you should stay in a specific room and away from other people in your home. Also, you should use a separate bathroom, if available. Animals: You should restrict contact with pets and other animals while you are sick with COVID-19, just like you would around other people. Although there have not been reports of pets or other animals becoming sick with COVID-19, it is still recommended that people sick with COVID-19 limit contact with animals until more information is known about the virus. When possible, have another member of your household care for your animals while you are sick. If you are sick with COVID-19, avoid contact with your pet, including petting, snuggling, being kissed or licked, and sharing food. If you must care for your pet or be around animals while you are sick, wash your hands before and after you interact with pets and wear a face mask. Call ahead before visiting your doctor If you have a medical appointment, call the healthcare provider and tell them that you have or may have COVID-19. This will help the healthcare providers office take steps to keep other people from getting infected or exposed. Wear a face mask You should wear a face mask when you are around other people (e.g., sharing a room or vehicle) or pets and before you enter a healthcare providers office. If you are not able to wear a face mask (for example, because it causes trouble breathing), then people who live with you should not stay in the same room with you, or they should wear a face mask if they enter your room. Cover your coughs and sneezes Cover your mouth and nose with a tissue when you cough or sneeze. Throw used tissues in a lined trash can. Immediately wash your hands with soap and water for at least 20 seconds or, if soap and water are not available, clean your hands with an alcohol-based hand waste handling technician that contains at least 60% alcohol. Clean your hands often Wash your hands often with soap and water for at least 20 seconds, especially after blowing your nose, coughing, or sneezing; going to the bathroom; and before eating or preparing food. If soap and water are not readily available, use an alcohol-based hand waste handling technician with at least 60% alcohol, covering all surfaces of your hands and rubbing them together until they feel dry. Soap and water are the best option if hands are visibly dirty. Avoid touching your eyes, nose, and mouth with unwashed hands. Avoid sharing personal household items You should not share dishes, drinking glasses, cups, eating utensils, towels, or bedding with other people or pets in your home. After using these items, they should be washed thoroughly with soap and water. Clean all high-touch surfaces everyday High touch surfaces include counters, tabletops, doorknobs, bathroom fixtures, toilets, phones, keyboards, tablets, and bedside tables. Also, clean any surfaces that may have blood, stool, or body fluids on them. Use a household cleaning spray or wipe, according to the label instructions. Labels contain instructions for safe and effective use of the cleaning product including prec autions you should take when applying the product, such as wearing gloves and making sure you have good ventilation during use of the product. Monitor your symptoms Seek prompt medical attention if your illness is worsening (e.g., difficulty breathing).Beforeseeking care, call your healthcare provider and tell them that you have, or are being evaluated for, COVID-19. Put on a face mask before you enter the facility. These steps will help the healthcare providers office to keep other people in the office or waiting room from getting infected or exposed. Ask your healthcare provider to call the local or state health department. Persons who are placed under active monitoring or facilitated self- monitoring should follow instructions provided by their local health department or occupational health professionals, as appropriate. When working with your local health department check their available hours. If you have a medical emergency and need to call 911, notify the dispatch personnel that you have, or are being evaluated for COVID-19. If possible, put on a face mask before emergency medical services arrive. Discontinuing home isolation Patients with confirmed COVID-19 should remain under home isolation precautions until the risk of secondary transmission to others is thought to be low. The decision to discontinue home isolation precautions should be made on a [id number] basis, in consultation with healthcare providers and state and local health departments. Pending Studies at Discharge: Yes (Admitting blood culture final results.) Stand-Alone Forms: My [facility], Smoking Cessation Medications and DC Order Prescriptions: New amlodipine [Norvasc] 5 mg Tablet 5 mg PO QAM Qty: 30 RF: 0 Continued nitroglycerin [Nitrostat] 0.4 mg Tablet, Sublingual 0.4 mg Sublingual UD PRN (Reason: Chest Pain) RF: 0 aspirin 81 mg Tablet,Chewable 81 mg PO DAILY RF: 0 fluticasone propion-salmeterol [Wixela Inhub] 250-50 mcg/dose blister with device 2 ea INHALATION BID RF: 0 albuterol sulfate 90 mcg/actuation HFA aerosol inhaler 2 puff INHALATION QID PRN (Reason: Shortness Of Breath) RF: 0 metformin 500 mg tablet extended release 24 hr 500 mg PO QDD RF: 0 Spiriva Respimat 2.5 mcg/actuation mist 0 puff INHALATION DAILY RF: 0 Jardiance 10 mg tablet 10 mg PO DAILY RF: 0 Discharge Orders: Discharge Order (Routine); Ordered 10/20/21 Ordered By: Kuldip Triplett/Other Patient Handouts: How COVID-19 Spreads, COVID-19 Home Care, Preventing Falls: Staying Active Admission Data Admit Date/Time: 10/19/21 08:59 Attending Provider: Kuldip Lozano Admit Provider: Papa Cortez Primary Care Provider: Julius Werner Other Providers: Papa Cortez ; [place],[facility] Other Interventions: Discharge Summary Assessment (RN) Last Done: 10/20/21 12:44
== END 2021-10-20 17:30 | disposition home health service (06) | DRG 179 ==
LOC: EDINP 12:44 → ED 12:44 → SUATTDRO 15:19 → 2W 23:12

== ENCOUNTER 2022-12-04 12:02 | Observation (INO) ==
--- NOTE | 2022-12-04 12:38 | Emergency Department Note ---
Impression & Plan Syncope and collapse ADMIT ED Provider Note HPI: The patient is a 77-year-old gentleman with history of COPD, coronary artery disease, anxiety, presents emergency department after a syncopal event. Patient states that he was walking to a nursing facility to visit someone when he "went out". Patient states he lost consciousness and woke up on the ground. He yelled for someone that was with him and they came to assist him. Patient then was brought to the ED for further evaluation. Patient denied any preceding chest pain or shortness of breath, states he did not really have any preceding symptoms at all. On arrival here to the ED he states he feels some mild lightheadedness but denies any chest pain or shortness of breath. Patient is hemodynamically stable otherwise on arrival, he does not have any focal deficits, denies any focal complaints of pain, patient is saturating well on room air on arrival. ROS: - Per HPI *Outpatient medications and allergy history reviewed. *Pertinent external medical records reviewed. PE: General: Alert HEENT: Normocephalic, trachea midline Eyes: Extraocular eye movement is intact, no scleral erythema Pulmonary: Clear to auscultation bilaterally, no wheezing Cardio: Regular rate and rhythm GI: Abdomen is soft to palpation : No suprapubic tenderness MSK: No evidence of trauma or malformation of the extremities, no edema Skin: No evidence of rash Neuro: Alert, no focal deficits Psychiatric: Cooperative vehicle monitor technician: (As interpreted by myself): - An order was placed for continuous cardiac monitoring - Patient was noted to be in sinus rhythm with a rate of 70 EKG: (As interpreted by myself): Rate: 62 Rhythm: Sinus rhythm with premature supraventricular complexes Intervals: Within normal limits ST changes: No ST elevation Time: 1237 Interventions provided in ED: -IV fluid bolus Differential Diagnosis: Vasovagal syncope, arrhythmogenic syncope, acute coronary syndrome, syncope secondary to aortic stenosis, skull fracture, intracranial bleed to include subdural hemorrhage, amongst other potential pathologies. Medical Decision Making: The patient is a 77-year-old gentleman with admitted noncompliance to his current medications, presents emergency department after an episode of syncope. On arrival here to the ED the patient states that he feels generally unwell, states he feels weak, he is hemodynamically stable on arrival. He does not have any focal deficits. He denies any current chest pain or shortness of breath. IV was established and lab work obtained, patient was maintained on lunchroom monitor. Lab work shows no leukocytosis, hemoglobin stable at 14.3, platelet count within normal limits, CMP does not show any critical findings, no acute kidney injury, troponin is mildly elevated at 22.8, EKG does not show any acute ischemic changes. TSH is within normal limits. Chest x-ray does not show any evidence of acute disease, CT imaging of the head does not show any evidence of intracranial bleeding. On reassessment following IV fluids, patient states he continues to feel generally unwell, states he feels weak, continues to deny any chest pain or s hortness of breath. Given his multiple comorbidities, age, and medication noncompliance, I feel he would be appropriate for admission for high risk syncope. Case was discussed with the midlevel provider for the [facility] hospitalist service and the patient was placed for admission in stable condit ion. Consultants: -Hospitalist, Dr. Laura Disposition discussion held by myself with: -Patient Diagnosis: 1. Syncope and collapse, acute 2. Elevated high-sensitivity troponin level 3. History of coronary artery disease 4. History of aortic stenosis Disposition: Admission Luis Caceres DO Emergency Medicine Past Med/Surg History Medical History Acute CVA (cerebrovascular accident) Anxiety Aortic stenosis Ascending aortic aneurysm CAD (coronary artery disease) "40-50% LAD lesion noted on cath in 2010 dobutamine stress test 2012 negative for ischemia" COPD, mild COVID-19 Depression Diabetes Diastolic dysfunction "echo 2013 - EF 60-65%, grade I diastolic dysfunction, no valvular disease" Dyslipidemia GERD (gastroesophageal reflux disease) HTN (hypertension) Influenza A Myocardial infarct PEDRO (obstructive sleep apnea) Surgical History H/O umbilical hernia repair History of cholecystectomy History of colonoscopy 2016: adenomatous polyps, diverticulosis. Dr Worthington History of inguinal hernia repair, bilateral Hx of hemorrhoidectomy S/P foot surgery, right Family History (Updated 12/04/22 @ 15:34 by Yesika Sanchez PA-C) Grandfather (Maternal) Cancer Other Heart disease Social History (Updated 12/04/22 @ 15:35 by Yesika Sanchez PA-C) Smoking Status: Former smoker Tobacco Type: Cigarettes Second Hand Exposure: No; Do You Dip or Chew Tobacco: No; Hx Alcohol Use: No Hx Substance Use: No Preferred Language: Montenegrin Communication Ability: Effective Canvas Baster Required: No Beliefs That Will Affect Care: None marital status: Life Partner Current Living Situation: Significant Other Feels Safe at Home: Yes Safety Concerns: Feels Safe At This Time Assistive Devices: Denture - Upper and Glasses Allergies Allergies Allergy/AdvReac Type Severity Reaction Status Date / Time codeine Allergy Intermediate HALLUCINATI Verified 12/04/22 12:55 ONS ezetimibe Allergy Intermediate HIVES Verified 12/04/22 12:55 pantoprazole Allergy Intermediate HIVES Verified 12/04/22 12:55 lisinopril AdvReac Intermediate cough Verified 12/04/22 12:55 Home Meds Home Medications Medication Instructions Recorded Confirmed aspirin 81 mg chewable tablet 81 mg PO DAILY 09/13/18 12/04/22 albuterol sulfate 90 mcg/actuation 1 inh inhalation Q4H PRN sob 12/04/22 12/04/22 aerosol inhaler atorvastatin 80 mg tablet 80 mg PO DAILY 12/04/22 12/04/22 bupropion HCl 150 mg 24 hr tablet, 300 mg PO DAILY 12/04/22 12/04/22 extended release fluticasone 250 mcg-salmeterol 50 1 inh inhalation BID 12/04/22 12/04/22 mcg/dose blistr powdr for inhalation (Advair Diskus) metformin 500 mg tablet,extended 500 mg PO DAILYBD 12/04/22 12/04/22 release 24 hr nitroglycerin 0.4 mg sublingual 0.4 mg sublingual DIRECTED PRN 12/04/22 12/04/22 tablet Chest Pain tiotropium bromide 2.5 2 inh inhalation DAILY 12/04/22 12/04/22 mcg/actuation mist for inhalation (Spiriva Respimat) Results & Data (ED) Vital Signs Vital Signs - 24 hr 12/04/22 12:22 12/04/22 12:32 12/04/22 12:52 Temperature 36.6 C Temperature Source Temporal Artery Scan Pulse Rate 81 60 Pulse Rate [Apical] Respiratory Rate 16 Respiratory Effort / Characteristics Non-Labored Respiratory Depth Normal Respiratory Pattern Blood Pressure 120/66 Blood Pressure [Right Arm] Blood Pressure Mean 84 Blood Pressure Mean [Right Arm] Blood Pressure Position Sitting Pulse Oximetry 96 Oxygen Delivery Method Room Air Room Air Sepsis Recent Fever Within 48 Hours No Sepsis New/Unexplained Change in Mental Status No Sepsis Action Taken by Nursing No Action Required 12/04/22 14:00 Temperature Temperature Source Pulse Rate Pulse Rate [Apical] 65 Respiratory Rate 17 Respiratory Effort / Characteristics Non-Labored Spontaneous Respiratory Depth Normal Respiratory Pattern Regular Blood Pressure Blood Pressure [Right Arm] 118/84 Blood Pressure Mean Blood Pressure Mean [Right Arm] 95 Blood Pressure Position Pulse Oximetry 96 Oxygen Delivery Method Room Air Sepsis Recent Fever Within 48 Hours Sepsis New/Unexplained Change in Mental Status Sepsis Action Taken by Nursing Laboratory Data 12/04/22 12:48 12/04/22 12:48 Lab Results 12/04/22 12/04/22 12/04/22 Range/Units 12:48 12:48 12:48 WBC 6.74 (4.8-10.8) K/ul RBC 4.47 L (4.70-6.10) M/uL Hgb 14.3 (14.0-18.0) g/dl Hct 41.1 L (42.0-52.0) % MCV 91.9 (80.0-100.0) fL MCH 32.0 (25.0-34.0) pg MCHC 34.8 (32.0-36.0) g/dL RDW Std Deviation 42.2 (36.4-46.3) fL RDW Coeff of Harry 12.6 (11.5-14.5) % Plt Count 184 (130-400) K/uL MPV 10.5 (9.4-12.4) fL Immature Gran % (Auto) 0.1 % Neut % (Auto) 69.7 % Lymph % (Auto) 18.1 % [place] % (Auto) 8.6 % Eos % (Auto) 2.5 % Baso % (Auto) 1.0 % Neut # (Auto) 4.69 (1.40-6.50) K/uL Lymph # (Auto) 1.22 (1.2-3.4) K/uL [place] # (Auto) 0.58 (0.11-0.59) K/uL Eos # (Auto) 0.17 (0-0.50) K/uL Baso # (Auto) 0.07 (0-0.2) K/uL Immature Gran # (Auto) 0.01 (0.01-0.20) K/uL APTT 27.2 (21.0-31.0) Seconds PTT Ratio 1.0 Sodium 138 (136-145) mmol/L Potassium 3.8 (3.5-5.1) mmol/L Chloride 108 H (98-107) mmol/L Carbon Dioxide 23 (21-32) mmol/L Anion Gap 7 (3-11) BUN 20 (6-23) mg/dl Creatinine 1.08 (0.6-1.4) mg/dl Est Cr Clr Drug Dosing Not Reportable Est GFR ( Amer) 75.3 ml/min Est GFR (Non-Af Amer) 64.9 ml/min BUN/Creatinine Ratio 18.5 (10-20) Glucose 142 H (70-99(Fasting)) mg/dl Calcium 8.9 (8.6-10.3) mg/dl Magnesium 1.9 (1.7-2.4) mg/dl Total Bilirubin 0.7 (0.2-1.0) mg/dl AST 13 (13-39) U/L ALT 7 (7-52) U/L Alkaline Phosphatase 58 (34-104) U/L Troponin I High Sens 22.8 H (0-20) pg/ml Total Protein 6.5 (6.0-8.3) gm/dl Albumin 3.8 (3.4-5.0) gm/dl Globulin 2.7 (2.5-4.0) gm/dl Albumin/Globulin Ratio 1.4 (0.9-2) TSH (0.300-4.500) uIu/ml Urine Color Urine Appearance (Clear) Urine pH (4.5-7.5) Ur Specific Reinbeck (1.000-1.030) Urine Protein (Negative) Urine Glucose (UA) (Negative) Urine Ketones (Negative) Urine Blood (Negative) Urine Nitrite (Negative) Urine Bilirubin (Negative) Urine Urobilinogen (Negative) Ur Leukocyte Esterase (Negative) SARS-CoV-2, RNA, NAAT (NEGATIVE) 12/04/22 12/04/22 12/04/22 Range/Units 12:48 14:19 14:41 WBC (4.8-10.8) K/ul RBC (4.70-6.10) M/uL Hgb (14.0-18.0) g/dl Hct (42.0-52.0) % MCV (80.0-100.0) fL MCH (25.0-34.0) pg MCHC (32.0-36.0) g/dL RDW Std Deviation (36.4-46.3) fL RDW Coeff of Harry (11.5-14.5) % Plt Count (130-400) K/uL MPV (9.4-12.4) fL Immature Gran % (Auto) % Neut % (Auto) % Lymph % (Auto) % [place] % (Auto) % Eos % (Auto) % Baso % (Auto) % Neut # (Auto) (1.40-6.50) K/uL Lymph # (Auto) (1.2-3.4) K/uL [place] # (Auto) (0.11-0.59) K/uL Eos # (Auto) (0-0.50) K/uL Baso # (Auto) (0-0.2) K/uL Immature Gran # (Auto) (0.01-0.20) K/uL APTT (21.0-31.0) Seconds PTT Ratio Sodium (136-145) mmol/L Potassium (3.5-5.1) mmol/L Chloride (98-107) mmol/L Carbon Dioxide (21-32) mmol/L Anion Gap (3-11) BUN (6-23) mg/dl Creatinine (0.6-1.4) mg/dl Est Cr Clr Drug Dosing Est GFR ( Amer) ml/min Est GFR (Non-Af Amer) ml/min BUN/Creatinine Ratio (10-20) Glucose (70-99(Fasting)) mg/dl Calcium (8.6-10.3) mg/dl Magnesium (1.7-2.4) mg/dl Total Bilirubin (0.2-1.0) mg/dl AST (13-39) U/L ALT (7-52) U/L Alkaline Phosphatase (34-104) U/L Troponin I High Sens (0-20) pg/ml Total Protein (6.0-8.3) gm/dl Albumin (3.4-5.0) gm/dl Globulin (2.5-4.0) gm/dl Albumin/Globulin Ratio (0.9-2) TSH 0.827 (0.300-4.500) uIu/ml Urine Color Yellow Urine Appearance Clear (Clear) Urine pH 5.5 (4.5-7.5) Ur Specific Reinbeck 1.015 (1.000-1.030) Urine Protein Negative (Negative) Urine Glucose (UA) Trace H (Negative) Urine Ketones Negative (Negative) Urine Blood Negative (Negative) Urine Nitrite Negative (Negative) Urine Bilirubin Negative (Negative) Urine Urobilinogen Negative (Negative) Ur Leukocyte Esterase Negative (Negative) SARS-CoV-2, RNA, NAAT NEGATIVE (NEGATIVE) Administered Medications Discontinued Medications Sodium Chloride (Nss 1000ml) 1,000 mls @ 999 mls/hr IV .Q1H1M CARL Stop: 12/04/22 13:45 Last Infusion: 12/04/22 13:54 Dose: 0 mls/hr Documented By: Admin: 12/04/22 12:53 Dose: 999 mls/hr Documented By: Imaging Data Radiologist's Impression: Chest X-Ray 12/04/22 12:33 XR chest 1V portable CLINICAL HISTORY: syncope TECHNIQUE: Single frontal radiograph of the chest was obtained. Comparison: Comparison is made to chest radiograph 05/17/2022 FINDINGS: No lines and tubes are seen. Calcified aortic knob is seen. The lungs are clear. No evidence of pleural effusion or pneumothorax. IMPRESSION: No acute chest disease. ACT 112: Negative or not required by law. Electronically signed by: Cj Pinto M.D. 12/04/2022 1:[address] 12/04/22 12:33 CT SCAN OF THE BRAIN WITHOUT IV CONTRAST CLINICAL HISTORY: Syncope. COMPARISON STUDY: CT of the brain dated 08/19/2022. TECHNIQUE: Unenhanced axial CT scan of the brain is performed from the vertex to the skull base. A dose lowering technique was utilized adhering to the principles of ALARA. CT DOSE: 625.80 mGy.cm FINDINGS: Brain parenchyma: There is age-related involutional change noting moderate subcortical and periventricular microangiopathic disease. There is no h emorrhage, mass effect, or evidence of acute territorial ischemia by CT criteria. A 5 cm arachnoid cyst is again seen in the left temporal fossa. Jose- white matter differentiation is preserved. No extra-axial fluid collection is seen. Scattered parenchymal calcifications are similar to previous. A small chronic infarct is noted in the left cerebellar hemisphere. Ventricles, sulci, cisterns: Prominent secondary to involutional change. Intracranial vasculature: There is atherosclerotic calcification of the cavernous carotid and vertebral arteries. Calvarium: Unremarkable. Sinuses and mastoids: The visualized paranasal sinuses are clear. The mastoid air cells are well pneumatized. Cerumen is noted in the external auditory canals. Orbits: The bony orbits are grossly intact. IMPRESSION: There is no hemorrhage, mass effect, or evidence of acute territorial ischemia by CT criteria. ACT 112: Negative or not required by law. Electronically signed by: Abraham Gallo M.D. 12/04/2022 1:56 PM Discharge Plan Visit Data Chief Complaint: Fall Stated Complaint: FELL ED Provider: Luis Caceres Discharge Problem: Syncope and collapse Patient Disposition: Admitted As Inpatient Discharge Instructions Interventions: ED Discharge Assessment Last Done: 12/04/22 16:27
[2022-12-04] MEDS ORDERED: SODIUM CHLORIDE 0.9% 1000ML 1,000 ML IV SCH (12:45)
--- NOTE | 2022-12-04 13:19 | XRay Report ---
XR chest 1V portable CLINICAL HISTORY: syncope TECHNIQUE: Single frontal radiograph of the chest was obtained. Comparison: Comparison is made to chest radiograph 05/17/2022 FINDINGS: No lines and tubes are seen. Calcified aortic knob is seen. The lungs are clear. No evidence of pleur al effusion or pneumothorax. IMPRESSION: No acute chest disease. ACT 112: Negative or not required by law. Electronically signed by: Cj Pinto M.D. 12/04/2022 1:18 PM
[2022-12-04 13:25] LABS: Basophils # (auto) 0.07 K/uL (0-0.2); Eosinophils # (auto) 0.17 K/uL (0-0.50); Eosinophils % (auto) 2.5 %; Hematocrit (blood only) 41.1 % (42.0-52.0); Hemoglobin 14.3 g/dl (14.0-18.0); Immature Granulocytes # (auto) 0.01 K/uL (0.01-0.20); Immature Granulocytes % (auto) 0.1 %; Lymphocytes # (auto) 1.22 K/uL (1.2-3.4); Lymphocytes % (auto) 18.1 %; Mean Corpuscular Hgb Conc 34.8 g/dL (32.0-36.0); Mean Corpuscular Volume 91.9 fL (80.0-100.0); Mean Platelet Volume 10.5 fL (9.4-12.4); Monocytes # (auto) 0.58 K/uL (0.11-0.59); Monocytes % (auto) 8.6 %; Neutrophils # (auto) 4.69 K/uL (1.40-6.50); Neutrophils % (auto) 69.7 %; Platelet Count 184 K/uL (130-400); RDW Coefficient of Variation 12.6 % (11.5-14.5); RDW Standard Deviation 42.2 fL (36.4-46.3); Red Blood Count 4.47 M/uL (4.70-6.10); White Blood Count 6.74 K/ul (4.8-10.8)
[2022-12-04 13:30] LABS: Partial Thromboplastin Time 27.2 Seconds (21.0-31.0)
[2022-12-04 13:39] LABS: Albumin Level 3.8 gm/dl (3.4-5.0); Anion Gap 7 (3-11); Bilirubin,Total 0.7 mg/dl (0.2-1.0); Calcium 8.9 mg/dl (8.6-10.3); Carbon Dioxide 23 mmol/L (21-32); Chloride 108 mmol/L (98-107); Magnesium 1.9 mg/dl (1.7-2.4); Potassium 3.8 mmol/L (3.5-5.1); Sodium 138 mmol/L (136-145)
[2022-12-04 13:45] LABS: Alanine Aminotransferase 7 U/L (7-52); Albumin Globulin Ratio 1.4 (0.9-2); Alkaline Phosphatase 58 U/L (34-104); Aspartate Aminotransferase 13 U/L (13-39); BUN Creatinine Ratio 18.5 (10-20); Blood Urea Nitrogen 20 mg/dl (6-23); Est GFR (African American) 75.3 ml/min; Est GFR (Non-African American) 64.9 ml/min; Globulin 2.7 gm/dl (2.5-4.0); Glucose 142 mg/dl (70-99(Fasting)); Total Protein 6.5 gm/dl (6.0-8.3)
[2022-12-04 13:50] LABS: Troponin I High Sensitivity 22.8 pg/ml (0-20)
--- NOTE | 2022-12-04 13:57 | CT Scan Report ---
CT SCAN OF THE BRAIN WITHOUT IV CONTRAST CLINICAL HISTORY: Syncope. COMPARISON STUDY: CT of the brain dated 08/19/2022. TECHNIQUE: Unenhanced axial CT scan of the brain is performed from the vertex to the skull base. A do se lowering technique was utilized adhering to the principles of ALARA. CT DOSE: 625.80 mGy.cm FINDINGS: Brain parenchyma: There is age-related involutional change noting moderate subcortical and periventri cular microangiopathic disease. There is no hemorrhage, mass effect, or evidence of acute territorial ischemia by CT criteria. A 5 cm arachnoid cyst is again seen in the left temporal fossa. Jose-white matter differentiation is preserved. No extra-axial fluid collection is seen. Scattered parenchymal c alcifications are similar to previous. A small chronic infarct is noted in the left cerebellar hemisp here. Ventricles, sulci, cisterns: Prominent secondary to involutional change. Intracranial vasculature: There is atherosclerotic calcification of the cavernous carotid and vertebr al arteries. Calvarium: Unremarkable. Sinuses and mastoids: The visualized paranasal sinuses are clear. The mastoid air cells are well pneu matized. Cerumen is noted in the external auditory canals. Orbits: The bony orbits are grossly intact. IMPRESSION: There is no hemorrhage, mass effect, or evidence of acute territorial ischemia by CT mary wilson. ACT 112: Negative or not required by law. Electronically signed by: Abraham Gallo M.D. 12/04/2022 1:56 PM
[2022-12-04 15:22] LABS: Appearance Urine Clear (Clear); Bilirubin Urine Negative (Negative); Blood Urine Negative (Negative); Color Urine Yellow; Glucose Urine UA Trace (Negative); Ketones Urine Negative (Negative); Leukocyte Esterase Urine Negative (Negative); Nitrite Urine Negative (Negative); Protein Urine Negative (Negative); Specific Gravity Urine 1.015 (1.000-1.030); Urobilinogen Urine Negative (Negative); pH Urine 5.5 (4.5-7.5)
--- NOTE | 2022-12-04 15:38 | History & Physical Report ---
Date of Service December 04, 2022 Assessment & Plan (1) Weakness: Plan: 77 y/o male with a PMH of CAD, DM2, dyslipidemia, HTN, COPD, GERD, aortic stenosis, ascending aortic aneurysm, and prior CVA who presents to the ED after collapsing today due to progressive weakness and fatigue over the last several days. He denies LOC/syncopal event, chest pain, palpitations, AARON. He does have a history of medical noncompliance and reports that he is currently not taking any of his medications as ordered. 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 He does not routinely check his blood glucose at home so he is unsure how his sugars have been recently. He notes worsening of chronic issues with rectal bleeding and is overdue for a colonoscopy with tubular adenomas noted on prior scope. No significant anemia on labs in the ED. - Observe in PCU overnight to monitor for arrhythmia - Repeat troponin this evening to ensure stable although of note, pt has had elevated troponins on labs over the last several months. No acute changes on EKG noted (personally reviewed) - Repeat ECHO due to history of aortic stenosis, ascending aortic aneurysm - Check FOBT - if positive, consider GI consult inpatient. If negative, will need close f/u outpatient for colonoscopy as overdue for repeat from last scope. - PT/OT evaluations, fall precautions (2) Aortic stenosis: Plan: Repeat echo as discussed (3) Elevated troponin: Plan: Repeat troponin tonight (4) Diabetes: Plan: Not taking diabetic meds at present or checking blood sugars. Last A1c in Apr 2022 was 6.9 - Insulin sliding scale - Diabetic diet - BSG ACHS - A1c in AM (5) Dyslipidemia: Plan: Lipid panel in AM (6) COPD, mild: (7) HTN (hypertension): (8) CAD (coronary artery disease): Plan Pt seen and reviewed with collaborating physician, Dr. Laura. Plan of care discussed and as outlined above. Code Status: Full code DVT prophylaxis: Srini Sanchez PA-C History of Present Illness Chief Complaint: weakness and collapse Primary Care Provider: Julius Werner MD This is a 77 y/o male with a PMH of CAD, DM2, dyslipidemia, HTN, COPD, GERD, aortic stenosis, ascending aortic aneurysm, and prior CVA who presents to the ED after collapsing today. Initially, this was thought to be a syncopal event but upon further questioning, pt reports that he had just walked a significant distance and became very weak and collapsed to the ground but did not lose consciousness. He did not hit his head when he fell but did require assistance to get back up. He reports not feeling well for the last several days but cannot specify a specific complaint other than malaise and fatigue. He denies chest pain, palpitations, SOB, AARON, IRIZARRY, dizziness, weight loss, abd pain, N/V. His appetite is good. He does report blood in stools but states that this is an ongoing issues x years. Last colonoscopy in 2019 reviewed three 3-7 mm polyps, sigmoid diverticulosis, tattoo at prior polypectomy scar. Pathology c/w tubular adenomas. Pt was supposed to have a repeat scope in one year but has not followed up. He denies fevers, chills, dysuria, hematuria, dark urine. 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 He feels like he is having more trouble functioning on his own at home, particularly with the recent increased fatigue and weakness. He notes that he is not currently taking any of his medications including not taking the aspirin or inhalers. He does not check his blood sugars at home. He would be open to a discussion about restarting at least some of his medications. His outpatient med list was entered into [employer] for reference. Last A1c in 04/22 - 6.9. Allergies Allergy/AdvReac Type Severity Reaction Status Date / Time codeine Allergy Intermediate HALLUCINATI Verified 12/04/22 12:55 ONS ezetimibe Allergy Intermediate HIVES Verified 12/04/22 12:55 pantoprazole Allergy Intermediate HIVES Verified 12/04/22 12:55 lisinopril AdvReac Intermediate cough Verified 12/04/22 12:55 Home Medications Medication Instructions Recorded Confirmed Type aspirin 81 mg chewable tablet 81 mg PO DAILY 09/13/18 12/04/22 History albuterol sulfate 90 mcg/actuation 1 inh inhalation Q4H PRN sob 12/04/22 12/04/22 History aerosol inhaler atorvastatin 80 mg tablet 80 mg PO DAILY 12/04/22 12/04/22 History bupropion HCl 150 mg 24 hr tablet, 300 mg PO DAILY 12/04/22 12/04/22 History extended release fluticasone 250 mcg-salmeterol 50 1 inh inhalation BID 12/04/22 12/04/22 History mcg/dose blistr powdr for inhalation (Advair Diskus) metformin 500 mg tablet,extended 500 mg PO DAILYBD 12/04/22 12/04/22 History release 24 hr nitroglycerin 0.4 mg sublingual 0.4 mg sublingual DIRECTED PRN 12/04/22 12/04/22 History tablet Chest Pain tiotropium bromide 2.5 2 inh inhalation DAILY 12/04/22 12/04/22 History mcg/actuation mist for inhalation (Spiriva Respimat) Past Med/Surg History Medical History Acute CVA (cerebrovascular accident) Anxiety Aortic stenosis Ascending aortic aneurysm CAD (coronary artery disease) "40-50% LAD lesion noted on cath in 2010 dobutamine stress test 2013 negative for ischemia" COPD, mild COVID-19 Depression Diabetes Diastolic dysfunction "echo 2013 - EF 60-65%, grade I diastolic dysfunction, no valvular disease" Dyslipidemia GERD (gastroesophageal reflux disease) HTN (hypertension) Influenza A Myocardial infarct PEDRO (obstructive sleep apnea) Surgical History H/O umbilical hernia repair History of cholecystectomy History of colonoscopy 2016: adenomatous polyps, diverticulosis. Dr Worthington History of inguinal hernia repair, bilateral Hx of hemorrhoidectomy S/P foot surgery, right Family History Grandfather (Maternal) Cancer Other Heart disease Social History Smoking Status: Former smoker Tobacco Type: Cigarettes Second Hand Exposure: No; Do You Dip or Chew Tobacco: No; Hx Alcohol Use: No Hx Substance Use: No Preferred Language: Bruneian Communication Ability: Effective Insurance Special Agent Required: No Beliefs That Will Affect Care: None marital status: Life Partner Current Living Situation: Significant Other Feels Safe at Home: Yes Safety Concerns: Feels Safe At This Time Assistive Devices: Cane Review of Systems Review of Systems: All systems reviewed & are unremarkable except as noted in HPI & below Constitutional: + fatigue and + weakness; no fever, no chills, no anorexia and no weight loss Eyes: no diplopia Ear, Nose, Mouth, Throat: no nasal congestion, no sore throat and no dysphagia Respiratory: no cough and no dyspnea Cardiovascular: no chest pain, no palpitations, no lightheadedness and no edema Gastrointestinal: + blood in stools; no abdominal pain, no bloating, no early satiety, no nausea, no vomiting and no constipation Genitourinary: no dysuria or no hematuria Musculoskeletal: + muscle weakness; no back pain and no neck pain Integumentary: no rash and no yellowing of the skin Neurologic: + falls and + generalized weakness; no seizure-like activity and no headache(s) Physical Exam Constitutional: well developed and well nourished; no acute distress Eyes: + anicteric sclerae ENMT: external ear and nose normal, oropharynx normal Neck: trachea midline Respiratory: no respiratory distress and no labored breathing Auscultation: lungs clear to auscultation bilaterally; no rales, no rhonchi and no wheezes Cardiovascular: Rate/Rhythm: regular rate and regular rhythm Heart Sounds: + murmur Vessels: radial pulses present Extremities: no pedal edema Gastrointestinal (Abdomen): Inspection/Auscultation: normal bowel sounds; ab domen not distended Percussion/Palpation: abdomen soft; abdomen nontender Musculoskeletal: Head/Neck/Chest: normocephalic, head atraumatic and neck supple Skin: no jaundice Neurologic: moves all extremities; no focal motor deficits Psychiatric: A+Ox3, euthymic affect Results & Data Results & Data Vital Signs (Past 12 Hours) Vital Signs Temp Pulse Pulse Resp BP BP Pulse Ox 12/04/22 14:00 65 17 118/84 96 12/04/22 12:52 60 12/04/22 12:32 12/04/22 12:22 36.6 C 81 16 120/66 96 O2 Del Method 12/04/22 14:00 Room Air 12/04/22 12:52 12/04/22 12:32 Room Air 12/04/22 12:22 Room Air Laboratory Results Laboratory Results - last 24 hr 12/04/22 12/04/22 12/04/22 12:48 12:48 12:48 WBC 6.74 RBC 4.47 L Hgb 14.3 Hct 41.1 L MCV 91.9 MCH 32.0 MCHC 34.8 RDW Std Deviation 42.2 RDW Coeff of Harry 12.6 Plt Count 184 MPV 10.5 Immature Gran % (Auto) 0.1 Neut % (Auto) 69.7 Lymph % (Auto) 18.1 Power % (Auto) 8.6 Eos % (Auto) 2.5 Baso % (Auto) 1.0 Neut # (Auto) 4.69 Lymph # (Auto) 1.22 Power # (Auto) 0.58 Eos # (Auto) 0.17 Baso # (Auto) 0.07 Immature Gran # (Auto) 0.01 APTT 27.2 PTT Ratio 1.0 Sodium 138 Potassium 3.8 Chloride 108 H Carbon Dioxide 23 Anion Gap 7 BUN 20 Creatinine 1.08 Est Cr Clr Drug Dosing Not Reportable Est GFR ( Amer) 75.3 Est GFR (Non-Af Amer) 64.9 BUN/Creatinine Ratio 18.5 Glucose 142 H Calcium 8.9 Magnesium 1.9 Total Bilirubin 0.7 AST 13 ALT 7 Alkaline Phosphatase 58 Troponin I High Sens 22.8 H Total Protein 6.5 Albumin 3.8 Globulin 2.7 Albumin/Globulin Ratio 1.4 TSH Urine Color Urine Appearance Urine pH Ur Specific [place] Urine Protein Urine Glucose (UA) Urine Ketones Urine Blood Urine Nitrite Urine Bilirubin Urine Urobilinogen Ur Leukocyte Esterase SARS-CoV-2, RNA, NAAT 12/04/22 12/04/22 12/04/22 12:48 14:19 14:41 WBC RBC Hgb Hct MCV MCH MCHC RDW Std Deviation RDW Coeff of Harry Plt Count MPV Immature Gran % (Auto) Neut % (Auto) Lymph % (Auto) Power % (Auto) Eos % (Auto) Baso % (Auto) Neut # (Auto) Lymph # (Auto) Power # (Auto) Eos # (Auto) Baso # (Auto) Immature Gran # (Auto) APTT PTT Ratio Sodium Potassium Chloride Carbon Dioxide Anion Gap BUN Creatinine Est Cr Clr Drug Dosing Est GFR ( Amer) Est GFR (Non-Af Amer) BUN/Creatinine Ratio Glucose Calcium Magnesium Total Bilirubin AST ALT Alkaline Phosphatase Troponin I High Sens Total Protein Albumin Globulin Albumin/Globulin Ratio TSH 0.827 Urine Color Yellow Urine Appearance Clear Urine pH 5.5 Ur Specific [place] 1.015 Urine Protein Negative Urine Glucose (UA) Trace H Urine Ketones Negative Urine Blood Negative Urine Nitrite Negative Urine Bilirubin Negative Urine Urobilinogen Negative Ur Leukocyte Esterase Negative SARS-CoV-2, RNA, NAAT NEGATIVE Diagnostic Findings Chest X-Ray 12/04/22 12:33 XR chest 1V portable CLINICAL HISTORY: syncope TECHNIQUE: Single frontal radiograph of the chest was obtained. Comparison: Comparison is made to chest radiograph 05/17/2022 FINDINGS: No lines and tubes are seen. Calcified aortic knob is seen. The lungs are clear. No evidence of pleural effusion or pneumothorax. IMPRESSION: No acute chest disease. Head CT 12/04/22 12:33 CT SCAN OF THE BRAIN WITHOUT IV CONTRAST CLINICAL HISTORY: Syncope. COMPARISON STUDY: CT of the brain dated 08/19/2022. TECHNIQUE: Unenhanced axial CT scan of the brain is performed from the vertex to the skull base. A dose lowering technique was utilized adhering to the principles of ALARA. CT DOSE: 625.80 mGy.cm FINDINGS: Brain parenchyma: There is age-related involutional change noting moderate subcortical and periventricular microangiopathic disease. There is no hemorrhage, mass effect, or evidence of acute territorial ischemia by CT criteria. A 5 cm arachnoid cyst is again seen in the left temporal fossa. Jose- white matter differentiation is preserved. No extra-axial fluid collection is seen. Scattered parenchymal calcifications are similar to previous. A small chronic infarct is noted in the left cerebellar hemisphere. Ventricles, sulci, cisterns: Prominent secondary to involutional change. Intracranial vasculature: There is atherosclerotic calcification of the cavernous carotid and vertebral arteries. Calvarium: Unremarkable. Sinuses and mastoids: The visualized paranasal sinuses are clear. The mastoid air cells are well pneumatized. Cerumen is noted in the external auditory canals. Orbits: The bony orbits are grossly intact. IMPRESSION: There is no hemorrhage, mass effect, or evidence of acute territorial ischemia by CT criteria. Medications Administered Discontinued Medications Sodium Chloride (Nss 1000ml) 1,000 mls @ 999 mls/hr IV .Q1H1M CARL Stop: 12/04/22 13:45 Last Infusion: 12/04/22 13:54 Dose: 0 mls/hr Documented By: Admin: 12/04/22 12:53 Dose: 999 mls/hr Documented By: Code Status & VTE Plan VTE Prophylaxis Plan VTE Prophylaxis will be ordered: Yes Supervising Physician Co-Signing Physician Notes Pt was seen and examined. Agreed with Yesika CORNELIUS exam, assessment and plan. 77 y/o male with a PMH of CAD, DM2, dyslipidemia, HTN, COPD, GERD, aortic stenosis, ascending aortic aneurysm, and prior CVA who presents to the ED after collapsing today. Pt said that he did not pass out. He said that his legs gave up on him. He said that he runs out of energy after walking a short distance. He stopped taking all his medication. Currently denies any chest pain, palpitation, dizziness and SOB. CT head showed no hemorrhage, mass effect, or evidence of acute territorial ischemia. No focal neuro deficit on exam. Will consult PT/OT. Will get an echo. Fall precaution. Continue monitor closely. MD Keya (4) Diabetes Diabetes mellitus complication status: without complication Diabetes mellitus intermediate insulin use: without intermediate use Diabetes mellitus type: type 2 Qualified Code(s): E11.9 - Type 2 diabetes mellitus without complications
[2022-12-04] MEDS ORDERED: GLUCOSE 40% GEL 15 GM TUBE PO PRN (16:57)
[2022-12-04] MEDS ORDERED: GLUCOSE 10 TAB/TUBE PO PRN (16:57)
[2022-12-04] MEDS ORDERED: DEXTROSE 50% 50 ML SYRINGE IV PRN (16:57)
[2022-12-04] MEDS ORDERED: CARBOHYDRATES FOR HYPOGLYCEMIA PO PRN (16:57)
[2022-12-04] MEDS ORDERED: GLUCAGON FOR INJ 1 MG VIAL SQ PRN (16:57)
[2022-12-04] MEDS ORDERED: ACETAMINOPHEN 325 MG TAB PO PRN (16:57)
[2022-12-04] MEDS ORDERED: Patient's HEIGHT &/or WEIGHT Needed SCH (17:15)
[2022-12-04 20:19] LABS: Troponin I High Sensitivity 27.4 pg/ml (0-20)
--- NOTE | 2022-12-04 20:49 | Communication Note ---
Date of Service: December 04, 2022 Made aware by RN of troponin elevation of 22.8 to 27.4. Patient without chest pain. SBP 150s, heart rate 50s as per RN. AP Troponin elevation Uncontrolled hypertension Patient not on maintenance meds as per preference on review of outpatient records. Initiate previous home losartan Rx Recheck troponin
[2022-12-04] MEDS: INSULIN ASPART PER UNIT CHARGE SC SCH (21:52)
[2022-12-04] MEDS: LOSARTAN POTASSIUM 25 MG TAB PO SCH (21:52)
[2022-12-05 06:33] LABS: Chol HDL Ratio 5.6 (0-5)
--- NOTE | 2022-12-05 08:20 | Hospitalist Progress Note ---
Date of Service December 05, 2022 Assessment & Plan (1) Syncope and collapse: Plan: The history is not ideal given the patient's disorientation and the son not being present during the event. It is not clear if the event yesterday was the only reason the patient had acute weakness and syncope. He does have moderate aortic stenosis and echo was performed today. We will consult cardiology to help determine if there was a connection and the patient may benefit from valve replacement. Likely multiple contributing factors including a 3 mile hike which the patient is not condition for as he reports laying around and sleeping all day as his typical habits. Continue telemetry appreciate cardiology thoughts. He remains sinus bradycardia with first-degree AV block on telemetry. Most likely this was simply a result of exercise exhaustion. Per physical therapy he is fine to return home. (2) Aortic stenosis: Plan: Repeat echo reveals moderate aortic stenosis. Son is very concerned about dad's welfare and appreciates a cardiology consult to ensure his syncope was not related to aortic stenosis. We will consult. (3) Dementia: Plan: Possible dementia present, no neuropsych testing to confirm however patient is disoriented to date and repeats his stories. Family is concern for progressive issues with judgment and memory. Patient lives alone currently as his live-in girlfriend has now moved in with her family after a stroke. The patient expresses that he does not want to be alone and has what appears to be uncont rolled depression. I discussed the situation with his son Julio and will screen for B12 and folate deficiency. Otherwise thyroid is stable, head imaging with a CT on admission looked good, chronic comorbidities are optimized. From a lab standpoint there is not much else to check. Outpatient neuropsych testing is recommended. Outpatient counseling for assistance with anxiety and depression that is probably uncontrolled is recommended however, it is unlikely that the patient will comply with this. He has limitations including no computer and no phone. He also has limitations including EBT for food and has very little income. Son appears to be unwilling or unable to help with financial obstacles and is not able to care for her dad. Son lives in [place]. Appreciate case management assistance with this. (4) Elevated troponin: Plan: Likely demand ischemia in the setting of syncope with valve disease. No signs or symptoms of ACS present. Highly sensitive troponin was trended and was 22.8, 27.4, 27 without significant rise. Echo did not reveal any acute wall motion abnormalities. No further work-up indicated at this time. (5) Diabetes: Plan: Chronic controlled, continue current therapy. Would not be inclined to change his metformin therapy at discharge. (6) Dyslipidemia: Plan: Chronic, improved as LDL per outpatient review was 188 in April 2022 now improved to LDL of 112. This is likely a result of him taking his atorvastatin 80 mg daily. Continue this now. (7) COPD, mild: Plan: Chronic, stable. Continue inhaler therapy. No evidence of exacerbation. Patient is now a non-smoker. (8) HTN (hypertension): Plan: Chronic, stable. And at goal continue current therapy. (9) CAD (coronary artery disease): Plan: Chronic, stable. Continue medical management. Full code Lovenox Disposition-Per my conversation with Julio, his son, he would like office of aging to be involved with evaluation of the home prior to dad's return. The patient is disoriented to time and date and may be developing a progressive dementia. He does have risk factors including known vascular disease and a history of this in his family. Appreciate case management assistance with connecting him with resources. Marcella Fish DO [facility]ticipated Discharge Date Admission Date: December 04, 2022 Subjective 77-year-old man with progressive memory issues per his son presents after a syncopal episode after a significant 3 mile walk Patient reports he needs extra help in the house Specifically he states "I am too old to clean and cook for myself, someone else should be doing this for me" Here told me his girlfriend Melonie has a stroke recently and is living with her son He told me how on happy he was about this and that they are "getting back together soon and she will come live with him" he states that she cannot live with him now because he cannot take care of her Patient states that his son should take him in Patient reports that he has no issues with cooking or cleaning but he feels someone else should do this for him Reports he is not driving but does have a license Reports that friends and extended family do help him get groceries and food I did speak to his son, Julio by phone. Julio is very concerned that dad has progressive signs of dementia Patient was unable to tell me the correct date or the year he felt it was in the 1900s. He was able to tell me that Prabhjot was the president. He told me he was at [place] but then when asked further he said he was at a hospital I spent a great deal of time talking to Julio about screening for dementia including neuropsych testing as outpatient Julio is more comfortable with office [facility] aging doing a home assessment prior to his dad returning home to ensure the home is safe and kept up. Julio is also interested in additional services that may be available by Rachelle from office of aging based on dad's health declining. The patient feels like he is much better from yesterday and is clinically eating and drinking well without any chest pain trouble breathing or other symptoms at this time. He does have aortic stenosis and in the setting of syncope, I did discuss with Julio that we will have him evaluated by a heart doctor to ensure these events were not connected and were more likely from the significant exercise that he is not used to. Notably the patient was repeating his story to me and did not seem to remember some of the features of the conversation we spoke about initially Review of Systems Review of Systems: All systems reviewed negative septa indicated above. Physical Exam Physical Exam: CONSTITUTIONAL: WNWD, vitals as above, generally well-appearing, NAD EYES: normal conjunctivae, no scleral icterus ENT: external ear and nose normal, NECK: trachea midline, RESPIRATORY: clear to auscultation bilaterally, no crackles, rales or wheezes, normal respiratory effort CARDIOVASCULAR: regular rate and rhythm, 3/6 harsh murmur across precordium, no gallops or rubs, no JVD, no peripheral edema CHEST: inspection of chest was normal GASTROINTESTINAL: soft, nontender, ND, no guarding MUSCULOSKELETAL: strength 5/5 throughout, head is normocephalic and atraumatic, SKIN: warm and dry NEUROLOGIC: . CN 2-12 grossly intact, no sensory deficit, normal cognition, normal speech, no tremor PSYCHIATRIC: alert cooperative and oriented to person, place but not time or date. Repeating his story to me. Appears upset and angry that someone isn't taking care of him. Expresses that he doesn't want to be alone. Results & Data Results & Data Vital Signs (Past 12 Hours) Vital Signs Temp Pulse Pulse Resp BP Pulse Ox O2 Del Method 12/05/22 07:23 36.8 C 57 L 19 123/66 95 Room Air 12/05/22 03:00 36.4 C L 69 17 163/74 H 99 Room Air 12/04/22 23:00 56 L 12/04/22 23:22 36.9 C 56 L 15 135/76 95 Room Air Laboratory Results Short CBC 12/04/22 Range/Units 12:48 WBC 6.74 (4.8-10.8) K/ul Hgb 14.3 (14.0-18.0) g/dl Hct 41.1 L (42.0-52.0) % Plt Count 184 (130-400) K/uL BMP 12/04/22 12:48 Sodium 138 Potassium 3.8 Chloride 108 H Carbon Dioxide 23 BUN 20 Creatinine 1.08 Glucose 142 H Calcium 8.9 Cardiac Enzymes 12/04/22 Range/Units 18:51 Total Creatine Kinase 188 (30-223) U/L Liver Function 12/04/22 Range/Units 12:48 Total Bilirubin 0.7 (0.2-1.0) mg/dl AST 13 (13-39) U/L ALT 7 (7-52) U/L Alkaline Phosphatase 58 (34-104) U/L Albumin 3.8 (3.4-5.0) gm/dl Urine 12/04/22 Range/Units 14:41 Urine Color Yellow Urine Appearance Clear (Clear) Urine pH 5.5 (4.5-7.5) Ur Specific [place] 1.015 (1.000-1.030) Urine Protein Negative (Negative) Urine Glucose (UA) Trace H (Negative) Medications Administered Current Inpatient Medications Acetaminophen (Acetaminophen 325 Mg Tab) 650 mg PO Q4H PRN PRN Reason: Pain or Fever Stop: 01/03/23 16:56 Dextrose (Dextrose 50% 50 Ml Syringe) 25 - 50 ml IV UD PRN; Protocol PRN Reason: Hypoglycemia Protocol Stop: 01/03/23 16:56 Enoxaparin Sodium (Enoxaparin Inj 40 Mg/0.4 Ml Syr) 40 mg SQ QAM CARL Stop: 01/04/23 08:59 Glucagon (Glucagon For Inj 1 Mg Vial) 1 mg SQ UD PRN; Protocol PRN Reason: Hypoglycemia Protocol Stop: 01/03/23 16:56 Glucose (Glucose 10 Tab/Tube) 4 - 8 tab PO UD PRN; Protocol PRN Reason: Hypoglycemia Treatment Stop: 01/03/23 16:56 Glucose (Glucose 40% Gel 15 Gm Tube) 15 - 30 gm PO UD PRN; Protocol PRN Reason: Hypoglycemia Protocol Stop: 01/03/23 16:56 Insulin Aspart (Insulin Aspart Per Unit Charge) 0 units SC ACHS [facility] Stop: 01/03/23 20:59 Last Admin: 12/04/22 21:52 Dose: Not Given Losartan Potassium (Losartan Potassium 25 Mg Tab) 25 mg PO HS [facility] Stop: 01/03/23 20:59 Last Admin: 12/04/22 21:52 Dose: 25 mg Miscellaneous (Carbohydrates For Hypoglycemia ) 15 - 30 gm PO UD PRN PRN Reason: Hypoglycemia Protocol Stop: 01/03/23 16:56 (5) Diabetes Diabetes mellitus complication status: without complication 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
[2022-12-05 08:59] LABS: Estimated Average Glucose 137 mg/dl; Hemoglobin A1C 6.4 % (4.5-5.6)
[2022-12-05] MEDS: ENOXAPARIN INJ 40 MG/0.4 ML SYR SQ SCH (09:02)
[2022-12-05] MEDS: INSULIN ASPART PER UNIT CHARGE SC SCH ×5 (09:02→21:37)
[2022-12-05 09:18] LABS: Hematocrit (blood only) 40.3 % (42.0-52.0); Mean Corpuscular Hemoglobin 32.6 pg (25.0-34.0); Mean Corpuscular Hgb Conc 34.7 g/dL (32.0-36.0); Mean Corpuscular Volume 93.7 fL (80.0-100.0); Mean Platelet Volume 11.5 fL (9.4-12.4); Platelet Count 151 K/uL (130-400); RDW Coefficient of Variation 12.5 % (11.5-14.5); RDW Standard Deviation 43.1 fL (36.4-46.3); White Blood Count 5.29 K/ul (4.8-10.8)
[2022-12-05 09:35] LABS: BUN Creatinine Ratio 15.6 (10-20); Calcium 8.8 mg/dl (8.6-10.3); Creatinine Clr Calc Pharmacy 81.4 ml/min; Est GFR (African American) 93.8 ml/min; Est GFR (Non-African American) 80.9 ml/min; Magnesium 1.8 mg/dl (1.7-2.4); Phosphorus 2.7 mg/dl (2.5-4.9); Potassium 4.1 mmol/L (3.5-5.1)
[2022-12-05] MEDS: LOSARTAN POTASSIUM 25 MG TAB PO SCH (20:11)
--- NOTE | 2022-12-05 22:22 | Orthopedic Consultation ---
Date of Consultation December 05, 2022 Assessment & Plan (1) Diabetes: Patient seen, evaluated, and treated. Nail plates are elongated curling under toes and into toes. Left second toe wound from nail plate present. Discussed need for sharp debridement of nails. Patient encouraged to visit community knit goods cutter hand for diabetic foot care upon discharge. [facility] was discussed. Instrumentation will be brought from OR for in house procedure at next encounter. (2) Open wound of second toe of left foot: History of Present Illness Attending Physician: Marcella Fish, History of Present Illness Patient is a 77-year-old male seen at bedside in no acute distress. Patient presented to [facility] ED on 12/04/22 with admitted noncompliance to his current medications, after an episode of syncope.Patient has a past medical history of CAD, DM2, dyslipidemia, HTN, COPD, GERD, aortic stenosis, ascending aortic aneurysm, and prior CVA. He is seen for painful feet with open lesions secondary to dystrophic hypertrophic toenails. Allergies Allergy/AdvReac Type Severity Reaction Status Date / Time codeine Allergy Intermediate HALLUCINATI Verified 12/04/22 12:55 ONS ezetimibe Allergy Intermediate HIVES Verified 12/04/22 12:55 pantoprazole Allergy Intermediate HIVES Verified 12/04/22 12:55 lisinopril AdvReac Intermediate cough Verified 12/04/22 12:55 Home Medications Medication Instructions Recorded Confirmed Type aspirin 81 mg chewable tablet 81 mg PO DAILY 09/13/18 12/04/22 History albuterol sulfate 90 mcg/actuation 1 inh inhalation Q4H PRN sob 12/04/22 12/04/22 History aerosol inhaler atorvastatin 80 mg tablet 80 mg PO DAILY 12/04/22 12/04/22 History bupropion HCl 150 mg 24 hr tablet, 300 mg PO DAILY 12/04/22 12/04/22 History extended release fluticasone 250 mcg-salmeterol 50 1 inh inhalation BID 12/04/22 12/04/22 History mcg/dose blistr powdr for inhalation (Advair Diskus) metformin 500 mg tablet,extended 500 mg PO DAILYBD 12/04/22 12/04/22 History release 24 hr nitroglycerin 0.4 mg sublingual 0.4 mg sublingual DIRECTED PRN 12/04/22 12/04/22 History tablet Chest Pain tiotropium bromide 2.5 2 inh inhalation DAILY 12/04/22 12/04/22 History mcg/actuation mist for inhalation (Spiriva Respimat) Patient History Medical History Acute CVA (cerebrovascular accident) Anxiety Aortic stenosis Ascending aortic aneurysm CAD (coronary artery disease) "40-50% LAD lesion noted on cath in 2010, improved 20% cath 2014 dobutamine stress test 2019 negative for ischemia" COPD, mild COVID-19 Depression Diabetes Diastolic dysfunction "echo 2012 - EF 60-65%, grade I diastolic dysfunction, no valvular disease" Dyslipidemia GERD (gastroesophageal reflux disease) HTN (hypertension) Influenza A Myocardial infarct PEDRO (obstructive sleep apnea) Surgical History H/O umbilical hernia repair History of cholecystectomy History of colonoscopy 2016: adenomatous polyps, diverticulosis. Dr Worthington History of inguinal hernia repair, bilateral Hx of hemorrhoidectomy S/P foot surgery, right Family History Grandfather (Maternal) Cancer Other Heart disease Social History Smoking Status: Former smoker Tobacco Type: Cigarettes Second Hand Exposure: No; Do You Dip or Chew Tobacco: No; Hx Alcohol Use: No Hx Substance Use: No Preferred Language: Zimbabwean Communication Ability: Effective Classified Copy Control Clerk Required: No Beliefs That Will Affect Care: None marital status: Life Partner Current Living Situation: Significant Other Feels Safe at Home: Yes Safety Concerns: Feels Safe At This Time Assistive Devices: Cane Review of Systems Review of Systems: All systems reviewed & are unremarkable except as noted in HPI & below Physical Exam Constitutional: well developed, well nourished, cooperative and comfortable Eyes: normal visual felipe by confrontation Neck: normal visual inspection and trachea midline Respiratory: normal respiratory effort Cardiovascular: Rate/Rhythm: regular rate and regular rhythm Musculoskeletal: Extremities: extremities normal to inspection Skin: + wound (Left second toe), + nail abnormality (Nails dystrophic, hypertrophic, elongated, discolored, incurvated distally ) and + nails discolored Neurologic: moves all extremities (Decreased epicritic sensation to feet) Psychiatric: Orientation: alert and oriented x 3 Results & Data Vital Signs (Past 12 Hours) Vital Signs Temp Pulse Pulse Resp BP Pulse Ox O2 Del Method 12/05/22 20:00 Room Air 12/05/22 19:47 36.8 C 60 18 123/60 92 Room Air 12/05/22 15:27 36.8 C 58 L 18 111/66 96 Room Air 12/05/22 15:19 59 L 12/05/22 12:10 36.8 C 55 L 18 122/68 96 Room Air (1) Diabetes Diabetes mellitus complication status: without complication Diabetes mellitus fdc insulin use: without fdc use Diabetes mellitus type: type 2 Qualified Code(s): E11.9 - Type 2 diabetes mellitus without complications
--- NOTE | 2022-12-06 05:38 | Electrocardiogram Report ---
Test Reason : Blood Pressure : / mmHG Vent. Rate : 062 BPM Atrial Rate : 062 BPM P-R Int : 196 ms QRS Dur : 114 ms QT Int : 424 ms P-R-T Axes : 043 -46 007 degrees QTc Int : 430 ms Sinus rhythm with Premature supraventricular complexes Left anterior fascicular block Moderate voltage criteria for LVH, may be normal variant Abnormal ECG When compared with ECG of 19-AUG-2022 11:56, Premature supraventricular complexes are now Present Confirmed by Jacek Lock ([id number]) on 12/06/2022 5:38:45 AM Referred By: REFERRED SELF Confirmed By:Jacek Lock
[2022-12-06 06:55] LABS: Folate (Folic Acid),Ser orPlas 5.33 ng/ml (>5.38)
[2022-12-06 06:59] LABS: Vitamin D, 25 Hydrox 7.2 ng/ml (30-100)
--- NOTE | 2022-12-06 08:36 | Cardiology Consultation ---
Date of Consultation December 06, 2022 Assessment & Plan (1) Syncope and collapse: (2) Aortic stenosis: (3) Elevated troponin: (4) CAD (coronary artery disease): (5) HTN (hypertension): Plan IMPRESSION: 77 year old male who initially presented to [facility] after a syncopal episode, possibly orthostatic mediated. Echo revealing stable moderate aortic stenosis, velocities of 330s and a valve area of 1.0. When compared to his DSE in 2019 there was mild progression in his velocities however still within the moderate range HS troponins chronically mildly elevated and flat- not indicative of ACS. Telemetry has been unremarkable. PLAN: Recommend treatment of underlying co-morbidities. Agree with restarting home dose of Losartan 25 mg daily- titrate as BP allows. Restart ASA 81 mg daily and Statin given history of nonobstructive CAD. Consider Dobutamine stress echo to reassess AV gradients with exertion/stress, inpatient vs outpatient- will follow clinically. Blood cultures ordered to rule out sepsis as a possible cause to his generalized malaise. Case discussed with Dr. Harp. Supervising Physician Co-Signing Physician Notes Patient seen and personally examined. No acute complaints other than malaise. Plan as above Repeat EKG today Dobutamine stress test possible tomorrow versus as outpatient. History of Present Illness Reason for Consultation: Near Syncope Moderate Aortic Stenosis Requesting Physician: Sara Santiago Attending Physician: Jeffy Lehman MD History of Present Illness 77-year-old male who initially presented to [facility] emergency department due to progressive weakness and fatigue times several days. Patient was on a 3 mile walk visiting his girlfriend and became very hot and nauseated. Developed li ghtheadedness and had a witnessed syncopal event. Family helped the patient up and brought him to the ED. Patient is not normally that active and admits to a sedentary lifestyle most days. He is the primary caregiver for his girlfriend who recently had a stroke. Admits to noncompliance with his home medications- stopped taking all medications "years ago" without interest in restarting. Does not check his blood sugards because the test strips are expensive. Echocardiogram dated 12/05: LVEF 65 to 70% without wall motion abnormalities. Moderate concentric LVH. Grade 1 diastolic dysfunction. Trileaflet aortic valve with moderate aortic stenosis. CXR and CT of the head unremarkable Labs: Hemoglobin stable. Renal function stable. Sodium mildly low. HS trop mildly elevated but flat, unchanged over the last several readings during prior admissions. Tele: SR with PACs/PVCs 60s Upon entrance into the room patient resting in bed. No acute distress. Continues to feel generalized fatigue and weakness. Denies any further episodes of lightheadedness. No syncope. No chest pain or shortness of breath. No palpitations. Hypertension noted- Losartan restarted. Past medical history: -Mild to moderate coronary atherosclerosis per cardiac catheterization in 2010 and 2014 -Negative dobutamine stress 06/2020 -Hypertension with diastolic dysfunction -Moderate aortic stenosis -Type 2 diabetes -Hyperlipidemia -Mildly dilated ascending aorta -Hx of CVA -Memory issues/underlying dementia -Medication non-compliance Allergies Allergy/AdvReac Type Severity Reaction Status Date / Time codeine Allergy Intermediate HALLUCINATI Verified 12/04/22 12:55 ONS ezetimibe Allergy Intermediate HIVES Verified 12/04/22 12:55 pantoprazole Allergy Intermediate HIVES Verified 12/04/22 12:55 lisinopril AdvReac Intermediate cough Verified 12/04/22 12:55 Home Medications Medication Instructions Recorded Confirmed Type aspirin 81 mg chewable tablet 81 mg PO DAILY 09/13/18 12/04/22 History albuterol sulfate 90 mcg/actuation 1 inh inhalation Q4H PRN sob 12/04/22 12/04/22 History aerosol inhaler atorvastatin 80 mg tablet 80 mg PO DAILY 12/04/22 12/04/22 History bupropion HCl 150 mg 24 hr tablet, 300 mg PO DAILY 12/04/22 12/04/22 History extended release fluticasone 250 mcg-salmeterol 50 1 inh inhalation BID 12/04/22 12/04/22 History mcg/dose blistr powdr for inhalation (Advair Diskus) metformin 500 mg tablet,extended 500 mg PO DAILYBD 12/04/22 12/04/22 History release 24 hr nitroglycerin 0.4 mg sublingual 0.4 mg sublingual DIRECTED PRN 12/04/22 12/04/22 History tablet Chest Pain tiotropium bromide 2.5 2 inh inhalation DAILY 12/04/22 12/04/22 History mcg/actuation mist for inhalation (Spiriva Respimat) Patient History Medical History (Updated 12/06/22 @ 12:26 by Freddy Harp MD) Acute CVA (cerebrovascular accident) Anxiety Aortic stenosis Ascending aortic aneurysm CAD (coronary artery disease) "40-50% LAD lesion noted on cath in 2010, improved 20% cath 2014 dobutamine stress test 2019 negative for ischemia" COPD, mild COVID-19 Depression Diabetes Diastolic dysfunction "echo 2012 - EF 60-65%, grade I diastolic dysfunction, no valvular disease" Dyslipidemia GERD (gastroesophageal reflux disease) HTN (hypertension) Influenza A Myocardial infarct PEDRO (obstructive sleep apnea) Surgical History H/O umbilical hernia repair History of cholecystectomy History of colonoscopy 2016: adenomatous polyps, diverticulosis. Dr Worthington History of inguinal hernia repair, bilateral Hx of hemorrhoidectomy S/P foot surgery, right Family History Grandfather (Maternal) Cancer Other Heart disease Social History Smoking Status: Former smoker Tobacco Type: Cigarettes Second Hand Exposure: No; Do You Dip or Chew Tobacco: No; Hx Alcohol Use: No Hx Substance Use: No Preferred Language: Syriac Communication Ability: Effective Optics Engineer Required: No Beliefs That Will Affect Care: None marital status: Life Partner Current Living Situation: Significant Other Feels Safe at Home: Yes Safety Concerns: Feels Safe At This Time Assistive Devices: Cane Physical Exam Constitutional: WD/WN, vitals as above no acute distress Eyes: PERRL, conjunctivae normal, anicteric sclerae Neck: normal visual inspection Respiratory: normal respiratory effort, lungs clear to auscultation Cardiovascular: Rate/Rhythm: regular rate and regular rhythm Heart Sounds: normal S1, normal S2 and + murmur (+2/6 systolic) Vessels: no JVD Extremities: no edema Gastrointestinal (Abdomen): normal bowel sounds, soft, nontender, no hepatosplenomegaly Skin: no rashes, warm and dry Psychiatric: A+Ox3, euthymic affect Results & Data Vital Signs (Past 12 Hours) Vital Signs Temp Pulse Pulse Resp BP Pulse Ox O2 Del Method 12/06/22 07:58 36.8 C 65 19 151/63 H 94 Room Air 12/06/22 07:22 62 12/06/22 05:30 36.8 C 63 18 123/78 95 Room Air 06/06/23 22:00 63 12/05/22 23:43 36.7 C 62 18 128/70 94 Room Air Laboratory Results CBC 12/06/22 Range/Units 08:56 WBC 4.63 L (4.8-10.8) K/ul RBC 4.23 L (4.70-6.10) M/uL Hgb 13.6 L (14.0-18.0) g/dl Hct 39.2 L (42.0-52.0) % Plt Count 175 (130-400) K/uL Neut # (Auto) 2.50 (1.40-6.50) K/uL Lymph # (Auto) 1.39 (1.2-3.4) K/uL [place] # (Auto) 0.45 (0.11-0.59) K/uL Eos # (Auto) 0.22 (0-0.50) K/uL Baso # (Auto) 0.05 (0-0.2) K/uL Comprehensive Metabolic Panel 12/06/22 Range/Units 08:56 Sodium 137 (136-145) mmol/L Potassium 4.0 (3.5-5.1) mmol/L Chloride 106 (98-107) mmol/L Carbon Dioxide 25 (21-32) mmol/L BUN 19 (6-23) mg/dl Creatinine 0.90 (0.6-1.4) mg/dl Glucose 199 H (70-99(Fasting)) mg/dl Calcium 9.0 (8.6-10.3) mg/dl Intake and Output 12/05/22 12/06/22 12/06/22 22:59 06:59 14:59 Intake Total 750 / 1050 300 / 1050 Balance 750 / 1050 300 / 1050 Intake: Oral 750 / 1050 300 / 1050 Other: # Unmeasured Voids 1 1
[2022-12-06] MEDS: INSULIN ASPART PER UNIT CHARGE SC SCH ×4 (09:17→20:17)
[2022-12-06] MEDS: ENOXAPARIN INJ 40 MG/0.4 ML SYR SQ SCH (09:17)
[2022-12-06 09:43] LABS: Basophils # (auto) 0.05 K/uL (0-0.2); Basophils % (auto) 1.1 %; Eosinophils # (auto) 0.22 K/uL (0-0.50); Eosinophils % (auto) 4.8 %; Hematocrit (blood only) 39.2 % (42.0-52.0); Hemoglobin 13.6 g/dl (14.0-18.0); Immature Granulocytes # (auto) 0.02 K/uL (0.01-0.20); Immature Granulocytes % (auto) 0.4 %; Lymphocytes # (auto) 1.39 K/uL (1.2-3.4); Mean Corpuscular Hemoglobin 32.2 pg (25.0-34.0); Mean Corpuscular Hgb Conc 34.7 g/dL (32.0-36.0); Mean Corpuscular Volume 92.7 fL (80.0-100.0); Mean Platelet Volume 10.8 fL (9.4-12.4); Monocytes # (auto) 0.45 K/uL (0.11-0.59); Monocytes % (auto) 9.7 %; Platelet Count 175 K/uL (130-400); RDW Coefficient of Variation 12.3 % (11.5-14.5); RDW Standard Deviation 41.7 fL (36.4-46.3); Red Blood Count 4.23 M/uL (4.70-6.10); White Blood Count 4.63 K/ul (4.8-10.8)
[2022-12-06 09:53] LABS: BUN Creatinine Ratio 21.1 (10-20); Creatinine Clr Calc Pharmacy 81.4 ml/min; Est GFR (African American) 93.8 ml/min; Est GFR (Non-African American) 80.9 ml/min; Magnesium 1.9 mg/dl (1.7-2.4)
--- NOTE | 2022-12-06 12:07 | Hospitalist Progress Note ---
Date of Service December 06, 2022 Assessment & Plan (1) Weakness: Plan: 77 y/o male with a PMH of CAD, DM2, dyslipidemia, HTN, COPD, GERD, aortic stenosis, ascending aortic aneurysm, and prior CVA who presents to the ED after collapsing due to progressive weakness and fatigue over the last several days - and walking 3 miles to his GF's son house. Pt denies LOC/syncopal event, chest pain, palpitations, AARON. He does have a history of medical noncompliance and reports that he is currently not taking any of his medications as ordered. 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 He does not routinely check his blood glucose at home so he is unsure how his sugars have been recently. He notes worsening of chronic issues with rectal bleeding and is overdue for a colonoscopy with tubular adenomas noted on prior scope. No significant anemia on labs in the ED. - PCU - to monitor for arrhythmia - troponin checked, echo obtained and cardiology consulted - ECHO due to history of aortic stenosis, ascending aortic aneurysm Echo -LV is normal in size. Moderate concentric LVH. LV wall motion is normal. EF 65 to 70%. Aortic valve is trileaflet. Aortic valve leaflets are moderately calcified and moderately restricted mobility. Moderate valvular aortic stenosis. Grade 1 diastolic dysfunction. Cardiology consulted - Restart ASA 81 mg daily and Statin given history of nonobstructive CAD. Losartan 25 mg daily- titrate as BP allows. - Check FOBT - if positive, consider GI consult inpatient. If negative, will need close f/u outpatient for colonoscopy as overdue for repeat from last scope. Hgb stable in the hospital. - PT/OT evaluations, fall precautions (2) Aortic stenosis: Plan: echo, cardiology consult as above (3) Elevated troponin: Plan: echo, cardiology consult as above (4) Diabetes: Plan: Not taking diabetic meds at present or checking blood sugars. Last A1c in Apr 2022 was 6.9 - Insulin sliding scale - Diabetic diet - BSG ACHS - A1c 6.4% (5) Dyslipidemia: Plan: Lipid panel obtained, lipitor restarted Suicidal statements -Patient made some suicidal statements when speaking to welfare case worker -Psychiatry consultation was requested -Patient denies any SI, bupropion was restarted -Patient deficient in vitamin B12, folic acid, vitamin D which can possibly contribute to depression-supplements started (6) COPD, mild: (7) HTN (hypertension): (8) CAD (coronary artery disease): Plan Code Status: Full code DVT prophylaxis: Lovenox Admission and Anticipated Discharge Date Admission Date: December 05, 2022 Subjective 77-year-old man with progressive memory issues per his son presents after a syncopal episode after a significant 3 mile walk Pt's girlfriend Melonie had a stroke recently and is living with her son, pt was visiting her Reports he is not driving but does have a license Reports that friends and extended family do help him get groceries and food SonJulio is very concerned that dad has progressive signs of dementia Julio is more comfortable with office of aging doing a home assessment prior to his dad returning home to ensure the home is safe and kept up. Julio is also interested in additional services that may be available by Rachelle from office of aging based on dad's health declining. CM aware and involved. Patient feels much better overall. Denies any chest pain or trouble breathing or other symptoms at this time. However made suicidal comments to CM - psych consulted. Also discussed w/ podiatry , cardiology and psychiatry Review of Systems Review of Systems: All systems reviewed & are unremarkable except as noted in Subjective Physical Exam Physical Exam: Constitutional:L well developed and well nourished; n o acute distress Eyes: + anicteric sclera e ENMT: external ear and n ose normal, oropha rynx normal Neck: trachea midline, n george supple Respiratory: no respiratory dis tress and no labor ed breathing Ausc ultation: lungs cl ear to auscultatio n bilaterally; no rales, no rhonchi and no wheezes Cardiovascular:L Rate/Rhythm: regul ar rate and regula r rhythm Heart So unds: + murmur, n o LE edema Gastrointestinal ( Abdomen): Inspection/Auscult ation: normal yecenia l sounds; abdomen not distended Per cussion/Palpation: abdomen soft; abd omen nontender Musculoskeletal: Head/Neck/Chest: n ormocephalic, head atraumatic and ne ck supple Skin: warm, dry Neurologic: awake alert, not o riented, speech fl uent, moves all ex tremities Psychiatric: A+Ox3, euthymic af fect Results & Data Results & Data Vital Signs (Past 12 Hours) Vital Signs Temp Pulse Pulse Resp BP Pulse Ox O2 Del Method 12/06/22 07:58 36.8 C 65 19 151/63 H 94 Room Air 12/06/22 07:22 62 12/06/22 05:30 36.8 C 63 18 123/78 95 Room Air Laboratory Results 12/06/22 12/06/22 12/06/22 Range/Units 11:56 08:56 08:56 WBC 4.63 L (4.8-10.8) K/ul RBC 4.23 L (4.70-6.10) M/uL Hgb 13.6 L (14.0-18.0) g/dl Hct 39.2 L (42.0-52.0) % MCV 92.7 (80.0-100.0) fL MCH 32.2 (25.0-34.0) pg MCHC 34.7 (32.0-36.0) g/dL RDW Std Deviation 41.7 (36.4-46.3) fL RDW Coeff of Harry 12.3 (11.5-14.5) % Plt Count 175 (130-400) K/uL MPV 10.8 (9.4-12.4) fL Immature Gran % (Auto) 0.4 % Neut % (Auto) 54.0 % Lymph % (Auto) 30.0 % [place] % (Auto) 9.7 % Eos % (Auto) 4.8 % Baso % (Auto) 1.1 % Neut # (Auto) 2.50 (1.40-6.50) K/uL Lymph # (Auto) 1.39 (1.2-3.4) K/uL [place] # (Auto) 0.45 (0.11-0.59) K/uL Eos # (Auto) 0.22 (0-0.50) K/uL Baso # (Auto) 0.05 (0-0.2) K/uL Immature Gran # (Auto) 0.02 (0.01-0.20) K/uL Sodium 137 (136-145) mmol/L Potassium 4.0 (3.5-5.1) mmol/L Chloride 106 (98-107) mmol/L Carbon Dioxide 25 (21-32) mmol/L Anion Gap 6 (3-11) BUN 19 (6-23) mg/dl Creatinine 0.90 (0.6-1.4) mg/dl Est Cr Clr Drug Dosing 81.4 ml/min Est GFR ( Amer) 93.8 ml/min Est GFR (Non-Af Amer) 80.9 ml/min BUN/Creatinine Ratio 21.1 H (10-20) Glucose 199 H (70-99(Fasting)) mg/dl POC Glucose 106 H (70-99) mg/dl Calcium 9.0 (8.6-10.3) mg/dl Magnesium 1.9 (1.7-2.4) mg/dl Vitamin B12 (180-914) pg/ml 25-OH Vitamin D Total (30-100) ng/ml Folate (>5.38) ng/ml 12/06/22 12/06/22 12/05/22 Range/Units 07:57 05:43 20:24 WBC (4.8-10.8) K/ul RBC (4.70-6.10) M/uL Hgb (14.0-18.0) g/dl Hct (42.0-52.0) % MCV (80.0-100.0) fL MCH (25.0-34.0) pg MCHC (32.0-36.0) g/dL RDW Std Deviation (36.4-46.3) fL RDW Coeff of Harry (11.5-14.5) % Plt Count (130-400) K/uL MPV (9.4-12.4) fL Immature Gran % (Auto) % Neut % (Auto) % Lymph % (Auto) % [place] % (Auto) % Eos % (Auto) % Baso % (Auto) % Neut # (Auto) (1.40-6.50) K/uL Lymph # (Auto) (1.2-3.4) K/uL [place] # (Auto) (0.11-0.59) K/uL Eos # (Auto) (0-0.50) K/uL Baso # (Auto) (0-0.2) K/uL Immature Gran # (Auto) (0.01-0.20) K/uL Sodium (136-145) mmol/L Potassium (3.5-5.1) mmol/L Chloride (98-107) mmol/L Carbon Dioxide (21-32) mmol/L Anion Gap (3-11) BUN (6-23) mg/dl Creatinine (0.6-1.4) mg/dl Est Cr Clr Drug Dosing ml/min Est GFR ( Amer) ml/min Est GFR (Non-Af Amer) ml/min BUN/Creatinine Ratio (10-20) Glucose (70-99(Fasting)) mg/dl POC Glucose 168 H 101 H (70-99) mg/dl Calcium (8.6-10.3) mg/dl Magnesium (1.7-2.4) mg/dl Vitamin B12 160 L (180-914) pg/ml 25-OH Vitamin D Total 7.2 L (30-100) ng/ml Folate 5.33 L (>5.38) ng/ml 12/05/22 Range/Units 16:48 WBC (4.8-10.8) K/ul RBC (4.70-6.10) M/uL Hgb (14.0-18.0) g/dl Hct (42.0-52.0) % MCV (80.0-100.0) fL MCH (25.0-34.0) pg MCHC (32.0-36.0) g/dL RDW Std Deviation (36.4-46.3) fL RDW Coeff of Harry (11.5-14.5) % Plt Count (130-400) K/uL MPV (9.4-12.4) fL Immature Gran % (Auto) % Neut % (Auto) % Lymph % (Auto) % [place] % (Auto) % Eos % (Auto) % Baso % (Auto) % Neut # (Auto) (1.40-6.50) K/uL Lymph # (Auto) (1.2-3.4) K/uL [place] # (Auto) (0.11-0.59) K/uL Eos # (Auto) (0-0.50) K/uL Baso # (Auto) (0-0.2) K/uL Immature Gran # (Auto) (0.01-0.20) K/uL Sodium (136-145) mmol/L Potassium (3.5-5.1) mmol/L Chloride (98-107) mmol/L Carbon Dioxide (21-32) mmol/L Anion Gap (3-11) BUN (6-23) mg/dl Creatinine (0.6-1.4) mg/dl Est Cr Clr Drug Dosing ml/min Est GFR ( Amer) ml/min Est GFR (Non-Af Amer) ml/min BUN/Creatinine Ratio (10-20) Glucose (70-99(Fasting)) mg/dl POC Glucose 142 H (70-99) mg/dl Calcium (8.6-10.3) mg/dl Magnesium (1.7-2.4) mg/dl Vitamin B12 (180-914) pg/ml 25-OH Vitamin D Total (30-100) ng/ml Folate (>5.38) ng/ml Medications Administered Current Inpatient Medications Acetaminophen (Acetaminophen 325 Mg Tab) 650 mg PO Q4H PRN PRN Reason: Pain or Fever Stop: 01/03/23 16:56 Aspirin (Aspirin 81 Mg Ectab) 81 mg PO QAM [facility] Stop: 01/06/23 08:59 Atorvastatin Calcium (Atorvastatin 40 Mg Tab) 80 mg PO HS [facility] Stop: 01/05/23 20:59 Dextrose (Dextrose 50% 50 Ml Syringe) 25 - 50 ml IV UD PRN; Protocol PRN Reason: Hypoglycemia Protocol Stop: 01/03/23 16:56 Enoxaparin Sodium (Enoxaparin Inj 40 Mg/0.4 Ml Syr) 40 mg SQ QAM [facility] Stop: 01/04/23 08:59 Last Admin: 12/06/22 09:17 Dose: 40 mg Glucagon (Glucagon For Inj 1 Mg Vial) 1 mg SQ UD PRN; Protocol PRN Reason: Hypoglycemia Protocol Stop: 01/03/23 16:56 Glucose (Glucose 10 Tab/Tube) 4 - 8 tab PO UD PRN; Protocol PRN Reason: Hypoglycemia Treatment Stop: 01/03/23 16:56 Glucose (Glucose 40% Gel 15 Gm Tube) 15 - 30 gm PO UD PRN; Protocol PRN Reason: Hypoglycemia Protocol Stop: 01/03/23 16:56 Insulin Aspart (Insulin Aspart Per Unit Charge) 0 units SC ACHS [facility] Stop: 01/03/23 20:59 Last Admin: 12/06/22 09:17 Dose: 5 units Losartan Potassium (Losartan Potassium 25 Mg Tab) 25 mg PO HS [facility] Stop: 01/03/23 20:59 Last Admin: 12/05/22 20:11 Dose: 25 mg Miscellaneous (Carbohydrates For Hypoglycemia ) 15 - 30 gm PO UD PRN PRN Reason: Hypoglycemia Protocol Stop: 01/03/23 16:56 (4) Diabetes Diabetes mellitus complication status: without complication Diabetes mellitus buttermaker insulin use: without nursing home use Diabetes mellitus type: type 2 Qualified Code(s): E11.9 - Type 2 diabetes mellitus without complications
--- NOTE | 2022-12-06 17:14 | Orthopedic Progress Note ---
Date of Service December 06, 2022 Assessment & Plan (1) Diabetes: Plan: Patient seen, evaluated, and treated. Nail plates are elongated curling under toes and into toes. Left second toe wound from nail plate present. Discussed need for sharp debridement of nails. Sharp debridement of all 10 nails plates with out incident. Patient tolerated procedure well. Wound care to continue to follow left second toe as needed. (2) Open wound of second toe of left foot: Admission and Anticipated Discharge Date Admission Date: December 05, 2022 Subjective Patient is a 77 year old male seen and examined at bedside. He relates no immediate complaints. Review of Systems Review of Systems: All systems reviewed & are unremarkable except as noted in Subjective Physical Exam Constitutional: well developed, well nourished, cooperative and comfortable Eyes: normal visual felipe by confrontation Neck: normal visual inspection and trachea midline Respiratory: normal respiratory effort Cardiovascular: Rate/Rhythm: regular rate and regular rhythm Musculoskeletal: Extremities: extremities normal to inspection Skin: + wound (Left second toe), + nail abnormality (Nails dystrophic, hypertrophic, elongated, discolored, incurvated distally ) and + nails discolored Neurologic: moves all extremities (Decreased epicritic sensation to feet) Results & Data Vital Signs (Past 12 Hours) Vital Signs Temp Pulse Pulse Resp BP Pulse Ox O2 Del Method 12/06/22 16:52 36.3 C L 58 L 18 157/68 H 95 Room Air 12/06/22 15:49 62 12/06/22 12:10 36.7 C 59 L 19 138/70 93 Room Air 12/06/22 07:58 36.8 C 65 19 151/63 H 94 Room Air 12/06/22 07:22 62 12/06/22 05:30 36.8 C 63 18 123/78 95 Room Air (1) Diabetes Diabetes mellitus complication status: without complication Diabetes mellitus care home insulin use: without continuous churn buttermaker use Diabetes mellitus type: type 2 Qualified Code(s): E11.9 - Type 2 diabetes mellitus without complications
--- NOTE | 2022-12-06 17:28 | Psychiatric Consultation ---
Date of Consultation December 06, 2022 Impression / Recommendations Impression 77 y/o man with a history of depression and a recent loss (of his girlfriend, who moved out) who has spoken of suicidal thoughts as a means of conveying how alone he feels. He actually denies most symptoms of depression. He evidences memory impairment the etiology of which is currently uncertain, but he has copious risk factors for cerebrovascular disease. Low vitamin B12, folate, and vitamin D can each be associated with depression. (1) Dementia: (2) Major depressive disorder, recurrent, moderate: Plan I note that pt is now ordered bupropion XL 300 mg daily, with which I strongly agree. I don't think he requires suicide precautions because he denies suicidal plan or intent and explicitly says he "would never" act on the thoughts. As I'm sure you've already planned, it will be important to replenish his deficient vitamin levels. An occupational therapy assessment or home visit from elderly services could be very helpful in determining pt's ability to meet his care needs at home. Psych History Identifying Data LUCIA RANDALL is a 77-year-old M with a history of depression, admitted on 12/04/2022 for weakness. Consult is by the hospitalist service for "depression, suicidal statment to CM/ RN". Chief Complaint "I told 'em I was thinking about killing myself". History of Present Illness 77 y/o man with multiple medical problems and a diagnosis of major depression who came to the ED after collapsing at home. It seems as if this was related to weakness after a long walk rather than syncope. Lab results include, among other abnormalities, low B12 160 pg/mL, low folate of 5.33 ng/mL, and severely low vitamin D of 7.2 ng/mL. Pt had been living with his girlfriend, who has had a CVA and is currently living with her son. He is "from a big family" and hates being alone. Concerns have been raised about his self-care living alone. Pt says he reported thoughts of killing himself as a way of communicating how lonely he feels. He says he has not thought about how he might accomplish this. He also says he's sure he "would feel guilty afterward" if he were to kill himself and is certain he "would never do that". He says he feels depressed but reports sleep, appetite, energy, and interest as "great". Memory appears to be a problem. He is oriented to person, "[facility]" but struggles to identify it as a hospital. He is unable to tell me day, date, sun, year, or season. When asked the reason he's in the hospital, he picks up the menu from his dinner tray and searches it for the answer. He tells me he's been taking medications as ordered and has "not missed a dose" even though he hasn't filled his bupropion prescription since April 2022. He tells me he's never been treated for depression. He has some word-finding difficulty. On exam this is a man who appears somewhat younger than his stated age. He has a fairly neat snowy white zuñiga and very long fingernails (which appear fairly uniform and not ragged). He sits methodically plucking each leaf from a strawberry then uses his thumbnail to core it. Eye contact is poor as he busies himself with items on his tray. Allergies Allergy/AdvReac Type Severity Reaction Status Date / Time codeine Allergy Intermediate HALLUCINATI Verified 12/04/22 12:55 ONS ezetimibe Allergy Intermediate HIVES Verified 12/04/22 12:55 pantoprazole Allergy Intermediate HIVES Verified 12/04/22 12:55 lisinopril AdvReac Intermediate cough Verified 12/04/22 12:55 Home Medications Medication Instructions Recorded Confirmed Type aspirin 81 mg chewable tablet 81 mg PO DAILY 09/13/18 12/04/22 History albuterol sulfate 90 mcg/actuation 1 inh inhalation Q4H PRN sob 12/04/22 12/04/22 History aerosol inhaler atorvastatin 80 mg tablet 80 mg PO DAILY 12/04/22 12/04/22 History bupropion HCl 150 mg 24 hr tablet, 300 mg PO DAILY 12/04/22 12/04/22 History extended release fluticasone 250 mcg-salmeterol 50 1 inh inhalation BID 12/04/22 12/04/22 History mcg/dose blistr powdr for inhalation (Advair Diskus) metformin 500 mg tablet,extended 500 mg PO DAILYBD 12/04/22 12/04/22 History release 24 hr nitroglycerin 0.4 mg sublingual 0.4 mg sublingual DIRECTED PRN 12/04/22 12/04/22 History tablet Chest Pain tiotropium bromide 2.5 2 inh inhalation DAILY 12/04/22 12/04/22 History mcg/actuation mist for inhalation (Spiriva Respimat) Patient History Medical History Acute CVA (cerebrovascular accident) Anxiety Aortic stenosis Ascending aortic aneurysm CAD (coronary artery disease) "40-50% LAD lesion noted on cath in 2010, improved 20% cath 2014 dobutamine stress test 2019 negative for ischemia" COPD, mild COVID-19 Depression Diabetes Diastolic dysfunction "echo 2012 - EF 60-65%, grade I diastolic dysfunction, no valvular disease" Dyslipidemia GERD (gastroesophageal reflux disease) HTN (hypertension) Influenza A Myocardial infarct PEDRO (obstructive sleep apnea) Surgical History H/O umbilical hernia repair History of cholecystectomy History of colonoscopy 2016: adenomatous polyps, diverticulosis. Dr Worthington History of inguinal hernia repair, bilateral Hx of hemorrhoidectomy S/P foot surgery, right Family History Grandfather (Maternal) Cancer Other Heart disease Social History Smoking Status: Former smoker Tobacco Type: Cigarettes Second Hand Exposure: No; Do You Dip or Chew Tobacco: No; Hx Alcohol Use: No Hx Substance Use: No Preferred Language: German Communication Ability: Effective Filter Washer Required: No Beliefs That Will Affect Care: None marital status: Life Partner Current Living Situation: Significant Other Feels Safe at Home: Yes Safety Concerns: Feels Safe At This Time Assistive Devices: Cane Physical Exam Vital Signs (Past 24 Hours): Last Vital Signs Temp 36.3 C L 12/06/22 16:52 Pulse 58 L 12/06/22 16:52 Resp 18 12/06/22 16:52 BP 157/68 H 12/06/22 16:52 Pulse Ox 95 12/06/22 16:52 O2 Del Method Room Air 12/06/22 16:52 Exam Statement: A physical exam was performed by the hospitalist. I accept that physical as correct and adequate for the purposes of the inpatient physical exam. Review of Systems Psychiatric: + depression; no hopelessness, no anhedonia, no abnormal sleep pattern and no change in appetite Results & Data (PSY) Medications Administered Enoxaparin Sodium (Enoxaparin Inj 40 Mg/0.4 Ml Syr) 40 mg SQ QAM [facility] Stop: 01/04/23 08:59 Last Admin: 12/06/22 09:17 Dose: 40 mg Documented By: Admin: 12/05/22 09:02 Dose: 40 mg Documented By: LOS Insulin Aspart (Insulin Aspart Per Unit Charge) 0 units SC ACHS [facility] Stop: 01/03/23 20:59 Last Admin: 12/06/22 12:29 Dose: 8 units Documented By: LOS Co-signed By: YAYA Admin: 12/06/22 09:17 Dose: 5 units Documented By: LOS Co-signed By: YAYA Admin: 12/05/22 21:37 Dose: 1 units Documented By: ERMIAS Co-signed By: JOSÉ MIGUEL Admin: 12/05/22 17:17 Dose: 8 units Documented By: LOS Co-signed By: MILDRED Admin: 12/05/22 12:28 Dose: 3 units Documented By: LOS Co-signed By: MILDRED Admin: 12/05/22 09:02 Dose: 7 units Documented By: LOS Co-signed By: MILDRED Admin: 12/04/22 21:52 Dose: Not Given Documented By: APOORVA Losartan Potassium (Losartan Potassium 25 Mg Tab) 25 mg PO HS [facility] Stop: 01/03/23 20:59 Last Admin: 12/05/22 20:11 Dose: 25 mg Documented By: Admin: 12/04/22 21:52 Dose: 25 mg Documented By: APOORVA Coding Level of Care Code 53951 IN/OBS CONSULT LVL 3,45M Diagnoses Dementia F03.90 Major depressive disorder, recurrent, moderate F33.1 Time Spent (min) 52
[2022-12-06] MEDS ORDERED: ERGOCALCIFEROL 50,000 UNITS 1250 MCG CAP PO SCH (18:30)
[2022-12-06] MEDS: CYANOCOBALAMIN (B-12) 500 MCG TABLET PO SCH (20:17)
[2022-12-06] MEDS: FOLIC ACID 1 MG TAB PO SCH (20:17)
[2022-12-06] MEDS: ATORVASTATIN 40 MG TAB PO SCH (20:18)
[2022-12-06] MEDS: LOSARTAN POTASSIUM 25 MG TAB PO SCH (20:19)
[2022-12-07 06:23] LABS: Hematocrit (blood only) 39.2 % (42.0-52.0); Hemoglobin 13.5 g/dl (14.0-18.0); Mean Corpuscular Hemoglobin 32.2 pg (25.0-34.0); Mean Corpuscular Hgb Conc 34.4 g/dL (32.0-36.0); Mean Corpuscular Volume 93.6 fL (80.0-100.0); Mean Platelet Volume 10.5 fL (9.4-12.4); Platelet Count 179 K/uL (130-400); RDW Coefficient of Variation 12.4 % (11.5-14.5); RDW Standard Deviation 42.5 fL (36.4-46.3); Red Blood Count 4.19 M/uL (4.70-6.10); White Blood Count 5.57 K/ul (4.8-10.8)
--- NOTE | 2022-12-07 07:23 | Cardiology Progress Note ---
Date of Service December 07, 2022 Assessment & Plan (1) Syncope and collapse: (2) Aortic stenosis: (3) Elevated troponin: (4) CAD (coronary artery disease): (5) HTN (hypertension): Plan IMPRESSION: 77 year old male who initially presented to [facility] after a syncopal episode, possibly orthostatic mediated. Echo revealing stable moderate aortic stenosis, velocities of 330s and a valve area of 1.0. When compared to his DSE in 2019 there was mild progression in his velocities however still within the moderate range HS troponins chronically mildly elevated and flat- not indicative of ACS. Telemetry has been unremarkable. PLAN: Recommend treatment of underlying co-morbidities. Agree with restarting home dose of Losartan 25 mg daily- titrate as BP allows. Restart ASA 81 mg daily and Statin given history of nonobstructive CAD. Will complete Dobutamine stress echo rule out ischemic cause to his syncope and low stamina/weakness. Will also assess AV gradients with exertion/stress. Blood cultures ordered to rule out sepsis as a possible cause to his generalized malaise- Pending. Case discussed with Dr. Harp. Admission and Anticipated Discharge Date Admission Date: December 05, 2022 Supervising Physician Co-Signing Physician Notes Patient seen and personally examined. No acute complaints other than malaise. No arrhythmias on telemetry Plan as above Dobutamine stress test today negative for ischemia with appropriate heart rate and blood pressure response. Aortic valve moderate to severe aortic stenosis We will make arrangements for cardiology follow-up posthospital discharge Subjective 77-year-old male who initially presented to [facility] after a progressive weakness and a syncopal episode. He has known stable moderate aortic stenosis with velocities in the 330s on recent echo. Patient stopped taking his medications quite some time ago and was hypertensive on presentation. 12/06: Home medications restarted including losartan, aspirin, and statin therapy. Blood cultures ordered to rule out sepsis-pending. Was seen by psychiatry due to depression. Bupropion was started. 12/07: Upon entrance into the room patient sitting up in bed eating breakfast. Not feeling well this morning- notes ongoing weakness and generalized malaise. No chest pain or shortness of breath. No palpitations. No recurrent syncope. Ambulates with assistance of a walker. Telemetry: NSR 60s Review of Systems Review of Systems: All systems reviewed & are unremarkable except as noted in HPI & below Physical Exam Constitutional: WD/WN, vitals as above no acute distress Eyes: PERRL, conjunctivae normal, anicteric sclerae Neck: normal visual inspection Respiratory: normal respiratory effort, lungs clear to auscultation Cardiovascular: Rate/Rhythm: regular rate and regular rhythm Heart Sounds: normal S1, normal S2 and + murmur (+2/6 systolic) Vessels: no JVD Extremities: no edema Gastrointestinal (Abdomen): normal bowel sounds, soft, nontender, no hepatosplenomegaly Skin: no rashes, warm and dry Psychiatric: A+Ox3, euthymic affect Results & Data Vital Signs (Past 12 Hours) Vital Signs Temp Pulse Resp BP Pulse Ox O2 Del Method 12/07/22 04:44 36.4 C L 58 L 18 149/78 H 96 Room Air 12/07/22 01:35 37.0 C 60 18 132/80 95 Room Air 12/06/22 20:10 36.7 C 65 16 135/71 96 Room Air Laboratory Results CBC 12/06/22 12/07/22 Range/Units 08:56 06:10 WBC 4.63 L 5.57 (4.8-10.8) K/ul RBC 4.23 L 4.19 L (4.70-6.10) M/uL Hgb 13.6 L 13.5 L (14.0-18.0) g/dl Hct 39.2 L 39.2 L (42.0-52.0) % Plt Count 175 179 (130-400) K/uL Neut # (Auto) 2.50 (1.40-6.50) K/uL Lymph # (Auto) 1.39 (1.2-3.4) K/uL [place] # (Auto) 0.45 (0.11-0.59) K/uL Eos # (Auto) 0.22 (0-0.50) K/uL Baso # (Auto) 0.05 (0-0.2) K/uL Comprehensive Metabolic Panel 12/06/22 12/07/22 Range/Units 08:56 06:10 Sodium 137 138 (136-145) mmol/L Potassium 4.0 4.2 (3.5-5.1) mmol/L Chloride 106 107 (98-107) mmol/L Carbon Dioxide 25 24 (21-32) mmol/L BUN 19 25 H (6-23) mg/dl Creatinine 0.90 0.99 (0.6-1.4) mg/dl Glucose 199 H 152 H (70-99(Fasting)) mg/dl Calcium 9.0 9.1 (8.6-10.3) mg/dl Intake and Output 12/06/22 12/07/22 12/07/22 22:59 06:59 14:59 Intake Total 395 / 645 Balance 395 / 645 Intake: Oral 395 / 645 Other: Other Intake Source SIPS # Unmeasured Voids 1 Weight 103 kg Weight Measurement Method Built in [facility]
[2022-12-07 07:27] LABS: Calcium 9.1 mg/dl (8.6-10.3); Magnesium 1.9 mg/dl (1.7-2.4); Potassium 4.2 mmol/L (3.5-5.1)
[2022-12-07 07:45] LABS: BUN Creatinine Ratio 25.3 (10-20); Creatinine Clr Calc Pharmacy 73.9 ml/min; Est GFR (African American) 83.6 ml/min; Est GFR (Non-African American) 72.1 ml/min; Phosphorus 4.5 mg/dl (2.5-4.9)
[2022-12-07] MEDS: INSULIN ASPART PER UNIT CHARGE SC SCH ×4 (08:27→20:36)
[2022-12-07] MEDS: ASPIRIN 81 MG ECTAB PO SCH (08:28)
[2022-12-07] MEDS: CYANOCOBALAMIN (B-12) 500 MCG TABLET PO SCH (08:28)
[2022-12-07] MEDS: FOLIC ACID 1 MG TAB PO SCH (08:28)
[2022-12-07] MEDS: buPROPion XL 300 MG TABCR PO SCH (08:28)
[2022-12-07] MEDS: CEROVITE ADV FORMULA TAB PO SCH (08:28)
[2022-12-07] MEDS: ENOXAPARIN INJ 40 MG/0.4 ML SYR SQ SCH (08:29)
[2022-12-07] MEDS ORDERED: METOPROLOL TARTRATE 1 MG/ML VIAL IV ONE (10:04)
[2022-12-07] MEDS ORDERED: ATROPINE SULFATE 0.1 MG/ML 10ML SYR IV ONE (10:04)
[2022-12-07] MEDS ORDERED: DOBUTamine HCL 12.5 MG/ML 20 ML VIAL IV ONE (10:04)
[2022-12-07] MEDS ORDERED: NITROGLYCERIN SL 0.4 MG/TAB TAB ONE (10:09)
[2022-12-07] MEDS ORDERED: PERFLUTREN LIPID MICROSPHERE (DEFINITY) IV ONE (11:20)
--- NOTE | 2022-12-07 15:08 | Hospitalist Progress Note ---
Date of Service December 07, 2022 Assessment & Plan (1) Weakness: Plan: 77 y/o male with a PMH of CAD, DM2, dyslipidemia, HTN, COPD, GERD, aortic stenosis, ascending aortic aneurysm, and prior CVA who presents to the ED after collapsing due to progressive weakness and fatigue over the last several days - and walking 3 miles to his GF's son house. Pt denies LOC/syncopal event, chest pain, palpitations, AARON. He does have a history of medical noncompliance and reports that he is currently not taking any of his medications as ordered. 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 He does not routinely check his blood glucose at home so he is unsure how his sugars have been recently. He notes worsening of chronic issues with rectal bleeding and is overdue for a colonoscopy with tubular adenomas noted on prior scope. No significant anemia on labs in the ED. - PCU - to monitor for arrhythmia - troponin checked, echo obtained and cardiology consulted - ECHO due to history of aortic stenosis, ascending aortic aneurysm Echo -LV is normal in size. Moderate concentric LVH. LV wall motion is normal. EF 65 to 70%. Aortic valve is trileaflet. Aortic valve leaflets are moderately calcified and moderately restricted mobility. Moderate valvular aortic stenosis. Grade 1 diastolic dysfunction. Cardiology consulted - Restart ASA 81 mg daily and Statin given history of nonobstructive CAD. Losartan 25 mg daily- titrate as BP allows. 12/07 -patient underwent dobutamine stress echo today. Dobutamine stress test today negative for ischemia with appropriate heart rate and blood pressure response. Aortic valve moderate to severe aortic stenosis We will make arrangements for cardiology follow-up posthospital discharge - FOBT ordered- if positive, consider GI consult inpatient. If negative, will need close f/u outpatient for colonoscopy as overdue for repeat from last scope. Hgb stable in the hospital. - PT/OT evaluations, fall precautions (2) Aortic stenosis: Plan: echo, cardiology consult as above (3) Elevated troponin: Plan: echo, cardiology consult as above (4) Diabetes: Plan: Not taking diabetic meds at present or checking blood sugars. Last A1c in Apr 2022 was 6.9 - Insulin sliding scale - Diabetic diet - BSG ACHS - A1c 6.4% (5) Dyslipidemia: Plan: Lipid panel obtained, lipitor restarted Suicidal statements -Patient made some suicidal statements when speaking to window caser -Psychiatry consultation was requested -Patient denies any SI, bupropion was restarted -Patient deficient in vitamin B12, folic acid, vitamin D which can possibly contribute to depression-supplements started (6) COPD, mild: (7) HTN (hypertension): (8) CAD (coronary artery disease): Plan Code Status: Full code DVT prophylaxis: Lovenox Admission and Anticipated Discharge Date Admission Date: December 05, 2022 Subjective 77-year-old man with progressive memory issues per his son presents after a syncopal episode after a significant 3 mile walk Pt's girlfriend Melonie had a stroke recently and is living with her son, pt was v isiting her Reports he is not driving but does have a license Reports that friends and extended family do help him get groceries and food Son, Julio is very concerned that dad has progressive signs of dementia Julio is more comfortable with office of aging doing a home assessment prior to his dad returning home to ensure the home is safe and kept up. Julio is also interested in additional services that may be available by Rachelle from office of aging based on dad's health declining. CM aware and involved. Today pt reports not feeling as good as yesterday. Underwent stress test earlier today with cardiology. Denies any chest pain or trouble breathing or other symptoms at this time. He made suicidal comments to CM yesterday and psychiatry was consulted. Review of Systems Review of Systems: All systems reviewed & are unremarkable except as noted in Subjective Physical Exam Physical Exam: Constitutional:L well developed and well nourished; n o acute distress Eyes: + anicteric sclera e ENMT: external ear and n ose normal, oropha rynx normal Neck: trachea midline, n george supple Respiratory: no respiratory dis tress and no labor ed breathing Ausc ultation: lungs cl ear to auscultatio n bilaterally; no rales, no rhonchi and no wheezes Cardiovascular:L Rate/Rhythm: regul ar rate and regula r rhythm Heart So unds: + murmur, n o LE edema Gastrointestinal ( Abdomen): Inspection/Auscult ation: normal yecenia l sounds; abdomen not distended Per cussion/Palpation: abdomen soft; abd omen nontender Musculoskeletal: Head/Neck/Chest: n ormocephalic, head atraumatic and ne ck supple Skin: warm, dry Neurologic: awake alert, not o riented, speech fl uent, moves all ex tremities Psychiatric: A+Ox3, euthymic af fect Results & Data Results & Data Vital Signs (Past 12 Hours) Vital Signs Temp Pulse Pulse Resp BP Pulse Ox O2 Del Method 12/07/22 11:49 36.8 C 54 L 19 110/70 96 Room Air 12/07/22 08:20 36.8 C 66 20 109/64 94 Room Air 12/07/22 07:56 57 L 12/07/22 04:44 36.4 C L 58 L 18 149/78 H 96 Room Air Laboratory Results 12/07/22 12/07/22 12/07/22 Range/Units 11:37 07:48 06:10 WBC (4.8-10.8) K/ul RBC (4.70-6.10) M/uL Hgb (14.0-18.0) g/dl Hct (42.0-52.0) % MCV (80.0-100.0) fL MCH (25.0-34.0) pg MCHC (32.0-36.0) g/dL RDW Std Deviation (36.4-46.3) fL RDW Coeff of Harry (11.5-14.5) % Plt Count (130-400) K/uL MPV (9.4-12.4) fL Sodium 138 (136-145) mmol/L Potassium 4.2 (3.5-5.1) mmol/L Chloride 107 (98-107) mmol/L Carbon Dioxide 24 (21-32) mmol/L Anion Gap 7 (3-11) BUN 25 H (6-23) mg/dl Creatinine 0.99 (0.6-1.4) mg/dl Est Cr Clr Drug Dosing 73.9 ml/min Est GFR ( Amer) 83.6 ml/min Est GFR (Non-Af Amer) 72.1 ml/min BUN/Creatinine Ratio 25.3 H (10-20) Glucose 152 H (70-99(Fasting)) mg/dl POC Glucose 118 H 132 H (70-99) mg/dl Calcium 9.1 (8.6-10.3) mg/dl Phosphorus 4.5 D (2.5-4.9) mg/dl Magnesium 1.9 (1.7-2.4) mg/dl 12/07/22 12/06/22 12/06/22 Range/Units 06:10 20:08 16:51 WBC 5.57 (4.8-10.8) K/ul RBC 4.19 L (4.70-6.10) M/uL Hgb 13.5 L (14.0-18.0) g/dl Hct 39.2 L (42.0-52.0) % MCV 93.6 (80.0-100.0) fL MCH 32.2 (25.0-34.0) pg MCHC 34.4 (32.0-36.0) g/dL RDW Std Deviation 42.5 (36.4-46.3) fL RDW Coeff of Harry 12.4 (11.5-14.5) % Plt Count 179 (130-400) K/uL MPV 10.5 (9.4-12.4) fL Sodium (136-145) mmol/L Potassium (3.5-5.1) mmol/L Chloride (98-107) mmol/L Carbon Dioxide (21-32) mmol/L Anion Gap (3-11) BUN (6-23) mg/dl Creatinine (0.6-1.4) mg/dl Est Cr Clr Drug Dosing ml/min Est GFR ( Amer) ml/min Est GFR (Non-Af Amer) ml/min BUN/Creatinine Ratio (10-20) Glucose (70-99(Fasting)) mg/dl POC Glucose 107 H 110 H (70-99) mg/dl Calcium (8.6-10.3) mg/dl Phosphorus (2.5-4.9) mg/dl Magnesium (1.7-2.4) mg/dl Medications Administered Current Inpatient Medications Acetaminophen (Acetaminophen 325 Mg Tab) 650 mg PO Q4H PRN PRN Reason: Pain or Fever Stop: 01/03/23 16:56 Aspirin (Aspirin 81 Mg Ectab) 81 mg PO QA [facility] Stop: 01/06/23 08:59 Last Admin: 12/07/22 08:28 Dose: 81 mg Atorvastatin Calcium (Atorvastatin 40 Mg Tab) 80 mg PO HS [facility] Stop: 01/05/23 20:59 Last Admin: 12/06/22 20:18 Dose: 80 mg Bupropion HCl ([facility]ropion Xl 300 Mg Tabcr) [facility] Stop: 01/06/23 08:59 Last Admin: 12/07/22 08:28 Dose: 300 mg Cyanocobalamin (Cyanocobalamin (B-12) 500 Mcg Tablet) 1,000 mcg PO QAM [facility] Stop: 01/05/23 18:29 Last Admin: 12/07/22 08:28 Dose: 1,000 mcg Dextrose (Dextrose 50% 50 Ml Syringe) 25 - 50 ml IV UD PRN; Protocol PRN Reason: Hypoglycemia Protocol Stop: 01/03/23 16:56 Enoxaparin Sodium (Enoxaparin Inj 40 Mg/0.4 Ml Syr) 40 [facility] Stop: 01/04/23 08:59 Last Admin: 12/07/22 08:29 Dose: 40 mg Ergocalciferol (Ergocalciferol 50,000 Units 1250 Mcg Cap) 50,000 units PO Q7D@0900 [facility] Stop: 01/05/23 18:29 Last Admin: 12/06/22 20:18 Dose: 50,000 units Folic Acid (Folic Acid 1 Mg Tab) [facility] Stop: 01/05/23 18:29 Last Admin: 12/07/22 08:28 Dose: 1 mg Glucagon (Glucagon For Inj 1 Mg Vial) 1 mg SQ UD PRN; Protocol PRN Reason: Hypoglycemia Protocol Stop: 01/03/23 16:56 Glucose (Glucose 10 Tab/Tube) 4 - 8 tab PO UD PRN; Protocol PRN Reason: Hypoglycemia Treatment Stop: 01/03/23 16:56 Glucose (Glucose 40% Gel 15 Gm Tube) 15 - 30 gm PO UD PRN; Protocol PRN Reason: Hypoglycemia Protocol Stop: 01/03/23 16:56 Insulin Aspart (Insulin Aspart Per Unit Charge) 0 units SC ACHS [facility] Stop: 01/03/23 20:59 Last Admin: 12/07/22 12:08 Dose: 5 units Losartan Potassium (Losartan Potassium 25 Mg Tab) 25 mg PO HS [facility] Stop: 01/03/23 20:59 Last Admin: 12/06/22 20:19 Dose: 25 mg Miscellaneous (Carbohydrates For Hypoglycemia ) 15 - 30 gm PO UD PRN PRN Reason: Hypoglycemia Protocol Stop: 01/03/23 16:56 Multivitamins/Minerals (Cerovite Adv Formula Tab) 1 tab PO QAM [facility] Stop: 01/06/23 08:59 Last Admin: 12/07/22 08:28 Dose: 1 tab (4) Diabetes Diabetes mellitus complication status: without complication Diabetes mellitus fpc insulin use: without fpc use Diabetes mellitus type: type 2 Qualified Code(s): E11.9 - Type 2 diabetes mellitus without complications
[2022-12-07] MEDS: ATORVASTATIN 40 MG TAB PO SCH (21:40)
[2022-12-07] MEDS: LOSARTAN POTASSIUM 25 MG TAB PO SCH (21:40)
--- NOTE | 2022-12-08 05:57 | Electrocardiogram Report ---
Test Reason : Blood Pressure : / mmHG Vent. Rate : 061 BPM Atrial Rate : 061 BPM P-R Int : 208 ms QRS Dur : 124 ms QT Int : 416 ms P-R-T Axes : -13 -52 -04 degrees QTc Int : 418 ms Normal sinus rhythm with sinus arrhythmia Left anterior fascicular block Left ventricular hypertrophy with QRS widening Poor R wave progression, consider anterior WA vs. lead placement vs. LVH Abnormal ECG When compared with ECG of 04-DEC-2022 12:37, Premature supraventricular complexes are no longer Present Confirmed by Jacek Lock ([id number]) on 12/08/2022 5:56:37 AM Referred By: REFERRED SELF Confirmed By:Jacek Lock
[2022-12-08] MEDS: INSULIN ASPART PER UNIT CHARGE SC SCH ×2 (09:03→12:52)
[2022-12-08] MEDS: ASPIRIN 81 MG ECTAB PO SCH (09:04)
[2022-12-08] MEDS: buPROPion XL 300 MG TABCR PO SCH (09:04)
[2022-12-08] MEDS: CYANOCOBALAMIN (B-12) 500 MCG TABLET PO SCH (09:04)
[2022-12-08] MEDS: CEROVITE ADV FORMULA TAB PO SCH (09:04)
[2022-12-08] MEDS: FOLIC ACID 1 MG TAB PO SCH (09:04)
[2022-12-08] MEDS: ENOXAPARIN INJ 40 MG/0.4 ML SYR SQ SCH (09:05)
[2022-12-08 11:04] LABS: Magnesium 1.8 mg/dl (1.7-2.4); Potassium 3.9 mmol/L (3.5-5.1)
[2022-12-08 11:09] LABS: BUN Creatinine Ratio 27.1 (10-20); Creatinine Clr Calc Pharmacy 68.3 ml/min; Est GFR (African American) 76.1 ml/min; Est GFR (Non-African American) 65.7 ml/min; Phosphorus 4.4 mg/dl (2.5-4.9)
--- NOTE | 2022-12-08 15:34 | Discharge Summary ---
Date of Service December 08, 2022 Admission HPI Per Admitting Provider This is a 77 y/o male with a PMH of CAD, DM2, dyslipidemia, HTN, COPD, GERD, aortic stenosis, ascending aortic aneurysm, and prior CVA who presents to the ED after collapsing today. Initially, this was thought to be a syncopal event but upon further questioning, pt reports that he had just walked a significant distance and became very weak and collapsed to the ground but did not lose consciousness. He did not hit his head when he fell but did require assistance to get back up. He reports not feeling well for the last several days but cannot specify a specific complaint other than malaise and fatigue. He denies chest pain, palpitations, SOB, AARON, IRIZARRY, dizziness, weight loss, abd pain, N/V. His appetite is good. He does report blood in stools but states that this is an ongoing issues x years. Last colonoscopy in 2019 reviewed three 3-7 mm polyps, sigmoid diverticulosis, tattoo at prior polypectomy scar. Pathology c/w tubular adenomas. Pt was supposed to have a repeat scope in one year but has not fol lowed up. He denies fevers, chills, dysuria, hematuria, dark urine. 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 He feels like he is having more trouble functioning on his own at home, particularly with the recent increased fatigue and weakness. He notes that he is not currently taking any of his medications including not taking the aspirin or inhalers. He does not check his blood sugars at home. He would be open to a discussion about restarting at least some of his medications. His outpatient med list was entered into [employer] for reference. Last A1c in 04/22 - 6.9. Admission Exam Per Admitting Provider Constitutional: well developed and well nourished; no acute distress Eyes: + anicteric sclerae ENMT: external ear and nose normal, oropharynx normal Neck: trachea midline Respiratory: no respiratory distress and no labored breathing Auscultation: l ungs clear to auscultation bilaterally; no rales, no rhonchi and no wheezes Cardiovascular: Rate/Rhythm: regular rate and regular rhythm Heart Sounds: + murmur Vessels: radial pulses present Extremities: no pedal edema Gastrointestinal (Abdomen): Inspection/Auscultation: normal bowel sounds; abdomen not distended Percussion/Palpation: abdomen soft; abdomen nontender Musculoskeletal: Head/Neck/Chest: normocephalic, head atraumatic and neck supple Skin: no jaundice Neurologic: moves all extremities; no focal motor deficits Psychiatric: A+Ox3, euthymic affect Principal Diagnosis Weakness, fall Aortic stenosis Discharge Exam Constitutional: well developed and well nourished; no acute distress Eyes: + anicteric sclerae ENMT: external ear and nose normal, oropharynx normal Neck: trachea midline, neck supple Respiratory: no respiratory distress and no labored breathing Auscultation: lungs clear to auscultation bilaterally; no rales, no rhonchi and no wheezes Cardiovascular: Rate/Rhythm: regular rate and regular rhythm Heart Sounds: + murmur, no LE edema Gastrointestinal (Abdomen): Inspection/Auscultation: normal bowel sounds; abdomen not distended Percussion/Palpation: abdomen soft; abdomen nontender Musculoskeletal: Head/Neck/Chest: normocephalic, head atraumatic and neck supple Skin: warm, dry Neurologic: awake alert, not oriented, speech fluent, moves all extremities Psychiatric: A+Ox3, euthymic affect Discharge Data Allergies Allergy/AdvReac Type Severity Reaction Status Date / Time codeine Allergy Intermediate HALLUCINATI Verified 12/04/22 12:55 ONS ezetimibe Allergy Intermediate HIVES Verified 12/04/22 12:55 pantoprazole Allergy Intermediate HIVES Verified 12/04/22 12:55 lisinopril AdvReac Intermediate cough Verified 12/04/22 12:55 Consultations 12/04/22 14:42 ED Decision to Admit Stat 12/05/22 08:34 Consult Podiatry Routine 12/05/22 18:00 Consult Cardiology Routine 12/06/22 12:04 Consult Psychiatry Routine Ordered Studies 12/04/22 12:33 CT head/brain wo con Stat FINDINGS: Brain parenchyma: There is age-related involutional change noting moderate subcortical and periventricular microangiopathic disease. There is no hemorrhage, mass effect, or evidence of acute territorial ischemia by CT criteria. A 5 cm arachnoid cyst is again seen in the left temporal fossa. Jose- white matter differentiation is preserved. No extra-axial fluid collection is seen. Scattered parenchymal calcifications are similar to previous. A small chronic infarct is noted in the left cerebellar hemisphere. Ventricles, sulci, cisterns: Prominent secondary to involutional change. Intracranial vasculature: There is atherosclerotic calcification of the cavernous carotid and vertebral arteries. Calvarium: Unremarkable. Sinuses and mastoids: The visualized paranasal sinuses are clear. The mastoid air cells are well pneumatized. Cerumen is noted in the external auditory can als. Orbits: The bony orbits are grossly intact. IMPRESSION: There is no hemorrhage, mass effect, or evidence of acute territorial ischemia by CT criteria. Hospital Course (1) Weakness: 77 y/o male with a PMH of CAD, DM2, dyslipidemia, HTN, COPD, GERD, aortic stenosis, ascending aortic aneurysm, and prior CVA who presents to the ED after collapsing due to progressive weakness and fatigue over the last several days - and walking 3 miles to his GF's son house. Pt denies LOC/syncopal event, chest pain, palpitations, AARON. He does have a history of medical noncompliance and reports that he is currently not taking any of his medications as ordered. 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 He does not routinely check his blood glucose at home so he is unsure how his sugars have been recently. He notes worsening of chronic issues with rectal bleeding and is overdue for a colonoscopy with tubular adenomas noted on prior scope. No significant anemia on labs in the ED. - PCU - to monitor for arrhythmia - troponin checked, echo obtained and cardiology consulted - ECHO due to history of aortic stenosis, ascending aortic aneurysm Echo -LV is normal in size. Moderate concentric LVH. LV wall motion is normal. EF 65 to 70%. Aortic valve is trileaflet. Aortic valve leaflets are moderately calcified and moderately restricted mobility. Moderate valvular aortic stenosis. Grade 1 diastolic dysfunction. Cardiology consulted - Restart ASA 81 mg daily and Statin given history of nonobstructive CAD. Losartan 25 mg daily- titrate as BP allows. 12/07 -patient underwent dobutamine stress echo today. Dobutamine stress test today negative for ischemia with appropriate heart rate and blood pressure response. Aortic valve moderate to severe aortic stenosis We will make arrangements for cardiology follow-up posthospital discharge - FOBT ordered but uncollected . Hgb stable in the hospital. Follow up outpatient for colonoscopy as overdue for repeat from last scope. - PT/OT evaluations, fall precautions Home health arranged by case management. (2) Aortic stenosis: echo, cardiology consult as above (3) Elevated troponin: echo, cardiology consult as above (4) Diabetes: Not taking diabetic meds at present or checking blood sugars. Last A1c in Apr 2022 was 6.9 - Insulin sliding scale - Diabetic diet - BSG ACHS - A1c 6.4% - Follow up w/ PCP (5) Dyslipidemia: Lipid panel obtained, lipitor restarted Suicidal statements/Depression -Patient made some suicidal statements when speaking to continuous pillowcase cutter -Psychiatry consultation was requested -Patient denies any SI, bupropion was restarted -Patient deficient in vitamin B12, folic acid, vitamin D which can possibly contribute to depression-supplements started (6) COPD, mild: (7) HTN (hypertension): (8) CAD (coronary artery disease): Total Time Total Time Spent Total Time Spent (In Minutes): 40 Discharge Plan Discharge Items Patient Disposition: Home - Home Health Services Reason For Visit: WEAKNESS, FALL Discharge Diagnosis: Weakness, fall Aortic stenosis Activity: Per Instructions section Non-emergency contact: Primary Care Provider and Clean Rice Grader And Reel Tender Call non-emergency contact if: you have any medication questions Follow-up/Referrals: Julius Werner MD [Primary Care Provider] - (Date & Time 12/13/2022 10:40 AM Provider Cristal Christian MD Department General Internal Medicine [facility] ) Daphney Ayala CRNP [Nurse Practitioner] - (Date & Time 01/12/2023 11:30 AM Provider CICI Lezama Department Cardiology, [facility] ) Diet: Carb Consistent or DM2 and Heart Healthy Addtl Attending Provider Instructions: Follow-up with 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 The appointment with your primary care doctor was scheduled for you for December 13. You were seen by cardiology here, and management of your heart disease and aortic stenosis was discussed. Your heart medications were restarted. Take aspirin 81 mg daily, losartan 25 mg daily, atorvastatin 80 mg nightly. In addition, take supplements such as vitamin D 50,000 units weekly, vitamin B12, and folic acid. You were also seen by psychiatrist, and bupropion was restarted. Home health was arranged for you by our case management. Further discuss all your medications with your primary care doctor at your next appointment. Pending Studies at Discharge: No Stand-Alone Forms: My [facility] [employer], Smoking Cessation Medications and DC Order Prescriptions: New aspirin 81 mg Tablet,Delayed Release (Dr/Ec) 81 mg PO QAM Qty: 30 0RF atorvastatin 40 mg Tablet 80 mg PO HS Qty: 30 0RF losartan 25 mg Tablet 25 mg PO HS Qty: 30 0RF cyanocobalamin (vitamin B-12) 500 mcg Tablet 1,000 mcg PO QAM Qty: 30 0RF ergocalciferol (vitamin D2) 1,250 mcg (50,000 unit) Capsule 50,000 unit PO Q7D Qty: 4 0RF folic acid 1 mg Tablet 1 mg PO QAM Qty: 30 0RF Cerovite Senior 0.4 mg-300 mcg- 250 mcg Tablet 1 tab PO QAM Qty: 30 0RF bupropion HCl 300 mg Tablet Extended Release 24 Hr 300 mg PO QAM Qty: 30 0RF Continued aspirin 81 mg Tablet,Chewable 81 mg PO DAILY atorvastatin 80 mg tablet 80 mg PO DAILY bupropion HCl 150 mg tablet extended release 24 hr 300 mg PO DAILY Discontinued fluticasone propion-salmeterol [Advair Diskus] 250-50 mcg/dose Blister With Device 1 inh INHALATION BID nitroglycerin 0.4 mg tablet, sublingual 0.4 mg sublingual DIRECTED PRN (Reason: Chest Pain) albuterol sulfate 90 mcg/actuation HFA aerosol inhaler 1 inh INHALATION Q4H PRN (Reason: sob) metformin 500 mg tablet extended release 24 hr 500 mg PO DAILYBD Spiriva Respimat 2.5 mcg/actuation mist 2 inh INHALATION DAILY Discharge Orders: Discharge Order (Routine); Ordered 12/08/22 Ordered By: Jeffy Triplett/Other Patient Handouts: High Blood Sugar (Hyperglycemia), Hypoglycemia (Low Blood Sugar), Managing Type 2 Diabetes, Diabetes: Meal Planning Admission Data Admit Date/Time: 12/05/22 17:59 Attending Provider: Jeffy Lehman Admit Provider: Donato Laura Primary Care Provider: Julius Werner Other Providers: Donato Laura ; Roland Bowles ; Freddy Harp ; Marcella Fish ; Nuzhat Lanza ; Tiffany Brantley ; Luis Contreras ; [facility],Home Healthcare ; [facility],Home Health
== END 2022-12-08 17:47 | disposition home health service (06) | DRG 312 ==
LOC: 4W 12:02 → ED 12:02 → SUATTDRO 15:20 → 4W 16:27 → SUATTDRO 12-05 17:59

== ENCOUNTER 2022-12-10 12:13 | Inpatient (IN) ==
[2022-12-10 13:02] LABS: Appearance Urine Clear (Clear); Bacteria Urine Automated Negative (Negative); Basophils # (auto) 0.06 K/uL (0-0.2); Basophils % (auto) 1.1 %; Bilirubin Urine Negative (Negative); Blood Urine Negative (Negative); Cast Urine Automated 0 /lpf (0-5); Color Urine Yellow; Eosinophils % (auto) 3.5 %; Glucose Urine UA Negative (Negative); Hematocrit (blood only) 42.7 % (42.0-52.0); Immature Granulocytes # (auto) 0.01 K/uL (0.01-0.20); Immature Granulocytes % (auto) 0.2 %; Ketones Urine Negative (Negative); Leukocyte Esterase Urine 2+ (Negative); Lymphocytes # (auto) 1.66 K/uL (1.2-3.4); Lymphocytes % (auto) 29.1 %; Mean Corpuscular Hemoglobin 32.1 pg (25.0-34.0); Mean Corpuscular Hgb Conc 35.1 g/dL (32.0-36.0); Mean Corpuscular Volume 91.4 fL (80.0-100.0); Mean Platelet Volume 10.2 fL (9.4-12.4); Monocytes # (auto) 0.54 K/uL (0.11-0.59); Monocytes % (auto) 9.5 %; Neutrophils # (auto) 3.23 K/uL (1.40-6.50); Neutrophils % (auto) 56.6 %; Nitrite Urine Negative (Negative); Platelet Count 210 K/uL (130-400); Protein Urine Negative (Negative); RBC Urine Automated 0-4 /hpf (0-4); RDW Coefficient of Variation 12.5 % (11.5-14.5); RDW Standard Deviation 41.5 fL (36.4-46.3); Red Blood Count 4.67 M/uL (4.70-6.10); Specific Gravity Urine 1.006 (1.000-1.030); Urobilinogen Urine Negative (Negative); pH Urine 6.5 (4.5-7.5)
--- NOTE | 2022-12-10 13:13 | XRay Report ---
XR chest 1V portable CLINICAL HISTORY: abd pain coughing up blood TECHNIQUE: Single frontal radiograph of the chest was obtained. Comparison: Comparison is made to chest radiograph 12/04/2022 FINDINGS: No lines and tubes are seen. The cardiomediastinal silhouette is normal. The lungs are clear. Calcifi ed granuloma is seen in the left lower lung. No evidence of pleural effusion or pneumothorax. IMPRESSION: No acute chest disease. ACT 112: Negative or not required by law. Electronically signed by: Cj Pinto M.D. 12/10/2022 1:12 PM
[2022-12-10 13:17] LABS: BUN Creatinine Ratio 15.1 (10-20); Bilirubin Direct 0.2 mg/dl (0-0.2); Calcium 9.2 mg/dl (8.6-10.3); Creatinine Clr Calc Pharmacy 78.8 ml/min; Est GFR (African American) 90.2 ml/min; Est GFR (Non-African American) 77.8 ml/min; Magnesium 1.9 mg/dl (1.7-2.4); Total Protein 6.8 gm/dl (6.0-8.3)
[2022-12-10] MEDS ORDERED: OPTIRAY 320 500ml IV ONE (13:18)
--- NOTE | 2022-12-10 13:43 | CT Scan Report ---
CT angio chest PE protocol CLINICAL HISTORY: abd pain coughing up blood TECHNIQUE: Multidetector row helical CT of the chest was performed with angiographic protocol. Kiran l and sagittal reformations were obtained. Coronal and sagittal MIPS were obtained from the axial beth a set and were submitted for review. Automated dose lowering techniques and/or adjustment according to patient size were utilized for this exam. CT DOSE: 2200.61 mGy.cm Comparison: Comparison is made to CT chest 08/19/2022 FINDINGS: Lungs and pleura: Calcified granulomata are seen. A few punctate nodules are stable. Heart and pericardium: Heart size is normal. No pericardial effusion. Vessels: No evidence of pulmonary embolism. Mediastinum and mariano: Scattered partially calcified lymph nodes are seen. Chest wall and lower neck: Unremarkable. Abdomen: Unremarkable. Bones: Degenerative changes in the thoracic spine. IMPRESSION: No pulmonary embolus is seen. No acute abnormalities. ACT 112: Negative or not required by law. Electronically signed by: Cj Pinto M.D. 12/10/2022 1:41 PM
[2022-12-10 13:50] LABS: Adenovirus PCR Not Detected (NotDetected); Bordetella parapertussis PCR Not Detected (NotDetected); Bordetella pertussis PCR Not Detected (NotDetected); Chlamydia pneumoniae PCR Not Detected (NotDetected); Coronavirus 229E PCR Not Detected (NotDetected); Coronavirus CoV-2 (COVID19)PCR Not Detected (NotDetected); Coronavirus HKU1 PCR Not Detected (NotDetected); Coronavirus NL63 PCR Not Detected (NotDetected); Coronavirus OC43PCR Not Detected (NotDetected); Human Metapneumovirus PCR Not Detected (NotDetected); Influenza A PCR Not Detected (NotDetected); Influenza B PCR Not Detected (NotDetected); Mycoplasma pneumoniae PCR Not Detected (NotDetected); Parainfluenza Virus 1 PCR Not Detected (NotDetected); Parainfluenza Virus 2 PCR Not Detected (NotDetected); Parainfluenza Virus 3 PCR Not Detected (NotDetected); Parainfluenza Virus 4 PCR Not Detected (NotDetected); Respiratory Syncytial VirusPCR Not Detected (NotDetected); Rhinovirus/Enterovirus PCR Not Detected (NotDetected)
--- NOTE | 2022-12-10 14:00 | CT Scan Report ---
CT abd pelvis IV con only CLINICAL HISTORY: abd pain coughing up blood TECHNIQUE: Helical axial images of the abdomen and pelvis were obtained and displayed. Automated dose lowering techniques and/or adjustment according to patient size were utilized for this exam. This e xam was performed with intravenous contrast. COMPARISON: Comparison is made to CT abdomen pelvis 08/19/2022 FINDINGS: Lower chest: Bibasilar atelectasis versus scarring is seen. Liver: Unremarkable. No focal lesions are seen. Gallbladder and biliary tree: No calcified gallstones. Normal caliber wall. No intra- or extrahepatic biliary ductal dilation. Pancreas: Unremarkable, no focal lesions. Spleen: Unremarkable. Adrenals: Unremarkable. Kidneys and ureters: Multiple cysts are seen. Bladder: Diffuse homogeneous wall thickening is seen. Reproductive organs: Unremarkable. Bowel: A hiatal hernia is seen. The appendix is normal. Diverticulosis is seen without evidence of di verticulitis. Lymph nodes Retroperitoneal: Unremarkable. Pelvic: Unremarkable. Mesenteric: Unremarkable. Peritoneum: Normal. Vessels: Unremarkable. Abdominal wall: Postsurgical changes are seen in the umbilicus compatible with hernia repair. Bones: Degenerative changes in the visualized spine. IMPRESSION: No acute abnormalities. Diverticulosis is seen without evidence of diverticulitis. Bladder wall thick ening may be secondary to chronic outlet obstruction. ACT 112: Negative or not required by law. Electronically signed by: Cj Pinto M.D. 12/10/2022 1:58 PM
--- NOTE | 2022-12-10 14:36 | History & Physical Report ---
Date of Service December 10, 2022 Assessment & Plan (1) Vomiting: Plan: ?Hematemesis reported yesterday Vitals stable in ER CT Abd/pelvis: No acute abnormalities. Diverticulosis is seen without evidence of diverticulitis. Bladder wall thickening may be secondary to chronic outlet obstruction. No hematemesis during ER course. Reports brown stool. Hgb: 15 (at baseline). Monitor for further episodes of hematemesis or any melena, hematochezia overnight Hold aspirin for now (pt has not been taking at home) If recurrent hematemesis or Hgb dropping consider further workup/GI consult CBC, BMP in am (2) Major depressive disorder, recurrent, moderate: Plan: Continue bupropion (patient has been taking at home) (3) Dementia: Plan: Questionable underlying dementia. No formal neurocognitive testing completed Patient with difficult living situation currently. Currently lives alone. Son lives in different state. Previously girlfriend helped patient and did cooking/cleaning, etc, unfortunately she recently suffered stroke and unable to help patient. Patient has drivers license but does not drive. He states does not have home phone or cell phone. Unclear who called EMS today for pt to be transported to ER. Recent admission pt was set up with home health and [facility]. Outpatient notes report HH unable to reach pt by phone and have not be able to evaluate Patient reports not taking medications at home (4) Prediabetes: Plan: A1c: 6.4 on 12/05/2022 Diet controlled (5) HTN (hypertension): Plan: Continue losartan (Pt hasn't been taking at home) (6) CAD (coronary artery disease): Plan: Nonobstructive CAD 12/07/2022 dobutamine stress was negative for ischemia Was recommended aspirin and atorvastatin. (Patient has not been taking home) Hold aspirin with possible reported hematemesis Continue atorvastatin (7) Aortic stenosis: Plan: moderate aortic stenosis DVT Prophylaxis SCDs Full Code as per discussion with pt Follows with Dr Hansen for routine care Pt was seen and care coordinated with Dr Fish. See addendum I spent a total of 76 minutes reviewing notes, outpatient records, labs, medication, coordinating, documenting and providing care for this patient excluding time spent in the performance of separately billed services. History of Present Illness Chief Complaint: hematemesis Primary Care Provider: Julius Werner MD Patient is 77 year old male with PMH DM II, CAD, HTN, dyslipidemia, aortic stenosis, questionable underlying dementia presented to ER with c/o hematemesis yesterday. Patient with recent hospital admission 12/04/2022-12/07/2022 for syncope after walking 3 miles. Had negative dobutamine stress test on 12/07/2022 and was discharged home. Patient states last night around 6:00phad episode of vomiting. States he vomited "blood". Patient is unable to tell me the color of his vomit just says its "blood". He does not think that he was nauseated. He just states he vomited a couple of times last night. Unable to quantify number of episodes. has a little bit of abdominal pain across his abdomen. He states to me he is feeling hungry today. Denies any heartburn or indigestion. States had a bowel movement yesterday and states he had one today while in ER. He states he doesn't look at stools but looks at toilet paper when he wipes and states brown on toilet paper. He states he ate chocolate pudding for breakfast lunch and dinner yesterday as he does not have other food in his house. Patient did not have anybody to get groceries for him. Patient has not been taking any medications since discharge from hospital as he report he is unsure how to take his medications. He states intermittent non-productive cough. Denies hemoptysis. Patient is upset because he states he was told home health services would be coming to his house however reports they have not seen patient yet. Review of outpatient [facility] in [facility] the home health physical therapist had been trying to get in contact with patient with no response. Patient tells me he does not have a home phone nor a cell phone. He reports was brought to ER by EMS today. Denies fever/chills, diaphoresis, IRIZARRY, dizziness, syncope, vision changes, neck pain, CP, SOB, palpitations, sore throat, choking, otalgia, rhinorrhea, abdominal pain, paresthesias, extremity edema, rashes, urinary symptoms. Allergies Allergy/AdvReac Type Severity Reaction Status Date / Time codeine Allergy Intermediate HALLUCINATI Verified 12/10/22 15:24 ONS ezetimibe Allergy Intermediate HIVES Verified 12/10/22 15:24 pantoprazole Allergy Intermediate HIVES Verified 12/10/22 15:24 lisinopril AdvReac Intermediate cough Verified 12/10/22 15:24 Home Medications Medication Instructions Recorded Confirmed Type aspirin 81 mg tablet,delayed 81 mg PO QAM #30 tabs 12/08/22 12/10/22 Rx release bupropion HCl 300 mg 24 hr tablet, 300 mg PO QAM #30 tabs 12/08/22 12/10/22 Rx extended release cyanocobalamin (vitamin B-12) 500 1,000 mcg PO QAM #30 tabs 12/08/22 12/10/22 Rx mcg tablet ergocalciferol (vitamin D2) 1,250 50,000 unit PO Q7D #4 caps 12/08/22 12/10/22 Rx mcg (50,000 unit) capsule folic acid 1 mg tablet 1 mg PO QAM #30 tabs 12/08/22 12/10/22 Rx losartan 25 mg tablet 25 mg PO HS #30 tabs 12/08/22 12/10/22 Rx wmmrxdtt-ftn-ffvdd acid 0.4 1 tab PO QAM #30 tabs 12/08/22 12/10/22 Rx mg-lycopene 300 mcg-lutein 250 mcg tablet ([employer]) atorvastatin 40 mg tablet 80 mg PO HS 12/10/22 12/10/22 History Past Med/Surg History Medical History Acute CVA (cerebrovascular accident) Anxiety Aortic stenosis Ascending aortic aneurysm CAD (coronary artery disease) "40-50% LAD lesion noted on cath in 2010, improved 20% cath 2014 dobutamine stress test 2019 negative for ischemia" COPD, mild COVID-19 Depression Diabetes Diastolic dysfunction "echo 2012 - EF 60-65%, grade I diastolic dysfunction, no valvular disease" Dyslipidemia GERD (gastroesophageal reflux disease) HTN (hypertension) Influenza A Myocardial infarct PEDRO (obstructive sleep apnea) Surgical History H/O umbilical hernia repair History of cholecystectomy History of colonoscopy 2016: adenomatous polyps, diverticulosis. Dr Worthington History of inguinal hernia repair, bilateral Hx of hemorrhoidectomy S/P foot surgery, right Family History Grandfather (Maternal) Cancer Other Heart disease Social History Smoking Status: Former smoker Tobacco Type: Cigarettes Second Hand Exposure: No; Do You Dip or Chew Tobacco: No; Tobacco Cessation Education Requested by Patient: No Hx Alcohol Use: No Hx Substance Use: No Preferred Language: Beninese Communication Ability: Effective Motor Vehicle License Clerk Required: No Beliefs That Will Affect Care: None marital status: Life Partner Current Living Situation: Alone Other Information That Helps Us Care for You: No Feels Safe at Home: Yes Safety Concerns: Feels Safe At This Time Assistive Devices: Cane, Denture - Upper and Glasses Review of Systems Review of Systems: All systems reviewed & are unremarkable except as noted in HPI & below Physical Exam Physical Exam: General: no distress, obese Head: normocephalic, atraumatic Eyes: PERRL, EOM's intact, conjunctiva non-injected, anicteric ENT: normal inspection external ears, nose, mucous membranes moist Neck: supple, trachea midline Lungs: clear, no respiratory distress, no wheezing/rhonchi/rales CV: RRR, no murmur, no pretibial edema Abd: normal BS, soft, mild tenderness to palpation epigastric without guarding Ext: no cyanosis, no calf tenderness Neuro: Alert, oriented to person and place. Unsure of date. no focal deficits noted Skin: warm, dry, long fingernails Results & Data Results & Data Vital Signs (Past 12 Hours) Vital Signs Temp Pulse Resp BP Pulse Ox O2 Del Method 12/10/22 13:06 60 16 94 Room Air 12/10/22 12:39 61 12/10/22 12:28 36.4 C L 69 18 110/76 98 Room Air Laboratory Results Short CBC 12/10/22 Range/Units 12:47 WBC 5.70 (4.8-10.8) K/ul Hgb 15.0 (14.0-18.0) g/dl Hct 42.7 (42.0-52.0) % Plt Count 210 (130-400) K/uL BMP 12/10/22 12:47 Sodium 138 Potassium 4.0 Chloride 106 Carbon Dioxide 25 BUN 14 Creatinine 0.93 Glucose 140 H Calcium 9.2 Liver Function 12/10/22 Range/Units 12:47 Total Bilirubin 1.0 (0.2-1.0) mg/dl Direct Bilirubin 0.2 (0-0.2) mg/dl AST 27 (13-39) U/L ALT 22 (7-52) U/L Alkaline Phosphatase 64 (34-104) U/L Albumin 4.0 (3.4-5.0) gm/dl Urine 12/10/22 Range/Units 12:47 Urine Color Yellow Urine Appearance Clear (Clear) Urine pH 6.5 (4.5-7.5) Ur Specific [place] 1.006 (1.000-1.030) Urine Protein Negative (Negative) Urine Glucose (UA) Negative (Negative) Diagnostic Findings Abdomen/Pelvis CT 12/10/22 12:43 CT abd pelvis IV con only CLINICAL HISTORY: abd pain coughing up blood TECHNIQUE: Helical axial images of the abdomen and pelvis were obtained and displayed. Automated dose lowering techniques and/or adjustment according to patient size were utilized for this exam. This exam was performed with intravenous contrast. COMPARISON: Comparison is made to CT abdomen pelvis 08/19/2022 FINDINGS: Lower chest: Bibasilar atelectasis versus scarring is seen. Liver: Unremarkable. No focal lesions are seen. Gallbladder and biliary tree: No calcified gallstones. Normal caliber wall. No intra- or extrahepatic biliary ductal dilation. Pancreas: Unremarkable, no focal lesions. Spleen: Unremarkable. Adrenals: Unremarkable. Kidneys and ureters: Multiple cysts are seen. Bladder: Diffuse homogeneous wall thickening is seen. Reproductive organs: Unremarkable. Bowel: A hiatal hernia is seen. The appendix is normal. Diverticulosis is seen without evidence of diverticulitis. Lymph nodes Retroperitoneal: Unremarkable. Pelvic: Unremarkable. Mesenteric: Unremarkable. Peritoneum: Normal. Vessels: Unremarkable. Abdominal wall: Postsurgical changes are seen in the umbilicus compatible with hernia repair. Bones: Degenerative changes in the visualized spine. IMPRESSION: No acute abnormalities. Diverticulosis is seen without evidence of diverticulitis. Bladder wall thickening may be secondary to chronic outlet obstruction. ACT 112: Negative or not required by law. Electronically signed by: Cj Pinto M.D. 12/10/2022 1:58 PM Chest CTA 12/10/22 12:43 CT angio chest PE protocol CLINICAL HISTORY: abd pain coughing up blood TECHNIQUE: Multidetector row helical CT of the chest was performed with angiographic protocol. Coronal and sagittal reformations were obtained. Coronal and sagittal MIPS were obtained from the axial data set and were submitted for review. Automated dose lowering techniques and/or adjustment according to patient size were utilized for this exam. CT DOSE: 2200.61 mGy.cm Comparison: Comparison is made to CT chest 08/19/2022 FINDINGS: Lungs and pleura: Calcified granulomata are seen. A few punctate nodules are stable. Heart and pericardium: Heart size is normal. No pericardial effusion. Vessels: No evidence of pulmonary embolism. Mediastinum and mariano: Scattered partially calcified lymph nodes are seen. Chest wall and lower neck: Unremarkable. Abdomen: Unremarkable. Bones: Degenerative changes in the thoracic spine. IMPRESSION: No pulmonary embolus is seen. No acute abnormalities. ACT 112: Negative or not required by law. Electronically signed by: Cj Pinto M.D. 12/10/2022 1:41 PM Chest X-Ray 12/10/22 12:43 XR chest 1V portable CLINICAL HISTORY: abd pain coughing up blood TECHNIQUE: Single frontal radiograph of the chest was obtained. Comparison: Comparison is made to chest radiograph 12/04/2022 FINDINGS: No lines and tubes are seen. The cardiomediastinal silhouette is normal. The lungs are clear. Calcified granuloma is seen in the left lower lung. No evidence of pleural effusion or pneumothorax. IMPRESSION: No acute chest disease. ACT 112: Negative or not required by law. Electronically signed by: Cj Pinto M.D. 12/10/2022 1:12 PM Supervising Physician Co-Signing Physician Notes I have seen and examined the patient and have discussed the case with the provider above. I agree with the assessment and plan as stated with the following exceptions. 77 yo M with presumed dementia and uncontrolled depression presents today with a report of "spitting up blood" which he later described as vomiting. He is a very poor historian, repeating that he was "disgusted with this facility because someone promised me a nurse when I went home." Despite reiterating to him that it was the weekend, and he was just sent home two days ago, he continued to express this later in the conversation. He is disoriented to date but is oriented to person and place. He states "I have no food in my house" and "I haven't been eating anything." When asked about resources who were able to grocery shop in the past for him such as girlfriend's son he states "he just gets pissed off." Despite saying he ate nothing since returning home, he then reported eating pudding yesterday. He appears well rested and states that he vomited blood and then would go back to sleep and then wake up and vomit blood again. Per the ER staff, he had not vomited blood for them at all. Per ER physician he reports the patient told him "I need to be admitted to the hospital." He also told me that "I feel I shouldn't have been discharged from the hospital." When I asked why he said that he is fatigued and reported some other general issues. On physical exam he is hemodynamically stable and afebrile. He is oxygenating well on room air. His cardiac exam reveals a 3/6 BONIFACIO across the precordium which is known, and lungs are clear. Abdomen is soft with generalized tenderness and no distension. He appears euvolemic and in no distress. Workup reveals no evidence of anemia, and other labwork including chem panel, coags, liver panel, lipase are unremarkable. There is evidence of microscopic hematuria and 2+ LE on UA without signs of an infection. Imaging is unremarkable including CTA chest, CT abd/pel with IV contrast and CXR. 1. Vomiting 2. Depression 3. Presumed dementia 77 yo M recently discharged two days ago with resources including [facility] home health and [facility] referral for home delivery of meals, presents reporting spitting up blood. There is no evidence that this has been going on, and it is certainly not present in the ER today. This is an elderly man with memory issues who has already expressed that he feels someone else should be caring for him at this point in life. He has little to no money or resources such as no cell phone, which is likely one reason getting resources into his home has been a challenge. This situation has now been amplified by the recent move of his girlfriend into her family's home after a debilitating stroke. His son resides in [place], [place] and doesn't support him from what I understand. At home, the patient is alone and isolated with no connection to anyone without a computer or phone. It is very likely this is causing his depression to worsen, which is contributing to his presentation today. It is unclear if he is able to care for himself successfully. I did try to reach out to his son and left a message. We will admit him to ensure that he is able to tolerate PO successfully, and that his resources are reconsidered given his lack of phone or computer. It is unclear how he called EMS today without a phone. Appreciate case management assistance with that. Abe, DO
--- NOTE | 2022-12-10 14:41 | Emergency Department Note ---
History of Present Illness General Chief complaint: Vomiting Stated complaint: HEMATEMESIS Time Seen by Provider: 12/10/22 12:24 History of Present Illness Provider complaint: Hemoptysis hematemesis Onset (ago): day(s) 1 77-year-old male presents emergency department for "spitting up blood.". Patient when asked if he was coughing up the blood or vomiting of the blood he said both. He reports no fevers. No chest pain or difficulty breathing. Patient states he is not in any acute pain right now but thinks he needs to be admitted to the hospital. No difficulty breathing. No melena or hematochezia. Home Medications Medication Instructions Recorded Confirmed Type aspirin 81 mg tablet,delayed 81 mg PO QAM #30 tabs 12/08/22 12/10/22 Rx release bupropion HCl 300 mg 24 hr tablet, 300 mg PO QAM #30 tabs 12/08/22 12/10/22 Rx extended release cyanocobalamin (vitamin B-12) 500 1,000 mcg PO QAM #30 tabs 12/08/22 12/10/22 Rx mcg tablet ergocalciferol (vitamin D2) 1,250 50,000 unit PO Q7D #4 caps 12/08/22 12/10/22 Rx mcg (50,000 unit) capsule folic acid 1 mg tablet 1 mg PO QAM #30 tabs 12/08/22 12/10/22 Rx losartan 25 mg tablet 25 mg PO HS #30 tabs 12/08/22 12/10/22 Rx nnchbzkq-odz-feuyh acid 0.4 1 tab PO QAM #30 tabs 12/08/22 12/10/22 Rx mg-lycopene 300 mcg-lutein 250 mcg tablet (Cerovite Senior) atorvastatin 40 mg tablet 80 mg PO HS 12/10/22 12/10/22 History Allergies Allergy/AdvReac Type Severity Reaction Status Date / Time codeine Allergy Intermediate HALLUCINATI Verified 12/10/22 15:24 ONS ezetimibe Allergy Intermediate HIVES Verified 12/10/22 15:24 pantoprazole Allergy Intermediate HIVES Verified 12/10/22 15:24 lisinopril AdvReac Intermediate cough Verified 12/10/22 15:24 Past Med/Surg History Medical History Acute CVA (cerebrovascular accident) Anxiety Aortic stenosis Ascending aortic aneurysm CAD (coronary artery disease) "40-50% LAD lesion noted on cath in 2010, improved 20% cath 2014 dobutamine stress test 2019 negative for ischemia" COPD, mild COVID-19 Depression Diabetes Diastolic dysfunction "echo 2012 - EF 60-65%, grade I diastolic dysfunction, no valvular disease" Dyslipidemia GERD (gastroesophageal reflux disease) HTN (hypertension) Influenza A Myocardial infarct PEDRO (obstructive sleep apnea) Surgical History H/O umbilical hernia repair History of cholecystectomy History of colonoscopy 2016: adenomatous polyps, diverticulosis. Dr Worthington History of inguinal hernia repair, bilateral Hx of hemorrhoidectomy S/P foot surgery, right Family History Grandfather (Maternal) Cancer Other Heart disease Social History Smoking Status: Never smoker Tobacco Type: Cigarettes Second Hand Exposure: No; Do You Dip or Chew Tobacco: No; Hx Alcohol Use: No Hx Substance Use: No Preferred Language: Latvian Communication Ability: Effective Pattern Duplicator Required: No Beliefs That Will Affect Care: None marital status: Life Partner Current Living Situation: Significant Other Feels Safe at Home: Yes Assistive Devices: Cane Physical Exam Vital Signs Vital Signs - 24 hr 12/10/22 12:28 12/10/22 12:39 12/10/22 13:06 Temperature 36.4 C L Temperature Source Oral Pulse Rate 69 61 60 Pulse Rate from SpO2 Sensor Respiratory Rate 18 16 Respiratory Effort / Characteristics Non-Labored Spontaneous Respiratory Pattern Regular Blood Pressure 110/76 Blood Pressure Mean 87 Blood Pressure Position Semi-fowlers Pulse Oximetry 98 94 Oxygen Delivery Method Room Air Room Air Sepsis Recent Fever Within 48 Hours No Sepsis New/Unexplained Change in Mental Status N/A Sepsis Action Taken by Nursing No Action Required 12/10/22 14:43 12/10/22 16:39 Temperature Temperature Source Pulse Rate 62 Pulse Rate from SpO2 Sensor 60 Respiratory Rate 16 Respiratory Effort / Characteristics Respiratory Pattern Blood Pressure 159/79 H Blood Pressure Mean 105 Blood Pressure Position Pulse Oximetry 97 97 Oxygen Delivery Method Room Air Room Air Sepsis Recent Fever Within 48 Hours Sepsis New/Unexplained Change in Mental Status Sepsis Action Taken by Nursing Physical Exam GENERAL: She is oriented to person, place, and time. She appears well-developed and well-nourished. She does not appear distressed. HENT: Exam performed. -Head: Normocephalic and atraumatic. -Right Ear: External ear normal. No mastoid erythema -Left Ear: External ear normal. No mastoid erythema -Mouth/Throat: The oropharynx is clear and moist. No trismus in the jaw. No dental abscesses or uvula swelling. No oropharyngeal exudate or tonsillar abscesses. EYES: Conjunctivae and EOM are normal.Right eye exhibits no discharge. Left eye exhibits no discharge. No scleral icterus. NECK: Normal range of motion. Neck supple. No JVD present. No tracheal deviation and normal range of motion present. CV: Normal rate, regular rhythm, normal heart sounds and intact distal pulses. There is no peripheral edema. Palpable radial pulses bue. PULM/CHEST: Effort normal and breath sounds normal. No respiratory distress. No stridor. She has no wheezes. She has no rales. -Chest Wall: She exhibits no tenderness. ABD: The abdomen is soft. Bowel sounds are normal. She has no distension. No mass is present. There is no tenderness. There is no rebound, no guarding, no Alas's sign and no tenderness at McBurney's point. Rovsig negative MUSC/SKEL: Normal range of motion. There is no peripheral edema, tenderness or deformity. NEURO: Motor and sensation grossly intact. SKIN: Skin is warm and dry. She is not diaphoretic. PSYCH: She has a normal mood and affect. Behavior is normal. Judgment and thought content normal. Course Course 1224: The patient was evaluated in room A9. A complete history and physical exam was performed Administered Medications Discontinued Medications Ioversol (Optiray 320 500ml) 120 ml IV ONCE ONE Stop: 12/10/22 13:19 Last Admin: 12/10/22 13:19 Dose: 120 ml Documented By: TAHIRA Medical Decision Making Laboratory Data Attestation: I reviewed the patient's lab results. 12/10/22 12:47 12/10/22 12:47 Lab Results 12/10/22 12/10/22 12/10/22 Range/Units 12:47 12:47 12:47 WBC 5.70 (4.8-10.8) K/ul RBC 4.67 L (4.70-6.10) M/uL Hgb 15.0 (14.0-18.0) g/dl Hct 42.7 (42.0-52.0) % MCV 91.4 (80.0-100.0) fL MCH 32.1 (25.0-34.0) pg MCHC 35.1 (32.0-36.0) g/dL RDW Std Deviation 41.5 (36.4-46.3) fL RDW Coeff of Harry 12.5 (11.5-14.5) % Plt Count 210 (130-400) K/uL MPV 10.2 (9.4-12.4) fL Immature Gran % (Auto) 0.2 % Neut % (Auto) 56.6 % Lymph % (Auto) 29.1 % [place] % (Auto) 9.5 % Eos % (Auto) 3.5 % Baso % (Auto) 1.1 % Neut # (Auto) 3.23 (1.40-6.50) K/uL Lymph # (Auto) 1.66 (1.2-3.4) K/uL [place] # (Auto) 0.54 (0.11-0.59) K/uL Eos # (Auto) 0.20 (0-0.50) K/uL Baso # (Auto) 0.06 (0-0.2) K/uL Immature Gran # (Auto) 0.01 (0.01-0.20) K/uL PT Cancelled INR Cancelled APTT Cancelled PTT Ratio Cancelled Sodium 138 (136-145) mmol/L Potassium 4.0 (3.5-5.1) mmol/L Chloride 106 (98-107) mmol/L Carbon Dioxide 25 (21-32) mmol/L Anion Gap 7 (3-11) BUN 14 (6-23) mg/dl Creatinine 0.93 (0.6-1.4) mg/dl Est Cr Clr Drug Dosing 78.8 ml/min Est GFR ( Amer) 90.2 ml/min Est GFR (Non-Af Amer) 77.8 ml/min BUN/Creatinine Ratio 15.1 (10-20) Glucose 140 H (70-99(Fasting)) mg/dl Calcium 9.2 (8.6-10.3) mg/dl Magnesium 1.9 (1.7-2.4) mg/dl Total Bilirubin 1.0 (0.2-1.0) mg/dl Direct Bilirubin 0.2 (0-0.2) mg/dl AST 27 (13-39) U/L ALT 22 (7-52) U/L Alkaline Phosphatase 64 (34-104) U/L Total Protein 6.8 (6.0-8.3) gm/dl Albumin 4.0 (3.4-5.0) gm/dl Lipase (11-82) U/L Urine Color Urine Appearance (Clear) Urine pH (4.5-7.5) Ur Specific [place] (1.000-1.030) Urine Protein (Negative) Urine Glucose (UA) (Negative) Urine Ketones (Negative) Urine Blood (Negative) Urine Nitrite (Negative) Urine Bilirubin (Negative) Urine Urobilinogen (Negative) Ur Leukocyte Esterase (Negative) Urine WBC (Auto) (0-5) /hpf Urine RBC (Auto) (0-4) /hpf U Hyaline Cast (Auto) (0-5) /lpf U Epithel Cells (Auto) (0-5) /lpf Urine Bacteria (Auto) (Negative) Adenovirus (PCR) (NotDetected) B. pertussis DNA (PCR) (NotDetected) B.parapertussis DNA PCR (NotDetected) C. pneumoniae DNA (PCR) (NotDetected) Coronavirus OC43 (PCR) (NotDetected) Coronavirus HKU1 (PCR) (NotDetected) Coronavirus 229E (PCR) (NotDetected) SARS-CoV-2 (PCR) (NotDetected) Coronavirus NL63 (PCR) (NotDetected) Human Metapneumovir PCR (NotDetected) Influenza Type A (PCR) (NotDetected) Influenza Type B (PCR) (NotDetected) M. pneumoniae (PCR) (NotDetected) Parainfluenza 1 (PCR) (NotDetected) Parainfluenza 2 (PCR) (NotDetected) Parainfluenza 3 (PCR) (NotDetected) Parainfluenza 4 (PCR) (NotDetected) RSV (PCR) (NotDetected) Entero/Rhino (PCR) (NotDetected) Blood Type Antibody Screen 12/10/22 12/10/22 12/10/22 Range/Units 12:47 12:47 12:47 WBC (4.8-10.8) K/ul RBC (4.70-6.10) M/uL Hgb (14.0-18.0) g/dl Hct (42.0-52.0) % MCV (80.0-100.0) fL MCH (25.0-34.0) pg MCHC (32.0-36.0) g/dL RDW Std Deviation (36.4-46.3) fL RDW Coeff of Harry (11.5-14.5) % Plt Count (130-400) K/uL MPV (9.4-12.4) fL Immature Gran % (Auto) % Neut % (Auto) % Lymph % (Auto) % [place] % (Auto) % Eos % (Auto) % Baso % (Auto) % Neut # (Auto) (1.40-6.50) K/uL Lymph # (Auto) (1.2-3.4) K/uL [place] # (Auto) (0.11-0.59) K/uL Eos # (Auto) (0-0.50) K/uL Baso # (Auto) (0-0.2) K/uL Immature Gran # (Auto) (0.01-0.20) K/uL PT INR APTT PTT Ratio Sodium (136-145) mmol/L Potassium (3.5-5.1) mmol/L Chloride (98-107) mmol/L Carbon Dioxide (21-32) mmol/L Anion Gap (3-11) BUN (6-23) mg/dl Creatinine (0.6-1.4) mg/dl Est Cr Clr Drug Dosing ml/min Est GFR ( Amer) ml/min Est GFR (Non-Af Amer) ml/min BUN/Creatinine Ratio (10-20) Glucose (70-99(Fasting)) mg/dl Calcium (8.6-10.3) mg/dl Magnesium (1.7-2.4) mg/dl Total Bilirubin (0.2-1.0) mg/dl Direct Bilirubin (0-0.2) mg/dl AST (13-39) U/L ALT (7-52) U/L Alkaline Phosphatase (34-104) U/L Total Protein (6.0-8.3) gm/dl Albumin (3.4-5.0) gm/dl Lipase 39 (11-82) U/L Urine Color Yellow Urine Appearance Clear (Clear) Urine pH 6.5 (4.5-7.5) Ur Specific [place] 1.006 (1.000-1.030) Urine Protein Negative (Negative) Urine Glucose (UA) Negative (Negative) Urine Ketones Negative (Negative) Urine Blood Negative (Negative) Urine Nitrite Negative (Negative) Urine Bilirubin Negative (Negative) Urine Urobilinogen Negative (Negative) Ur Leukocyte Esterase 2+ H (Negative) Urine WBC (Auto) 5-10 H (0-5) /hpf Urine RBC (Auto) 0-4 (0-4) /hpf U Hyaline Cast (Auto) 0 (0-5) /lpf U Epithel Cells (Auto) 10-20 H (0-5) /lpf Urine Bacteria (Auto) Negative (Negative) Adenovirus (PCR) Not Detected (NotDetected) B. pertussis DNA (PCR) Not Detected (NotDetected) B.parapertussis DNA PCR Not Detected (NotDetected) C. pneumoniae DNA (PCR) Not Detected (NotDetected) Coronavirus OC43 (PCR) Not Detected (NotDetected) Coronavirus HKU1 (PCR) Not Detected (NotDetected) Coronavirus 229E (PCR) Not Detected (NotDetected) SARS-CoV-2 (PCR) Not Detected (NotDetected) Coronavirus NL63 (PCR) Not Detected (NotDetected) Human Metapneumovir PCR Not Detected (NotDetected) Influenza Type A (PCR) Not Detected (NotDetected) Influenza Type B (PCR) Not Detected (NotDetected) M. pneumoniae (PCR) Not Detected (NotDetected) Parainfluenza 1 (PCR) Not Detected (NotDetected) Parainfluenza 2 (PCR) Not Detected (NotDetected) Parainfluenza 3 (PCR) Not Detected (NotDetected) Parainfluenza 4 (PCR) Not Detected (NotDetected) RSV (PCR) Not Detected (NotDetected) Entero/Rhino (PCR) Not Detected (NotDetected) Blood Type Antibody Screen 12/10/22 12/10/22 Range/Units 12:51 14:06 WBC (4.8-10.8) K/ul RBC (4.70-6.10) M/uL Hgb (14.0-18.0) g/dl Hct (42.0-52.0) % MCV (80.0-100.0) fL MCH (25.0-34.0) pg MCHC (32.0-36.0) g/dL RDW Std Deviation (36.4-46.3) fL RDW Coeff of Harry (11.5-14.5) % Plt Count (130-400) K/uL MPV (9.4-12.4) fL Immature Gran % (Auto) % Neut % (Auto) % Lymph % (Auto) % [place] % (Auto) % Eos % (Auto) % Baso % (Auto) % Neut # (Auto) (1.40-6.50) K/uL Lymph # (Auto) (1.2-3.4) K/uL [place] # (Auto) (0.11-0.59) K/uL Eos # (Auto) (0-0.50) K/uL Baso # (Auto) (0-0.2) K/uL Immature Gran # (Auto) (0.01-0.20) K/uL PT 11.1 INR 1.0 APTT 28.4 PTT Ratio 1.0 Sodium (136-145) mmol/L Potassium (3.5-5.1) mmol/L Chloride (98-107) mmol/L Carbon Dioxide (21-32) mmol/L Anion Gap (3-11) BUN (6-23) mg/dl Creatinine (0.6-1.4) mg/dl Est Cr Clr Drug Dosing ml/min Est GFR ( Amer) ml/min Est GFR (Non-Af Amer) ml/min BUN/Creatinine Ratio (10-20) Glucose (70-99(Fasting)) mg/dl Calcium (8.6-10.3) mg/dl Magnesium (1.7-2.4) mg/dl Total Bilirubin (0.2-1.0) mg/dl Direct Bilirubin (0-0.2) mg/dl AST (13-39) U/L ALT (7-52) U/L Alkaline Phosphatase (34-104) U/L Total Protein (6.0-8.3) gm/dl Albumin (3.4-5.0) gm/dl Lipase (11-82) U/L Urine Color Urine Appearance (Clear) Urine pH (4.5-7.5) Ur Specific [place] (1.000-1.030) Urine Protein (Negative) Urine Glucose (UA) (Negative) Urine Ketones (Negative) Urine Blood (Negative) Urine Nitrite (Negative) Urine Bilirubin (Negative) Urine Urobilinogen (Negative) Ur Leukocyte Esterase (Negative) Urine WBC (Auto) (0-5) /hpf Urine RBC (Auto) (0-4) /hpf U Hyaline Cast (Auto) (0-5) /lpf U Epithel Cells (Auto) (0-5) /lpf Urine Bacteria (Auto) (Negative) Adenovirus (PCR) (NotDetected) B. pertussis DNA (PCR) (NotDetected) B.parapertussis DNA PCR (NotDetected) C. pneumoniae DNA (PCR) (NotDetected) Coronavirus OC43 (PCR) (NotDetected) Coronavirus HKU1 (PCR) (NotDetected) Coronavirus 229E (PCR) (NotDetected) SARS-CoV-2 (PCR) (NotDetected) Coronavirus NL63 (PCR) (NotDetected) Human Metapneumovir PCR (NotDetected) Influenza Type A (PCR) (NotDetected) Influenza Type B (PCR) (NotDetected) M. pneumoniae (PCR) (NotDetected) Parainfluenza 1 (PCR) (NotDetected) Parainfluenza 2 (PCR) (NotDetected) Parainfluenza 3 (PCR) (NotDetected) Parainfluenza 4 (PCR) (NotDetected) RSV (PCR) (NotDetected) Entero/Rhino (PCR) (NotDetected) Blood Type A Positive Antibody Screen NEGATIVE Imaging Data Attestation: I personally reviewed and interpreted this imaging study as follows: My Impression: Chest x-ray: No significant change from the chest x-ray done on December 04, 2022. Radiologist's Impression: Abdomen/Pelvis CT 12/10/22 12:43 CT abd pelvis IV con only CLINICAL HISTORY: abd pain coughing up blood TECHNIQUE: Helical axial images of the abdomen and pelvis were obtained and displayed. Automated dose lowering techniques and/or adjustment according to patient size were utilized for this exam. This exam was performed with intravenous contrast. COMPARISON: Comparison is made to CT abdomen pelvis 08/19/2022 FINDINGS: Lower chest: Bibasilar atelectasis versus scarring is seen. Liver: Unremarkable. No focal lesions are seen. Gallbladder and biliary tree: No calcified gallstones. Normal caliber wall. No intra- or extrahepatic biliary ductal dilation. Pancreas: Unremarkable, no focal lesions. Spleen: Unremarkable. Adrenals: Unremarkable. Kidneys and ureters: Multiple cysts are seen. Bladder: Diffuse homogeneous wall thickening is seen. Reproductive organs: Unremarkable. Bowel: A hiatal hernia is seen. The appendix is normal. Diverticulosis is seen without evidence of diverticulitis. Lymph nodes Retroperitoneal: Unremarkable. Pelvic: Unremarkable. Mesenteric: Unremarkable. Peritoneum: Normal. Vessels: Unremarkable. Abdominal wall: Postsurgical changes are seen in the umbilicus compatible with hernia repair. Bones: Degenerative changes in the visualized spine. IMPRESSION: No acute abnormalities. Diverticulosis is seen without evidence of diverticulitis. Bladder wall thickening may be secondary to chronic outlet obstruction. ACT 112: Negative or not required by law. Electronically signed by: Cj Pinto M.D. 12/10/2022 1:58 PM Chest CTA 12/10/22 12:43 CT angio chest PE protocol CLINICAL HISTORY: abd pain coughing up blood TECHNIQUE: Multidetector row helical CT of the chest was performed with angiographic protocol. Coronal and sagittal reformations were obtained. Coronal and sagittal MIPS were obtained from the axial data set and were submitted for review. Automated dose lowering techniques and/or adjustment according to patient size were utilized for this exam. CT DOSE: 2200.61 mGy.cm Comparison: Comparison is made to CT chest 08/19/2022 FINDINGS: Lungs and pleura: Calcified granulomata are seen. A few punctate nodules are stable. Heart and pericardium: Heart size is normal. No pericardial effusion. Vessels: No evidence of pulmonary embolism. Mediastinum and mariano: Scattered partially calcified lymph nodes are seen. Chest wall and lower neck: Unremarkable. Abdomen: Unremarkable. Bones: Degenerative changes in the thoracic spine. IMPRESSION: No pulmonary embolus is seen. No acute abnormalities. ACT 112: Negative or not required by law. Electronically signed by: Cj Pinto M.D. 12/10/2022 1:41 PM Chest X-Ray 12/10/22 12:43 XR chest 1V portable CLINICAL HISTORY: abd pain coughing up blood TECHNIQUE: Single frontal radiograph of the chest was obtained. Comparison: Comparison is made to chest radiograph 12/04/2022 FINDINGS: No lines and tubes are seen. The cardiomediastinal silhouette is normal. The lungs are clear. Calcified granuloma is seen in the left lower lung. No evidence of pleural effusion or pneumothorax. IMPRESSION: No acute chest disease. ACT 112: Negative or not required by law. Electronically signed by: Cj Pinto M.D. 12/10/2022 1:12 PM ECG Data Attestation: I personally reviewed and interpreted this ECG as follows: Rate (beats per minute): 61 Rhythm: + normal sinus ECG Intervals/blocks: + First degree AV block, + Normal QRS and + Normal QT-c ECG ST segments: + Normal ST segments MDM Narrative Cardiac monitoring: An order was placed for continuous cardiac monitoring. The monitor shows a rate of 60 with sinus rhythm interpreted by me Vital signs stable. Labs and imaging within normal limits. Patient has an allergy to Protonix so no Protonix started in the emergency department. Discussed case with Malena who evaluate the patient for admission with Dr. Fish. Impression & Plan GIB (gastrointestinal bleeding) Discharge Plan Visit Data Chief Complaint: Vomiting Stated Complaint: HEMATEMESIS ED Provider: Artur Atkinson Discharge Problem: GIB (gastrointestinal bleeding) Patient Disposition: Admitted As Inpatient Discharge Instructions Interventions: ED Discharge Assessment Last Done: 12/10/22 16:39 Prescriptions Prescriptions: No Action aspirin 81 mg Tablet,Delayed Release (Dr/Ec) 81 mg PO QAM Qty: 30 0RF losartan 25 mg Tablet 25 mg PO HS Qty: 30 0RF Rx Instructions: Has not taken since filled on 12/08/22. cyanocobalamin (vitamin B-12) 500 mcg Tablet 1,000 mcg PO QAM Qty: 30 0RF Rx Instructions: has not taken ergocalciferol (vitamin D2) 1,250 mcg (50,000 unit) Capsule 50,000 unit PO Q7D Qty: 4 0RF folic acid 1 mg Tablet 1 mg PO QAM Qty: 30 0RF Rx Instructions: HAS NOT BEEN TAKING Cerovite Senior 0.4 mg-300 mcg- 250 mcg Tablet 1 tab PO QAM Qty: 30 0RF Rx Instructions: Perscribed on 12/08/22, has not taken since discharge. bupropion HCl 300 mg Tablet Extended Release 24 Hr 300 mg PO QAM Qty: 30 0RF Rx Instructions: This med was filled 12/08/22. Patient has not taken. atorvastatin 40 mg tablet 80 mg PO HS Rx Instructions: Has not been taking
[2022-12-10 14:48] LABS: Partial Thromboplastin Time 28.4 Seconds (21.0-31.0); Prothrombin Time 11.1 Seconds (9.0-12.0)
[2022-12-10] MEDS ORDERED: ALUMINUM/MAGNESIUM SUSP 30 ML UDC PO PRN (16:51)
[2022-12-10] MEDS ORDERED: PNEUMOCOCCAL POLYSACCHARIDES 25 MCG/0.5 ML VIAL/SYR IM ONE (17:12)
[2022-12-10] MEDS: LOSARTAN POTASSIUM 25 MG TAB PO SCH (20:10)
[2022-12-10] MEDS: ATORVASTATIN 40 MG TAB PO SCH (20:11)
[2022-12-11] MEDS: buPROPion XL 300 MG TABCR PO SCH (08:28)
[2022-12-11] MEDS: CYANOCOBALAMIN (B-12) 500 MCG TABLET PO SCH (08:28)
[2022-12-11] MEDS: FOLIC ACID 1 MG TAB PO SCH (08:28)
[2022-12-11 08:29] LABS: Hematocrit (blood only) 39.1 % (42.0-52.0); Hemoglobin 13.5 g/dl (14.0-18.0); Mean Corpuscular Hemoglobin 32.1 pg (25.0-34.0); Mean Corpuscular Hgb Conc 34.5 g/dL (32.0-36.0); Mean Corpuscular Volume 93.1 fL (80.0-100.0); Mean Platelet Volume 10.4 fL (9.4-12.4); Platelet Count 203 K/uL (130-400); RDW Coefficient of Variation 12.6 % (11.5-14.5); White Blood Count 5.84 K/ul (4.8-10.8)
[2022-12-11 08:46] LABS: BUN Creatinine Ratio 15.9 (10-20); Calcium 8.8 mg/dl (8.6-10.3); Creatinine Clr Calc Pharmacy 67.5 ml/min; Est GFR (African American) 76.1 ml/min; Est GFR (Non-African American) 65.7 ml/min; Phosphorus 3.2 mg/dl (2.5-4.9); Potassium 4.1 mmol/L (3.5-5.1)
--- NOTE | 2022-12-11 12:54 | Hospitalist Progress Note ---
Date of Service December 11, 2022 Assessment & Plan (1) Vomiting: Plan: ?Hematemesis reported at home Vitals stable in ER CT Abd/pelvis: No acute abnormalities. Diverticulosis is seen without evidence of diverticulitis. Bladder wall thickening may be secondary to chronic outlet obstruction. No hematemesis during ER course. Reports brown stool. Hgb: 15 (at baseline). FOBT ordered. Monitor for further episodes of hematemesis or any melena, hematochezia overnight Hold aspirin for now (pt has not been taking at home) If recurrent hematemesis or Hgb dropping consider further workup/GI consult CBC, BMP in am (2) Major depressive disorder, recurrent, moderate: Plan: Continue bupropion (3) Dementia: Plan: Questionable underlying dementia. No formal neurocognitive testing completed Patient with difficult living situation currently. Currently lives alone. Son lives in different state. Previously girlfriend helped patient and did cooking/cleaning, etc, unfortunately she recently suffered stroke and unable to help patient. Patient has drivers license but does not drive. He states does not have home phone or cell phone. Unclear who called EMS today for pt to be transported to ER. Recent admission pt was set up with home health and [facility] from [facility]. Outpatient notes report HH unable to reach pt by phone and have not be able to evaluate Patient reports not taking medications at home (4) Prediabetes: Plan: A1c: 6.4 on 12/05/2022 Diet controlled (5) HTN (hypertension): Plan: Continue losartan (6) CAD (coronary artery disease): Plan: Nonobstructive CAD 12/07/2022 dobutamine stress was negative for ischemia Was recommended aspirin and atorvastatin. Hold aspirin with possible reported hematemesis Continue atorvastatin (7) Aortic stenosis: Plan: moderate aortic stenosis DVT Prophylaxis SCDs Full Code as per discussion with pt Follows with Dr Hansen for routine care Admission and Anticipated Discharge Date Admission Date: December 10, 2022 Subjective Pt seen in follow up for reported vomiting/ hematemesis, hgb stable Pt lives alone, re-admitted to the hospital, says he did not take any meds we sent him home with - can't handle them Says his son should take care of him but he took in his [id number] and nobody can't help the pt CM aware Currently patient is lying in bed, in no acute distress, he has been eating in the hospital, denies any nausea vomiting diarrhea. FOBT ordered, pt aware Tells me he cannot go home. Review of Systems Review of Systems: All systems reviewed & are unremarkable except as noted in Subjective Physical Exam Physical Exam: General: elderly m in NAD Head: normocephalic, atraumatic Eyes: PERRL, EOM's intact, conjunctiva non-injected, anicteric ENT: normal inspection external ears, nose, mucous membranes moist Neck: supple Lungs: clear, no respiratory distress, no wheezing/rhonchi/rales CV: RRR, no murmur, no pretibial edema Abd: normal BS, soft, mild tenderness to palpation epigastric without guarding Ext: moves extremities Neuro: Alert, oriented to person and place. Unsure of date. no focal deficits noted Skin: warm, dry, long fingernails Results & Data Results & Data Vital Signs (Past 12 Hours) Vital Signs Temp Pulse Resp BP Pulse Ox O2 Del Method 12/11/22 07:49 36.6 C 59 L 16 113/68 95 Room Air Laboratory Results 12/11/22 12/11/22 12/10/22 Range/Units 07:40 07:40 17:09 WBC 5.84 (4.8-10.8) K/ul RBC 4.20 L (4.70-6.10) M/uL Hgb 13.5 L (14.0-18.0) g/dl Hct 39.1 L (42.0-52.0) % MCV 93.1 (80.0-100.0) fL MCH 32.1 (25.0-34.0) pg MCHC 34.5 (32.0-36.0) g/dL RDW Std Deviation 43.0 (36.4-46.3) fL RDW Coeff of Harry 12.6 (11.5-14.5) % Plt Count 203 (130-400) K/uL MPV 10.4 (9.4-12.4) fL Immature Gran % (Auto) % Neut % (Auto) % Lymph % (Auto) % [place] % (Auto) % Eos % (Auto) % Baso % (Auto) % Neut # (Auto) (1.40-6.50) K/uL Lymph # (Auto) (1.2-3.4) K/uL [place] # (Auto) (0.11-0.59) K/uL Eos # (Auto) (0-0.50) K/uL Baso # (Auto) (0-0.2) K/uL Immature Gran # (Auto) (0.01-0.20) K/uL PT INR APTT PTT Ratio Sodium 139 (136-145) mmol/L Potassium 4.1 (3.5-5.1) mmol/L Chloride 106 (98-107) mmol/L Carbon Dioxide 28 (21-32) mmol/L Anion Gap 5 (3-11) BUN 17 (6-23) mg/dl Creatinine 1.07 (0.6-1.4) mg/dl Est Cr Clr Drug Dosing 67.5 ml/min Est GFR ( Amer) 76.1 ml/min Est GFR (Non-Af Amer) 65.7 ml/min BUN/Creatinine Ratio 15.9 (10-20) Glucose 140 H (70-99(Fasting)) mg/dl POC Glucose 183 H (70-99) mg/dl Calcium 8.8 (8.6-10.3) mg/dl Phosphorus 3.2 (2.5-4.9) mg/dl Magnesium 2.0 (1.7-2.4) mg/dl Total Bilirubin (0.2-1.0) mg/dl Direct Bilirubin (0-0.2) mg/dl AST (13-39) U/L ALT (7-52) U/L Alkaline Phosphatase (34-104) U/L Total Protein (6.0-8.3) gm/dl Albumin (3.4-5.0) gm/dl Lipase (11-82) U/L Urine Color Urine Appearance (Clear) Urine pH (4.5-7.5) Ur Specific [place] (1.000-1.030) Urine Protein (Negative) Urine Glucose (UA) (Negative) Urine Ketones (Negative) Urine Blood (Negative) Urine Nitrite (Negative) Urine Bilirubin (Negative) Urine Urobilinogen (Negative) Ur Leukocyte Esterase (Negative) Urine WBC (Auto) (0-5) /hpf Urine RBC (Auto) (0-4) /hpf U Hyaline Cast (Auto) (0-5) /lpf U Epithel Cells (Auto) (0-5) /lpf Urine Bacteria (Auto) (Negative) Adenovirus (PCR) (NotDetected) B. pertussis DNA (PCR) (NotDetected) B.parapertussis DNA PCR (NotDetected) C. pneumoniae DNA (PCR) (NotDetected) Coronavirus OC43 (PCR) (NotDetected) Coronavirus HKU1 (PCR) (NotDetected) Coronavirus 229E (PCR) (NotDetected) SARS-CoV-2 (PCR) (NotDetected) Coronavirus NL63 (PCR) (NotDetected) Human Metapneumovir PCR (NotDetected) Influenza Type A (PCR) (NotDetected) Influenza Type B (PCR) (NotDetected) M. pneumoniae (PCR) (NotDetected) Parainfluenza 1 (PCR) (NotDetected) Parainfluenza 2 (PCR) (NotDetected) Parainfluenza 3 (PCR) (NotDetected) Parainfluenza 4 (PCR) (NotDetected) RSV (PCR) (NotDetected) Entero/Rhino (PCR) (NotDetected) Blood Type Antibody Screen 12/10/22 12/10/22 12/10/22 Range/Units 14:06 12:51 12:47 WBC (4.8-10.8) K/ul RBC (4.70-6.10) M/uL Hgb (14.0-18.0) g/dl Hct (42.0-52.0) % MCV (80.0-100.0) fL MCH (25.0-34.0) pg MCHC (32.0-36.0) g/dL RDW Std Deviation (36.4-46.3) fL RDW Coeff of Harry (11.5-14.5) % Plt Count (130-400) K/uL MPV (9.4-12.4) fL Immature Gran % (Auto) % Neut % (Auto) % Lymph % (Auto) % [place] % (Auto) % Eos % (Auto) % Baso % (Auto) % Neut # (Auto) (1.40-6.50) K/uL Lymph # (Auto) (1.2-3.4) K/uL [place] # (Auto) (0.11-0.59) K/uL Eos # (Auto) (0-0.50) K/uL Baso # (Auto) (0-0.2) K/uL Immature Gran # (Auto) (0.01-0.20) K/uL PT 11.1 INR 1.0 APTT 28.4 PTT Ratio 1.0 Sodium (136-145) mmol/L Potassium (3.5-5.1) mmol/L Chloride (98-107) mmol/L Carbon Dioxide (21-32) mmol/L Anion Gap (3-11) BUN (6-23) mg/dl Creatinine (0.6-1.4) mg/dl Est Cr Clr Drug Dosing ml/min Est GFR ( Amer) ml/min Est GFR (Non-Af Amer) ml/min BUN/Creatinine Ratio (10-20) Glucose (70-99(Fasting)) mg/dl POC Glucose (70-99) mg/dl Calcium (8.6-10.3) mg/dl Phosphorus (2.5-4.9) mg/dl Magnesium (1.7-2.4) mg/dl Total Bilirubin (0.2-1.0) mg/dl Direct Bilirubin (0-0.2) mg/dl AST (13-39) U/L ALT (7-52) U/L Alkaline Phosphatase (34-104) U/L Total Protein (6.0-8.3) gm/dl Albumin (3.4-5.0) gm/dl Lipase (11-82) U/L Urine Color Urine Appearance (Clear) Urine pH (4.5-7.5) Ur Specific [place] (1.000-1.030) Urine Protein (Negative) Urine Glucose (UA) (Negative) Urine Ketones (Negative) Urine Blood (Negative) Urine Nitrite (Negative) Urine Bilirubin (Negative) Urine Urobilinogen (Negative) Ur Leukocyte Esterase (Negative) Urine WBC (Auto) (0-5) /hpf Urine RBC (Auto) (0-4) /hpf U Hyaline Cast (Auto) (0-5) /lpf U Epithel Cells (Auto) (0-5) /lpf Urine Bacteria (Auto) (Negative) Adenovirus (PCR) Not Detected (NotDetected) B. pertussis DNA (PCR) Not Detected (NotDetected) B.parapertussis DNA PCR Not Detected (NotDetected) C. pneumoniae DNA (PCR) Not Detected (NotDetected) Coronavirus OC43 (PCR) Not Detected (NotDetected) Coronavirus HKU1 (PCR) Not Detected (NotDetected) Coronavirus 229E (PCR) Not Detected (NotDetected) SARS-CoV-2 (PCR) Not Detected (NotDetected) Coronavirus NL63 (PCR) Not Detected (NotDetected) Human Metapneumovir PCR Not Detected (NotDetected) Influenza Type A (PCR) Not Detected (NotDetected) Influenza Type B (PCR) Not Detected (NotDetected) M. pneumoniae (PCR) Not Detected (NotDetected) Parainfluenza 1 (PCR) Not Detected (NotDetected) Parainfluenza 2 (PCR) Not Detected (NotDetected) Parainfluenza 3 (PCR) Not Detected (NotDetected) Parainfluenza 4 (PCR) Not Detected (NotDetected) RSV (PCR) Not Detected (NotDetected) Entero/Rhino (PCR) Not Detected (NotDetected) Blood Type A Positive Antibody Screen NEGATIVE 12/10/22 12/10/22 12/10/22 Range/Units 12:47 12:47 12:47 WBC (4.8-10.8) K/ul RBC (4.70-6.10) M/uL Hgb (14.0-18.0) g/dl Hct (42.0-52.0) % MCV (80.0-100.0) fL MCH (25.0-34.0) pg MCHC (32.0-36.0) g/dL RDW Std Deviation (36.4-46.3) fL RDW Coeff of Harry (11.5-14.5) % Plt Count (130-400) K/uL MPV (9.4-12.4) fL Immature Gran % (Auto) % Neut % (Auto) % Lymph % (Auto) % [place] % (Auto) % Eos % (Auto) % Baso % (Auto) % Neut # (Auto) (1.40-6.50) K/uL Lymph # (Auto) (1.2-3.4) K/uL [place] # (Auto) (0.11-0.59) K/uL Eos # (Auto) (0-0.50) K/uL Baso # (Auto) (0-0.2) K/uL Immature Gran # (Auto) (0.01-0.20) K/uL PT INR APTT PTT Ratio Sodium 138 (136-145) mmol/L Potassium 4.0 (3.5-5.1) mmol/L Chloride 106 (98-107) mmol/L Carbon Dioxide 25 (21-32) mmol/L Anion Gap 7 (3-11) BUN 14 (6-23) mg/dl Creatinine 0.93 (0.6-1.4) mg/dl Est Cr Clr Drug Dosing 78.8 ml/min Est GFR ( Amer) 90.2 ml/min Est GFR (Non-Af Amer) 77.8 ml/min BUN/Creatinine Ratio 15.1 (10-20) Glucose 140 H (70-99(Fasting)) mg/dl POC Glucose (70-99) mg/dl Calcium 9.2 (8.6-10.3) mg/dl Phosphorus (2.5-4.9) mg/dl Magnesium 1.9 (1.7-2.4) mg/dl Total Bilirubin 1.0 (0.2-1.0) mg/dl Direct Bilirubin 0.2 (0-0.2) mg/dl AST 27 (13-39) U/L ALT 22 (7-52) U/L Alkaline Phosphatase 64 (34-104) U/L Total Protein 6.8 (6.0-8.3) gm/dl Albumin 4.0 (3.4-5.0) gm/dl Lipase 39 (11-82) U/L Urine Color Yellow Urine Appearance Clear (Clear) Urine pH 6.5 (4.5-7.5) Ur Specific [place] 1.006 (1.000-1.030) Urine Protein Negative (Negative) Urine Glucose (UA) Negative (Negative) Urine Ketones Negative (Negative) Urine Blood Negative (Negative) Urine Nitrite Negative (Negative) Urine Bilirubin Negative (Negative) Urine Urobilinogen Negative (Negative) Ur Leukocyte Esterase 2+ H (Negative) Urine WBC (Auto) 5-10 H (0-5) /hpf Urine RBC (Auto) 0-4 (0-4) /hpf U Hyaline Cast (Auto) 0 (0-5) /lpf U Epithel Cells (Auto) 10-20 H (0-5) /lpf Urine Bacteria (Auto) Negative (Negative) Adenovirus (PCR) (NotDetected) B. pertussis DNA (PCR) (NotDetected) B.parapertussis DNA PCR (NotDetected) C. pneumoniae DNA (PCR) (NotDetected) Coronavirus OC43 (PCR) (NotDetected) Coronavirus HKU1 (PCR) (NotDetected) Coronavirus 229E (PCR) (NotDetected) SARS-CoV-2 (PCR) (NotDetected) Coronavirus NL63 (PCR) (NotDetected) Human Metapneumovir PCR (NotDetected) Influenza Type A (PCR) (NotDetected) Influenza Type B (PCR) (NotDetected) M. pneumoniae (PCR) (NotDetected) Parainfluenza 1 (PCR) (NotDetected) Parainfluenza 2 (PCR) (NotDetected) Parainfluenza 3 (PCR) (NotDetected) Parainfluenza 4 (PCR) (NotDetected) RSV (PCR) (NotDetected) Entero/Rhino (PCR) (NotDetected) Blood Type Antibody Screen 12/10/22 12/10/22 Range/Units 12:47 12:47 WBC 5.70 (4.8-10.8) K/ul RBC 4.67 L (4.70-6.10) M/uL Hgb 15.0 (14.0-18.0) g/dl Hct 42.7 (42.0-52.0) % MCV 91.4 (80.0-100.0) fL MCH 32.1 (25.0-34.0) pg MCHC 35.1 (32.0-36.0) g/dL RDW Std Deviation 41.5 (36.4-46.3) fL RDW Coeff of Harry 12.5 (11.5-14.5) % Plt Count 210 (130-400) K/uL MPV 10.2 (9.4-12.4) fL Immature Gran % (Auto) 0.2 % Neut % (Auto) 56.6 % Lymph % (Auto) 29.1 % [place] % (Auto) 9.5 % Eos % (Auto) 3.5 % Baso % (Auto) 1.1 % Neut # (Auto) 3.23 (1.40-6.50) K/uL Lymph # (Auto) 1.66 (1.2-3.4) K/uL [place] # (Auto) 0.54 (0.11-0.59) K/uL Eos # (Auto) 0.20 (0-0.50) K/uL Baso # (Auto) 0.06 (0-0.2) K/uL Immature Gran # (Auto) 0.01 (0.01-0.20) K/uL PT Cancelled INR Cancelled APTT Cancelled PTT Ratio Cancelled Sodium (136-145) mmol/L Potassium (3.5-5.1) mmol/L Chloride (98-107) mmol/L Carbon Dioxide (21-32) mmol/L Anion Gap (3-11) BUN (6-23) mg/dl Creatinine (0.6-1.4) mg/dl Est Cr Clr Drug Dosing ml/min Est GFR ( Amer) ml/min Est GFR (Non-Af Amer) ml/min BUN/Creatinine Ratio (10-20) Glucose (70-99(Fasting)) mg/dl POC Glucose (70-99) mg/dl Calcium (8.6-10.3) mg/dl Phosphorus (2.5-4.9) mg/dl Magnesium (1.7-2.4) mg/dl Total Bilirubin (0.2-1.0) mg/dl Direct Bilirubin (0-0.2) mg/dl AST (13-39) U/L ALT (7-52) U/L Alkaline Phosphatase (34-104) U/L Total Protein (6.0-8.3) gm/dl Albumin (3.4-5.0) gm/dl Lipase (11-82) U/L Urine Color Urine Appearance (Clear) Urine pH (4.5-7.5) Ur Specific [place] (1.000-1.030) Urine Protein (Negative) Urine Glucose (UA) (Negative) Urine Ketones (Negative) Urine Blood (Negative) Urine Nitrite (Negative) Urine Bilirubin (Negative) Urine Urobilinogen (Negative) Ur Leukocyte Esterase (Negative) Urine WBC (Auto) (0-5) /hpf Urine RBC (Auto) (0-4) /hpf U Hyaline Cast (Auto) (0-5) /lpf U Epithel Cells (Auto) (0-5) /lpf Urine Bacteria (Auto) (Negative) Adenovirus (PCR) (NotDetected) B. pertussis DNA (PCR) (NotDetected) B.parapertussis DNA PCR (NotDetected) C. pneumoniae DNA (PCR) (NotDetected) Coronavirus OC43 (PCR) (NotDetected) Coronavirus HKU1 (PCR) (NotDetected) Coronavirus 229E (PCR) (NotDetected) SARS-CoV-2 (PCR) (NotDetected) Coronavirus NL63 (PCR) (NotDetected) Human Metapneumovir PCR (NotDetected) Influenza Type A (PCR) (NotDetected) Influenza Type B (PCR) (NotDetected) M. pneumoniae (PCR) (NotDetected) Parainfluenza 1 (PCR) (NotDetected) Parainfluenza 2 (PCR) (NotDetected) Parainfluenza 3 (PCR) (NotDetected) Parainfluenza 4 (PCR) (NotDetected) RSV (PCR) (NotDetected) Entero/Rhino (PCR) (NotDetected) Blood Type Antibody Screen
[2022-12-11] MEDS: ONDANSETRON INJ 2 MG/ML 2 ML VIAL IV PRN (13:44)
--- NOTE | 2022-12-11 15:56 | Electrocardiogram Report ---
Test Reason : Blood Pressure : / mmHG Vent. Rate : 061 BPM Atrial Rate : 061 BPM P-R Int : 212 ms QRS Dur : 110 ms QT Int : 428 ms P-R-T Axes : 045 -49 033 degrees QTc Int : 430 ms Sinus rhythm with 1st degree A-V block with occasional Premature ventricular complexes Left anterior fascicular block Moderate voltage criteria for LVH, may be normal variant Abnormal ECG When compared with ECG of 06-DEC-2022 12:27, Premature ventricular complexes are now Present Septal infarct is now Present Confirmed by Narayan Reid ([id number]) on 12/11/2022 3:56:16 PM Referred By: REFERRED SELF Confirmed By:Franck Reid
[2022-12-11] MEDS: ATORVASTATIN 40 MG TAB PO SCH (21:22)
[2022-12-11] MEDS: LOSARTAN POTASSIUM 25 MG TAB PO SCH (21:22)
[2022-12-12 07:25] LABS: Hematocrit (blood only) 39.3 % (42.0-52.0); Hemoglobin 13.5 g/dl (14.0-18.0); Mean Corpuscular Hemoglobin 32.4 pg (25.0-34.0); Mean Corpuscular Hgb Conc 34.4 g/dL (32.0-36.0); Mean Corpuscular Volume 94.2 fL (80.0-100.0); Mean Platelet Volume 10.4 fL (9.4-12.4); Platelet Count 203 K/uL (130-400); RDW Coefficient of Variation 12.5 % (11.5-14.5); RDW Standard Deviation 43.5 fL (36.4-46.3); Red Blood Count 4.17 M/uL (4.70-6.10)
[2022-12-12 07:50] LABS: BUN Creatinine Ratio 17.9 (10-20); Calcium 8.8 mg/dl (8.6-10.3); Creatinine Clr Calc Pharmacy 68.1 ml/min; Est GFR (Non-African American) 66.4 ml/min; Magnesium 1.9 mg/dl (1.7-2.4); Phosphorus 3.7 mg/dl (2.5-4.9); Potassium 3.9 mmol/L (3.5-5.1)
[2022-12-12] MEDS: CYANOCOBALAMIN (B-12) 500 MCG TABLET PO SCH (08:07)
[2022-12-12] MEDS: buPROPion XL 300 MG TABCR PO SCH (08:07)
[2022-12-12] MEDS: ONDANSETRON INJ 2 MG/ML 2 ML VIAL IV PRN (08:07)
[2022-12-12] MEDS: FOLIC ACID 1 MG TAB PO SCH (08:07)
--- NOTE | 2022-12-12 09:06 | Hospitalist Progress Note ---
Date of Service December 12, 2022 Assessment & Plan (1) Vomiting: Plan: ?Hematemesis reported at home Vitals stable in ER CT Abd/pelvis: No acute abnormalities. Diverticulosis is seen without evidence of diverticulitis. Bladder wall thickening may be secondary to chronic outlet obstruction. No hematemesis during ER course. Reports brown stool. Hgb: 15 (at baseline). FOBT ordered. Monitor for further episodes of hematemesis or any melena, hematochezia overnight Hold aspirin for now (pt has not been taking at home) If recurrent hematemesis or Hgb dropping consider further workup/GI consult CBC, BMP in am (2) Major depressive disorder, recurrent, moderate: Plan: Continue bupropion (3) Dementia: Plan: Questionable underlying dementia. No formal neurocognitive testing completed Patient with difficult living situation currently. Currently lives alone. Son lives in different state. Previously girlfriend helped patient and did cooking/cleaning, etc, unfortunately she recently suffered stroke and unable to help patient. Patient has drivers license but does not drive. He states does not have home phone or cell phone. Unclear who called EMS today for pt to be transported to ER. Recent admission pt was set up with home health and evaluation from [facility]. Outpatient notes report HH unable to reach pt by phone and have not be able to evaluate Patient reports not taking medications at home (4) Prediabetes: Plan: A1c: 6.4 on 12/05/2022 Diet controlled (5) HTN (hypertension): Plan: Continue losartan (6) CAD (coronary artery disease): Plan: Nonobstructive CAD 12/07/2022 dobutamine stress was negative for ischemia Was recommended aspirin and atorvastatin. Hold aspirin with possible reported hematemesis Continue atorvastatin (7) Aortic stenosis: Plan: moderate aortic stenosis DVT Prophylaxis SCDs Full Code as per discussion with pt Follows with Dr Hansen for routine care Admission and Anticipated Discharge Date Admission Date: December 10, 2022 Subjective Pt seen in follow up for reported vomiting/ hematemesis, hgb stable Pt lives alone, re-admitted to the hospital, says he did not take any meds we sent him home with - can't handle them Says his son should take care of him but he took in his [id number] and nobody can't help the pt CM aware Currently patient is lying in bed, in no acute distress, he has been eating in the hospital, denies any nausea vomiting diarrhea. FOBT ordered, pt aware Patient denies any abdominal pain, or any discomfort to me. However per RN, patient reported some nausea and dyspepsia. He has been eating well though without any issues. Review of Systems Review of Systems: All systems reviewed & are unremarkable except as noted in Subjective Physical Exam Physical Exam: General: elderly m in NAD Head: normocephalic, atraumatic Eyes: PERRL, EOM's intact, conjunctiva non-injected, anicteric ENT: normal inspection external ears, nose, mucous membranes moist Neck: supple Lungs: clear, no respiratory distress, no wheezing/rhonchi/rales CV: RRR, no murmur, no pretibial edema Abd: normal BS, soft, mild tenderness to palpation epigastric without guarding Ext: moves extremities Neuro: Alert, oriented to person and place. Unsure of date. no focal deficits noted Skin: warm, dry, long fingernails Results & Data Results & Data Vital Signs (Past 12 Hours) Vital Signs Temp Pulse Resp BP Pulse Ox O2 Del Method 12/12/22 07:10 36.7 C 54 L 18 121/64 94 Room Air 12/11/22 21:30 Room Air Laboratory Results 12/12/22 12/12/22 Range/Units 06:38 06:38 WBC 5.60 (4.8-10.8) K/ul RBC 4.17 L (4.70-6.10) M/uL Hgb 13.5 L (14.0-18.0) g/dl Hct 39.3 L (42.0-52.0) % MCV 94.2 (80.0-100.0) fL MCH 32.4 (25.0-34.0) pg MCHC 34.4 (32.0-36.0) g/dL RDW Std Deviation 43.5 (36.4-46.3) fL RDW Coeff of Harry 12.5 (11.5-14.5) % Plt Count 203 (130-400) K/uL MPV 10.4 (9.4-12.4) fL Sodium 137 (136-145) mmol/L Potassium 3.9 (3.5-5.1) mmol/L Chloride 106 (98-107) mmol/L Carbon Dioxide 25 (21-32) mmol/L Anion Gap 6 (3-11) BUN 19 (6-23) mg/dl Creatinine 1.06 (0.6-1.4) mg/dl Est Cr Clr Drug Dosing 68.1 ml/min Est GFR ( Amer) 77.0 ml/min Est GFR (Non-Af Amer) 66.4 ml/min BUN/Creatinine Ratio 17.9 (10-20) Glucose 147 H (70-99(Fasting)) mg/dl Calcium 8.8 (8.6-10.3) mg/dl Phosphorus 3.7 (2.5-4.9) mg/dl Magnesium 1.9 (1.7-2.4) mg/dl Medications Administered Current Inpatient Medications Acetaminophen (Acetaminophen 325 Mg Tab) 650 mg PO Q4H PRN PRN Reason: Pain or Fever Stop: 01/09/23 16:50 Al Hydrox/Mg Hydrox/Simethicone (Aluminum/Magnesium Susp 30 Ml Udc) 15 ml PO Q4H PRN PRN Reason: Dyspepsia Stop: 01/09/23 16:50 Atorvastatin Calcium (Atorvastatin 40 Mg Tab) 80 mg PO [facility] Stop: 01/09/23 20:59 Last Admin: 12/11/22 21:22 Dose: 80 mg Bupropion HCl (B[facility]ropion Xl 300 Mg Tabcr) [facility] [place] Stop: 01/10/23 08:59 Last Admin: 12/12/22 08:07 Dose: 300 mg Cyanocobalamin (Cyanocobalamin (B-12) 500 Mcg Tablet) 1,000 mcg [facility] [place] Stop: 01/10/23 08:59 Last Admin: 12/12/22 08:07 Dose: 1,000 mcg Folic Acid (Folic Acid 1 Mg Tab) [facility] [place] Stop: 01/10/23 08:59 Last Admin: 12/12/22 08:07 Dose: 1 mg Losartan Potassium (Losartan Potassium 25 Mg Tab) 25 mg PO [facility] Stop: 01/09/23 20:59 Last Admin: 12/11/22 21:22 Dose: 25 mg Ondansetron HCl (Ondansetron Inj 2 Mg/Ml 2 Ml Vial) 4 mg IV Q6H PRN PRN Reason: Nausea Stop: 01/09/23 16:50 Last Admin: 12/12/22 08:07 Dose: 4 mg Polyethylene Glycol (Polyethylene (Miralax) 17 Gm Pack) 17 gm PO DAILY PRN PRN Reason: Constipation Stop: 01/09/23 16:50
[2022-12-12] MEDS: FAMOTIDINE 20 MG TAB PO SCH (21:25)
[2022-12-12] MEDS: LOSARTAN POTASSIUM 25 MG TAB PO SCH (21:25)
[2022-12-12] MEDS: ATORVASTATIN 40 MG TAB PO SCH (21:25)
[2022-12-13 07:43] LABS: Hematocrit (blood only) 38.6 % (42.0-52.0); Hemoglobin 13.1 g/dl (14.0-18.0)
[2022-12-13 07:56] LABS: BUN Creatinine Ratio 16.4 (10-20); Calcium 8.8 mg/dl (8.6-10.3); Creatinine Clr Calc Pharmacy 62.2 ml/min; Est GFR (Non-African American) 59.6 ml/min; Magnesium 1.9 mg/dl (1.7-2.4); Phosphorus 3.5 mg/dl (2.5-4.9); Potassium 4.5 mmol/L (3.5-5.1)
[2022-12-13] MEDS: FAMOTIDINE 20 MG TAB PO SCH ×2 (07:58→20:00)
[2022-12-13] MEDS: CYANOCOBALAMIN (B-12) 500 MCG TABLET PO SCH (07:58)
[2022-12-13] MEDS: buPROPion XL 300 MG TABCR PO SCH (07:58)
[2022-12-13] MEDS: FOLIC ACID 1 MG TAB PO SCH (07:59)
[2022-12-13] MEDS: POLYETHYLENE (MIRALAX) 17 GM PACK PO PRN (16:16)
--- NOTE | 2022-12-13 17:51 | Hospitalist Progress Note ---
Date of Service December 13, 2022 Assessment & Plan (1) Vomiting: Plan: ?Hematemesis reported at home Vitals stable in ER CT Abd/pelvis: No acute abnormalities. Diverticulosis is seen without evidence of diverticulitis. Bladder wall thickening may be secondary to chronic outlet obstruction. No hematemesis during ER course while in hospital. Hemoglobin has been stable. FOBT has been uncollected. Aspirin on hold. Patient reports not taking aspirin for months. If recurrent hematemesis or Hgb dropping consider further workup/GI consult CBC, BMP in am (2) Major depressive disorder, recurrent, moderate: Plan: Continue bupropion (3) Dementia: Plan: Questionable underlying dementia. No formal neurocognitive testing completed Patient with difficult living situation currently. Currently lives alone. Son lives in different state. Previously girlfriend helped patient and did cooking/cleaning, etc, unfortunately she recently suffered stroke and unable to help patient. Patient has drivers license but does not drive. He states he does not have home phone or cell phone. Unclear who called EMS today for pt to be transported to ER. Recent admission pt was set up with home health and evaluation from [facility]. Outpatient notes report HH unable to reach pt by phone and have not be able to evaluate Patient reports not taking medications at home (4) Prediabetes: Plan: A1c: 6.4 on 12/05/2022 Diet controlled (5) HTN (hypertension): Plan: Continue losartan (6) CAD (coronary artery disease): Plan: Nonobstructive CAD 12/07/2022 dobutamine stress was negative for ischemia Was recommended aspirin and atorvastatin. Hold aspirin with possible reported hematemesis Continue atorvastatin (7) Aortic stenosis: Plan: moderate aortic stenosis DVT Prophylaxis: SCDs Full Code Admission and Anticipated Discharge Date Admission Date: December 12, 2022 Subjective Pt seen in follow up for reported vomiting/ hematemesis, hgb stable Pt lives alone, re-admitted to the hospital, says he did not take any meds we sent him home with - can't handle them Pt reports lack of support and help at home. CM aware. Currently patient is lying in bed, in no acute distress, he has been eating in the hospital, denies any nausea vomiting diarrhea. No hematemesis while in hospital. Patient denies any abdominal pain, or any discomfort to me. Physical Exam Physical Exam: General: elderly m in NAD Head: normocephalic, atraumatic Eyes: PERRL, EOM's intact, conjunctiva non-injected, anicteric ENT: normal inspection external ears, nose, mucous membranes moist Neck: supple Lungs: clear, no respiratory distress, no wheezing/rhonchi/rales CV: RRR, no murmur, no pretibial edema Abd: normal BS, soft, mild tenderness to palpation epigastric without guarding Ext: moves extremities Neuro: Alert, oriented to person and place. Unsure of date. no focal deficits noted Skin: warm, dry, long fingernails Results & Data Results & Data Vital Signs (Past 12 Hours) Vital Signs Temp Pulse Resp BP Pulse Ox O2 Del Method 12/13/22 07:19 36.6 C 54 L 16 146/75 H 96 Room Air
[2022-12-13] MEDS: ATORVASTATIN 40 MG TAB PO SCH (20:00)
[2022-12-13] MEDS: LOSARTAN POTASSIUM 25 MG TAB PO SCH (20:00)
[2022-12-14] MEDS: FOLIC ACID 1 MG TAB PO SCH (08:41)
[2022-12-14] MEDS: buPROPion XL 300 MG TABCR PO SCH (08:41)
[2022-12-14] MEDS: FAMOTIDINE 20 MG TAB PO SCH ×2 (08:41→19:54)
[2022-12-14] MEDS: CYANOCOBALAMIN (B-12) 500 MCG TABLET PO SCH (08:41)
[2022-12-14 09:13] LABS: BUN Creatinine Ratio 14.8 (10-20); Calcium 9.1 mg/dl (8.6-10.3); Creatinine Clr Calc Pharmacy 66.8 ml/min; Est GFR (African American) 75.3 ml/min; Est GFR (Non-African American) 64.9 ml/min; Potassium 4.1 mmol/L (3.5-5.1)
[2022-12-14 09:22] LABS: Hematocrit (blood only) 41.6 % (42.0-52.0); Hemoglobin 14.1 g/dl (14.0-18.0); Mean Corpuscular Hgb Conc 33.9 g/dL (32.0-36.0); Mean Corpuscular Volume 94.5 fL (80.0-100.0); Mean Platelet Volume 10.6 fL (9.4-12.4); Platelet Count 223 K/uL (130-400); RDW Coefficient of Variation 12.5 % (11.5-14.5); RDW Standard Deviation 43.2 fL (36.4-46.3); White Blood Count 7.91 K/ul (4.8-10.8)
--- NOTE | 2022-12-14 17:35 | Hospitalist Progress Note ---
Date of Service December 14, 2022 Assessment & Plan (1) Vomiting: Plan: ?Hematemesis reported at home Vitals stable in ER CT Abd/pelvis: No acute abnormalities. Diverticulosis is seen without evidence of diverticulitis. Bladder wall thickening may be secondary to chronic outlet obstruction. No hematemesis during ER course while in hospital. Hemoglobin has been stable. FOBT negative. Aspirin on hold. Patient reports not taking aspirin for months. If recurrent hematemesis or Hgb dropping consider further workup/GI consult Hb stable, no labs unless indicated. (2) Major depressive disorder, recurrent, moderate: Plan: Continue bupropion (3) Dementia: Plan: Questionable underlying dementia. No formal neurocognitive testing completed, can f/u w/ pcp as OP for tests/referral. Patient with difficult living situation currently. Currently lives alone. Son lives in different state. Previously girlfriend helped patient and did cooking/cleaning, etc, unfortunately she recently suffered stroke and unable to help patient. Patient has drivers license but does not drive. He states he does not have home phone or cell phone. Unclear who called EMS today for pt to be transported to ER. Recent admission pt was set up with [facility] health [facility] Outpatient notes report HH unable to reach pt by phone and have not be able to evaluate Patient reports not taking medications at home (4) Prediabetes: Plan: A1c: 6.4 on 12/05/2022 Diet controlled (5) HTN (hypertension): Plan: Continue losartan (6) CAD (coronary artery disease): Plan: Nonobstructive CAD 12/07/2022 dobutamine stress was negative for ischemia Was recommended aspirin and atorvastatin. continue them. (7) Aortic stenosis: Plan: moderate aortic stenosis DVT Prophylaxis: SCDs Full Code d/w pt's son teodoro over the phone, he states he is on discussion with CM regarding safe discharge, will make sure his shelter is safe and phones are working and will try to arrange help for his meds/foods. He states he will let me know if he is able to take him home tomorrow after he has discussion with CM again. Admission and Anticipated Discharge Date Admission Date: December 12, 2022 Subjective Pt seen in follow up for reported vomiting/ hematemesis, hgb stable Pt lives alone, re-admitted to the hospital, says he did not take any meds we sent him home with - can't handle them Pt reports lack of support and help at home. CM aware. Currently patient is lying in bed, in no acute distress, he has been eating in the hospital, denies any nausea vomiting diarrhea. No hematemesis while in hospital. FOBT is neg. Patient denies any abdominal pain, or any discomfort to me. Physical Exam Physical Exam: General: elderly m in NAD Head: normocephalic, atraumatic Eyes: PERRL, EOM's intact, conjunctiva non-injected, anicteric ENT: normal inspection external ears, nose, mucous membranes moist Neck: supple Lungs: clear, no respiratory distress, no wheezing/rhonchi/rales CV: RRR, no murmur, no pretibial edema Abd: normal BS, soft, mild tenderness to palpation epigastric without guarding Ext: moves extremities Neuro: Alert, oriented to person and place. Unsure of date. no focal deficits noted Skin: warm, dry, long fingernails Results & Data Results & Data Vital Signs (Past 12 Hours) Vital Signs Temp Pulse Resp BP Pulse Ox O2 Del Method 12/14/22 07:42 36.3 C L 56 L 18 129/70 94 Room Air
[2022-12-14] MEDS: LOSARTAN POTASSIUM 25 MG TAB PO SCH (19:55)
[2022-12-14] MEDS: ATORVASTATIN 40 MG TAB PO SCH (19:55)
[2022-12-15] MEDS: FOLIC ACID 1 MG TAB PO SCH (08:42)
[2022-12-15] MEDS: CYANOCOBALAMIN (B-12) 500 MCG TABLET PO SCH (08:42)
[2022-12-15] MEDS: buPROPion XL 300 MG TABCR PO SCH (08:42)
[2022-12-15] MEDS: FAMOTIDINE 20 MG TAB PO SCH ×2 (08:42→19:56)
[2022-12-15] MEDS: ASPIRIN 81 MG ECTAB PO SCH (10:28)
--- NOTE | 2022-12-15 13:44 | Hospitalist Progress Note ---
Date of Service December 15, 2022 Assessment & Plan (1) Vomiting: Plan: ?Hematemesis reported at home Vitals stable in ER CT Abd/pelvis: No acute abnormalities. Diverticulosis is seen without evidence of diverticulitis. Bladder wall thickening may be secondary to chronic outlet obstruction. No hematemesis during ER course and while in hospital. Hemoglobin has been stable. FOBT negative. Hb stable, no labs unless indicated. (2) Major depressive disorder, recurrent, moderate: Plan: Continue bupropion (3) Dementia: Plan: Questionable underlying dementia. No formal neurocognitive testing completed, can f/u w/ pcp as OP for tests/referral. Patient with difficult living situation currently. Currently lives alone. Son parminder aguero in different state. Previously girlfriend helped patient and did cooking/cleaning, etc, unfortunately she recently suffered stroke and unable to help patient. Patient has drivers license but does not drive. He states he does not have home phone or cell phone. Unclear who called EMS today for pt to be transported to ER. Recent admission pt was set up with [facility] health [facility] Outpatient notes report HH unable to reach pt by phone and have not be able to evaluate Patient reports not taking medications at home (4) Prediabetes: Plan: A1c: 6.4 on 12/05/2022 Diet controlled (5) HTN (hypertension): Plan: Continue losartan (6) CAD (coronary artery disease): Plan: Nonobstructive CAD 12/07/2022 dobutamine stress was negative for ischemia Was recommended aspirin and atorvastatin. continue them. (7) Aortic stenosis: Plan: moderate aortic stenosis DVT Prophylaxis: SCDs Full Code d/w pt's son teodoro 12/14 over the phone, he states he is on discussion with CM regarding safe discharge, will make sure his halfway is safe and phones are working and will try to arrange help for his meds/foods. He states he will let me know if he is able to take him home tomorrow after he has discussion with CM again. Dispo: medically stable, cm assisting w/ safe discharge plan. Admission and Anticipated Discharge Date Admission Date: December 12, 2022 Subjective Pt seen in follow up for reported vomiting/ hematemesis, hgb stable Pt lives alone, re-admitted to the hospital, says he did not take any meds we sent him home with - can't handle them Pt reports lack of support and help at home. CM aware. Currently patient is lying in bed, in no acute distress, he has been eating in the hospital, denies any nausea vomiting diarrhea. No hematemesis while in hospital. FOBT is neg. Patient denies any abdominal pain, or any discomfort to me. Physical Exam Physical Exam: General: elderly m in NAD Head: normocephalic, atraumatic Eyes: PERRL, EOM's intact, conjunctiva non-injected, anicteric ENT: normal inspection external ears, nose, mucous membranes moist Neck: supple Lungs: clear, no respiratory distress, no wheezing/rhonchi/rales CV: RRR, no murmur, no pretibial edema Abd: normal BS, soft, mild tenderness to palpation epigastric without guarding Ext: moves extremities Neuro: Alert, oriented to person and place. Unsure of date. no focal deficits noted Skin: warm, dry, long fingernails Results & Data Results & Data Vital Signs (Past 12 Hours) Vital Signs Temp Pulse Resp BP Pulse Ox O2 Del Method 12/15/22 12:30 36.8 C 61 18 144/82 H 97 12/15/22 08:00 Room Air 12/15/22 07:50 36.8 C 61 18 144/82 H 97 Room Air
[2022-12-15] MEDS: ATORVASTATIN 40 MG TAB PO SCH (19:57)
[2022-12-15] MEDS: LOSARTAN POTASSIUM 25 MG TAB PO SCH (19:57)
[2022-12-16] MEDS: ONDANSETRON INJ 2 MG/ML 2 ML VIAL IV PRN (08:05)
[2022-12-16] MEDS: ASPIRIN 81 MG ECTAB PO SCH (08:43)
[2022-12-16] MEDS: buPROPion XL 300 MG TABCR PO SCH (08:44)
[2022-12-16] MEDS: FOLIC ACID 1 MG TAB PO SCH (08:44)
[2022-12-16] MEDS: FAMOTIDINE 20 MG TAB PO SCH ×2 (08:44→20:23)
[2022-12-16] MEDS: CYANOCOBALAMIN (B-12) 500 MCG TABLET PO SCH (08:44)
[2022-12-16] MEDS ORDERED: ALUMINUM/MAGNESIUM SUSP 30 ML UDC PO STA (09:53)
--- NOTE | 2022-12-16 10:58 | XRay Report ---
PA CHEST WITH ABDOMINAL SERIES CLINICAL HISTORY: Generalized abdominal pain FINDINGS: A PA chest radiograph is compared to chest x-ray and chest CT dated 12/10/2022. The heart is top keith l for projection noting atherosclerotic calcification of the thoracic aorta. Chronic interstitial thi ckening is similar to previous. A large calcified granuloma is again seen in the lingula. No airspace consolidation or large pleural effusion is identified. No pneumothorax is seen. The skeletal structu res are osteopenic. The bony thorax is grossly intact. Supine and erect abdominal radiographs are correlated with abdominal CT dated 12/10/2022. There is a n onobstructed abdominal bowel gas pattern. No evidence of intraperitoneal free air is seen. There is a 4 mm nonobstructing right renal calculus. Mesh material projects over the pelvis and there are pelvi c phleboliths. The lumbosacral spine and bony pelvis appear intact. There is mild to moderate lumbosa cral spondylosis. IMPRESSION: 1. No active disease in the chest. 2. Nonobstructed abdominal bowel gas pattern. 3. Right-sided nephrolithiasis. ACT 112: Negative or not required by law. Electronically signed by: Abraham Gallo M.D. 12/16/2022 10:56 AM
--- NOTE | 2022-12-16 14:57 | Hospitalist Progress Note ---
Date of Service December 16, 2022 Assessment & Plan (1) Vomiting: Plan: ?Hematemesis reported at home Vitals stable in ER CT Abd/pelvis: No acute abnormalities. Diverticulosis is seen without evidence of diverticulitis. Bladder wall thickening may be secondary to chronic outlet obstruction. No hematemesis during ER course and while in hospital. Hemoglobin has been stable. FOBT negative. Hb stable, no labs unless indicated. (2) Major depressive disorder, recurrent, moderate: Plan: Continue bupropion (3) Dementia: Plan: Questionable underlying dementia. No formal neurocognitive testing completed, can f/u w/ pcp as OP for tests/referral. Patient with difficult living situation currently. Currently lives alone. Son parminder aguero in different state. Previously girlfriend helped patient and did cooking/cleaning, etc, unfortunately she recently suffered stroke and unable to help patient. Patient has drivers license but does not drive. He states he does not have home phone or cell phone. Unclear who called EMS today for pt to be transported to ER. Recent admission pt was set up with home health [facility]. Outpatient notes report HH unable to reach pt by phone and have not been able to evaluate Patient reports not taking medications at home (4) Prediabetes: Plan: A1c: 6.4 on 12/05/2022 Diet controlled (5) HTN (hypertension): Plan: Continue losartan (6) CAD (coronary artery disease): Plan: Nonobstructive CAD 12/07/2022 dobutamine stress was negative for ischemia Was recommended aspirin and atorvastatin. continue them. (7) Aortic stenosis: Plan: moderate aortic stenosis DVT Prophylaxis: SCDs Full Code d/w pt's son teodoro 12/14 over the phone, he states he is on discussion with CM regarding safe discharge, will make sure his [facility] is safe and phones are working and will try to arrange help for his meds/foods. He states he will let me know if he is able to take him home tomorrow after he has discussion with CM again. Dispo: medically stable, cm assisting w/ safe discharge plan. Admission and Anticipated Discharge Date Admission Date: December 12, 2022 Subjective Pt seen in follow up for reported vomiting/ hematemesis, hgb stable Pt lives alone, re-admitted to the hospital, says he did not take any meds we sent him home with - can't handle them Pt reports lack of support and help at home. CM aware. Currently patient is lying in bed, in no acute distress, he has been eating in the hospital, denies any nausea vomiting diarrhea. No hematemesis while in hosp ital. FOBT is neg. today reports some belly pain, ordered maalox and Abd xr - reviewed. But reports eating ok in morning, no vomiting per pt. Physical Exam Physical Exam: General: elderly m in NAD Head: normocephalic, atraumatic Eyes: PERRL, EOM's intact, conjunctiva non-injected, anicteric ENT: normal inspection external ears, nose, mucous membranes moist Neck: supple Lungs: clear, no respiratory distress, no wheezing/rhonchi/rales CV: RRR, no murmur, no pretibial edema Abd: normal BS, soft, mild tenderness to palpation epigastric without guarding Ext: moves extremities Neuro: Alert, oriented to person and place. Unsure of date. no focal deficits noted Skin: warm, dry, long fingernails Results & Data Results & Data Vital Signs (Past 12 Hours) Vital Signs Temp Pulse Resp BP Pulse Ox O2 Del Method 12/16/22 07:40 Room Air 12/16/22 07:04 36.5 C 65 18 136/88 93 Room Air
[2022-12-16] MEDS: ATORVASTATIN 40 MG TAB PO SCH (20:22)
[2022-12-16] MEDS: LOSARTAN POTASSIUM 25 MG TAB PO SCH (20:22)
[2022-12-17 07:25] LABS: Hematocrit (blood only) 39.2 % (42.0-52.0); Hemoglobin 13.6 g/dl (14.0-18.0); Mean Corpuscular Hemoglobin 32.2 pg (25.0-34.0); Mean Corpuscular Hgb Conc 34.7 g/dL (32.0-36.0); Mean Corpuscular Volume 92.9 fL (80.0-100.0); Mean Platelet Volume 10.1 fL (9.4-12.4); Platelet Count 233 K/uL (130-400); RDW Coefficient of Variation 12.7 % (11.5-14.5); Red Blood Count 4.22 M/uL (4.70-6.10); White Blood Count 6.74 K/ul (4.8-10.8)
[2022-12-17 07:47] LABS: BUN Creatinine Ratio 12.4 (10-20); Est GFR (African American) 71.3 ml/min; Est GFR (Non-African American) 61.5 ml/min; Magnesium 2.1 mg/dl (1.7-2.4); Phosphorus 3.4 mg/dl (2.5-4.9); Potassium 4.2 mmol/L (3.5-5.1)
[2022-12-17] MEDS: ACETAMINOPHEN 325 MG TAB PO PRN (08:31)
[2022-12-17] MEDS: CYANOCOBALAMIN (B-12) 500 MCG TABLET PO SCH (08:31)
[2022-12-17] MEDS: ASPIRIN 81 MG ECTAB PO SCH (08:31)
[2022-12-17] MEDS: buPROPion XL 300 MG TABCR PO SCH (08:31)
[2022-12-17] MEDS: FOLIC ACID 1 MG TAB PO SCH (08:32)
[2022-12-17] MEDS: FAMOTIDINE 20 MG TAB PO SCH ×2 (08:32→20:15)
--- NOTE | 2022-12-17 13:08 | Hospitalist Progress Note ---
Date of Service December 17, 2022 Assessment & Plan (1) Vomiting: Plan: ?Hematemesis reported at home Vitals stable in ER CT Abd/pelvis: No acute abnormalities. Diverticulosis is seen without evidence of diverticulitis. Bladder wall thickening may be secondary to chronic outlet obstruction. No hematemesis during ER course and while in hospital. Hemoglobin has been stable. FOBT negative. Hb stable, no labs unless indicated. (2) Major depressive disorder, recurrent, moderate: Plan: Continue bupropion (3) Dementia: Plan: Questionable underlying dementia. No formal neurocognitive testing completed, can f/u w/ pcp as OP for tests/referral. Patient with difficult living situation currently. Currently lives alone. Son parminder aguero in different state. Previously girlfriend helped patient and did cooking/cleaning, etc, unfortunately she recently suffered stroke and unable to help patient. Patient has drivers license but does not drive. He states he does not have home phone or cell phone. Unclear who called EMS today for pt to be transported to ER. Recent admission pt was set up with home health and [facility]. Outpatient notes report HH unable to reach pt by phone and have not been able to evaluate Patient reports not taking medications at home (4) Prediabetes: Plan: A1c: 6.4 on 12/05/2022 Diet controlled (5) HTN (hypertension): Plan: Continue losartan (6) CAD (coronary artery disease): Plan: Nonobstructive CAD 12/07/2022 dobutamine stress was negative for ischemia Was recommended aspirin and atorvastatin. continue them. (7) Aortic stenosis: Plan: moderate aortic stenosis DVT Prophylaxis: SCDs Full Code d/w pt's son teodoro 12/14 over the phone, he states he is on discussion with CM regarding safe discharge, will make sure his nursing home is safe and phones are working and will try to arrange help for his meds/foods. He states he will let me know if he is able to take him home tomorrow after he has discussion with CM again. Dispo: medically stable, cm assisting w/ safe discharge plan. Admission and Anticipated Discharge Date Admission Date: December 12, 2022 Subjective Pt seen in follow up for reported vomiting/ hematemesis, hgb stable Pt lives alone, re-admitted to the hospital, says he did not take any meds we sent him home with - can't handle them Pt reports lack of support and help at home. CM aware. Currently patient is lying in bed, in no acute distress, he has been eating in the hospital, denies any nausea vomiting diarrhea. No hematemesis while in hosp ital. FOBT is neg. today reports improvement in belly pain. XR abd yesterday was neg for acute findings. But reports eating ok in morning, no vomiting per pt. Physical Exam Physical Exam: General: elderly m in NAD Head: normocephalic, atraumatic Eyes: PERRL, EOM's intact, conjunctiva non-injected, anicteric ENT: normal inspection external ears, nose, mucous membranes moist Neck: supple Lungs: clear, no respiratory distress, no wheezing/rhonchi/rales CV: RRR, no murmur, no pretibial edema Abd: normal BS, soft, mild tenderness to palpation epigastric without guarding Ext: moves extremities Neuro: Alert, oriented to person and place. Unsure of date. no focal deficits noted Skin: warm, dry, long fingernails Results & Data Results & Data Vital Signs (Past 12 Hours) Vital Signs Temp Pulse Resp BP Pulse Ox O2 Del Method 12/17/22 07:10 Room Air 12/17/22 07:10 36.5 C 59 L 18 135/77 93 Room Air
[2022-12-17] MEDS: ATORVASTATIN 40 MG TAB PO SCH (20:15)
[2022-12-17] MEDS: LOSARTAN POTASSIUM 25 MG TAB PO SCH (20:16)
[2022-12-18] MEDS: CYANOCOBALAMIN (B-12) 500 MCG TABLET PO SCH (08:50)
[2022-12-18] MEDS: FOLIC ACID 1 MG TAB PO SCH (08:50)
[2022-12-18] MEDS: FAMOTIDINE 20 MG TAB PO SCH ×2 (08:50→19:58)
[2022-12-18] MEDS: buPROPion XL 300 MG TABCR PO SCH (08:50)
[2022-12-18] MEDS: ASPIRIN 81 MG ECTAB PO SCH (08:50)
[2022-12-18] MEDS: ACETAMINOPHEN 325 MG TAB PO PRN (10:51)
--- NOTE | 2022-12-18 14:15 | Hospitalist Progress Note ---
Date of Service December 18, 2022 Assessment & Plan (1) Vomiting: Plan: ?Hematemesis reported at home Vitals stable in ER CT Abd/pelvis: No acute abnormalities. Diverticulosis is seen without evidence of diverticulitis. Bladder wall thickening may be secondary to chronic outlet obstruction. No hematemesis during ER course and while in hospital. Hemoglobin has been stable. FOBT negative. Hb stable, no labs unless indicated. (2) Major depressive disorder, recurrent, moderate: Plan: Continue bupropion (3) Dementia: Plan: Questionable underlying dementia. No formal neurocognitive testing completed, can f/u w/ pcp as OP for tests/referral. Patient with difficult living situation currently. Currently lives alone. Son parminder aguero in different state. Previously girlfriend helped patient and did cooking/cleaning, etc, unfortunately she recently suffered stroke and unable to help patient. Patient has drivers license but does not drive. He states he does not have home phone or cell phone. Unclear who called EMS today for pt to be transported to ER. Recent admission pt was set up with home health [facility]. Outpatient notes report HH unable to reach pt by phone and have not been able to evaluate Patient reports not taking medications at home (4) Prediabetes: Plan: A1c: 6.4 on 12/05/2022 Diet controlled (5) HTN (hypertension): Plan: Continue losartan (6) CAD (coronary artery disease): Plan: Nonobstructive CAD 12/07/2022 dobutamine stress was negative for ischemia Was recommended aspirin and atorvastatin. continue them. (7) Aortic stenosis: Plan: moderate aortic stenosis DVT Prophylaxis: SCDs Full Code d/w pt's son teodoro 12/14 over the phone, he states he is on discussion with CM regarding safe discharge, will make sure his [facility] is safe and phones are working and will try to arrange help for his meds/foods. He states he will let me know if he is able to take him home tomorrow after he has discussion with CM again. Dispo: medically stable, cm assisting w/ safe discharge plan. Admission and Anticipated Discharge Date Admission Date: December 12, 2022 Subjective Pt seen in follow up for reported vomiting/ hematemesis, hgb stable Pt lives alone, re-admitted to the hospital, says he did not take any meds we sent him home with - can't handle them Pt reports lack of support and help at home. CM aware. Pt awaiting [facility] placement. Currently patient is lying in bed, in no acute distress, he has been eating ok, denies any nausea vomiting diarrhea. No hematemesis while in hospital. FOBT is neg. denies belly pain. But reports eating ok in morning, no vomiting per pt. Physical Exam Physical Exam: General: elderly m in NAD Head: normocephalic, atraumatic Eyes: PERRL, EOM's intact, conjunctiva non-injected, anicteric ENT: normal inspection external ears, nose, mucous membranes moist Neck: supple Lungs: clear, no respiratory distress, no wheezing/rhonchi/rales CV: RRR, no murmur, no pretibial edema Abd: normal BS, soft, mild tenderness to palpation epigastric without guarding Ext: moves extremities Neuro: Alert, oriented to person and place. Unsure of date. no focal deficits noted Skin: warm, dry, long fingernails Results & Data Results & Data Vital Signs (Past 12 Hours) Vital Signs Temp Pulse Resp BP Pulse Ox O2 Del Method 12/18/22 07:30 Room Air 12/18/22 07:23 36.7 C 58 L 18 165/85 H 95 Room Air
[2022-12-18] MEDS: ATORVASTATIN 40 MG TAB PO SCH (19:57)
[2022-12-18] MEDS: LOSARTAN POTASSIUM 25 MG TAB PO SCH (19:58)
[2022-12-19] MEDS: CYANOCOBALAMIN (B-12) 500 MCG TABLET PO SCH (07:44)
[2022-12-19] MEDS: buPROPion XL 300 MG TABCR PO SCH (07:45)
[2022-12-19] MEDS: ASPIRIN 81 MG ECTAB PO SCH (07:46)
[2022-12-19] MEDS: FOLIC ACID 1 MG TAB PO SCH (07:46)
[2022-12-19] MEDS: FAMOTIDINE 20 MG TAB PO SCH ×2 (07:46→21:28)
[2022-12-19] MEDS: ONDANSETRON INJ 2 MG/ML 2 ML VIAL IV PRN (11:52)
--- NOTE | 2022-12-19 16:52 | Hospitalist Progress Note ---
Date of Service December 19, 2022 Assessment & Plan (1) Vomiting: Plan: ?Hematemesis reported at home Vitals stable in ER CT Abd/pelvis: No acute abnormalities. Diverticulosis is seen without evidence of diverticulitis. Bladder wall thickening may be secondary to chronic outlet obstruction. No hematemesis during ER course and while in hospital. Hemoglobin has been stable. FOBT negative. Hb stable, no labs unless indicated. (2) Major depressive disorder, recurrent, moderate: Plan: Continue bupropion (3) Dementia: Plan: Questionable underlying dementia. No formal neurocognitive testing completed, can f/u w/ pcp as OP for tests/referral. Patient with difficult living situation currently. Currently lives alone. Son parminder aguero in different state. Previously girlfriend helped patient and did cooking/cleaning, etc, unfortunately she recently suffered stroke and unable to help patient. Patient has drivers license but does not drive. He states he does not have home phone or cell phone. Unclear who called EMS today for pt to be transported to ER. Recent admission pt was set up with home health [facility] Outpatient notes report HH unable to reach pt by phone and have not been able to evaluate Patient reports not taking medications at home (4) Prediabetes: Plan: A1c: 6.4 on 12/05/2022 Diet controlled (5) HTN (hypertension): Plan: Continue losartan (6) CAD (coronary artery disease): Plan: Nonobstructive CAD 12/07/2022 dobutamine stress was negative for ischemia Was recommended aspirin and atorvastatin. continue them. (7) Aortic stenosis: Plan: moderate aortic stenosis DVT Prophylaxis: SCDs Full Code d/w pt's son teodoro 12/14 over the phone, he states he is on discussion with CM regarding safe discharge, will make sure his [facility] is safe and phones are working and will try to arrange help for his meds/foods. He states he will let me know if he is able to take him home tomorrow after he has discussion with CM again. Dispo: medically stable, cm assisting w/ safe discharge plan. Admission and Anticipated Discharge Date Admission Date: December 12, 2022 Subjective Pt seen in follow up for reported vomiting/ hematemesis, hgb stable Pt lives alone, re-admitted to the hospital, says he did not take any meds we sent him home with - can't handle them Pt reports lack of support and help at home. CM aware. Pt awaiting [facility] placement. Currently patient is lying in bed, in no acute distress, he has been eating ok, denies any nausea vomiting diarrhea. No hematemesis while in hospital. FOBT is neg. denies belly pain. But reports eating ok in morning, no vomiting per pt. Physical Exam Physical Exam: General: elderly m in NAD Head: normocephalic, atraumatic Eyes: PERRL, EOM's intact, conjunctiva non-injected, anicteric ENT: normal inspection external ears, nose, mucous membranes moist Neck: supple Lungs: clear, no respiratory distress, no wheezing/rhonchi/rales CV: RRR, no murmur, no pretibial edema Abd: normal BS, soft, mild tenderness to palpation epigastric without guarding Ext: moves extremities Neuro: Alert, oriented to person and place. Unsure of date. no focal deficits noted Skin: warm, dry, long fingernails Results & Data Results & Data Vital Signs (Past 12 Hours) Vital Signs Temp Pulse Resp BP Pulse Ox O2 Del Method 12/19/22 15:28 36.4 C L 60 16 153/83 H 95 Room Air 12/19/22 15:27 36.4 C L 60 16 153/83 H Room Air 12/19/22 07:53 36.2 C L 58 L 16 153/75 H 95 Room Air
[2022-12-19] MEDS: LOSARTAN POTASSIUM 25 MG TAB PO SCH (21:28)
[2022-12-19] MEDS: ATORVASTATIN 40 MG TAB PO SCH (21:28)
[2022-12-20] MEDS: CYANOCOBALAMIN (B-12) 500 MCG TABLET PO SCH (08:03)
[2022-12-20] MEDS: buPROPion XL 300 MG TABCR PO SCH (08:03)
[2022-12-20] MEDS: FAMOTIDINE 20 MG TAB PO SCH ×2 (08:04→20:12)
[2022-12-20] MEDS: FOLIC ACID 1 MG TAB PO SCH (08:04)
[2022-12-20] MEDS: ASPIRIN 81 MG ECTAB PO SCH (08:04)
[2022-12-20] MEDS: ONDANSETRON INJ 2 MG/ML 2 ML VIAL IV PRN (11:37)
--- NOTE | 2022-12-20 14:29 | Hospitalist Progress Note ---
Date of Service December 20, 2022 Assessment & Plan (1) Vomiting: Plan: Hematemesis reported at home Vitals was stable in ER CT Abd/pelvis: No acute abnormalities. Diverticulosis is seen without evidence of diverticulitis. Bladder wall thickening may be secondary to chronic outlet obstruction. No hematemesis during ER course and while in hospital. Hemoglobin has been stable. FOBT negative. No symptoms of abdominal discomfort, nausea and or vomiting Globin remains stable and the patient remains asymptomatic (2) Major depressive disorder, recurrent, moderate: Plan: Continue bupropion No acute issue (3) Dementia: Plan: Questionable underlying dementia. No formal neurocognitive testing completed, can f/u w/ pcp as OP for tests/referral. Patient with difficult living situation currently. Currently lives alone. Son lives in different state. Previously girlfriend helped patient and did cooking/cleaning, etc, unfortunately she recently suffered stroke and unable to help patient. Patient has drivers license but does not drive. He states he does not have home phone or cell phone. Unclear who called EMS today for pt to be transported to ER. Recent admission pt was set up with home health and [facility] from [facility]. 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 continue them. No acute pain (7) Aortic stenosis: Plan: moderate aortic stenosis No chest pain and/or palpitation or shortness of breath DVT Prophylaxis: SCDs Full Code d/w pt's son teodoro 12/14 over the phone, he states he is on discussion with CM regarding safe discharge, will make sure his usp is safe and phones are working and will try to arrange help for his meds/foods. He states he will let me know if he is able to take him home tomorrow after he has discussion with CM again. Dispo: medically stable, cm assisting w/ safe discharge plan. Admission and Anticipated Discharge Date Admission Date: December 12, 2022 Subjective 12/20/2022 The patient was seen and examined in medical floor He remains stable and denies any symptoms Denies any chest pain, palpitation or shortness of breath. No abdominal pain nausea and or vomiting He has been waiting to be placed Review of Systems Review of Systems: All systems reviewed and are unremarkable except as noted below Physical Exam Physical Exam: Lying in bed comfortably Constitutional: well developed, well nourished and + obese; not ill appearing Eyes: PERRL, conjunctivae normal, anicteric sclerae ENMT: external ear and nose normal, oropharynx normal Neck: trachea midline, no thyromegaly Respiratory: no respiratory distress Auscultation: lungs clear to auscultation bilaterally Cardiovascular: Rate/Rhythm: regular rate and regular rhythm; not tachycardic Heart Sounds: normal S1 and normal S2; no murmur Extremities: no edema Gastrointestinal (Abdomen): Inspection/Auscultation: normal bowel sounds; abdomen not distended Percussion/Palpation: abdomen soft; abdomen nontender Musculoskeletal: No acute arthritis in any joint Neurologic: Alert, awake and oriented x3. No focal sensory or no motor deficit appreciated Lymphatic: no cervical or axillary lymphadenopathy Results & Data Results & Data Vital Signs (Past 12 Hours) Vital Signs Temp Pulse Resp BP Pulse Ox O2 Del Method 12/20/22 07:16 36.6 C 57 L 20 152/79 H 95 Room Air Medications Administered Current Inpatient Medications Acetaminophen (Acetaminophen 325 Mg Tab) 650 mg PO Q4H PRN PRN Reason: Pain or Fever Stop: 01/09/23 16:50 Last Admin: 12/18/22 10:51 Dose: 650 mg Al Hydrox/Mg Hydrox/Simethicone (Aluminum/Magnesium Susp 30 Ml Udc) 15 ml PO Q4H PRN PRN Reason: Dyspepsia Stop: 01/09/23 16:50 Last Admin: 12/12/22 10:37 Dose: 15 ml Aspirin (Aspirin 81 Mg Ectab) 81 mg PO QAM [facility] Stop: 01/14/23 08:59 Last Admin: 12/20/22 08:04 Dose: 81 mg Atorvastatin Calcium (Atorvastatin 40 Mg Tab) 80 mg PO HS [facility] Stop: 01/09/23 20:59 Last Admin: 12/19/22 21:28 Dose: 80 mg Bupropion HCl (Bupropion Xl 300 Mg Tabcr) 300 mg PO QAM [facility] Stop: 01/10/23 08:59 Last Admin: 12/20/22 08:03 Dose: 300 mg Cyanocobalamin (Cyanocobalamin (B-12) 500 Mcg Tablet) 1,000 mcg PO QAM [facility] Stop: 01/10/23 08:59 Last Admin: 12/20/22 08:03 Dose: 1,000 mcg Famotidine (Famotidine 20 Mg Tab) 20 mg PO BID [facility] Stop: 01/11/23 20:59 Last Admin: 12/20/22 08:04 Dose: 20 mg Folic Acid (Folic Acid 1 Mg Tab) [facility] [place] Stop: 01/10/23 08:59 Last Admin: 12/20/22 08:04 Dose: 1 mg Losartan Potassium (Losartan Potassium 25 Mg Tab) 25 mg PO HS [facility] Stop: 01/09/23 20:59 Last Admin: 12/19/22 21:28 Dose: 25 mg Ondansetron HCl (Ondansetron Inj 2 Mg/Ml 2 Ml Vial) 4 mg IV Q6H PRN PRN Reason: Nausea Stop: 01/09/23 16:50 Last Admin: 12/20/22 11:37 Dose: 4 mg Polyethylene Glycol (Polyethylene (Miralax) 17 Gm Pack) 17 gm PO DAILY PRN PRN Reason: Constipation Stop: 01/09/23 16:50 Last Admin: 12/13/22 16:16 Dose: 17 gm
[2022-12-20] MEDS: ATORVASTATIN 40 MG TAB PO SCH (20:12)
[2022-12-20] MEDS: LOSARTAN POTASSIUM 25 MG TAB PO SCH (20:13)
[2022-12-21] MEDS: ASPIRIN 81 MG ECTAB PO SCH (07:41)
[2022-12-21] MEDS: CYANOCOBALAMIN (B-12) 500 MCG TABLET PO SCH (07:41)
[2022-12-21] MEDS: FAMOTIDINE 20 MG TAB PO SCH ×2 (07:41→20:15)
[2022-12-21] MEDS: FOLIC ACID 1 MG TAB PO SCH (07:41)
[2022-12-21] MEDS: buPROPion XL 300 MG TABCR PO SCH (07:41)
[2022-12-21] MEDS: POLYETHYLENE (MIRALAX) 17 GM PACK PO PRN (07:48)
[2022-12-21] MEDS: ONDANSETRON INJ 2 MG/ML 2 ML VIAL IV PRN (11:19)
--- NOTE | 2022-12-21 15:56 | Hospitalist Progress Note ---
Date of Service December 21, 2022 Assessment & Plan (1) Vomiting: Plan: Hematemesis reported at home Vitals was stable in ER CT Abd/pelvis: No acute abnormalities. Diverticulosis is seen without evidence of diverticulitis. Bladder wall thickening may be secondary to chronic outlet obstruction. No hematemesis during ER course and while in hospital. Hemoglobin has been stable. FOBT negative. No symptoms of abdominal discomfort, nausea and or vomiting Globin remains stable and the patient remains asymptomatic Medically stable to be discharged (2) Major depressive disorder, recurrent, moderate: Plan: Continue bupropion No acute issue (3) Dementia: Plan: Questionable underlying dementia. No formal neurocognitive testing completed, can f/u w/ pcp as OP for tests/referral. Patient with difficult living situation currently. Currently lives alone. Son lives in different state. Previously girlfriend helped patient and did cooking/cleaning, etc, unfortunately she recently suffered stroke and unable to help patient. Patient has drivers license but does not drive. He states he does not have home phone or cell phone. Unclear who called EMS today for pt to be transported to ER. Recent admission pt was set up with home health and [facility] from [facility]. 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 continue them. No acute pain (7) Aortic stenosis: Plan: moderate aortic stenosis No chest pain and/or palpitation or shortness of breath DVT Prophylaxis: SCDs Full Code d/w pt's son teodoro 12/14 over the phone, he states he is on discussion with CM regarding safe discharge, will make sure his mcc is safe and phones are working and will try to arrange help for his meds/foods. He states he will let me know if he is able to take him home tomorrow after he has discussion with CM again. Dispo: medically stable, cm assisting w/ safe discharge plan. Awaiting placement Admission and Anticipated Discharge Date Admission Date: December 12, 2022 Subjective 12/20/2022 The patient was seen and examined in medical floor He remains stable and denies any symptoms Denies any chest pain, palpitation or shortness of breath. No abdominal pain nausea and or vomiting He has been waiting to be placed 12/21/2022 The patient was seen and examined in medical floor He has been stable without any acute symptoms Awaiting placement Review of Systems Review of Systems: All systems reviewed and are unremarkable except as noted below Physical Exam Physical Exam: Lying in bed comfortably Constitutional: well developed, well nourished and + obese; not ill appearing Eyes: PERRL, conjunctivae normal, anicteric sclerae ENMT: external ear and nose normal, oropharynx normal Neck: trachea midline, no thyromegaly Respiratory: no respiratory distress Auscultation: lungs clear to auscultation bilaterally Cardiovascular: Rate/Rhythm: regular rate and regular rhythm; not tachycardic Heart Sounds: normal S1 and normal S2; no murmur Extremities: no edema Gastrointestinal (Abdomen): Inspection/Auscultation: normal bowel sounds; abdomen not distended Percussion/Palpation: abdomen soft; abdomen nontender Neurologic: Alert, awake and oriented x3. No focal sensory or no motor deficit appreciated Lymphatic: no cervical or axillary lymphadenopathy Results & Data Results & Data Vital Signs (Past 12 Hours) Vital Signs Temp Pulse Resp BP Pulse Ox O2 Del Method 12/21/22 14:21 36.4 C L 66 18 150/61 H 94 Room Air 12/21/22 07:10 36.5 C 59 L 20 149/76 H 97 Room Air Medications Administered Current Inpatient Medications Acetaminophen (Acetaminophen 325 Mg Tab) 650 mg PO Q4H PRN PRN Reason: Pain or Fever Stop: 01/09/23 16:50 Last Admin: 12/18/22 10:51 Dose: 650 mg Al Hydrox/Mg Hydrox/Simethicone (Aluminum/Magnesium Susp 30 Ml Udc) 15 ml PO Q4H PRN PRN Reason: Dyspepsia Stop: 01/09/23 16:50 Last Admin: 12/12/22 10:37 Dose: 15 ml Aspirin (Aspirin 81 Mg Ectab) 81 [facility] [place] Stop: 01/14/23 08:59 Last Admin: 12/21/22 07:41 Dose: 81 mg Atorvastatin Calcium (Atorvastatin 40 Mg Tab) 80 mg PO [facility] Stop: 01/09/23 20:59 Last Admin: 12/20/22 20:12 Dose: 80 mg Bupropion HCl (Bupropion Xl 300 Mg Tabcr) 300 mg PO QAM [facility] Stop: 01/10/23 08:59 Last Admin: 12/21/22 07:41 Dose: 300 mg Cyanocobalamin (Cyanocobalamin (B-12) 500 Mcg Tablet) 1,000 mcg PO QAM [facility] Stop: 01/10/23 08:59 Last Admin: 12/21/22 07:41 Dose: 1,000 mcg Famotidine (Famotidine 20 Mg Tab) 20 mg PO BID [facility] Stop: 01/11/23 20:59 Last Admin: 12/21/22 07:41 Dose: 20 mg Folic Acid (Folic Acid 1 Mg Tab) 1 mg PO [facility] [place] Stop: 01/10/23 08:59 Last Admin: 12/21/22 07:41 Dose: 1 mg Losartan Potassium (Losartan Potassium 25 Mg Tab) 25 mg PO [facility] Stop: 01/09/23 20:59 Last Admin: 12/20/22 20:13 Dose: 25 mg Ondansetron HCl (Ondansetron Inj 2 Mg/Ml 2 Ml Vial) 4 mg IV Q6H PRN PRN Reason: Nausea Stop: 01/09/23 16:50 Last Admin: 12/21/22 11:19 Dose: 4 mg Polyethylene Glycol (Polyethylene (Miralax) 17 Gm Pack) 17 gm PO DAILY PRN PRN Reason: Constipation Stop: 01/09/23 16:50 Last Admin: 12/21/22 07:48 Dose: 17 gm
[2022-12-21] MEDS: ATORVASTATIN 40 MG TAB PO SCH (20:14)
[2022-12-21] MEDS: LOSARTAN POTASSIUM 25 MG TAB PO SCH (20:15)
[2022-12-22] MEDS: CYANOCOBALAMIN (B-12) 500 MCG TABLET PO SCH (08:07)
[2022-12-22] MEDS: FAMOTIDINE 20 MG TAB PO SCH ×2 (08:07→21:26)
[2022-12-22] MEDS: buPROPion XL 300 MG TABCR PO SCH (08:07)
[2022-12-22] MEDS: ASPIRIN 81 MG ECTAB PO SCH (08:08)
[2022-12-22] MEDS: FOLIC ACID 1 MG TAB PO SCH (08:08)
--- NOTE | 2022-12-22 14:32 | Hospitalist Progress Note ---
Date of Service December 22, 2022 Assessment & Plan (1) Vomiting: Plan: Hematemesis reported at home Vitals was stable in ER CT Abd/pelvis: No acute abnormalities. Diverticulosis is seen without evidence of diverticulitis. Bladder wall thickening may be secondary to chronic outlet obstruction. No hematemesis during ER course and while in hospital. Hemoglobin has been stable. FOBT negative. No symptoms of abdominal discomfort, nausea and or vomiting Globin remains stable and the patient remains asymptomatic Medically stable to be discharged Awaiting placement prior to discharge Was found on the floor earlier this morning without any significant injury Remains hemodynamically stable and has been ambulating without any difficulties Examination remains unremarkable (2) Major depressive disorder, recurrent, moderate: Plan: Continue bupropion No acute issue (3) Dementia: Plan: Questionable underlying dementia. No formal neurocognitive testing completed, can f/u w/ pcp as OP for tests/referral. Patient with difficult living situation currently. Currently lives alone. Son lives in different state. Previously girlfriend helped patient and did cooking/cleaning, etc, unfortunately she recently suffered stroke and unable to help patient. Patient has drivers license but does not drive. He states he does not have home phone or cell phone. Unclear who called EMS today for pt to be transported to ER. Recent admission pt was set up with home health and evaluation from [facility]. 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 continue them. No acute pain (7) Aortic stenosis: Plan: moderate aortic stenosis No chest pain and/or palpitation or shortness of breath DVT Prophylaxis: SCDs Full Code d/w pt's son teodoro 12/14 over the phone, he states he is on discussion with CM regarding safe discharge, will make sure his mcc is safe and phones are working and will try to arrange help for his meds/foods. He states he will let me know if he is able to take him home tomorrow after he has discussion with CM again. Dispo: medically stable, cm assisting w/ safe discharge plan. Awaiting placement Admission and Anticipated Discharge Date Admission Date: December 12, 2022 Subjective 12/20/2022 The patient was seen and examined in medical floor He remains stable and denies any symptoms Denies any chest pain, palpitation or shortness of breath. No abdominal pain nausea and or vomiting He has been waiting to be placed 12/21/2022 The patient was seen and examined in medical floor He has been stable without any acute symptoms Awaiting placement 12/22/2022 The patient was seen and examined in medical floor He was found to be on the floor this morning without any significant injury He slipped on the bed and did not hurt anywhere Remains hemodynamically stable and has been ambulating without any significant symptoms Review of Systems Review of Systems: All systems reviewed and are unremarkable except as noted below Physical Exam Physical Exam: Lying in bed comfortably Constitutional: well developed, well nourished and + obese; not ill appearing Eyes: PERRL, conjunctivae normal, anicteric sclerae ENMT: external ear and nose normal, oropharynx normal Neck: trachea midline, no thyromegaly Respiratory: no respiratory distress Auscultation: lungs clear to auscultation bilaterally Cardiovascular: Rate/Rhythm: regular rate and regular rhythm; not tachycardic Heart Sounds: normal S1 and normal S2; no murmur Extremities: no edema Gastrointestinal (Abdomen): Inspection/Auscultation: normal bowel sounds; abdomen not distended Percussion/Palpation: abdomen soft; abdomen nontender Musculoskeletal: No acute arthritis involving any of the joint Neurologic: normal touch/pain/proprioception and moves all extremities; no focal motor deficits Alert, awake and oriented x3. Lymphatic: no cervical or axillary lymphadenopathy Results & Data Results & Data Vital Signs (Past 12 Hours) Vital Signs Temp Pulse Resp BP Pulse Ox O2 Del Method 12/22/22 07:38 36.8 C 64 16 134/70 94 Room Air Medications Administered Current Inpatient Medications Acetaminophen (Acetaminophen 325 Mg Tab) 650 mg PO Q4H PRN PRN Reason: Pain or Fever Stop: 01/09/23 16:50 Last Admin: 12/18/22 10:51 Dose: 650 mg Al Hydrox/Mg Hydrox/Simethicone (Aluminum/Magnesium Susp 30 Ml Udc) 15 ml PO Q4H PRN PRN Reason: Dyspepsia Stop: 01/09/23 16:50 Last Admin: 12/12/22 10:37 Dose: 15 ml Aspirin (Aspirin 81 Mg Ectab) [facility] [place]: 01/14/23 08:59 Last Admin: 12/22/22 08:08 Dose: 81 mg Atorvastatin Calcium (Atorvastatin 40 Mg Tab) 80 mg PO [facility] Stop: 01/09/23 20:59 Last Admin: 12/21/22 20:14 Dose: 80 mg Bupropion HCl (Bupropion Xl 300 Mg Tabcr) 300 mg PO [facility] Stop: 01/10/23 08:59 Last Admin: 12/22/22 08:07 Dose: 300 mg Cyanocobalamin (Cyanocobalamin (B-12) 500 Mcg Tablet) 1,000 mcg PO [facility] Stop: 01/10/23 08:59 Last Admin: 12/22/22 08:07 Dose: 1,000 mcg Famotidine (Famotidine 20 Mg Tab) 20 mg PO BID [facility] Stop: 01/11/23 20:59 Last Admin: 12/22/22 08:07 Dose: 20 mg Folic Acid (Folic Acid 1 Mg Tab) 1 mg PO [facility] Stop: 01/10/23 08:59 Last Admin: 12/22/22 08:08 Dose: 1 mg Losartan Potassium (Losartan Potassium 25 Mg Tab) 25 mg PO [facility] Stop: 01/09/23 20:59 Last Admin: 12/21/22 20:15 Dose: 25 mg Ondansetron HCl (Ondansetron Inj 2 Mg/Ml 2 Ml Vial) 4 mg IV Q6H PRN PRN Reason: Nausea Stop: 01/09/23 16:50 Last Admin: 12/21/22 11:19 Dose: 4 mg Polyethylene Glycol (Polyethylene (Miralax) 17 Gm Pack) 17 gm PO DAILY PRN PRN Reason: Constipation Stop: 01/09/23 16:50 Last Admin: 12/21/22 07:48 Dose: 17 gm
[2022-12-22] MEDS: ATORVASTATIN 40 MG TAB PO SCH (21:26)
[2022-12-22] MEDS: LOSARTAN POTASSIUM 25 MG TAB PO SCH (21:26)
[2022-12-23] MEDS: CYANOCOBALAMIN (B-12) 500 MCG TABLET PO SCH (09:04)
[2022-12-23] MEDS: FOLIC ACID 1 MG TAB PO SCH (09:04)
[2022-12-23] MEDS: buPROPion XL 300 MG TABCR PO SCH (09:05)
[2022-12-23] MEDS: FAMOTIDINE 20 MG TAB PO SCH ×2 (09:05→20:27)
[2022-12-23] MEDS: ASPIRIN 81 MG ECTAB PO SCH (09:05)
--- NOTE | 2022-12-23 13:54 | Hospitalist Progress Note ---
Date of Service December 23, 2022 Assessment & Plan (1) Vomiting: Plan: Hematemesis reported at home Vitals was stable in ER CT Abd/pelvis: No acute abnormalities. Diverticulosis is seen without evidence of diverticulitis. Bladder wall thickening may be secondary to chronic outlet obstruction. No hematemesis during ER course and while in hospital. Hemoglobin has been stable. FOBT negative. No symptoms of abdominal discomfort, nausea and or vomiting Globin remains stable and the patient remains asymptomatic Medically stable to be discharged Awaiting placement prior to discharge Likely be discharged on Sunday or Sunday Was found on the floor earlier this morning without any significant injury Remains hemodynamically stable and has been ambulating without any difficulties Examination remains unremarkable No significant events for the last 24 hours (2) Major depressive disorder, recurrent, moderate: Plan: Continue bupropion No acute issue (3) Dementia: Plan: Questionable underlying dementia. No formal neurocognitive testing completed, can f/u w/ pcp as OP for tests/referral. Patient with difficult living situation currently. Currently lives alone. Son lives in different state. Previously girlfriend helped patient and did cooking/cleaning, etc, unfortunately she recently suffered stroke and unable to help patient. Patient has drivers license but does not drive. He states he does not have home phone or cell phone. Unclear who called EMS today for pt to be transported to ER. Recent admission pt was set up with home health and evaluation from [facility]. 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 continue them. No acute pain (7) Aortic stenosis: Plan: moderate aortic stenosis No chest pain and/or palpitation or shortness of breath DVT Prophylaxis: SCDs Full Code d/w pt's son teodoro 12/14 over the phone, he states he is on discussion with CM regarding safe discharge, will make sure his fdc is safe and phones are working and will try to arrange help for his meds/foods. He states he will let me know if he is able to take him home tomorrow after he has discussion with CM again. Dispo: medically stable, cm assisting w/ safe discharge plan. Awaiting placement Admission and Anticipated Discharge Date Admission Date: December 12, 2022 Subjective 12/20/2022 The patient was seen and examined in medical floor He remains stable and denies any symptoms Denies any chest pain, palpitation or shortness of breath. No abdominal pain nausea and or vomiting He has been waiting to be placed 12/21/2022 The patient was seen and examined in medical floor He has been stable without any acute symptoms Awaiting placement 12/22/2022 The patient was seen and examined in medical floor He was found to be on the floor this morning without any significant injury He slipped on the bed and did not hurt anywhere Remains hemodynamically stable and has been ambulating without any significant symptoms 12/23/2022 The patient was seen and examined in medical floor He has been stable without any symptoms Strongly advised to ask for help if he wants to move around Review of Systems Review of Systems: All systems reviewed and are unremarkable except as noted below Physical Exam Physical Exam: Lying in bed comfortably Constitutional: well developed, well nourished and + obese; not ill appearing Eyes: PERRL, conjunctivae normal, anicteric sclerae ENMT: external ear and nose normal, oropharynx normal Neck: trachea midline, no thyromegaly Respiratory: no respiratory distress Auscultation: lungs clear to auscultation bilaterally Cardiovascular: Rate/Rhythm: regular rate and regular rhythm; not tachycardic Heart Sounds: normal S1 and normal S2; no murmur Extremities: no edema Gastrointestinal (Abdomen): Inspection/Auscultation: normal bowel sounds; abdomen not distended Percussion/Palpation: abdomen soft; abdomen nontender Neurologic: normal touch/pain/proprioception and moves all extremities; no focal motor deficits Lymphatic: no cervical or axillary lymphadenopathy Results & Data Results & Data Vital Signs (Past 12 Hours) Vital Signs Temp Pulse Resp BP Pulse Ox O2 Del Method 12/23/22 07:30 36.4 C L 62 18 142/72 H 96 Room Air Medications Administered Current Inpatient Medications Acetaminophen (Acetaminophen 325 Mg Tab) 650 mg PO Q4H PRN PRN Reason: Pain or Fever Stop: 01/09/23 16:50 Last Admin: 12/18/22 10:51 Dose: 650 mg Al Hydrox/Mg Hydrox/Simethicone (Aluminum/Magnesium Susp 30 Ml Udc) 15 ml PO Q4H PRN PRN Reason: Dyspepsia Stop: 01/09/23 16:50 Last Admin: 12/12/22 10:37 Dose: 15 ml Aspirin (Aspirin 81 Mg Ectab) 81 mg PO [facility] Stop: 01/14/23 08:59 Last Admin: 12/23/22 09:05 Dose: 81 mg Atorvastatin Calcium (Atorvastatin 40 Mg Tab) 80 mg PO [facility] Stop: 01/09/23 20:59 Last Admin: 12/22/22 21:26 Dose: 80 mg Bupropion HCl (Bupropion Xl 300 Mg Tabcr) 300 mg PO [facility] Stop: 01/10/23 08:59 Last Admin: 12/23/22 09:05 Dose: 300 mg Cyanocobalamin (Cyanocobalamin (B-12) 500 Mcg Tablet) 1,000 mcg PO [facility] Stop: 01/10/23 08:59 Last Admin: 12/23/22 09:04 Dose: 1,000 mcg Famotidine (Famotidine 20 Mg Tab) 20 mg PO BID [facility] Stop: 01/11/23 20:59 Last Admin: 12/23/22 09:05 Dose: 20 mg Folic Acid (Folic Acid 1 Mg Tab) 1 mg PO [facility] Stop: 01/10/23 08:59 Last Admin: 12/23/22 09:04 Dose: 1 mg Losartan Potassium (Losartan Potassium 25 Mg Tab) 25 mg PO [facility] Stop: 01/09/23 20:59 Last Admin: 12/22/22 21:26 Dose: 25 mg Ondansetron HCl (Ondansetron Inj 2 Mg/Ml 2 Ml Vial) 4 mg IV Q6H PRN PRN Reason: Nausea Stop: 01/09/23 16:50 Last Admin: 12/21/22 11:19 Dose: 4 mg Polyethylene Glycol (Polyethylene (Miralax) 17 Gm Pack) 17 gm PO DAILY PRN PRN Reason: Constipation Stop: 01/09/23 16:50 Last Admin: 12/21/22 07:48 Dose: 17 gm
[2022-12-23] MEDS: ACETAMINOPHEN 325 MG TAB PO PRN (16:25)
[2022-12-23] MEDS: LOSARTAN POTASSIUM 25 MG TAB PO SCH (20:27)
[2022-12-23] MEDS: ATORVASTATIN 40 MG TAB PO SCH (20:27)
[2022-12-24] MEDS: CYANOCOBALAMIN (B-12) 500 MCG TABLET PO SCH (08:55)
[2022-12-24] MEDS: FOLIC ACID 1 MG TAB PO SCH (09:10)
[2022-12-24] MEDS: buPROPion XL 300 MG TABCR PO SCH (09:11)
[2022-12-24] MEDS: ASPIRIN 81 MG ECTAB PO SCH (09:12)
[2022-12-24] MEDS: FAMOTIDINE 20 MG TAB PO SCH ×2 (09:40→20:19)
--- NOTE | 2022-12-24 14:32 | Hospitalist Progress Note ---
Date of Service December 24, 2022 Assessment & Plan (1) Vomiting: Plan: Hematemesis reported at home Vitals was stable in ER CT Abd/pelvis: No acute abnormalities. Diverticulosis is seen without evidence of diverticulitis. Bladder wall thickening may be secondary to chronic outlet obstruction. No hematemesis during ER course and while in hospital. Hemoglobin has been stable. FOBT negative. No symptoms of abdominal discomfort, nausea and or vomiting Globin remains stable and the patient remains asymptomatic Medically stable to be discharged Awaiting placement prior to discharge Likely be discharged on Sunday or Sunday No more symptoms and remains stable to be transferred Was found on the floor earlier this morning without any significant injury Remains hemodynamically stable and has been ambulating without any difficulties Examination remains unremarkable No significant events for the last 24 hours Advised to take precaution while ambulating and ask for help (2) Major depressive disorder, recurrent, moderate: Plan: Continue bupropion No acute issue (3) Dementia: Plan: Questionable underlying dementia. No formal neurocognitive testing completed, can f/u w/ pcp as OP for tests/referral. Patient with difficult living situation currently. Currently lives alone. Son lives in different state. Previously girlfriend helped patient and did cooking/cleaning, etc, unfortunately she recently suffered stroke and unable to help patient. Patient has drivers license but does not drive. He states he does not have home phone or cell phone. Unclear who called EMS today for pt to be transported to ER. Recent admission pt was set up with home health and [facility] from [facility] 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 continue them. No acute pain (7) Aortic stenosis: Plan: moderate aortic stenosis No chest pain and/or palpitation or shortness of breath DVT Prophylaxis: SCDs Full Code d/w pt's son teodoro 12/14 over the phone, he states he is on discussion with CM regarding safe discharge, will make sure his prison is safe and phones are working and will try to arrange help for his meds/foods. He states he will let me know if he is able to take him home tomorrow after he has discussion with CM again. Dispo: medically stable, cm assisting w/ safe discharge plan. Awaiting placement-likely transfer on Sunday Admission and Anticipated Discharge Date Admission Date: December 12, 2022 Subjective 12/20/2022 The patient was seen and examined in medical floor He remains stable and denies any symptoms Denies any chest pain, palpitation or shortness of breath. No abdominal pain nausea and or vomiting He has been waiting to be placed 12/21/2022 The patient was seen and examined in medical floor He has been stable without any acute symptoms Awaiting placement 12/22/2022 The patient was seen and examined in medical floor He was found to be on the floor this morning without any significant injury He slipped on the bed and did not hurt anywhere Remains hemodynamically stable and has been ambulating without any significant symptoms 12/23/2022 The patient was seen and examined in medical floor He has been stable without any symptoms Strongly advised to ask for help if he wants to move around 12/24/2022 The patient was seen and examined in medical floor He has been stable and awaiting to be transferred to SNF Denies any significant symptoms Physical Exam Physical Exam: Lying in bed comfortably Constitutional: well developed, well nourished and + obese; not ill appearing Eyes: PERRL, conjunctivae normal, anicteric sclerae ENMT: external ear and nose normal, oropharynx normal Neck: trachea midline, no thyromegaly Respiratory: no respiratory distress Auscultation: lungs clear to auscultation bilaterally Cardiovascular: Rate/Rhythm: regular rate and regular rhythm; not tachycardic Heart Sounds: normal S1 and normal S2; no murmur Extremities: no edema Gastrointestinal (Abdomen): Inspection/Auscultation: normal bowel sounds; abdomen not distended Percussion/Palpation: abdomen soft; abdomen nontender Neurologic: normal touch/pain/proprioception and moves all extremities; no focal motor deficits Lymphatic: no cervical or axillary lymphadenopathy Results & Data Results & Data Vital Signs (Past 12 Hours) Vital Signs Temp Pulse Resp BP Pulse Ox O2 Del Method 12/24/22 06:55 36.5 C 81 18 150/81 H 96 Room Air
[2022-12-24] MEDS: ATORVASTATIN 40 MG TAB PO SCH (20:19)
[2022-12-24] MEDS: LOSARTAN POTASSIUM 25 MG TAB PO SCH (20:20)
[2022-12-25 06:45] LABS: Basophils # (auto) 0.06 K/uL (0-0.2); Basophils % (auto) 0.9 %; Eosinophils # (auto) 0.22 K/uL (0-0.50); Eosinophils % (auto) 3.4 %; Hematocrit (blood only) 42.8 % (42.0-52.0); Hemoglobin 14.4 g/dl (14.0-18.0); Immature Granulocytes # (auto) 0.02 K/uL (0.01-0.20); Immature Granulocytes % (auto) 0.3 %; Lymphocytes # (auto) 1.75 K/uL (1.2-3.4); Mean Corpuscular Hemoglobin 31.9 pg (25.0-34.0); Mean Corpuscular Hgb Conc 33.6 g/dL (32.0-36.0); Mean Corpuscular Volume 94.7 fL (80.0-100.0); Mean Platelet Volume 10.3 fL (9.4-12.4); Monocytes # (auto) 0.66 K/uL (0.11-0.59); Monocytes % (auto) 10.2 %; Neutrophils # (auto) 3.78 K/uL (1.40-6.50); Neutrophils % (auto) 58.2 %; Platelet Count 218 K/uL (130-400); RDW Coefficient of Variation 12.7 % (11.5-14.5); RDW Standard Deviation 44.2 fL (36.4-46.3); Red Blood Count 4.52 M/uL (4.70-6.10); White Blood Count 6.49 K/ul (4.8-10.8)
[2022-12-25 06:59] LABS: BUN Creatinine Ratio 11.5 (10-20); Calcium 8.9 mg/dl (8.6-10.3); Creatinine Clr Calc Pharmacy 59.2 ml/min; Potassium 4.3 mmol/L (3.5-5.1)
[2022-12-25] MEDS: ACETAMINOPHEN 325 MG TAB PO PRN (08:22)
[2022-12-25] MEDS: FAMOTIDINE 20 MG TAB PO SCH ×2 (08:23→20:19)
[2022-12-25] MEDS: FOLIC ACID 1 MG TAB PO SCH (08:23)
[2022-12-25] MEDS: CYANOCOBALAMIN (B-12) 500 MCG TABLET PO SCH (08:23)
[2022-12-25] MEDS: ASPIRIN 81 MG ECTAB PO SCH (08:23)
[2022-12-25] MEDS: buPROPion XL 300 MG TABCR PO SCH (08:23)
--- NOTE | 2022-12-25 15:16 | Hospitalist Progress Note ---
Date of Service December 25, 2022 Assessment & Plan (1) Vomiting: Plan: Hematemesis reported at home Vitals was stable in ER CT Abd/pelvis: No acute abnormalities. Diverticulosis is seen without evidence of diverticulitis. Bladder wall thickening may be secondary to chronic outlet obstruction. No hematemesis during ER course and while in hospital. Hemoglobin has been stable. FOBT negative. No symptoms of abdominal discomfort, nausea and or vomiting Globin remains stable and the patient remains asymptomatic Medically stable to be discharged Awaiting placement prior to discharge Likely be discharged on Sunday or Sunday No more symptoms and remains stable to be transferred Remains medically stable to be discharged All of his medications was sent to [facility] Was found on the floor earlier this morning without any significant injury Remains hemodynamically stable and has been ambulating without any difficulties Examination remains unremarkable No significant events for the last 24 hours Advised to take precaution while ambulating and ask for help No acute symptoms at this time (2) Major depressive disorder, recurrent, moderate: Plan: Continue bupropion No acute issue (3) Dementia: Plan: Questionable underlying dementia. No formal neurocognitive testing completed, can f/u w/ pcp as OP for tests/referral. Patient with difficult living situation currently. Currently lives alone. Son lives in different state. Previously girlfriend helped patient and did cooking/cleaning, etc, unfortunately she recently suffered stroke and unable to help patient. Patient has drivers license but does not drive. He states he does not have home phone or cell phone. Unclear who called EMS today for pt to be transported to ER. Recent admission pt was set up with home health [facility]. 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 continue them. No acute pain (7) Aortic stenosis: Plan: moderate aortic stenosis No chest pain and/or palpitation or shortness of breath DVT Prophylaxis: SCDs Full Code d/w pt's son teodoro 12/14 over the phone, he states he is on discussion with CM regarding safe discharge, will make sure his halfway is safe and phones are working and will try to arrange help for his meds/foods. He states he will let me know if he is able to take him home tomorrow after he has discussion with CM again. Dispo: medically stable, cm assisting w/ safe discharge plan. Awaiting placement-likely transfer on Sunday Discharge tomorrow Admission and Anticipated Discharge Date Admission Date: December 12, 2022 Subjective 12/20/2022 The patient was seen and examined in medical floor He remains stable and denies any symptoms Denies any chest pain, palpitation or shortness of breath. No abdominal pain nausea and or vomiting He has been waiting to be placed 12/21/2022 The patient was seen and examined in medical floor He has been stable without any acute symptoms Awaiting placement 12/22/2022 The patient was seen and examined in medical floor He was found to be on the floor this morning without any significant injury He slipped on the bed and did not hurt anywhere Remains hemodynamically stable and has been ambulating without any significant symptoms 12/23/2022 The patient was seen and examined in medical floor He has been stable without any symptoms Strongly advised to ask for help if he wants to move around 12/24/2022 The patient was seen and examined in medical floor He has been stable and awaiting to be transferred to SNF Denies any significant symptoms 12/25/2022 The patient was seen and examined in medical floor He has been stable and does not have any symptoms or complaints He will be going to SNF tomorrow Review of Systems Review of Systems: All systems reviewed and are unremarkable except as noted below Physical Exam Physical Exam: Lying in bed comfortably Constitutional: well developed, well nourished and + obese; not ill appearing Eyes: PERRL, conjunctivae normal, anicteric sclerae ENMT: external ear and nose normal, oropharynx normal Neck: trachea midline, no thyromegaly Respiratory: no respiratory distress Auscultation: lungs clear to auscultation bilaterally Cardiovascular: Rate/Rhythm: regular rate and regular rhythm; not tachycardic Heart Sounds: normal S1 and normal S2; no murmur Extremities: no edema Gastrointestinal (Abdomen): Inspection/Auscultation: normal bowel sounds; abdomen not distended Percussion/Palpation: abdomen soft; abdomen nontender Musculoskeletal: No acute arthritis involving any of the joint Neurologic: normal touch/pain/proprioception and moves all extremities; no focal motor deficits Lymphatic: no cervical or axillary lymphadenopathy Results & Data Results & Data Vital Signs (Past 12 Hours) Vital Signs Temp Pulse Resp BP Pulse Ox O2 Del Method 12/25/22 08:00 Room Air 12/25/22 07:23 36.4 C L 69 18 149/74 H 95 Room Air Laboratory Results Short CBC 12/25/22 Range/Units 05:48 WBC 6.49 (4.8-10.8) K/ul Hgb 14.4 (14.0-18.0) g/dl Hct 42.8 (42.0-52.0) % Plt Count 218 (130-400) K/uL BMP 12/25/22 05:48 Sodium 138 Potassium 4.3 Chloride 105 Carbon Dioxide 27 BUN 14 Creatinine 1.22 Glucose 149 H Calcium 8.9 Medications Administered Current Inpatient Medications Acetaminophen (Acetaminophen 325 Mg Tab) 650 mg PO Q4H PRN PRN Reason: Pain or Fever Stop: 01/09/23 16:50 Last Admin: 12/25/22 08:22 Dose: 650 mg Al Hydrox/Mg Hydrox/Simethicone (Aluminum/Magnesium Susp 30 Ml Udc) 15 ml PO Q4H PRN PRN Reason: Dyspepsia Stop: 01/09/23 16:50 Last Admin: 12/12/22 10:37 Dose: 15 ml Aspirin (Aspirin 81 Mg Ectab) [address] [facility] Stop: 01/14/23 08:59 Last Admin: 12/25/22 08:23 Dose: 81 mg Atorvastatin Calcium (Atorvastatin 40 Mg Tab) 80 mg PO [facility] Stop: 01/09/23 20:59 Last Admin: 12/24/22 20:19 Dose: 80 mg Bupropion HCl (Bupropion Xl 300 Mg Tabcr) [facility] [place] Stop: 01/10/23 08:59 Last Admin: 12/25/22 08:23 Dose: 300 mg Cyanocobalamin (Cyanocobalamin (B-12) 500 Mcg Tablet) 1,000 mcg [facility] [place] Stop: 01/10/23 08:59 Last Admin: 12/25/22 08:23 Dose: 1,000 mcg Famotidine (Famotidine 20 Mg Tab) 20 mg PO BID [facility] Stop: 01/11/23 20:59 Last Admin: 12/25/22 08:23 Dose: 20 mg Folic Acid (Folic Acid 1 Mg Tab) 1 mg PO QAM [facility] Stop: 01/10/23 08:59 Last Admin: 12/25/22 08:23 Dose: 1 mg Losartan Potassium (Losartan Potassium 25 Mg Tab) 25 mg PO HS [facility] Stop: 01/09/23 20:59 Last Admin: 12/24/22 20:20 Dose: 25 mg Ondansetron HCl (Ondansetron Inj 2 Mg/Ml 2 Ml Vial) 4 mg IV Q6H PRN PRN Reason: Nausea Stop: 01/09/23 16:50 Last Admin: 12/21/22 11:19 Dose: 4 mg Polyethylene Glycol (Polyethylene (Miralax) 17 Gm Pack) 17 gm PO DAILY PRN PRN Reason: Constipation Stop: 01/09/23 16:50 Last Admin: 12/21/22 07:48 Dose: 17 gm
[2022-12-25] MEDS: ATORVASTATIN 40 MG TAB PO SCH (20:19)
[2022-12-25] MEDS: LOSARTAN POTASSIUM 25 MG TAB PO SCH (20:19)
[2022-12-26] MEDS: CYANOCOBALAMIN (B-12) 500 MCG TABLET PO SCH (08:09)
[2022-12-26] MEDS: FOLIC ACID 1 MG TAB PO SCH (08:10)
[2022-12-26] MEDS: FAMOTIDINE 20 MG TAB PO SCH (08:10)
[2022-12-26] MEDS: ASPIRIN 81 MG ECTAB PO SCH (08:10)
[2022-12-26] MEDS: buPROPion XL 300 MG TABCR PO SCH (08:10)
--- NOTE | 2022-12-26 09:11 | Hospitalist Progress Note ---
Date of Service December 26, 2022 Assessment & Plan (1) Vomiting: Plan: Hematemesis reported at home Vitals was stable in ER CT Abd/pelvis: No acute abnormalities. Diverticulosis is seen without evidence of diverticulitis. Bladder wall thickening may be secondary to chronic outlet obstruction. No hematemesis during ER course and while in hospital. Hemoglobin has been stable. FOBT negative. No symptoms of abdominal discomfort, nausea and or vomiting Globin remains stable and the patient remains asymptomatic Medically stable to be discharged Has been accepted to personal-detention Remains medically stable Will be discharged home this morning Was found on the floor earlier this morning without any significant injury Remains hemodynamically stable and has been ambulating without any difficulties Examination remains unremarkable No significant events for the last 24 hours Advised to take precaution while ambulating and ask for help No acute symptoms at this time (2) Major depressive disorder, recurrent, moderate: Plan: Continue bupropion No acute issue (3) Dementia: Plan: Questionable underlying dementia. No formal neurocognitive testing completed, can f/u w/ pcp as OP for tests/referral. Patient with difficult living situation currently. Currently lives alone. Son lives in different state. Previously girlfriend helped patient and did cooking/cleaning, etc, unfortunately she recently suffered stroke and unable to help patient. Patient has drivers license but does not drive. He states he does not have home phone or cell phone. Unclear who called EMS today for pt to be transported to ER. Recent admission pt was set up with home health [facility] from [facility]. 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 continue them. No acute pain (7) Aortic stenosis: Plan: moderate aortic stenosis No chest pain and/or palpitation or shortness of breath DVT Prophylaxis: SCDs Full Code d/w pt's son teodoro 12/14 over the phone, he states he is on discussion with CM regarding safe discharge, will make sure his prison is safe and phones are working and will try to arrange help for his meds/foods. He states he will let me know if he is able to take him home tomorrow after he has discussion with CM again. Dispo: medically stable, cm assisting w/ safe discharge plan. Awaiting placement-likely transfer on Sunday Discharged to personal-detention this morning Admission and Anticipated Discharge Date Admission Date: December 12, 2022 Subjective 12/20/2022 The patient was seen and examined in medical floor He remains stable and denies any symptoms Denies any chest pain, palpitation or shortness of breath. No abdominal pain nausea and or vomiting He has been waiting to be placed 12/21/2022 The patient was seen and examined in medical floor He has been stable without any acute symptoms Awaiting placement 12/22/2022 The patient was seen and examined in medical floor He was found to be on the floor this morning without any significant injury He slipped on the bed and did not hurt anywhere Remains hemodynamically stable and has been ambulating without any significant symptoms 12/23/2022 The patient was seen and examined in medical floor He has been stable without any symptoms Strongly advised to ask for help if he wants to move around 12/24/2022 The patient was seen and examined in medical floor He has been stable and awaiting to be transferred to SNF Denies any significant symptoms 12/25/2022 The patient was seen and examined in medical floor He has been stable and does not have any symptoms or complaints He will be going to SNF tomorrow 12/26/2022 The patient was seen and examined in medical floor He has been stable without any significant symptoms He will be discharged to personal detention this morning Review of Systems Review of Systems: All systems reviewed and are unremarkable except as noted below Physical Exam Physical Exam: Lying in bed comfortably Constitutional: well developed, well nourished and + obese; not ill appearing Eyes: PERRL, conjunctivae normal, anicteric sclerae ENMT: external ear and nose normal, oropharynx normal Neck: trachea midline, no thyromegaly Respiratory: no respiratory distress Auscultation: lungs clear to auscultation bilaterally Cardiovascular: Rate/Rhythm: regular rate and regular rhythm; not tachycardic Heart Sounds: normal S1 and normal S2; no murmur Extremities: no edema Gastrointestinal (Abdomen): Inspection/Auscultation: normal bowel sounds; abdomen not distended Percussion/Palpation: abdomen soft; abdomen nontender Musculoskeletal: No acute arthritis involving any joint Neurologic: normal touch/pain/proprioception and moves all extremities; no focal motor deficits Lymphatic: no cervical or axillary lymphadenopathy Results & Data Results & Data Vital Signs (Past 12 Hours) Vital Signs Temp Pulse Resp BP Pulse Ox O2 Del Method 12/26/22 08:04 Room Air 12/26/22 07:11 36.5 C 80 16 152/79 H 95 Room Air Medications Administered Current Inpatient Medications Acetaminophen (Acetaminophen 325 Mg Tab) 650 mg PO Q4H PRN PRN Reason: Pain or Fever Stop: 01/09/23 16:50 Last Admin: 12/25/22 08:22 Dose: 650 mg Al Hydrox/Mg Hydrox/Simethicone (Aluminum/Magnesium Susp 30 Ml Udc) 15 ml PO Q4H PRN PRN Reason: Dyspepsia Stop: 01/09/23 16:50 Last Admin: 12/12/22 10:37 Dose: 15 ml Aspirin (Aspirin 81 Mg Ectab) [facility] Stop: 01/14/23 08:59 Last Admin: 12/26/22 08:10 Dose: 81 mg Atorvastatin Calcium (Atorvastatin 40 Mg Tab) 80 mg PO [facility] Stop: 01/09/23 20:59 Last Admin: 12/25/22 20:19 Dose: 80 mg Bupropion HCl (Bupropion Xl 300 Mg Tabcr) [facility] Stop: 01/10/23 08:59 Last Admin: 12/26/22 08:10 Dose: 300 mg Cyanocobalamin (Cyanocobalamin (B-12) 500 Mcg Tablet) 1,000 mcg [facility] [place] Stop: 01/10/23 08:59 Last Admin: 12/26/22 08:09 Dose: 1,000 mcg Famotidine (Famotidine 20 Mg Tab) 20 mg PO BID [facility] Stop: 01/11/23 20:59 Last Admin: 12/26/22 08:10 Dose: 20 mg Folic Acid (Folic Acid 1 Mg Tab) [facility] Stop: 01/10/23 08:59 Last Admin: 12/26/22 08:10 Dose: 1 mg Losartan Potassium (Losartan Potassium 25 Mg Tab) 25 mg PO HS [facility] Stop: 01/09/23 20:59 Last Admin: 12/25/22 20:19 Dose: 25 mg Ondansetron HCl (Ondansetron Inj 2 Mg/Ml 2 Ml Vial) 4 mg IV Q6H PRN PRN Reason: Nausea Stop: 01/09/23 16:50 Last Admin: 12/21/22 11:19 Dose: 4 mg Polyethylene Glycol (Polyethylene (Miralax) 17 Gm Pack) 17 gm PO DAILY PRN PRN Reason: Constipation Stop: 01/09/23 16:50 Last Admin: 12/21/22 07:48 Dose: 17 gm
--- NOTE | 2022-12-26 17:32 | Discharge Summary ---
Date of Service December 26, 2022 Admission HPI Per Admitting Provider Patient is 77 year old male with PMH DM II, CAD, HTN, dyslipidemia, aortic stenosis, questionable underlying dementia presented to ER with c/o hematemesis yesterday. Patient with recent hospital admission 12/04/2022-12/07/2022 for syncope after walking 3 miles. Had negative dobutamine stress test on 12/07/2022 and was discharged home. Patient states last night around 6:00phad episode of vomiting. States he vomited "blood". Patient is unable to tell me the color of his vomit just says its "blood". He does not think that he was nauseated. He just states he vomited a couple of times last night. Unable to quantify number of episodes. has a little bit of abdominal pain across his abdomen. He states to me he is feeling hungry today. Denies any heartburn or indigestion. States had a bowel movement yesterday and states he had one today while in ER. He states he doesn't look at stools but looks at toilet paper when he wipes and states brown on toilet paper. He states he ate chocolate pudding for breakfast lunch and dinner yesterday as he does not have other food in his house. Patient states did not have anybody to get groceries for him. Patient has not been taking any medications since discharge from hospital as he report he is unsure how to take his medications. He states intermittent non-productive cough. Denies hemoptysis. Patient is upset because he states he was told home health services would be coming to his house however reports they have not seen patient yet. Review of outpatient note in Epic the home health physical therapist had been trying to get in contact with patient with no response. Patient tells me he does not have a home phone nor a cell phone. He reports was brought to ER by EMS today. Denies fever/chills, diaphoresis, IRIZARRY, dizziness, syncope, vision changes, neck pain, CP, SOB, palpitations, sore throat, choking, otalgia, rhinorrhea, abdominal pain, paresthesias, extremity edema, rashes, urinary symptoms. Admission Exam Per Admitting Provider Physical Exam: General: no distress, obese Head: normocephalic, atraumatic Eyes: PERRL, EOM's intact, conjunctiva non-injected, anicteric ENT: normal inspection external ears, nose, mucous membranes moist Neck: supple, trachea midline Lungs: clear, no respiratory distress, no wheezing/rhonchi/rales CV: RRR, no murmur, no pretibial edema Abd: normal BS, soft, mild tenderness to palpation epigastric without guarding Ext: no cyanosis, no calf tenderness Neuro: Alert, oriented to person and place. Unsure of date. no focal deficits noted Skin: warm, dry, long fingernails Principal Diagnosis Vomiting, no more episode and hematemesis ruled out, dementia, aortic stenosis, ambulatory dysfunction, hypertension Discharge Exam Lying in bed comfortably Constitutional well developed, well nourished and + obese; not ill appearing Eyes PERRL, conjunctivae normal, anicteric sclerae ENMT external ear and nose normal, oropharynx normal Neck trachea midline, no thyromegaly Respiratory no respiratory distress Auscultation: lungs clear to auscultation bilaterally Cardiovascular Rate/Rhythm: regular rate and regular rhythm; not tachycardic Heart Sounds: normal S1 and normal S2; no murmur Extremities: no edema Gastrointestinal (Abdomen) Inspection/Auscultation: normal bowel sounds; abdomen not distended Percussion/Palpation: abdomen soft; abdomen nontender Neurologic normal touch/pain/proprioception and moves all extremities; no focal motor de ficits Lymphatic no cervical or axillary lymphadenopathy Discharge Data Allergies Allergy/AdvReac Type Severity Reaction Status Date / Time codeine Allergy Intermediate HALLUCINATI Verified 12/10/22 15:24 ONS ezetimibe Allergy Intermediate HIVES Verified 12/10/22 15:24 pantoprazole Allergy Intermediate HIVES Verified 12/10/22 15:24 lisinopril AdvReac Intermediate cough Verified 12/10/22 15:24 Consultations 12/10/22 14:29 ED Decision to Admit Stat Ordered Studies 12/10/22 12:43 CT abd pelvis IV con only Stat CT angio chest PE protocol Stat Hospital Course (1) Vomiting: Hematemesis reported at home Vitals was stable in ER CT Abd/pelvis: No acute abnormalities. Diverticulosis is seen without evidence of diverticulitis. Bladder wall thickening may be secondary to chronic outlet obstruction. No hematemesis during ER course and while in hospital. Hemoglobin has been stable. FOBT negative. No symptoms of abdominal discomfort, nausea and or vomiting Globin remains stable and the patient remains asymptomatic Medically stable to be discharged Has been accepted [facility] Remains medically stable Will be discharged home this morning Was found on the floor earlier this morning without any significant injury Remains hemodynamically stable and has been ambulating without any difficulties Examination remains unremarkable No significant events for the last 24 hours Advised to take precaution while ambulating and ask for help No acute symptoms at this time (2) Major depressive disorder, recurrent, moderate: Continue bupropion No acute issue (3) Dementia: Questionable underlying dementia. No formal neurocognitive testing completed, can f/u w/ pcp as OP for tests/referral. Patient with difficult living situation currently. Currently lives alone. Son lives in different state. Previously girlfriend helped patient and did cooking/cleaning, etc, unfortunately she recently suffered stroke and unable to help patient. Patient has drivers license but does not drive. He states he does not have home phone or cell phone. Unclear who called EMS today for pt to be transported to ER. Recent admission pt was set up with home health and [facility]. Outpatient notes report HH unable to reach pt by phone and have not been able to evaluate Patient reports not taking medications at home home care manager rn has been working on placement-he has been stable to be discharged when accepted to any facility Remains pleasantly confused without any acute issues No acute delirium (4) Prediabetes: A1c: 6.4 on 12/05/2022 Diet controlled (5) HTN (hypertension): Continue losartan Blood pressure remains stable (6) CAD (coronary artery disease): Nonobstructive CAD 12/07/2022 dobutamine stress was negative for ischemia Was recommended aspirin and atorvastatin. continue them. No acute pain (7) Aortic stenosis: moderate aortic stenosis No chest pain and/or palpitation or shortness of breath DVT Prophylaxis: SCDs Full Code d/w pt's son teodoro 12/14 over the phone, he states he is on discussion with CM regarding safe discharge, will make sure his [facility] is safe and phones are working and will try to arrange help for his meds/foods. He states he will let me know if he is able to take him home tomorrow after he has discussion with CM again. Dispo: medically stable, cm assisting w/ safe discharge plan. Awaiting placement-likely transfer on Sunday Discharged to [facility] this morning Total Time Total Time Spent Total Time Spent (In Minutes): 35 minutes Discharge Plan Discharge Items Patient Disposition: [facility] Reason For Visit: HEMATEMESIS Discharge Diagnosis: Vomiting, no more episode and hematemesis ruled out, dementia, aortic stenosis, ambulatory dysfunction, hypertension Condition on Discharge: Good Activity: Resume your previous activity Non-emergency contact: Primary Care Provider Call non-emergency contact if: you have any medication questions and your symptoms worsen Follow-up/Referrals: Julius Werner MD [Primary Care Provider] - (Please make an appointment with your PCP within 7 days) Diet: Regular Addtl Attending Provider Instructions: Please take precautions to avoid falls Continue medications as advised Please give appointment with your healthcare provider Pending Studies at Discharge: No Stand-Alone Forms: My [employer], Smoking Cessation Skilled Items Patient informed of condition?: Yes DNR: No Discharge Level of Care: Other Communicable Disease: No Discharge Prognosis: Stable Lines: None Urinary Catheter: No Medications and DC Order Prescriptions: New famotidine 20 mg Tablet 20 mg PO BID 30 Days Qty: 60 0RF Continued atorvastatin 40 mg tablet 80 mg PO HS Qty: 30 0RF Rx Instructions: Has not been taking aspirin 81 mg Tablet,Delayed Release (Dr/Ec) 81 mg PO QAM Qty: 30 0RF cyanocobalamin (vitamin B-12) 500 mcg Tablet 1,000 mcg PO QAM Qty: 30 0RF Rx Instructions: has not taken losartan 25 mg Tablet 25 mg PO HS Qty: 30 0RF Rx Instructions: Has not taken since filled on 12/08/22. folic acid 1 mg Tablet 1 mg PO QAM Qty: 30 0RF Rx Instructions: HAS NOT BEEN TAKING ergocalciferol (vitamin D2) 1,250 mcg (50,000 unit) Capsule 50,000 unit PO Q7D Qty: 4 0RF bupropion HCl 300 mg Tablet Extended Release 24 Hr 300 mg PO QAM Qty: 30 0RF Rx Instructions: This med was filled 12/08/22. Patient has not taken. Cerovite Senior 0.4 mg-300 mcg- 250 mcg Tablet 1 tab PO QAM Qty: 30 0RF Rx Instructions: Perscribed on 12/08/22, has not taken since discharge. Discharge Orders: Discharge Order (Routine); Ordered 12/26/22 Ordered By: Asia Triplett/Other Patient Handouts: Meds Safe Use Dc, Prediabetes Admission Data Admit Date/Time: 12/12/22 17:32 Attending Provider: Asia Pollock Admit Provider: Marcella Fish Primary Care Provider: Julius Werner Other Providers: Marcella Fish ; [facility] ; [facility] ; Kuldip Lozano Other Interventions: Discharge Summary Assessment (RN) Last Done: 12/26/22 09:29
== END 2022-12-26 10:35 | disposition home or self-care (01) | DRG 378 ==
LOC: ED 12:13 → 3W 12:13 → SUATTDRO 15:14 → 3W 16:39 → SUATTDRO 12-12 17:32